=== PATIENT | male | born 1945 | race Caucasian/White ===

== ENCOUNTER → 2018-09-05 07:27 | Outpatient (CLI) | payer MEDICARE, OTHER, SELFPAY ==
[2018-09-06 09:26] LABS: Absolute Lymphocyte Count 2.36 X10^3/ul (0.83-4.51); Absolute Neutrophil Count 3.7 X10^3/uL (2.0-7.7); Basophil# 0.02 X10^3/uL; Basophil% 0.3 % (0-1); Eosinophil# 0.13 X10^3/uL; Eosinophils% 1.9 % (0-5); Hematocrit 43.3 % (40-54); Hemoglobin 13.7 g/dl (13.0-16.5); Lymphocyte # 2.36 X10^3/ul (4.0); Lymphocyte % 35.3 % (19-41); Mean Corp Hgb Conc 31.6 g/gl (32-36); Mean Corpuscular Hgb 29.7 pg (27.0-32.0); Mean Corpuscular Volume 93.9 fL (80-94); Mean Platelet Vol. 10.7 fl (6.2-12.0); Monocyte# 0.51 X10^3/uL; Monocyte% 7.6 % (0-10); Neutrophil # 3.67 X10^3/uL (2.7-7.7); Neutrophil % 54.9 % (47-70); Platelet Count 211 K/mm3 (150-450); RBC Distribution Width CV 13.8 % (11.6-14.6); RBC Distribution Width SD 46.9 fl (35.1-43.9); Red Blood Count 4.61 M/mm3 (4.6-6.2); White Blood Count 6.7 K/mm3 (4.4-11.0)
[2018-09-06 09:28] LABS: POSITIVE COUNT NO; POSITIVE DIFFERENTIAL NO; POSITIVE MORPHOLOGY NO
[2018-09-06 09:49] LABS: ALB/GLOB Ratio 1.1 RATIO (0.9-2.4); AST(SGOT) 19 U/L (15-37); Alanine Aminotransfer ALT/SGPT 22 U/L (16-61); Albumin, Serum 3.7 g/dL (3.2-5.0); Alkaline Phosphatase 74 U/L (45-117); Anion Gap 8 (5-15); BUN 25 mg/dL (7-18); BUN/Creat Ratio 24.3 RATIO (10-20); Calcium,Total 8.6 mg/dL (8.5-10.1); Chloride 104 mmol/L (98-107); Cholesterol 141 mg/dL (200); Creatinine, Serum 1.03 mg/dL (0.70-1.30); EST Glomerular Filtration Rate 75 mL/min (>60); Est Glom Filt Rate - Afr Amer 91 mL/min (>60); Globulin 3.3 g/dL (2.2-4.2); Glucose 90 mg/dL (74-106); High Density Lipoprotein 55 mg/dL; PSA,Total - Annual Screen 2.79 ng/mL (0.00-4.00); Potassium 4.4 mmol/L (3.5-5.1); Sodium Level 140 mmol/L (136-145); Triglycerides 122 mg/dL; Very Low Density Lipoprotein 24 mg/dL (5-40)
== END ==
PROVIDERS: Family Provider Nurse Practitioner; PCP Nurse Practitioner; Referring Provider Nurse Practitioner; Visit Provider Nurse Practitioner
DX: I42.8 Other cardiomyopathies (principal); I25.10 Atherosclerotic heart disease of native coronary artery without angina pectoris; R35.0 Frequency of micturition; Z12.5 Encounter for screening for malignant neoplasm of prostate
CPT/HCPCS: 80053; 80061; 84153; 85025; G0103

== ENCOUNTER → 2018-10-17 23:10 | Outpatient (CLI) | payer MEDICARE, OTHER, SELFPAY ==
[2018-10-17 17:38] VITALS: BMI 26.6
[2018-10-17 23:21] LABS: Absolute Lymphocyte Count 1.03 X10^3/ul (0.83-4.51); Absolute Neutrophil Count 3.8 X10^3/uL (2.0-7.7); Basophil# 0.02 X10^3/uL; Basophil% 0.3 % (0-1); Eosinophil# 0.21 X10^3/uL; Eosinophils% 3.6 % (0-5); Hemoglobin 12.8 g/dl (13.0-16.5); Lymphocyte # 1.03 X10^3/ul (4.0); Lymphocyte % 17.5 % (19-41); Mean Corpuscular Hgb 30.3 pg (27.0-32.0); Mean Corpuscular Volume 94.8 fL (80-94); Mean Platelet Vol. 10.3 fl (6.2-12.0); Monocyte# 0.77 X10^3/uL; Monocyte% 13.1 % (0-10); Neutrophil # 3.83 X10^3/uL (2.7-7.7); Neutrophil % 65.3 % (47-70); POSITIVE COUNT NO; POSITIVE DIFFERENTIAL NO; POSITIVE MORPHOLOGY NO; Platelet Count 187 K/mm3 (150-450); RBC Distribution Width CV 13.4 % (11.6-14.6); RBC Distribution Width SD 44.8 fl (35.1-43.9); Red Blood Count 4.22 M/mm3 (4.6-6.2); White Blood Count 5.9 K/mm3 (4.4-11.0)
--- OUTSIDE RECORDS SUMMARY | 2019-01-19 10:38 | XMS RPT_ITS ---
:1945 Author Organization OHIP Support Name Relationship Address Phone HUSSEIN RIGO Unavailable [address] + [place] [address] BROWN, KAREN Unavailable [address] + [place] [address] HUSSEIN RIGO Unavailable [address] + [place] [address] BROWN, KAREN Unavailable [address] + [place] [address] HUSSEIN RIGO Unavailable [address] + [place] [address] BROWN, KARNE Unavailable [address] + [place] [address] HUSSEIN RIGO Unavailable [address] + [place] [address] BROWN, KAREN Unavailable [address] + [place] [address] HUSSEIN RIGO Unavailable [address] + [place] [address] BROWN, KAREN Unavailable [address] + [place] [address] HUSSEIN RIGO Unavailable [address] + [place] [address] BROWN, KAREN Unavailable [address] + [place] [address] HUSSEIN RIGO Unavailable [address] + [place] [address] BROWN, KAREN Unavailable [address] + [place] [address] HUSSEIN RIGO Unavailable [address] + [place] [address] KAREN VALENCIA Unavailable [address] [facility] + [place] [address] Care Team Providers Name Role Phone eBverley Beasley RADIO AERIAL INSTALLER-C Attending Unavailable Beasley, Beverley RADIO AERIAL INSTALLER-C Primary Care Unavailable Beasley, Beverley RADIO AERIAL INSTALLER-C Referring Unavailable Lakeisha Ferguson Attending Unavailable Marty, Lakeisha Referring Unavailable Beasley, Beverley RADIO AERIAL INSTALLER-C Primary Care Unavailable Asad Oneill Attending Unavailable Beasley, Beverley RADIO AERIAL INSTALLER-C Referring Unavailable Leola Navarro Attending Unavailable Eliana Bruce Attending Unavailable Asad Oneill H Attending Unavailable Beasley, Beverley RADIO AERIAL INSTALLER-C Referring Unavailable Beasley, Beverley RADIO AERIAL INSTALLER-C Attending Unavailable Beasley, Beverley RADIO AERIAL INSTALLER-C Referring Unavailable Beasley, Beverley RADIO AERIAL INSTALLER-C Primary Care Unavailable Max Jimenez Attending Unavailable Beasley, Beverley RADIO AERIAL INSTALLER-C Referring Unavailable CHARLES CM Attending Unavailable Diego, Jennifer K Attending Unavailable LAKEISHA FERGUSON Referring Unavailable VERDOUW, PILO (OT) Attending Unavailable DIEGO, JENNIFER K Referring Unavailable MARTY, LAKEISHA CARTER Referring Unavailable VERDOUW, PILO (OT) Attending Unavailable DIEGO, JENNIFER K Referring Unavailable MARTY, LAKEISHA CARTER Referring Unavailable VERDOUW, PILO (OT) Attending Unavailable DIEGO, JENNIFER K Referring Unavailable MARTY, LAKEISHA CARTER Referring Unavailable VERDOUW, PILO (OT) Attending Unavailable DIEGO, JENNIFER K Referring Unavailable MARTY, LAKEISHA CARTER Referring Unavailable VERDOUW, PILO (OT) Attending Unavailable DIEGO, JENNIFER K Referring Unavailable MARTY, LAKEISHA CARTER Referring Unavailable VERDOUW, PILO (OT) Attending Unavailable DIEGO, JENNIFER K Referring Unavailable PROBLEMS PROBLEMS DATE TYPE CONDITION / CODE ATTENDING STATUS SOURCE 11/04/2018 Active Other general VERDOUW, Active [facility] symptoms and signs / PILO (OT) Clinic Other R68.89(ICD-10) [place] [facility] 11/04/2018 Active Other specified soft VERDOUW, Active [facility] tissue disorders / [facility] (OT) Clinic Other M79.89(ICD-10) [facility] 11/04/2018 Active Stiffness of left VERDOUW, Active [facility] wrist, not elsewhere [facility] (OT) Clinic Other classified / [place] M25.632(ICD-10) Repository 11/04/2018 Active Stiffness of left VERDOUW, Active [facility] elbow, not elsewhere [facility] (OT) Clinic Other classified / [place] M25.622(ICD-10) Repository 11/04/2018 Active Pain in left elbow / VERDOUW, Active [facility] M25.522(ICD-10) [facility]O (OT) Clinic Other [facility] 11/08/2018 Active Greenstick fracture VERDOUW, Active [facility] of shaft of left PILO (OT) Clinic Other ulna, subsequent [facility] encounter for Repository fracture with routine healing / S52.212D(ICD-10) 11/08/2018 Active Pain in left shoulder NA Active [facility] / M25.512(ICD-10) Clinic Other [facility] 11/08/2018 Active Stiffness of left NA Active [facility] shoulder, not Clinic Other elsewhere classified [facility] / M25.612(ICD-10) Repository 10/18/2018 Unknown D64.9 - Anemia, Beasley, Active [facility] unspecified / Beverley RADIO AERIAL INSTALLER-C Community D64.9(ICD-10) Hospital Repository 10/11/2018 Admitting Unknown / Jennifer Bethea K Active [facility] Medical diagnosis UNK(Unknown) Center [place] Repository 09/16/2018 Active Unknown / NA Active [facility] UNK(Unknown) Clinic Other [facility] Rep[facility] 09/15/2018 Unknown 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[place], 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 / I25.10(ICD-10) 09/15/2018 Unknown I48.0 - Paroxysmal [place], Active [facility] atrial fibrillation / [facility] I48.0(ICD-10) Hospital Repository 09/30/2018 Unknown 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, 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 / Beverley RADIO AERIAL INSTALLER-C Community I42.8(ICD-10) Hospital Repository PROCEDURES PROCEDURES No Procedure Records FoundRESULTS RESULTS PROGRESS Observed: 11/22/2018 Status: COMPLETED Source: [place] 2:05 PM [facility] REPOSITORY HNO ID: [id number] Author: Pilo Anne) HAZEL Brody/Keturah Service: (none) Author Type: Occupational Therapist Type: Progress Notes Filed: 11/22/2018 2:11 PM Note Text: Episode Visit Count: 6 Therapist That Will Oversee The Plan Of Care: Zofia Brody Start of Care Date: 11/04/18 Onset Date: 09/08/18 Patient Identified by Name and Date of : Yes REHABILITATION AND SPORTS THERAPY OCCUPATIONAL THERAPY TREATMENT NOTE ASSESSMENT: Dawood Valencia demonstrated difficulty with end range range of motion in the elbow and wrist, weakness in the left hand secondary to ulnar injury, pain in left arm at wrist, forearm and whoulder. The patient will continue to benefit from continued skilled occupational therapy for strengthening, ROM, and soft tissue mobilization PLAN FOR NEXT VISIT: SUBJECTIVE: OT treatment I need some new velcro on my splint Pain Score: 3/10 (1 elbow) Pain Location: Shoulder - Left (left elbow) Description: Aching Post Treatment Pain Score: 3/10 Pain Location: Shoulder - Left Post Treatment Pain Description: Aching OBJECTIVE MEASURES WITH LEVEL OF FUNCTION: UE AROM L Elbow Extension: -10 L Wrist Extension: 62 Degrees L Wrist Flexion: 60 Degrees Tolerated IASTM well. Demonstrated good understanding of new exercises and the purpose of said exercises. TREATMENT: Therapeutic Exercise: 1: Prolonged stretching for elbow extension 2: Prolonged stretching for wrist extension 3: Prolonged stretching wrist flexion 4:* MP flexion with red tputty x 10 reps 5:* Finger flexion with red tputty x 10 reps 6:* IP fisting red tputty x 10 reps 7:* It Support Engineer strengthening red tputty x 10 reps 8:* Tip pinch red tputty x 10 reps each finger 9:* Lateral pinch red tputty x 10 reps 10:* 3 jaw lei pinch red tputty x 10 reps 11:* Finger and thumb extension red tputty x 10 reps 12:* Finger adduction red tputty between each finger x 10 reps each Skilled Intervention: Patient was educated in proper exercise technique and purpose for exercises. Reviewed and educated patient on additions/changes for home exercise program as above (*) Skilled judgment was provided in selection of appropriate interventions. Provided written instruction for home exercise program to facilitate proper performance and compliance. Manual Therapy: 1: IASTM to left upper arm and forearm 2: IASTM to left forearm with wrist movement Skilled Intervention: Manual skills to improve joint mobility, ROM, and decrease pain. Utilized anatomy knowledge of the therapist, and assessment of patient's response to intervention. Fredrick: Ally: Therapeutic Exercise (21755): 1:1 time: 42 minutes (3 units: 38-52 mins) Manual therapy ([id number]): 1:1 time: 18 minutes (1 unit: 8-22 mins) Total time: 60 minutes Pilo Brody OTR/Keturah PROGRESS Observed: 11/22/2018 Status: COMPLETED Source: [place] 1:05 PM [facility] [place] REPOSITORY HNO ID: [id number] Author: Dewayne Adler PT ASSIST Service: (none) Author Type: Relocation Associate Type: Progress Notes Filed: 11/22/2018 1:08 PM Note Text: Episode Visit Count: 6 Therapist That Will Oversee The Plan Of Care: Skylar Lizama Start of Care Date: 11/04/18 Onset Date: 09/08/18 Patient Identified by Name and Date of : Yes REHABILITATION AND SPORTS THERAPY PHYSICAL THERAPY TREATMENT NOTE ASSESSMENT: Dawood Valencia demonstrated difficulty with increasing ROM left shoulder due to painful end range, and difficulty with functional use of left shoulder from both weakness, and lack of ROM. The patient will continue to benefit from continued skilled physical therapy for scapular mobility, stability left shoulder ROM and ROTATOR CUFF strength as able. PLAN FOR NEXT VISIT: continue to address scapular mobility and stability, left, assess use of pulleys vs wand for ROM and pain strengthen left RTC muscles as tolerated SUBJECTIVE: pt reports 8/10 left sholder pain with moving the wrong qay in bed, last night,without movement left shoulder 2-3/10 pain, with moving 8/10 Pain Score: 2/10 Pain Location: Shoulder - Left (with movement 8/10) Description: Sharp Frequency: Intermittent Post Treatment Pain Score: 2/10 Pain Location: Shoulder - Right Post Treatment Pain Description: Sore OBJECTIVE MEASURES WITH LEVEL OF FUNCTION: UE AROM L Shoulder Flex: 148 Degrees (AAROM supine and seated with table slide) TREATMENT: Therapeutic Exercise: 1: Nu step seat 14 level 6 ue/le 6 min 2: seated table slide flexion left 5 x 2 3: supine AAROM flexion 10 x 5 sec hold 4: *seated yenny AAROM left sholder fllexion 10 x 5 sec, standing left shoulder ER AAROM left shoulder 10 x 5 sec Skilled Intervention: Patient was educated in proper exercise technique and purpose for exercises. Skilled judgment was provided in selection of appropriate interventions. Manual Therapy: 1: pt sidelying right , left scapular mobilty and ut stretches 6 min total 2: pt prone anterior pressure with upward and downward rotation 7 min 3: prone a/p mobs of mid and upper thoracic mobs 4 min Skilled Intervention: Manual skills to improve joint mobility, ROM, and decrease pain. Utilized anatomy knowledge of the therapist, and assessment of patient's response to intervention. Billing: Ally: Therapeutic Exercise ([id number]): 1:1 time: 35 minutes (2 units: 23-37 mins) Manual Therapy (05244): 1:1 time: 17 minutes (1 unit: 8-22 mins) Total time: 52 minutes Dewayne Adler PTA CNTHERAPY Observed: 11/22/2018 Status: COMPLETED Source: [place] 11:15 AM [facility] REPOSITORY OT/PT/Speech Visit (LTOT) DAWOOD VALENCIA ([id number]) 1945 M Date Time Provider Department 11/22/18 11:15 AM PILO BRODY (OT) LTOT Date Time Provider Department Center 11/22/2018 11:15 AM [id number], TIMOTHY *LTOT [facility] [address] Reason for Visit: Occupational Therapy [504] Primary Visit Diagnosis:Decreased range of motion of elbow, left [M25.622] Other Visit Diagnoses:Pain in left elbow [M25.522] Decreased range of motion of left wrist [M25.632] Left arm swelling [M79.89] Decreased activities of daily living (ADL) [R68.89] Allergies As of Date: 11/22/2018 Noted Allergy Reaction Bee Stings [Other] 03/27/2008 7 - Swelling CAPOTEN (CAPTOPRIL) 11/05/2005 3 - Cough Date Reviewed: 04/19/2018 Reviewed by: Laura Starks) HARSHA Marcus - Fully Assessed Prescriptions as of 11/22/2018 Sig: METOCLOPRAMIDE 10 MG TABLET Take 1 tablet by mouth three * * HYDROCHLOROTHIAZIDE 12.5 MG T* Take 12.5 mg by mouth once da* * METOPROLOL TARTRATE 50 MG TAB* Take 50 mg by mouth twice alfonso* * DOXAZOSIN 1 MG TABLET Take 1 mg by mouth daily at b* * EYE HEALTH ORAL Take by mouth. * NEXIUM 40 MG CAPSULE,DELAYED * Take one(1) tablet daily. Progress Notes: Pilo Brody, OTR/L, OTR/L 11/22/2018 2:11 PM Signed Episode Visit Count: 6 Therapist That Will Oversee The Plan Of Care: Zofia Brody Start of Care Date: 11/04/18 Onset Date: 09/08/18 Patient Identified by Name and Date of : Yes REHABILITATION AND SPORTS THERAPY OCCUPATIONAL THERAPY TREATMENT NOTE ASSESSMENT: Dawood Valencia demonstrated difficulty with end range range of motion in the elbow and wrist, weakness in the left hand secondary to ulnar injury, pain in left arm at wrist, forearm and whoulder. The patient will continue to benefit from continued skilled occupational therapy for strengthening, ROM, and soft tissue mobilization PLAN FOR NEXT VISIT: SUBJECTIVE: OT treatment I need some new velcro on my splint Pain Score: 3/10 (110 elbow) Pain Location: Shoulder - Left (left elbow) Description: Aching Post Treatment Pain Score: 3/10 Pain Location: Shoulder - Left Post Treatment Pain Description: Aching OBJECTIVE MEASURES WITH LEVEL OF FUNCTION: UE AROM L Elbow Extension: -10 L Wrist Extension: 62 Degrees L Wrist Flexion: 60 Degrees Tolerated IASTM well. Demonstrated good understanding of new exercises and the purpose of said exercises. TREATMENT: Therapeutic Exercise: 1: Prolonged stretching for elbow extension 2: Prolonged stretching for wrist extension 3: Prolonged stretching wrist flexion 4:* MP flexion with red tputty x 10 reps 5:* Finger flexion with red tputty x 10 reps 6:* IP fisting red tputty x 10 reps 7:* It Support Engineer strengthening red tputty x 10 reps 8:* Tip pinch red tputty x 10 reps each finger 9:* Lateral pinch red tputty x 10 reps 10:* 3 jaw lei pinch red tputty x 10 reps 11:* Finger and thumb extension red tputty x 10 reps 12:* Finger adduction red tputty between each finger x 10 reps each Skilled Intervention: Patient was educated in proper exercise technique and purpose for exercises. Reviewed and educated patient on additions/changes for home exercise program as above (*) Skilled judgment was provided in selection of appropriate interventions. Provided written instruction for home exercise program to facilitate proper performance and compliance. Manual Therapy: 1: IASTM to left upper arm and forearm 2: IASTM to left forearm with wrist movement Skilled Intervention: Manual skills to improve joint mobility, ROM, and decrease pain. Utilized anatomy knowledge of the therapist, and assessment of patient's response to intervention. Billing: Ally: Therapeutic Exercise ([id number]): 1:1 time: 42 minutes (3 units: 38-52 mins) Manual therapy (50001): 1:1 time: 18 minutes (1 unit: 8-22 mins) Total time: 60 minutes Pilo Brody OTR/Keturah CNTHERAPY Observed: 11/22/2018 Status: COMPLETED Source: [place] 10:00 AM [facility] REPOSITORY OT/PT/Speech Visit (LDPT) DAWOOD VALENCIA ([id number]) 1945 M Date Time Provider Department 11/22/18 10:00 AM DEWAYNE ADLER ([facility]) LDPT Date Time Provider Department Center 11/22/2018 10:00 AM [id number], PATRICK *LDPT [facility] [address] Reason for Visit: Physical Therapy [503] Primary Visit Diagnosis:Acute pain of left shoulder [M25.512] Other Visit Diagnosis:Shoulder stiffness, left [M25.612] Allergies As of Date: 11/22/2018 Noted Allergy Reaction Bee Stings [Other] 03/27/2008 7 - Swelling CAPOTEN (CAPTOPRIL) 11/05/2005 3 - Cough Date Reviewed: 04/19/2018 Reviewed by: Laura (Rn) HARSHA Marcus - Fully Assessed Prescriptions as of 11/22/2018 Sig: METOCLOPRAMIDE 10 MG TABLET Take 1 tablet by mouth three * * HYDROCHLOROTHIAZIDE 12.5 MG T* Take 12.5 mg by mouth once da* * METOPROLOL TARTRATE 50 MG TAB* Take 50 mg by mouth twice alfonso* * DOXAZOSIN 1 MG TABLET Take 1 mg by mouth daily at b* * EYE HEALTH ORAL Take by mouth. * NEXIUM 40 MG CAPSULE,DELAYED * Take one(1) tablet daily. Progress Notes: Dewayne Adler PTA, PT ASSIST 11/22/2018 1:08 PM Signed Episode Visit Count: 6 Therapist That Will Oversee The Plan Of Care: Skylar Lizama Start of Care Date: 11/04/18 Onset Date: 09/08/18 Patient Identified by Name and Date of : Yes REHABILITATION AND SPORTS THERAPY PHYSICAL THERAPY TREATMENT NOTE ASSESSMENT: Dawood Valencia demonstrated difficulty with increasing ROM left shoulder due to painful end range, and difficulty with functional use of left shoulder from both weakness, and lack of ROM. The patient will continue to benefit from continued skilled physical therapy for scapular mobility, stability left shoulder ROM and ROTATOR CUFF strength as able. PLAN FOR NEXT VISIT: continue to address scapular mobility and stability, left, assess use of pulleys vs wand for ROM and pain strengthen left RTC muscles as tolerated SUBJECTIVE: pt reports 8/10 left sholder pain with moving the wrong qay in bed, last night,without movement left shoulder 2-3/10 pain, with moving 8/10 Pain Score: 2/10 Pain Location: Shoulder - Left (with movement 8/10) Description: Sharp Frequency: Intermittent Post Treatment Pain Score: 2/10 Pain Location: Shoulder - Right Post Treatment Pain Description: Sore OBJECTIVE MEASURES WITH LEVEL OF FUNCTION: UE AROM L Shoulder Flex: 148 Degrees (AAROM supine and seated with table slide) TREATMENT: Therapeutic Exercise: 1: Nu step seat 14 level 6 ue/le 6 min 2: seated table slide flexion left 5 x 2 3: supine AAROM flexion 10 x 5 sec hold 4: *seated yenny AAROM left sholder fllexion 10 x 5 sec, standing left shoulder ER AAROM left shoulder 10 x 5 sec Skilled Intervention: Patient was educated in proper exercise technique and purpose for exercises. Skilled judgment was provided in selection of appropriate interventions. Manual Therapy: 1: pt sidelying right , left scapular mobilty and ut stretches 6 min total 2: pt prone anterior pressure with upward and downward rotation 7 min 3: prone a/p mobs of mid and upper thoracic mobs 4 min Skilled Intervention: Manual skills to improve joint mobility, ROM, and decrease pain. Utilized anatomy knowledge of the therapist, and assessment of patient's response to intervention. Billing: Ally: Therapeutic Exercise ([id number]): 1:1 time: 35 minutes (2 units: 23-37 mins) Manual Therapy (35609): 1:1 time: 17 minutes (1 unit: 8-22 mins) Total time: 52 minutes Dewayne Adler PTA PROGRESS Observed: 11/18/2018 Status: COMPLETED Source: [place] 4:16 PM [facility] REPOSITORY [facility] ID: [id number] Author: DOMENIC Sanches Ot Service: (none) Author Type: Occupational Therapist Type: Progress Notes Filed: 11/18/2018 4:19 PM Note Text: Episode Visit Count: 5 Therapist That Will Oversee The Plan Of Care: Zofia Brody Start of Care Date: 11/04/18 Onset Date: 09/08/18 Patient Identified by Name and Date of : Yes REHABILITATION AND SPORTS THERAPY OCCUPATIONAL THERAPY TREATMENT NOTE ASSESSMENT: Dawood Valencia demonstrated difficulty with pain in the left arm, limited ROM in the left elbow, wrist and forearm, decreased strength in the left arm. The patient will continue to benefit from continued skilled occupational therapy for stretching, strengthening, pain management, PLAN FOR NEXT VISIT: SUBJECTIVE: OT treatment My arm is slowly feeling better. Pain Score: 3/10 Pain Location: Shoulder - Left Description: Aching OBJECTIVE MEASURES WITH LEVEL OF FUNCTION: Hand Evaluation L Lateral Pinch (lbs): 10 lbs UE AROM L Elbow Extension: -14 (-9 after treatment) L Wrist Extension: 55 Degrees L Wrist Flexion: 50 Degrees UE and Cervical Strength L It Support Engineer (Position 2) (lbs): 45 L Lateral Pinch (lbs): 10 lbs TREATMENT: Therapeutic Exercise: 1: Prolonged stretching for elbow extension 2: Prolonged stretching for wrist extension 3: Prolonged stretching wrist flexion 4: Prolonged stretching in supination and pronation 5: 2# wrist flexion x 10 reps 6: 2# wrist extension x 10 reps 7: 1# pronation/supination x 10 reps Skilled Intervention: Patient was educated in proper exercise technique and purpose for exercises. Skilled judgment was provided in selection of appropriate interventions. Billing: [place]: Therapeutic Exercise ([id number]): 1:1 time: 45 minutes (3 units: 38-52 mins) Total time: 45 minutes HAZEL Sanches/Keturah PROGRESS Observed: 11/18/2018 Status: COMPLETED Source: [place] 12:55 PM [facility] [place] REPOSITORY O ID: [id number] Author: Drew (Pt) NAVEEN Lizama Service: (none) Author Type: Physical Therapist Type: Progress Notes Filed: 11/18/2018 1:03 PM Note Text: Episode Visit Count: 5 Therapist That Will Oversee The Plan Of Care: Skylar Lizama Start of Care Date: 11/04/18 Onset Date: 09/08/18 Patient Identified by Name and Date of : Yes REHABILITATION AND SPORTS THERAPY PHYSICAL THERAPY TREATMENT NOTE ASSESSMENT: Dawood W Erik demonstrated difficulty with continued L shoulder pain AND limited ROM. The patient will continue to benefit from continued skilled physical therapy for improved use of L UE for improved ADLs. PLAN FOR NEXT VISIT: address scap mobility AND shoulder ROM as tolerated. try Nu- step for L knee AND UE ROM SUBJECTIVE: pt c/o L shoulder pain with exercise, activity AND sleeping. denies forearm or wrist pain other than stiffness. pt has still not heard any clarification from 's office re: clarification on shoulder injury. pt says he's having R TKA 12/23/18 PT has made numerous attempts to call 's office to request clarification on shoulder dx/injury AND to request medical records, the office called back today AND said they had faxed info to us (fax number was clarified) which we never received so they said they'd refax it (still have not received 3-4 hours later). Pain Score: 1/10 (6/10 at worst with mvmt AND sleeping) Pain Location: Shoulder - Left Description: Aching;Dull Frequency: Intermittent Post Treatment Pain Score: 4/10 Pain Location: Shoulder - Right Post Treatment Pain Description: Sore OBJECTIVE MEASURES WITH LEVEL OF FUNCTION: Posture / Alignment Posture: (L LE significant genu varus) UE AROM L Shoulder Flex: 140 Degrees (seated - limited by mild/moderate pain) L Shoulder ABduction: 80 Degrees (seated - limited by significant pain) L Shoulder External Rotation: 45 Degrees (supine 90/90. better ROM AND less pain with arm at side) LE AROM R Knee Extension: 0 Degrees R Knee Flexion: 130 Degrees L Knee Extension: -9 Degrees L Knee Flexion: 110 Degrees UE and Cervical Strength L Shoulder Flexion: 4+/5 L Shoulder Abduction (C5): 4/5 (limited by pain) Restricted scapular mobility L UE TREATMENT: Therapeutic Exercise: 1: UBE L2x5' B LEs 2: supine AAROM FE AND ER 3: seated AROM FE, Abd AND ER Skilled Intervention: Patient was educated in proper exercise technique and purpose for exercises. Skilled judgment was provided in selection of appropriate interventions. Correct performance of therapeutic exercises was facilitated with verbal and visual cuing. Patient education as noted. Manual Therapy: 1: L shoulder GH mobilization posterior AND inferior 2: scapular mobilization (IA with hawk associate professor of history tool) 3: UT stretch L Skilled Intervention: Manual skills to improve joint mobility, ROM, and decrease pain. Utilized anatomy knowledge of the therapist, and assessment of patient's response to intervention. Billing: Ally: Therapeutic Exercise (12009): 1:1 time: 15 minutes (1 unit: 8-22 mins) Manual Therapy (10159): 1:1 time: 25 minutes (2 units: 23- 37 mins) Total time: 40 minutes Drew Lizama PT CNTHERAPY Observed: 11/18/2018 Status: COMPLETED Source: [place] 11:00 AM [facility] REPOSITORY OT/PT/Speech Visit (LTOT) DAWOOD VALENCIA ([id number]) 1945 M Date Time Provider Department 11/18/18 11:00 AM PILO BRODY (OT) OT Date Time Provider Department Center 11/18/2018 11:00 AM [id number], TIMOTHY *LTOT [facility] [address] Reason for Visit: Occupational Therapy [504] Primary Visit Diagnosis:Decreased range of motion of elbow, left [M25.622] Other Visit Diagnoses:Pain in left elbow [M25.522] Decreased range of motion of left wrist [M25.632] Left arm swelling [M79.89] Decreased activities of daily living (ADL) [R68.89] Allergies As of Date: 11/18/2018 Noted Allergy Reaction Bee Stings [Other] 03/27/2008 7 - Swelling CAPOTEN (CAPTOPRIL) 11/05/2005 3 - Cough Date Reviewed: 04/19/2018 Reviewed by: Laura (Rn) HARSHA Marcus - Fully Assessed Prescriptions as of 11/18/2018 Sig: METOCLOPRAMIDE 10 MG TABLET Take 1 tablet by mouth three * * HYDROCHLOROTHIAZIDE 12.5 MG T* Take 12.5 mg by mouth once da* * METOPROLOL TARTRATE 50 MG TAB* Take 50 mg by mouth twice alfonso* * DOXAZOSIN 1 MG TABLET Take 1 mg by mouth daily at b* * EYE HEALTH ORAL Take by mouth. * NEXIUM 40 MG CAPSULE,DELAYED * Take one(1) tablet daily. Progress Notes: Pilo Brody OTR/L, OTR/L 11/18/2018 4:19 PM Signed Episode Visit Count: 5 Therapist That Will Oversee The Plan Of Care: Zofia Brody Start of Care Date: 11/04/18 Onset Date: 09/08/18 Patient Identified by Name and Date of : Yes REHABILITATION AND SPORTS THERAPY OCCUPATIONAL THERAPY TREATMENT NOTE ASSESSMENT: Dawood Valencia demonstrated difficulty with pain in the left arm, limited ROM in the left elbow, wrist and forearm, decreased strength in the left arm. The patient will continue to benefit from continued skilled occupational therapy for stretching, strengthening, pain management, PLAN FOR NEXT VISIT: SUBJECTIVE: OT treatment My arm is slowly feeling better. Pain Score: 3/10 Pain Location: Shoulder - Left Description: Aching OBJECTIVE MEASURES WITH LEVEL OF FUNCTION: Hand Evaluation L Lateral Pinch (lbs): 10 lbs UE AROM L Elbow Extension: -14 (-9 after treatment) L Wrist Extension: 55 Degrees L Wrist Flexion: 50 Degrees UE and Cervical Strength L It Support Engineer (Position 2) (lbs): 45 L Lateral Pinch (lbs): 10 lbs TREATMENT: Therapeutic Exercise: 1: Prolonged stretching for elbow extension 2: Prolonged stretching for wrist extension 3: Prolonged stretching wrist flexion 4: Prolonged stretching in supination and pronation 5: 2# wrist flexion x 10 reps 6: 2# wrist extension x 10 reps 7: 1# pronation/supination x 10 reps Skilled Intervention: Patient was educated in proper exercise technique and purpose for exercises. Skilled judgment was provided in selection of appropriate interventions. [place]: Ally: Therapeutic Exercise ([id number]): 1:1 time: 45 minutes (3 units: 38-52 mins) Total time: 45 minutes DOMENIC Sanches CNTHERAPY Observed: 11/18/2018 Status: COMPLETED Source: [place] 10:00 AM [facility] REPOSITORY OT/PT/Speech Visit (LDPT) DAWOOD VALENCIA ([id number]) 1945 M Date Time Provider Department 11/18/18 10:00 AM DREW LIZAMA (PT) LDPT Date Time Provider Department Center 11/18/2018 10:00 AM [id number], DREW (P*LDPT [address] Reason for Visit: Physical Therapy [503] Primary Visit Diagnosis:Acute pain of left shoulder [M25.512] Other Visit Diagnosis:Shoulder stiffness, left [M25.612] Allergies As of Date: 11/18/2018 Noted Allergy Reaction Bee Stings [Other] 03/27/2008 7 - Swelling CAPOTEN (CAPTOPRIL) 11/05/2005 3 - Cough Date Reviewed: 04/19/2018 Reviewed by: Laura (Rn) HARSHA Marcus - Fully Assessed Prescriptions as of 11/18/2018 Sig: METOCLOPRAMIDE 10 MG TABLET Take 1 tablet by mouth three * * HYDROCHLOROTHIAZIDE 12.5 MG T* Take 12.5 mg by mouth once da* * METOPROLOL TARTRATE 50 MG TAB* Take 50 mg by mouth twice alfonso* * DOXAZOSIN 1 MG TABLET Take 1 mg by mouth daily at b* * EYE HEALTH ORAL Take by mouth. * NEXIUM 40 MG CAPSULE,DELAYED * Take one(1) tablet daily. Progress Notes: Drew Lizama, PT, PT 11/18/2018 1:03 PM Signed Episode Visit Count: 5 Therapist That Will Oversee The Plan Of Care: Skylar Lizama Start of Care Date: 11/04/18 Onset Date: 09/08/18 Patient Identified by Name and Date of : Yes REHABILITATION AND SPORTS THERAPY PHYSICAL THERAPY TREATMENT NOTE ASSESSMENT: Dawood Valencia demonstrated difficulty with continued L shoulder pain AND limited ROM. The patient will continue to benefit from continued skilled physical therapy for improved use of L UE for improved ADLs. PLAN FOR NEXT VISIT: address scap mobility AND shoulder ROM as tolerated. try Nu- step for L knee AND UE ROM SUBJECTIVE: pt c/o L shoulder pain with exercise, activity AND sleeping. denies forearm or wrist pain other than stiffness. pt has still not heard any clarification from 's office re: clarification on shoulder injury. pt says he's having R TKA 12/23/18 PT has made numerous attempts to call 's office to request clarification on shoulder dx/injury AND to request medical records, the office called back today AND said they had faxed info to us (fax number was clarified) which we never received so they said they'd refax it (still have not received 3-4 hours later). Pain Score: 1/10 (6/10 at worst with mvmt AND sleeping) Pain Location: Shoulder - Left Description: Aching;Dull Frequency: Intermittent Post Treatment Pain Score: 4/10 Pain Location: Shoulder - Right Post Treatment Pain Description: Sore OBJECTIVE MEASURES WITH LEVEL OF FUNCTION: Posture / Alignment Posture: (L LE significant genu varus) UE AROM L Shoulder Flex: 140 Degrees (seated - limited by mild/moderate pain) L Shoulder ABduction: 80 Degrees (seated - limited by significant pain) L Shoulder External Rotation: 45 Degrees (supine 90/90. better ROM AND less pain with arm at side) LE AROM R Knee Extension: 0 Degrees R Knee Flexion: 130 Degrees L Knee Extension: -9 Degrees L Knee Flexion: 110 Degrees UE and Cervical Strength L Shoulder Flexion: 4+/5 L Shoulder Abduction (C5): 4/5 (limited by pain) Restricted scapular mobility L UE TREATMENT: Therapeutic Exercise: 1: UBE L2x5' B LEs 2: supine AAROM FE AND ER 3: seated AROM FE, Abd AND ER Skilled Intervention: Patient was educated in proper exercise technique and purpose for exercises. Skilled judgment was provided in selection of appropriate interventions. Correct performance of therapeutic exercises was facilitated with verbal and visual cuing. Patient education as noted. Manual Therapy: 1: L shoulder GH mobilization posterior AND inferior 2: scapular mobilization (IA with hawk associate professor of history tool) 3: UT stretch L Skilled Intervention: Manual skills to improve joint mobility, ROM, and decrease pain. Utilized anatomy knowledge of the therapist, and assessment of patient's response to intervention. Billing: Ally: Therapeutic Exercise ([id number]): 1:1 time: 15 minutes (1 unit: 8-22 mins) Manual Therapy ([id number]): 1:1 time: 25 minutes (2 units: 23- 37 mins) Total time: 40 minutes Drew Lizama PT PROGRESS Observed: 11/15/2018 Status: COMPLETED Source: [place] 3:29 PM [facility] REPOSITORY O ID: [id number] Author: Pilo Brody OTR/[place] Service: (none) Author Type: Occupational Therapist Type: Progress Notes Filed: 11/15/2018 3:39 PM Note Text: Episode Visit Count: 4 Therapist That Will Oversee The Plan Of Care: Zofia Brody Start of Care Date: 11/04/18 Onset Date: 09/08/18 Patient Identified by Name and Date of : Yes REHABILITATION AND SPORTS THERAPY OCCUPATIONAL THERAPY TREATMENT NOTE ASSESSMENT: Dawood Valencia demonstrated difficulty with elbow range of motion, edema and end range motion of the wrist and improvements in overall wrist range of motion. The patient will continue to benefit from continued skilled occupational therapy for stretching, edema management and strengthening. PLAN FOR NEXT VISIT: progress stretching edema management SUBJECTIVE: OT treatment I hate that splint. If I could get out of the splint I think I would have better range of motion. Pain Score: 3/10 Pain Location: Shoulder - Left;Upper Arm - Left;Elbow - Left;Forearm - Left;Wrist - Left Description: Aching (especially at end range) Frequency: Intermittent Post Treatment Pain Score: 0/10 OBJECTIVE MEASURES WITH LEVEL OF FUNCTION: UE AROM L Elbow Extension: -18 (-12 after treatment) L Wrist Extension: 53 Degrees L Wrist Flexion: 55 Degrees Tolerated manual therapy well with an increase in elbow ROM after treatment. Wrist motion remained the same but there was a slight reduction in visible edema in the forearm and wrist after treatment. TREATMENT: Therapeutic Exercise: 1: Prolonged stretching for elbow extension 2: Prolonged stretching for wrist extension 3: Prolonged stretching wrist flexion Skilled Intervention: Patient was educated in proper exercise technique and purpose for exercises. Skilled judgment was provided in selection of appropriate interventions. Manual Therapy: 1: IASTM to left upper arm and forearm 2: IDN to musculature in the upper arm/above the elbow 3: IDN to musculature in forearm and wrist for muscle lengthening Skilled Intervention: Manual skills to improve joint mobility, ROM, and decrease pain. Utilized anatomy knowledge of the therapist, and assessment of patient's response to intervention. Integrative dry needling to left above elbow and below the elbow to address muscle pain and muscle lengthening. Needle size: 30 gauge x 1 and 30 gauge x 1/2. Pistoning used to address soft tissue restriction. Patient education on precautions, safety, risks, and other treatment options regarding dry needling. Verbal consent received. Billing: Ally: Therapeutic Exercise ([id number]): 1:1 time: 30 minutes (2 units: 23-37 mins) Manual therapy ([id number]): 1:1 time: 45 minutes (3 units: 38- 52 mins) Total time: 75 minutes HAZEL Sanches/Keturah PROGRESS Observed: 11/15/2018 Status: COMPLETED Source: [place] 2:01 PM [facility] RE[facility] HNO ID: [id number] Author: Dewayne (Raina) NAVEEN Adler ASSIST Service: (none) Author Type: Relocation Associate Type: Progress Notes Filed: 11/15/2018 2:06 PM Note Text: Episode Visit Count: 4 Therapist That Will Oversee The Plan Of Care: Skylar Lizama Start of Care Date: 11/04/18 Onset Date: 09/08/18 Patient Identified by Name and Date of : Yes REHABILITATION AND SPORTS THERAPY PHYSICAL THERAPY TREATMENT NOTE ASSESSMENT: Dawood Valencia demonstrated difficulty with scapula - humeral rhythm with protracted scapula due to overuse of left lat. and improvements in thoracic and cervical posture. The patient will continue to benefit from continued skilled physical therapy for increased strength of scapular retractors and decreased use of left lat with left shoulder flexion and strengthening of left shoulder complex PLAN FOR NEXT VISIT: progress increased use of scapular retractors vs latisimus dorsi, with left shouldr flexion, progress strength and ROM left shoulder complex as tolerated SUBJECTIVE: pt reports left shoulder wakes him up at night at least twice a night Pain Score: 2/10 Pain Location: Shoulder - Left (left elbow no pain) Description: Aching Frequency: Intermittent Post Treatment Pain Score: 3/10 Pain Location: Shoulder - Left (lateral and posterior) Post Treatment Pain Description: Sore OBJECTIVE MEASURES WITH LEVEL OF FUNCTION: UE AROM L Shoulder Flex: 149 Degrees (supine AAROM) L Shoulder External Rotation: 48 Degrees (supine AAROM) TREATMENT: Therapeutic Exercise: 1: ube level 2 3 min forward/3 in retro 2: supine AAROM left shoulder flexion 10 x 5 sec hold, followed by AAROM left shoulder ER 5 sec x 10 3: supine left lat stretch wit AAROM left shoulder flexion, 20 sec x 3 4: standing left shoulder extension with scapular depression green tb 10 x, orange tb 10 x* HEP with orange tb 5: standing bilateral mid trap rows green tb 10 x, orange tb 10 x* Skilled Intervention: Patient was educated in proper exercise technique and purpose for exercises. Reviewed and educated patient on additions/changes for home exercise program as above (*) Reviewed and educated patient on additions/changes for home exercise program Provided written instruction for home exercise program to facilitate proper performance and compliance. Manual Therapy: 1: L shoulder GH mobilization posterior lateral Skilled Intervention: Manual skills to improve joint mobility, ROM, and decrease pain. Utilized anatomy knowledge of the therapist, and assessment of patient's response to intervention. Billing: Ally: Therapeutic Exercise ([id number]): 1:1 time: 40 minutes (3 units: 38-52 mins) Manual Therapy ([id number]): 1:1 time: 5 minutes (no charge) Total time: 45 minutes Dewayne Adler PTA CNTHERAPY Observed: 11/15/2018 Status: COMPLETED Source: [place] 1:45 PM [facility] REPOSITORY OT/PT/Speech Visit (LTOT) DAWOOD VALENCIA ([id number]) 1945 M Date Time Provider Department 11/15/18 1:45 PM PILO BRODY (OT) LTOT Date Time Provider Department [place] 11/15/2018 1:45 PM [id number], TIMOTHY *LTOT [facility] [address] Reason for Visit: Occupational Therapy [504] Primary Visit Diagnosis:Decreased range of motion of elbow, left [M25.622] Other Visit Diagnoses:Pain in left elbow [M25.522] Decreased range of motion of left wrist [M25.632] Left arm swelling [M79.89] Decreased activities of daily living (ADL) [R68.89] Allergies As of Date: 11/15/2018 Noted Allergy Reaction Bee Stings [Other] 03/27/2008 7 - Swelling CAPOTEN (CAPTOPRIL) 11/05/2005 3 - Cough Date Reviewed: 04/19/2018 Reviewed by: Laura Starks) HARSHA Marcus - Fully Assessed Prescriptions as of 11/15/2018 Sig: METOCLOPRAMIDE 10 MG TABLET Take 1 tablet by mouth three * * HYDROCHLOROTHIAZIDE 12.5 MG T* Take 12.5 mg by mouth once da* * METOPROLOL TARTRATE 50 MG TAB* Take 50 mg by mouth twice alfonso* * DOXAZOSIN 1 MG TABLET Take 1 mg by mouth daily at b* * EYE HEALTH ORAL Take by mouth. * NEXIUM 40 MG CAPSULE,DELAYED * Take one(1) tablet daily. Progress Notes: Pilo Brody, OTR/L, OTR/L 11/15/2018 3:39 PM Signed Episode Visit Count: 4 Therapist That Will Oversee The Plan Of Care: Zofia Brody Start of Care Date: 11/04/18 Onset Date: 09/08/18 Patient Identified by Name and Date of : Yes REHABILITATION AND SPORTS THERAPY OCCUPATIONAL THERAPY TREATMENT NOTE ASSESSMENT: Dawood Valencia demonstrated difficulty with elbow range of motion, edema and end range motion of the wrist and improvements in overall wrist range of motion. The patient will continue to benefit from continued skilled occupational therapy for stretching, edema management and strengthening. PLAN FOR NEXT VISIT: progress stretching edema management SUBJECTIVE: OT treatment I hate that splint. If I could get out of the splint I think I would have better range of motion. Pain Score: 3/10 Pain Location: Shoulder - Left;Upper Arm - Left;Elbow - Left;Forearm - Left;Wrist - Left Description: Aching (especially at end range) Frequency: Intermittent Post Treatment Pain Score: 0/10 OBJECTIVE MEASURES WITH LEVEL OF FUNCTION: UE AROM L Elbow Extension: -18 (-12 after treatment) L Wrist Extension: 53 Degrees L Wrist Flexion: 55 Degrees Tolerated manual therapy well with an increase in elbow ROM after treatment. Wrist motion remained the same but there was a slight reduction in visible edema in the forearm and wrist after treatment. TREATMENT: Therapeutic Exercise: 1: Prolonged stretching for elbow extension 2: Prolonged stretching for wrist extension 3: Prolonged stretching wrist flexion Skilled Intervention: Patient was educated in proper exercise technique and purpose for exercises. Skilled judgment was provided in selection of appropriate interventions. Manual Therapy: 1: IASTM to left upper arm and forearm 2: IDN to musculature in the upper arm/above the elbow 3: IDN to musculature in forearm and wrist for muscle lengthening Skilled Intervention: Manual skills to improve joint mobility, ROM, and decrease pain. Utilized anatomy knowledge of the therapist, and assessment of patient's response to intervention. Integrative dry needling to left above elbow and below the elbow to address muscle pain and muscle lengthening. Needle size: 30 gauge x 1 and 30 gauge x 1/2. Pistoning used to address soft tissue restriction. Patient education on precautions, safety, risks, and other treatment options regarding dry needling. Verbal consent received. Billing: Ally: Therapeutic Exercise ([id number]): 1:1 time: 30 minutes (2 units: 23-37 mins) Manual therapy ([id number]): 1:1 time: 45 minutes (3 units: 38- 52 mins) Total time: 75 minutes Pilo Brody OTR/L CNTHERAPY Observed: 11/15/2018 Status: COMPLETED Source: [place] 12:45 PM [facility] REPOSITORY OT/PT/Speech Visit (LDPT) DAWOOD VALENCIA ([id number]) 1945 M Date Time Provider Department 11/15/18 12:45 PM DEWAYNE ADLER ([facility]) LDPT Date Time Provider Department Center 11/15/2018 12:45 PM [id number], PATRICK *LDPT [address] Reason for Visit: Physical Therapy [503] Primary Visit Diagnosis:Acute pain of left shoulder [M25.512] Other Visit Diagnosis:Shoulder stiffness, left [M25.612] Allergies As of Date: 11/15/2018 Noted Allergy Reaction Bee Stings [Other] 03/27/2008 7 - Swelling CAPOTEN (CAPTOPRIL) 11/05/2005 3 - Cough Date Reviewed: 04/19/2018 Reviewed by: Laura (Rn) HARSHA Marcus - Fully Assessed Prescriptions as of 11/15/2018 Sig: METOCLOPRAMIDE 10 MG TABLET Take 1 tablet by mouth three * * HYDROCHLOROTHIAZIDE 12.5 MG T* Take 12.5 mg by mouth once da* * METOPROLOL TARTRATE 50 MG TAB* Take 50 mg by mouth twice alfonso* * DOXAZOSIN 1 MG TABLET Take 1 mg by mouth daily at b* * EYE HEALTH ORAL Take by mouth. * NEXIUM 40 MG CAPSULE,DELAYED * Take one(1) tablet daily. Progress Notes: Dewayne Adler PTA, PT ASSIST 11/15/2018 2:06 PM Signed Episode Visit Count: 4 Therapist That Will Oversee The Plan Of Care: Skylar Lizama Start of Care Date: 11/04/18 Onset Date: 09/08/18 Patient Identified by Name and Date of : Yes REHABILITATION AND SPORTS THERAPY PHYSICAL THERAPY TREATMENT NOTE ASSESSMENT: Dawood Valencia demonstrated difficulty with scapula - humeral rhythm with protracted scapula due to overuse of left lat. and improvements in thoracic and cervical posture. The patient will continue to benefit from continued skilled physical therapy for increased strength of scapular retractors and decreased use of left lat with left shoulder flexion and strengthening of left shoulder complex PLAN FOR NEXT VISIT: progress increased use of scapular retractors vs latisimus dorsi, with left shouldr flexion, progress strength and ROM left shoulder complex as tolerated SUBJECTIVE: pt reports left shoulder wakes him up at night at least twice a night Pain Score: 2/10 Pain Location: Shoulder - Left (left elbow no pain) Description: Aching Frequency: Intermittent Post Treatment Pain Score: 3/10 Pain Location: Shoulder - Left (lateral and posterior) Post Treatment Pain Description: Sore OBJECTIVE MEASURES WITH LEVEL OF FUNCTION: UE AROM L Shoulder Flex: 149 Degrees (supine AAROM) L Shoulder External Rotation: 48 Degrees (supine AAROM) TREATMENT: Therapeutic Exercise: 1: ube level 2 3 min forward/3 in retro 2: supine AAROM left shoulder flexion 10 x 5 sec hold, followed by AAROM left shoulder ER 5 sec x 10 3: supine left lat stretch wit AAROM left shoulder flexion, 20 sec x 3 4: standing left shoulder extension with scapular depression green tb 10 x, orange tb 10 x* HEP with orange tb 5: standing bilateral mid trap rows green tb 10 x, orange tb 10 x* Skilled Intervention: Patient was educated in proper exercise technique and purpose for exercises. Reviewed and educated patient on additions/changes for home exercise program as above (*) Reviewed and educated patient on additions/changes for home exercise program Provided written instruction for home exercise program to facilitate proper performance and compliance. Manual Therapy: 1: L shoulder GH mobilization posterior lateral Skilled Intervention: Manual skills to improve joint mobility, ROM, and decrease pain. Utilized anatomy knowledge of the therapist, and assessment of patient's response to intervention. Billing: Ally: Therapeutic Exercise ([id number]): 1:1 time: 40 minutes (3 units: 38-52 mins) Manual Therapy ([id number]): 1:1 time: 5 minutes (no charge) Total time: 45 minutes Dewayne Adler PTA PROGRESS Observed: 11/11/2018 Status: COMPLETED Source: [place] 1:26 PM [facility] REPOSITORY O ID: [id number] Author: Drew (Pt) NAVEEN Lizama Service: (none) Author Type: Physical Therapist Type: Progress Notes Filed: 11/11/2018 1:35 PM Note Text: Episode Visit Count: 3 Therapist That Will Oversee The Plan Of Care: Skylar Lizama Start of Care Date: 11/04/18 Onset Date: 09/08/18 Patient Identified by Name and Date of : Yes REHABILITATION AND SPORTS THERAPY PHYSICAL THERAPY TREATMENT NOTE ASSESSMENT: Dawood Valencia demonstrated improvements in L elbow ROM but difficulty with L shoulder ROM due to pain especially with IR AND ER. The patient will continue to benefit from continued skilled physical therapy for ROM AND strengthening and improved functional use of L UE. PLAN FOR NEXT VISIT: progress L shoulder ROM AND strength as tolerated SUBJECTIVE: pt reports L shoulder with increased pain AND soreness after PT otherwise with minimal pain, says the shoulder is only thing that hurts him - wrist AND forearm is stiff (especially from wearing splint) but not painful. pt says he hasn't heard from either Dr regarding clarification of shoulder. has f/u with Dr Ferguson 11/[address] Bethea 12/01. Pt says he'd like to get all his care transferred to Dr Bethea, also reports that he will go to Dr Bethea for TKA if AND when he has that done. Discussed C9 issues AND clarification on shoulder injury. PT called [facility] (Dr Bethea's office) to request records AND clarification. 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) UE AROM L Shoulder Internal Rotation (Functional): L5 (with increased shoulder pain) UE and Cervical Strength L Shoulder Flexion: 4+/5 L Shoulder Abduction (C5): 4/5 L knee genu varus deformity TREATMENT: Therapeutic Exercise: 1: UBE L2x10' B UEs standing 2: wall wash FE 10x 3: wall push-ups 10xB 4: standing IR/ER orange TB 15-20xea 5: standing shoulder flexion AND Abd 2#B 10xea 6: standing bicep curls 2#B 10x 7: standing forearm supination AND pronation 2#B 10x 8: IR towel stretch behind the back Skilled Intervention: Patient was educated in proper exercise technique and purpose for exercises. Skilled judgment was provided in selection of appropriate interventions. Correct performance of therapeutic exercises was facilitated with verbal and visual cuing. Educated patient on rationale for performing exercises in regards to increase ease of ADL and ROM and function Patient education as noted. Billing: Ally: Therapeutic Exercise ([id number]): 1:1 time: 40 minutes (3 units: 38-52 mins) Total time: 40 minutes Drew Lizama PT PROGRESS Observed: 11/11/2018 Status: COMPLETED Source: [place] 1:22 PM [facility] REPOSITORY HNO ID: [id number] Author: HAZEL Sanches Ot/Keturah Service: (none) Author Type: Occupational Therapist Type: Progress Notes Filed: 11/11/2018 1:32 PM Note Text: Episode Visit Count: 3 Therapist That Will Oversee The Plan Of Care: Zofia Brody Start of Care Date: 11/04/18 Onset Date: 09/08/18 Patient Identified by Name and Date of : Yes REHABILITATION AND SPORTS THERAPY OCCUPATIONAL THERAPY TREATMENT NOTE ASSESSMENT: Dawood Valencia demonstrated difficulty with end range range of motion in the left elbow, forearm and wrist and improvements in overall ROM, enterprise mobility architect and pinch. The patient will continue to benefit from continued skilled occupational therapy for stretching, pain management, and strengthening as able. PLAN FOR NEXT VISIT: SUBJECTIVE: OT treatment I hate this splint. Pain Score: 3/10 Pain Location: Shoulder - Left Description: Aching Frequency: Continuous Post Treatment Pain Score: 2/10 Pain Location: Forearm - Left OBJECTIVE MEASURES WITH LEVEL OF FUNCTION: Hand Evaluation L Lateral Pinch (lbs): 9 lbs UE AROM L Elbow Extension: -15 L Elbow Flexion: 144 Degrees L Forearm Supination: 73 Degrees L Wrist Extension: 50 Degrees L Wrist Flexion: 50 Degrees UE and Cervical Strength L It Support Engineer (Position 2) (lbs): 40 L Lateral Pinch (lbs): 9 lbs Tolerated stretching well. Manual therapy technique improved quality of muscle. After treatment session, muscle with less tension as evidenced by less crepitus with IASTM. TREATMENT: Therapeutic Exercise: 1: Prolonged stretching for elbow extension 2: Prolonged stretching for supination 3: Prolonged stretching pronation 4: Prolonged stretch wrist extension 5: Prolonged stretch with wrist flexion 6: Pronation/supination 10 reps with 1/2 # hammer 7: 10# hand physical therapist technician x 30 reps Skilled Intervention: Patient was educated in proper exercise technique and purpose for exercises. Skilled judgment was provided in selection of appropriate interventions. Manual Therapy: 1: IASTM to left upper arm and forearm Skilled Intervention: Manual skills to improve joint mobility, ROM, and decrease pain. Utilized anatomy knowledge of the therapist, and assessment of patient's response to intervention. Billing: Ally: Therapeutic Exercise ([id number]): 1:1 time: 30 minutes (2 units: 23-37 mins) Manual therapy ([id number]): 1:1 time: 15 minutes (1 unit: 8-22 mins) Total time: 45 minutes DOMENIC Sanches CNTHERAPY Observed: 11/11/2018 Status: COMPLETED Source: [place] 11:00 AM [facility] REPOSITORY OT/PT/Speech Visit (LTOT) DAWOOD VALENCIA ([id number]) 1945 M Date Time Provider Department 11/11/18 11:00 AM PILO BRODY (OT) DERREK Date Time Provider Department Center 11/11/2018 11:00 AM [id number], TIMOTHY *LTOT [facility] [address] Reason for Visit: Occupational Therapy [504] Primary Visit Diagnosis:Pain in left elbow [M25.522] Other Visit Diagnoses:Decreased range of motion of elbow, left [M25.622] Decreased range of motion of left wrist [M25.632] Left arm swelling [M79.89] Decreased activities of daily living (ADL) [R68.89] Allergies As of Date: 11/11/2018 Noted Allergy Reaction Bee Stings [Other] 03/27/2008 7 - Swelling CAPOTEN (CAPTOPRIL) 11/05/2005 3 - Cough Date Reviewed: 04/19/2018 Reviewed by: Laura LopezRn) HARSHA Marcus - Fully Assessed Prescriptions as of 11/11/2018 Sig: METOCLOPRAMIDE 10 MG TABLET Take 1 tablet by mouth three * * HYDROCHLOROTHIAZIDE 12.5 MG T* Take 12.5 mg by mouth once da* * METOPROLOL TARTRATE 50 MG TAB* Take 50 mg by mouth twice alfonso* * DOXAZOSIN 1 MG TABLET Take 1 mg by mouth daily at b* * EYE HEALTH ORAL Take by mouth. * NEXIUM 40 MG CAPSULE,DELAYED * Take one(1) tablet daily. Progress Notes: Pilo Brody OTR/L, OTR/L 11/11/2018 1:32 PM Signed Episode Visit Count: 3 Therapist That Will Oversee The Plan Of Care: Zofia Brody Start of Care Date: 11/04/18 Onset Date: 09/08/18 Patient Identified by Name and Date of : Yes REHABILITATION AND SPORTS THERAPY OCCUPATIONAL THERAPY TREATMENT NOTE ASSESSMENT: Dawood Valencia demonstrated difficulty with end range range of motion in the left elbow, forearm and wrist and improvements in overall ROM, enterprise mobility architect and pinch. The patient will continue to benefit from continued skilled occupational therapy for stretching, pain management, and strengthening as able. PLAN FOR NEXT VISIT: SUBJECTIVE: OT treatment I hate this splint. Pain Score: 3/10 Pain Location: Shoulder - Left Description: Aching Frequency: Continuous Post Treatment Pain Score: 2/10 Pain Location: Forearm - Left OBJECTIVE MEASURES WITH LEVEL OF FUNCTION: Hand Evaluation L Lateral Pinch (lbs): 9 lbs UE AROM L Elbow Extension: -15 L Elbow Flexion: 144 Degrees L Forearm Supination: 73 Degrees L Wrist Extension: 50 Degrees L Wrist Flexion: 50 Degrees UE and Cervical Strength L It Support Engineer (Position 2) (lbs): 40 L Lateral Pinch (lbs): 9 lbs Tolerated stretching well. Manual therapy technique improved quality of muscle. After treatment session, muscle with less tension as evidenced by less crepitus with IASTM. TREATMENT: Therapeutic Exercise: 1: Prolonged stretching for elbow extension 2: Prolonged stretching for supination 3: Prolonged stretching pronation 4: Prolonged stretch wrist extension 5: Prolonged stretch with wrist flexion 6: Pronation/supination 10 reps with 1/2 # hammer 7: 10# hand physical therapist technician x 30 reps Skilled Intervention: Patient was educated in proper exercise technique and purpose for exercises. Skilled judgment was provided in selection of appropriate interventions. Manual Therapy: 1: IASTM to left upper arm and forearm Skilled Intervention: Manual skills to improve joint mobility, ROM, and decrease pain. Utilized anatomy knowledge of the therapist, and assessment of patient's response to intervention. Fredrick: Ally: Therapeutic Exercise ([id number]): 1:1 time: 30 minutes (2 units: 23-37 mins) Manual therapy (38959): 1:1 time: 15 minutes (1 unit: 8-22 mins) Total time: 45 minutes HAZEL Sanches/Keturah CNTHERAPY Observed: 11/11/2018 Status: COMPLETED Source: [place] 10:00 AM [facility] REPOSITORY OT/PT/Speech Visit (LDPT) DAWOOD VALENCIA ([id number]) 1945 M Date Time Provider Department 11/11/18 10:00 AM DREW LIZAMA (PT) LDPT Date Time Provider Department Center 11/11/2018 10:00 AM [id number], CARLA (P*LDPT [facility] [address] Reason for Visit: Physical Therapy [503] Primary Visit Diagnosis:Acute pain of left shoulder [M25.512] Other Visit Diagnosis:Shoulder stiffness, left [M25.612] Allergies As of Date: 11/11/2018 Noted Allergy Reaction Bee Stings [Other] 03/27/2008 7 - Swelling CAPOTEN (CAPTOPRIL) 11/05/2005 3 - Cough Date Reviewed: 04/19/2018 Reviewed by: Laura (Rn) HARSHA Marcus - Fully Assessed Prescriptions as of 11/11/2018 Sig: METOCLOPRAMIDE 10 MG TABLET Take 1 tablet by mouth three * * HYDROCHLOROTHIAZIDE 12.5 MG T* Take 12.5 mg by mouth once da* * METOPROLOL TARTRATE 50 MG TAB* Take 50 mg by mouth twice alfonso* * DOXAZOSIN 1 MG TABLET Take 1 mg by mouth daily at b* * EYE HEALTH ORAL Take by mouth. * NEXIUM 40 MG CAPSULE,DELAYED * Take one(1) tablet daily. Progress Notes: Drew Lizama, PT, PT 11/11/2018 1:35 PM Signed Episode Visit Count: 3 Therapist That Will Oversee The Plan Of Care: Skylar Lizama Start of Care Date: 11/04/18 Onset Date: 09/08/18 Patient Identified by Name and Date of : Yes REHABILITATION AND SPORTS THERAPY PHYSICAL THERAPY TREATMENT NOTE ASSESSMENT: Dawood Valencia demonstrated improvements in L elbow ROM but difficulty with L shoulder ROM due to pain especially with IR AND ER. The patient will continue to benefit from continued skilled physical therapy for ROM AND strengthening and improved functional use of L UE. PLAN FOR NEXT VISIT: progress L shoulder ROM AND strength as tolerated SUBJECTIVE: pt reports L shoulder with increased pain AND soreness after PT otherwise with minimal pain, says the shoulder is only thing that hurts him - wrist AND forearm is stiff (especially from wearing splint) but not painful. pt says he hasn't heard from either Dr regarding clarification of shoulder. has f/u with Dr Ferguson 11/[address] Bethea 12/01. Pt says he'd like to get all his care transferred to Dr Bethea, also reports that he will go to Dr Bethea for TKA if AND when he has that done. Discussed C9 issues AND clarification on shoulder injury. PT called [facility] (Dr Bethea's office) to request records AND clarification. 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) UE AROM L Shoulder Internal Rotation (Functional): L5 (with increased shoulder pain) UE and Cervical Strength L Shoulder Flexion: 4+/5 L Shoulder Abduction (C5): 4/5 L knee genu varus deformity TREATMENT: Therapeutic Exercise: 1: UBE L2x10' B UEs standing 2: wall wash FE 10x 3: wall push-ups 10xB 4: standing IR/ER orange TB 15-20xea 5: standing shoulder flexion AND Abd 2#B 10xea 6: standing bicep curls 2#B 10x 7: standing forearm supination AND pronation 2#B 10x 8: IR towel stretch behind the back Skilled Intervention: Patient was educated in proper exercise technique and purpose for exercises. Skilled judgment was provided in selection of appropriate interventions. Correct performance of therapeutic exercises was facilitated with verbal and visual cuing. Educated patient on rationale for performing exercises in regards to increase ease of ADL and ROM and function Patient education as noted. Bartoloing: Ally: Therapeutic Exercise ([id number]): 1:1 time: 40 minutes (3 units: 38-52 mins) Total time: 40 minutes Drew Lizama PT PROGRESS Observed: 11/08/2018 Status: COMPLETED Source: [place] 3:39 PM [facility] [place] REPOSITORY HNO ID: [id number] Author: Dewayne (Raina) NAVEEN Adler ASSIST Service: (none) Author Type: Relocation Associate Type: Progress Notes Filed: 11/08/2018 3:47 PM Note Text: Episode Visit Count: 2 Therapist That Will Oversee The Plan Of Care: Skylar Lizama Start of Care Date: 11/04/18 Onset Date: 09/08/18 Patient Identified by Name and Date of : Yes REHABILITATION AND SPORTS THERAPY PHYSICAL THERAPY TREATMENT NOTE ASSESSMENT: Dawood Valencia demonstrated difficulty with pain at end range with ER left shoulder and improvements in use of scapular stabilizers The patient will continue to benefit from continued skilled physical therapy for progression of strength and stability of scapula and rotator cuff muscles as well as ROM left shoulder PLAN FOR NEXT VISIT: progress scapular stability, RTC strengthening, and assess HEP SUBJECTIVE: Pt reports difficulty reaching left rear pocket on pants with left hand and grooming hair. Pain Score: 2/10 (8-9/10 left shoulder with end range motion) Pain Location: Shoulder - Left Description: Aching Frequency: Intermittent Post Treatment Pain Score: 3/10 Pain Location: Shoulder - Left Post Treatment Pain Description: Aching OBJECTIVE MEASURES WITH LEVEL OF FUNCTION: UE AROM L Shoulder Flex: 156 Degrees TREATMENT: Therapeutic Exercise: 1: seated gear shifting 2 min 2: *supine AAROM wand flexion left shoulder 5 sec 5 x 2, ER 5sec 5 x 2, at 90 degrees flexion cross body adduction for posterior capsule stretch 20 sec x 3 3: seated and standing scapular retracton followed by *mid trap and low trap rows standing green tb 4: standing isometric abduction, ER flexion, extension, 5 sec 5x 2, ER and abduction given for HEP Skilled Intervention: Patient was educated in proper exercise technique and purpose for exercises. Reviewed and educated patient on additions/changes for home exercise program as above (*) Reviewed and educated patient on additions/changes for home exercise program reviewed AAROM ER Provided written instruction for home exercise program to facilitate proper performance and compliance. Billing: Ally: Therapeutic Exercise ([id number]): 1:1 time: 45 minutes (3 units: 38-52 mins) Total time: 45 minutes Dewayne Adler PTA PROGRESS Observed: 11/08/2018 Status: COMPLETED Source: [place] 3:34 PM [facility] [place] REPOSITORY HNO ID: [id number] Author: Pilo (Ot) DOMENIC Brody Service: (none) Author Type: Occupational Therapist Type: Progress Notes Filed: 11/08/2018 3:50 PM Note Text: Episode Visit Count: 2 Therapist That Will Oversee The Plan Of Care: Zofia Broyd Start of Care Date: 11/04/18 Onset Date: 09/08/18 Patient Identified by Name and Date of : Yes REHABILITATION AND SPORTS THERAPY OCCUPATIONAL THERAPY TREATMENT NOTE ASSESSMENT: Dawood Valencia demonstrated difficulty with forearm pain and ROM secondary to fracture of ulna. The patient will continue to benefit from continued skilled occupational therapy for splint fabrication, adjustments to splint as appropriate, ROM and strengthening as able PLAN FOR NEXT VISIT: Assess splint comfort and pressure areas SUBJECTIVE: OT treatment I am not very thrilled about the new splint but I will wear it if that is what the doctor is desiring. Pain Score: 3/10 Pain Location: Forearm - Left Description: Aching Frequency: Intermittent Post Treatment Pain Score: 3/10 Pain Location: Forearm - Left Post Treatment Pain Description: Aching OBJECTIVE MEASURES WITH LEVEL OF FUNCTION: Completed the fabrication of a custom clam shell splint. Utilized aquaplast splinting material. Patient demonstrated ability to don and doff splint independently. Education provided on proper wear schedule and how to care for his splint. TREATMENT: Self-Usp Management: 1: demonstrated proper donning and doffing of splint 2: educated on proper wear and care of splint Skilled Intervention: Educated the patient regarding recommendations and provided written instruction to facilitate compliance. Provided written instruction for activities of daily living techniques to facilitate proper performance and compliance. Custom orthosis: L 3906 [facility] custom w/o joints (wrist/ wrist clam/ other) Custom orthosis to provide immobilization, protection and support of Left ulna to promote healing, OT provided patient with education/ written instructions for orthosis care and precautions. and Pt practiced orthosis application, donning on/off while under OT's supervision.. Patient was instructed in care of orthosis and wearing schedule at all times, for protection and except to exercise and bathe. Skilled Intervention: Clinical knowledge and skills required for custom orthotic fabrication and wearing schedule Patient/caregiver was educated in correct method for donning/doffing orthosis as well as wear and care of orthosis. Patient/Family/Caregiver Education: Precautions, purpose and use of orthosis Wearing schedule wear all the time with exception of bathing and exercise Billing: [place]: Self Care / Home Management ([id number]): 1:1 time: 15 minutes (1 unit: 8-22 mins) Orthosis: Custom: L3906 [facility] custom w/o joints (wrist/ wrist clam/ other) Proof of Delivery Provided: yes Total time: 50 minutes HAZEL Sanches/L CNTHERAPY Observed: 11/08/2018 Status: COMPLETED Source: [place] 2:30 PM [facility] REPOSITORY OT/PT/Speech Visit (LTOT) DAWOOD VALENCIA ([id number]) 1945 M Date Time Provider Department 11/08/18 2:30 PM PILO BRODY (OT) LTOT Date Time Provider Department Center 11/08/2018 2:30 PM [id number], TIMOTHY *LTOT [facility] [address] Reason for Visit: Occupational Therapy [504] Primary Visit Diagnosis:Greenstick fracture of shaft of left ulna with routine healing [S52.212D] Other Visit Diagnoses:Pain in left elbow [M25.522] Decreased range of motion of elbow, left [M25.622] Decreased range of motion of left wrist [M25.632] Left arm swelling [M79.89] Decreased activities of daily living (ADL) [R68.89] Allergies As of Date: 11/08/2018 Noted Allergy Reaction Bee Stings [Other] 03/27/2008 7 - Swelling CAPOTEN (CAPTOPRIL) 11/05/2005 3 - Cough Date Reviewed: 04/19/2018 Reviewed by: Laura (Rn) HARSHA Marcus - Fully Assessed Prescriptions as of 11/08/2018 Sig: METOCLOPRAMIDE 10 MG TABLET Take 1 tablet by mouth three * * HYDROCHLOROTHIAZIDE 12.5 MG T* Take 12.5 mg by mouth once da* * METOPROLOL TARTRATE 50 MG TAB* Take 50 mg by mouth twice alfonso* * DOXAZOSIN 1 MG TABLET Take 1 mg by mouth daily at b* * EYE HEALTH ORAL Take by mouth. * NEXIUM 40 MG CAPSULE,DELAYED * Take one(1) tablet daily. Progress Notes: Pilo Brody OTR/L, OTR/L 11/08/2018 3:50 PM Signed Episode Visit Count: 2 Therapist That Will Oversee The Plan Of Care: Zofia Brody Start of Care Date: 11/04/18 Onset Date: 09/08/18 Patient Identified by Name and Date of : Yes REHABILITATION AND SPORTS THERAPY OCCUPATIONAL THERAPY TREATMENT NOTE ASSESSMENT: Dawood Alejandro Valencia demonstrated difficulty with forearm pain and ROM secondary to fracture of ulna. The patient will continue to benefit from continued skilled occupational therapy for splint fabrication, adjustments to splint as appropriate, ROM and strengthening as able PLAN FOR NEXT VISIT: Assess splint comfort and pressure areas SUBJECTIVE: OT treatment I am not very thrilled about the new splint but I will wear it if that is what the doctor is desiring. Pain Score: 3/10 Pain Location: Forearm - Left Description: Aching Frequency: Intermittent Post Treatment Pain Score: 3/10 Pain Location: Forearm - Left Post Treatment Pain Description: Aching OBJECTIVE MEASURES WITH LEVEL OF FUNCTION: Completed the fabrication of a custom clam shell splint. Utilized aquaplast splinting material. Patient demonstrated ability to don and doff splint independently. Education provided on proper wear schedule and how to care for his splint. TREATMENT: Self-Usp Management: 1: demonstrated proper donning and doffing of splint 2: educated on proper wear and care of splint Skilled Intervention: Educated the patient regarding recommendations and provided written instruction to facilitate compliance. Provided written instruction for activities of daily living techniques to facilitate proper performance and compliance. Custom orthosis: L 3906 [facility] custom w/o joints (wrist/ wrist clam/ other) Custom orthosis to provide immobilization, protection and support of Left ulna to promote healing, OT provided patient with education/ written instructions for orthosis care and precautions. and Pt practiced orthosis application, donning on/off while under OT's supervision.. Patient was instructed in care of orthosis and wearing schedule at all times, for protection and except to exercise and bathe. Skilled Intervention: Clinical knowledge and skills required for custom orthotic fabrication and wearing schedule Patient/caregiver was educated in correct method for donning/doffing orthosis as well as wear and care of orthosis. Patient/Family/Caregiver Education: Precautions, purpose and use of orthosis Wearing schedule wear all the time with exception of bathing and exercise Billing: [place]: Self Care / Home Management ([id number]): 1:1 time: 15 minutes (1 unit: 8-22 mins) Orthosis: Custom: L3906 [facility] custom w/o joints (wrist/ wrist clam/ other) Proof of Delivery Provided: yes Total time: 50 minutes HAZEL Sanches/Keturah CNTHERAPY Observed: 11/08/2018 Status: COMPLETED Source: [place] 1:30 PM [facility] REPOSITORY OT/PT/Speech Visit (LDPT) DAWOOD VALENCIA ([id number]) 1945 M Date Time Provider Department 11/08/18 1:30 PM DEWAYNE ADLER (RN PERIOPERATIVE) LDPT Date Time Provider Department Center 11/08/2018 1:30 PM [id number], PATRICK *LDPT [facility] [address] Reason for Visit: Physical Therapy [503] Primary Visit Diagnosis:Acute pain of left shoulder [M25.512] Other Visit Diagnosis:Shoulder stiffness, left [M25.612] Allergies As of Date: 11/08/2018 Noted Allergy Reaction Bee Stings [Other] 03/27/2008 7 - Swelling CAPOTEN (CAPTOPRIL) 11/05/2005 3 - Cough Date Reviewed: 04/19/2018 Reviewed by: Laura (Rn) HARSHA Marcus - Fully Assessed Prescriptions as of 11/08/2018 Sig: METOCLOPRAMIDE 10 MG TABLET Take 1 tablet by mouth three * * HYDROCHLOROTHIAZIDE 12.5 MG T* Take 12.5 mg by mouth once da* * METOPROLOL TARTRATE 50 MG TAB* Take 50 mg by mouth twice alfonso* * DOXAZOSIN 1 MG TABLET Take 1 mg by mouth daily at b* * EYE HEALTH ORAL Take by mouth. * NEXIUM 40 MG CAPSULE,DELAYED * Take one(1) tablet daily. Progress Notes: Dewayne Adler PTA, PT ASSIST 11/08/2018 3:47 PM Signed Episode Visit Count: 2 Therapist That Will Oversee The Plan Of Care: Skylar Lizama Start of Care Date: 11/04/18 Onset Date: 09/08/18 Patient Identified by Name and Date of : Yes REHABILITATION AND SPORTS THERAPY PHYSICAL THERAPY TREATMENT NOTE ASSESSMENT: Dawood Valencia demonstrated difficulty with pain at end range with ER left shoulder and improvements in use of scapular stabilizers The patient will continue to benefit from continued skilled physical therapy for progression of strength and stability of scapula and rotator cuff muscles as well as ROM left shoulder PLAN FOR NEXT VISIT: progress scapular stability, RTC strengthening, and assess HEP SUBJECTIVE: Pt reports difficulty reaching left rear pocket on pants with left hand and grooming hair. Pain Score: 2/10 (8-9/10 left shoulder with end range motion) Pain Location: Shoulder - Left Description: Aching Frequency: Intermittent Post Treatment Pain Score: 3/10 Pain Location: Shoulder - Left Post Treatment Pain Description: Aching OBJECTIVE MEASURES WITH LEVEL OF FUNCTION: UE AROM L Shoulder Flex: 156 Degrees TREATMENT: Therapeutic Exercise: 1: seated gear shifting 2 min 2: *supine AAROM wand flexion left shoulder 5 sec 5 x 2, ER 5sec 5 x 2, at 90 degrees flexion cross body adduction for posterior capsule stretch 20 sec x 3 3: seated and standing scapular retracton followed by *mid trap and low trap rows standing green tb 4: standing isometric abduction, ER flexion, extension, 5 sec 5x 2, ER and abduction given for HEP Skilled Intervention: Patient was educated in proper exercise technique and purpose for exercises. Reviewed and educated patient on additions/changes for home exercise program as above (*) Reviewed and educated patient on additions/changes for home exercise program reviewed AAROM ER Provided written instruction for home exercise program to facilitate proper performance and compliance. Billing: Ally: Therapeutic Exercise ([id number]): 1:1 time: 45 minutes (3 units: 38-52 mins) Total time: 45 minutes Dewayne Adler PTA PROGRESS Observed: 11/04/2018 Status: COMPLETED Source: [place] 4:17 PM [facility] REPOSITORY O ID: [id number] Author: HAZEL Sanches Ot/Keturah Service: (none) Author Type: Occupational Therapist Type: Progress Notes Filed: 11/08/2018 3:26 PM Note Text: Episode Visit Count: 1 Therapist That Will Oversee The Plan Of Care: Zofia Brody Start of Care Date: 11/04/18 Onset Date: 09/08/18 Patient Identified by Name and Date of : Yes [facility] REHABILITATION AND SPORTS THERAPY OCCUPATIONAL THERAPY EVALUATION PLAN OF CARE: Assessment: Dawood Valencia presents with the diagnosis of elbow contusion and Greenstick ulnar fracture of left arm. He presents with impairments of limited range of motion at the elbow, forearm and wrist, weakness of the left upper extremity, edema in the left upper extremity, pain in the volar surface of elbow near bicep insertion, impaired ADL and IADL efficiency. He may benefit from skilled occupational therapy services to improve ROM, edema management, strengthening when cleared by physician, improve ADL and IADL efficiency. Prognosis: Good Good due to: good overall health status;good support system/ coping skills Goals for Episode of Care created on 11/04/18 through 01/27/19 Patient will report a good understanding of diagnosis and OT recommendations for progression of program Patient will demonstrate independence with ongoing home exercise program Patient will improve function in left upper extremity in order to be able to perform ADL and IADL more efficiently and return to fulltime employment. Patient will increase AROM of left elbow extension to -10 degrees of full extension in order to be able to improve functional independence and return to work. Patient will increase AROM of left forearm supination to 70 degrees or greater in order to be able to improve functional independence and return to work. Patient will increase AROM of left wrist flexion and extension to 70 degrees or greater in order to be able to improve functional independence and return to work. Patient will independently demonstrate correct application of wrist cock-up prefabricated orthosis and verbalize understanding of proper wear/care by end of session. Patient will increase left enterprise mobility architect strength by 20#, so that patient will be able to return to previous level of employment. Patient will increase left lateral pinch by 5# so that patient will be able to return to previous level of employment. Patient to report an 8% improvement in DASH score upon discharge. Planned Interventions, Frequency, and Duration: Current Frequency: 2x/week (reducing to 1x/week as able) Duration: 12 weeks Total Number of Visits Planned: 16 Planned Treatment Interventions: Prefabricated orthosis fitting;Therapeutic exercise;Therapeutic activities;Manual therapy;Self-detention management;Neuromuscular re-education;Patient/Family/Caregiver Education PLAN FOR NEXT VISIT: progress stretchin, edema management and pain management Patient demonstrates good understanding of plan of care and treatment. The above goals and plan of care were discussed and agreed upon by patient/family. SUBJECTIVE: Dawood Valencia is a 73 year old male seen today for OT eval for left elbow, forearm, wrist Functional Limitations: heavy exertion;lifting;physical activities;working;sleeping;reaching behind back;reaching overhead;use hand with arm at shoulder level;dressing;weight bearing;gripping;pinching;twisting;pulling;pushing;carrying Prior Level of Function: Independent without limitations Patient Goals: Improve ROM to full range. Intake Information: Prescription present Previous Treatment: Physical Therapy? Falls Interview: No positive findings with falls interview Pain Score: 11/10 Pain Location: Shoulder - Left;Elbow - Left;Forearm - Left Description: Aching;Throbbing Frequency: Intermittent Post Treatment Pain Score: 3/10 Pain Location: Elbow - Left OBJECTIVE MEASURES WITH LEVEL OF FUNCTION: Elbow Observations L Elbow/Wrist Palpation Tenderness: Biceps insertion Sensation - Upper Extremity UE Light Touch Sensation: Impaired (intermittant numbness and tingling) Hand Evaluation R Lateral Pinch (lbs): 21 lbs L Lateral Pinch (lbs): 7 lbs UE AROM L Elbow Extension: -35 L Elbow Flexion: 130 Degrees L Forearm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 LAB L501.6100 21.0-32.0 mmol/L Normal CO2 28.0 LAB L501.6200 5-15 Normal GAP 8 Performed By: #### L500.4050, L500.4100, L501.9910 #### [facility] [address] [place], [address] LIPID PROFILE Collected: 09/06/2018 Status: F Source: [place] 9:15 AM [facility] REPOSITORY TYPE CODE TESTS RESULT OUT OF RANGE REFERENCE UNITS LAB L501.4900 200 mg/dL Normal CHOL 141 Result Comment: <200 mg/dL Desirable 200-240 mg/dL Borderline >240 mg/dL High Risk LAB L501.5000 mg/dL Normal TRIG 122 Result Comment: The drugs N-Acetylcysteine and Metamizole may falsely depress this assay. Serum Triglycerides Reference Interval Normal <150 mg/dL Borderline high 150 - 199 mg/dL High 200 - 499 mg/dL Very High > or = 500 mg/dL LAB L501.6400 mg/dL Normal HDL 55 Result Comment: The drugs N-Acetylcysteine and Metamizole may falsely depress this assay. Reference Range HDL <40 mg/dL Low HDL Cholesterol HDL >or= 60 mg/dL High HDL Cholesterol LAB L501.6500 0-130 mg/dL Normal LDL 62 LAB L501.6600 5-40 mg/dL Normal VLDL 24 Performed By: #### L500.4050, L500.4100, L501.9910 #### [facility] [address] [place], [address] PSA,TOTAL - ANNUAL Collected: 09/06/2018 Status: F Source: [place] EUGENIA SCREEN 9:15 AM [facility] REPOSITORY TYPE CODE TESTS RESULT OUT OF RANGE REFERENCE UNITS LAB L501.9910 0.00-4.00 ng/mL Normal PSA,TOT 2.79 SCREEN Result Comment: This test was performed using the TPSA assay method for the [employer] chemistry system. Values obtained with different assay methods cannot be used interchangably. When changing PSA assays in the course of monitoring a patient, additional sequential testing should be carried out to confirm baseline values. Performed By: #### L500.4050, L500.4100, L501.9910 #### [facility] [address] [place], [address] OFFICE VISIT Observed: 09/05/2018 Status: F Source: MARIA EUGENIA 9:12 PM [facility] REPOSITORY [facility] [address] [place] [address] OFFICE VISIT Date of Service: 09/05/18 MR#: [id number] Acct: [id number] Name: DAWOOD VALENCIA Rep #: [id number] : 1945 Provider: LUZ MARIA Beasley Age/Sex: 73/M Location: [facility] Status: Signed Intake Vital Signs09/05/18 Height 6 ft 2 in 09/05/18 Weight: 212 lb Intake Visit Reasons: Knee pain Accompanied by: Self Is patient in pain?: Yes Allergies lisinopril Allergy (Verified 12/27/17 08:56) Unknown Medications metoprolol tartrate 25 mg tablet 25 mg PO BID #180 tab 11/02/17 [Rx Confirmed 12/24/17] pravastatin 20 mg tablet 20 mg PO DAILY #90 tab 11/02/17 [Rx Confirmed 12/24/17] terazosin 5 mg capsule 5 mg PO DAILY #90 cap 11/02/17 [Rx Confirmed 12/24/17] aspirin 325 mg tablet 325 mg PO QDAY tab 12/24/17 [History Confirmed 12/27/17] losartan 50 mg tablet 50 mg PO DAILY #90 tab 06/22/18 [Rx] pantoprazole 40 mg tablet,delayed release 20 mg PO DAILY tab 09/05/18 [History Confirmed 09/05/18] turmeric root extract 500 mg capsule 500 mg PO DAILY 09/05/18 [History Confirmed 09/05/18] PFSH Medical History Atherosclerotic heart disease of [place] coronary artery without angina pectoris (Chronic) Paroxysmal atrial fibrillation (Acute) Hyperlipidemia (Chronic) Hypertension (Chronic) Abnormal cardiovascular stress test (Acute) 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) Lung nodule (Acute) Other terminal worker (current) drug therapy (Acute) Toxoplasmosis (Acute) Atrial fibrillation (Inactive) Cough (Inactive) Family history of hyperlipidemia (Inactive) Family history of hypertension (Inactive) Surgical History History of parotidectomy (Chronic) History of knee surgery (Resolved) Family History Mother Hypertension Brother CAD (coronary artery disease) Diabetes FH: hyperlipidemia Daughter Hypertension Father Cancer Throat cancer Other Family history of hypertension Social History Smoking Status: Former smoker how long ago did patient quit smokin alcohol intake: current alcohol intake frequency: a few times a month Alcohol type: beer, wine details: occasional substance use type: does not use caffeine: Yes Type: coffee what type of physical activity do you participate in: none seatbelt use: always do you feel safe at home: Yes HPI HPI (General) HPI HPI: DAWOOD VALENCIA, is a 73 M who presents to the office today for L knee pain . Is scheduled for knee surgery at [facility] in Oct. [facility] follow up for his AF. Feeling well and has no c/o ROS Const Constitutional: No anorexia, body ache, chills, excessive sweating, fatigue, fever(s), frequent falls, headache(s), decreased energy, malaise, night sweats, snoring, weakness, weight change, sleep problems, abnormal sleep pattern, change in appetite or other Eyes Eyes: No blurry vision, change in vision, double vision, discharge, dry eyes, bulging eyes, floaters, visual disturbances, eye pain, light sensitivity, spots in vision, tunnel vision or other ENT ENT: No headache(s), abnormal hearing, ear pain, ear discharge, ear pressure, hearing loss, tinnitus, dizziness/vertigo, balance problems, nosebleed/epistaxis, nasal congestion, nasal obstruction, nose pain, sinus pressure, sinus pain, nasal discharge, post nasal drip, facial pain, dental pain, dry mouth, difficulty swallowing, bad breath, hoarseness, lip swelling, mouth lesions, mouth pain, neck pain, sore throat, tongue swelling, throat swelling or other Resp Respiratory: No snoring, cough, change in phlegm color, chest congestion, excessive phlegm production, hemoptysis, pain on inspiration, shortness of breath, pain with cough, stridor, wheezing or other Cardio Cardiology: No excessive sweating, chest pain at rest, chest pain with exertion, leg pain with exertion, shortness of breath, dyspnea on exertion, generalized swelling, irregular heart rhythm, lightheadedness, orthopnea, radiating jaw, neck or arm pain, fast heart rate, slow heart rate, palpitations or other Gastro GI: No other, No Difficulty Swallowing, No abdominal pain, No belching, No bloating, No change in bowel habits, No change in stool character, No coffee ground emesis, No constipation, No cramping, No diarrhea, No heartburn, No feeling full early, No excessive flatus, No incontinent of stools, No Vomiting blood/hematemesis, No Blood in stool, No loose stools, No Black,tarry stools, No nausea/dyspepsia, No pain with swallowing, No vomiting, No hemorrhoids, No rectal pain Genitourinary: No urinary frequency, difficulty urinating, burning urination, painful urination, urinary urgency or blood in urine Musc Musculoskeletal: No neck pain, abnormal walking, joint pain, back pain, deformity, joint swelling, limited range of motion, loss of height, muscle cramps, muscle weakness, decreased muscle mass, body aches, numbness, radiating pain into limb, stiffness, tingling or other Skin Skin: No acne, hair loss, change in hair, nail changes, boil, change in skin color, dry skin, redness, excessive hair growth, yellowing of the skin, lesions, itching, rash, skin pain, skin ulcer, sores, skin swelling, wounds or other Breast Breast: No other Neuro Neurology: No frequent falls, headache(s), weakness, visual disturbances, abnormal hearing, abnormal walking, numbness, tingling, abnormal movements, abnormal speech, behavioral changes, confusion, unsteady gait/balance, dizziness, lack of coordination, loss of vision, memory loss, restless legs, fainting, tremor(s) or other Psych Psychiatric: No abnormal sleep pattern, No change in appetite, No behavioral changes, No confusion, No memory loss, No lack of enjoyment, No anxiety, No depression, No difficulty concentrating, No hopelessness, No irritability, No mood swings, No panic attacks, No paranoia, No Thoughts of harming yourself/Others, No hallucinations, No other Endo Endo: No excessive sweating, No fatigue, No other Aller/Imm Allergy/Immunologic: No lip swelling, tongue swelling, throat swelling, wheezing or itchy eyes Exam Const Constitutional: Yes cooperative, Yes healthy appearing Orientation: Yes alert, awake and oriented x3 HENMT Head: Yes normocephalic Ear: Yes hearing grossly normal bilaterally Neck Neck: normal visual inspection Thyroid: thyroid normal Eyes General: Yes appearance normal, both eyes and all related structures Chest Chest palpation AND inspection: Yes normal inspection of the chest Resp Effort AND Inspection: No stridor Auscultation: Yes clear to auscultation bilaterally Cardio Palpitation: Yes normal PMI Rate: Yes regular rate Rhythm: Yes regular rhythm GI Inspection: Yes normal to inspection Auscultation: Yes normal bowel sounds Rectal Exam: No hemorrhoids Musc Cervical Spine: Yes cervical ROM normal Thoracic/Lumbar Spine: Yes thoracic and lumbar spine normal to inspection Skin General: no rashes or lesions noted Lesions: Yes no lesions Extrem General: Yes normal to inspection Neuro General: Yes alert and oriented x3 Motor: No weakness Psych Appearance: Positive grossly normal Mood: Positive congruent mood Affect: Positive normal affect Office Meds Flucelvax Quad [id number] (PF) Performing Provider: MARIE Alberts Administered by: Laura Casarez on 09/05/18 20:52 Dose Route Admin Location Lot Number Expiration Date NDC Cub Reporter 0.5 mL IM right arm [id number] 04/30/19 26586-547-55 [email or web address]. Assessment AND Plan Problems 1. Primary osteoarthritis of left knee M17.12 2. Bowing of left leg M21.162 Patient Instructions Will call with the results of the labs drawn today follow up as needed Orders Orders: Medications Discontinued: Flucelvax Quad [id number] (PF) (flu vac qs 2017(4 yr up)CD0.5 mL IM ONCE 0.5 mL 0RF NS Z23 (PF)) Discontinued Reason: Office Medication has been Documented as given Coding Level of Care Code Off vis,est,level 3 Diagnoses Primary osteoarthritis of left knee M17.12 Osteoarthritis type: primary Bowing of left leg M21.162 09/05/182111 <Electronically signed by Beverley SALAZAR> Date Beverley SALAZAR CC: US ABD RIGHT UPPER Observed: 04/25/2018 Status: F Source: [facility] 10:33 AM [facility] REPOSITORY Performed at [facility] APPROVED BY: Gallo Cunningham MD EXAMINATION: RIGHT UPPER QUADRANT ULTRASOUND CLINICAL HISTORY: Chest pain TECHNIQUE: Sonography of the right upper quadrant was performed. Images were obtained and stored in a permanent archive. MQ: URUQ_1 COMPARISON: None. RESULT: Pancreas: Nondiagnostic. Liver: Echotexture: Normal, homogeneous. Echogenicity: Normal Surface contour: Smooth Lesions: None. Biliary: No intrahepatic biliary duct dilation. CBD: 0.3 cm at the hilum. Gallbladder: Normal caliber -Contents: No cholelithiasis -Wall: Normal -Other: No pericholecystic fluid. Right Kidney: No hydronephrosis. Ascites: None. IMPRESSION: NORMAL SONOGRAPHIC APPEARANCE OF THE RIGHT UPPER QUADRANT. ED NOTE Observed: 04/20/2018 Status: COMPLETED Source: [place] 2:00 AM [facility] REPOSITORY HNO ID: [id number] Author: Laura LopezRn) HARSHA Marcus Service: Emergency Medicine Author Type: Registered Nurse Type: ED Notes Filed: 04/20/2018 2:02 AM Note Text: D/C to home with , instructed to follow up as directed and return prn ED NOTE Observed: 04/20/2018 Status: COMPLETED Source: [place] 2:00 AM [facility] REPOSITORY HNO ID: [id number] Author: Marichuy Ibrahim RN Service: Emergency Medicine Author Type: Registered Nurse Type: ED Notes Filed: 04/20/2018 1:02 PM Note Text: Patient Call Back Information ? How are you doing ? no change ? Did we appropriately manage your pain? Yes ? Did you understand your discharge instructions? Yes ? Did you get your prescriptions filled? No ? Were you able to make a follow-up appointment with your physician? Yes ? Were you comfortable during your stay here? Yes ? Did a member of the ER nursing team round on you during your visit? Yes ? You will receive a patient satisfaction survey in the mail in the nest 2 weeks, please take the time to fill out the survey as your input from your ER visit is very important to us. Yes ? Can we do anything else to help you? No ED NOTE Observed: 04/20/2018 Status: COMPLETED Source: [place] 1:00 AM [facility] REPOSITORY HNO ID: [id number] Author: Laura Marcus RN Service: Emergency Medicine Author Type: Registered Nurse Type: ED Notes Filed: 04/20/2018 1:03 AM Note Text: Patients states, I think I feel a little better, rates pain 01/08 ED NOTE Observed: 04/20/2018 Status: COMPLETED Source: [place] 12:32 AM [facility] REPOSITORY HNO ID: [id number] Author: Gloria (Rn) HARSHA Santana Service: Emergency Medicine Author Type: Registered Nurse Type: ED Notes Filed: 04/20/2018 12:32 AM Note Text: Patient informed: the name of medication, why we are giving it, possible side effects, what they may expect to feel, and was offered a chance to ask questions, prior to the administration of reglan, benadryl ED NOTE Observed: 04/19/2018 Status: COMPLETED Source: [place] 11:55 PM [facility] REPOSITORY HNO ID: [id number] Author: Laura (Rn) HARSHA Marcus Service: Emergency Medicine Author Type: Registered Nurse Type: ED Notes Filed: 04/20/2018 12:00 AM Note Text: Patient standing at side of bed using urinal, steady on feet, states no change in pain from sitting to standing, thought laying flat in radiology with his hands above his head helped the most, denies needs at this time CT CHEST FOR PULMONARY Observed: 04/19/2018 Status: F Source: [facility] 11:50 PM [facility]ALTH SYSTEM REPOSITORY Performed at [facility] APPROVED BY: MANINDER GOMEZ MD EXAM: 1. CT of the chest with intravenous contrast - Pulmonary CT angiography protocol 2. Two dimensional reconstructions HISTORY: PE suspected, intermediate prob, positive D-dimer TECHNIQUE: Pulmonary CT angiogram was performed with helical CT imaging through the chest during and after the intravenous administration of contrast. Two dimensional reconstructions performed using the kotlik data set. CT Dose-Length Product (DLP): 563 mGy*cm CT Dose Reduction Technique: Automated Exposure Control CONTRAST: Intravenous: 100 mL Omnipaque 350 COMPARISON: None available FINDINGS: Motion degrades examination. Mediastinum: The visualized thyroid, great vessels, heart and pericardium are within normal limits. No mediastinal / hilar lymphadenopathy identified by CT size criteria. Atherosclerotic calcificatio n within the aorta and coronary arteries. Pulmonary arteries: No filling defects are identified within the main or lobar pulmonary arteries. Suboptimal opacification as well as motion degrades evaluation of the mid and lower lung segmental/johnson bsegmental pulmonary arteries. No obvious filling defects within these vessels. Lungs / Pleura: The trachea and mainstem bronchi are patent. Motion degrades exam. There is a tiny right pleural effusion. No pneumothorax. No dense consolidation. Other: Colonic diverticulosis within the included upper abdomen. No acute bony abnormality identified. IMPRESSION: Although mildly limited, no evidence of pulmonary embolism identified. Small peripheral emboli may go undetected, particularly in the lower lobes. Tiny right pleural effusion. Colonic diverticulosis. Details and incidental findings as discussed. ED NOTE Observed: 04/19/2018 Status: COMPLETED Source: [place] 11:38 PM [facility] [place] REPOSITORY HNO ID: [id number] Author: Laura Starks) HARSHA Marcus Service: Emergency Medicine Author Type: Registered Nurse Type: ED Notes Filed: 04/19/2018 11:57 PM Note Text: Patient returned to the Emergency Department. ED NOTE Observed: 04/19/2018 Status: COMPLETED Source: [place] 11:25 PM [facility] REPOSITORY HNO ID: [id number] Author: Laura Starks) HARSHA Marcus Service: Emergency Medicine Author Type: Registered Nurse Type: ED Notes Filed: 04/19/2018 11:57 PM Note Text: Patient transported to CT Scan with Tech. ED NOTE Observed: 04/19/2018 Status: COMPLETED Source: [place] 10:38 PM [facility] REPOSITORY HNO ID: [id number] Author: Sara Starks) HARSHA Merida Service: Emergency Medicine Author Type: Registered Nurse Type: ED Notes Filed: 04/19/2018 10:38 PM Note Text: Dr Berrios notified of pt pain complaint, he will speak with pt ED NOTE Observed: 04/19/2018 Status: COMPLETED Source: [place] 10:30 PM [facility] REPOSITORY HNO ID: [id number] Author: Sara Merida RN Service: Emergency Medicine Author Type: Registered Nurse Type: ED Notes Filed: 04/19/2018 10:36 PM Note Text: I asked the pt to rate his pain using the 0/10 scale; pt verbalized I don't know, that number thing is stupid, I would say a 7, the pain is worse than it was when I got here, I am uncomfortable and can't function. Pt vitals are stable at this time. Will notify Dr Berrios for pain report ABD COMPL WITH Observed: 04/19/2018 Status: F Source: [facility] PA CHEST 10:23 PM HEALTH SYSTEM REPOSITORY Performed at [facility] APPROVED BY: MANINDER GOMEZ MD EXAM: ABD COMPL WITH UPRIGHT PA CHEST HISTORY: Abdominal pain COMPARISON: None available FINDINGS: See impression IMPRESSION: CHEST: The bones and cardiomediastinal contours are within normal limits. No confluent infiltrate, pleural effusion or pneumothorax. ABDOMEN: Supine and decubitus radiographs of the abdomen demonstrate a nonobstructive bowel gas pattern without evidence of free air. Pelvic phleboliths favored. Atherosclerotic calcification within t he aorta. Bones are unremarkable. ED NOTE Observed: 04/19/2018 Status: COMPLETED Source: [place] 10:01 PM [facility] REPOSITORY HNO ID: [id number] Author: Suma (Rn) Ramona RN Service: Emergency Medicine Author Type: Registered Nurse Type: ED Notes Filed: 04/19/2018 10:07 PM Note Text: Patient informed: the name of medication, why we are giving it, possible side effects, what they may expect to feel, and was offered a chance to ask questions, prior to the administration of Protonix, Maalox and lidocaine. 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[place], Chest Pain Pain location: Unable to specify Pain quality: dull and hot Pain radiates to: L shoulder Pain severity: Moderate Onset quality: Gradual Timing: Constant Progression: Worsening Chronicity: New Context: at rest Relieved by: Nothing Worsened by: Nothing Ineffective treatments: None tried Associated symptoms: diaphoresis, fatigue, heartburn and nausea Associated symptoms: no abdominal pain, no cough, no shortness of breath and no vomiting Associated symptoms comment: Belching Risk factors: coronary artery disease, high cholesterol, hypertension and male sex 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 PAST MEDICAL HISTORY Diagnosis Date - Atrial fibrillation (HCC) - Toxoplasmosis - Unspecified essential hypertension PAST SURGICAL HISTORY Procedure Laterality Date - CARDIAC CATHETERIZATION HX - ORTHOPEDICS SURGERY HX - PAST SURGICAL HISTORY OF May 01, 2005 left bicep torn tendon repair - PAST SURGICAL HISTORY OF 1994 carotid gland removed - PAST SURGICAL HISTORY OF 1965 left knee surgery - REMOVAL OF TONSILS,12+ Y/O FAMILY HISTORY Problem Relation Age of Onset - Cancer Father throat Cancer - Hypertension Mother Social History Social History Main Topics - Smoking status: Former Smoker - Smokeless tobacco: Never Used Comment: quit 15 years ago - Alcohol use Yes Comment: once per month, rarely - Drug use: No - Sexual activity: Not on file ALLERGIES Allergen Reactions - Bee Stings [Other] Swelling - Capoten [Captopril] Cough Review of Systems Constitutional: Positive for diaphoresis and fatigue. HENT: Negative. Respiratory: Negative for cough, choking and shortness of breath. Cardiovascular: Positive for chest pain. Gastrointestinal: Positive for heartburn and nausea. Negative for abdominal distention, abdominal pain and vomiting. Musculoskeletal: Chronic right knee pain All other systems reviewed and are negative. Physical Exam BP 160/80 Pulse 58 Temp (Src) 96.3 (Oral) Resp 20 Ht 6' 2 (1.88m) Wt 200 lb (90.7kg) SpO2 99% BMI 25.67 kg/(m2). Physical Exam Constitutional: He is oriented to person, place, and time. He appears well-developed and well-nourished. HENT: Head: Normocephalic and atraumatic. Eyes: Right eye exhibits no discharge. Left eye exhibits no discharge. Neck: No JVD present. No thyromegaly present. Cardiovascular: Normal rate, regular rhythm and normal heart sounds. Exam reveals no gallop and no friction rub. No murmur heard. Pulmonary/Chest: Effort normal and breath sounds normal. No respiratory distress. He has no wheezes. He has no rales. Abdominal: Soft. Bowel sounds are normal. He exhibits no distension and no mass. There is no tenderness. There is no guarding. Pt belching Musculoskeletal: No calf tenderness, negative homans, mild RLE edema, (chronic right knee pian since 21yo) Neurological: He is alert and oriented to person, place, and time. Skin: No rash noted. Diaphoretic Psychiatric: He has a normal mood and affect. His behavior is normal. Judgment and thought content normal. Nursing note and vitals reviewed. 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 Symptoms presents hours today, and have been constant in nature. Symptoms started 3-4 hours after breakfast while pt driving semi-trailer in return trip from [place]. Pt did not try any therapies at home, however he took all his medications, including ASA. EKG 21:31 SR rate 61, with occasional PAC, criteria for LVH, and widened QRS (122msec), no stemi, no axis deviation 10:05 PM Pt belching on exam, and medications were given for this, declines pain meds. Already took ASA today. Pt receives all his cardiac care at [facility], and review of the record notes last cardiac cath 2012, and echo 11/2015. 12:43 AM Labs with negative troponin and abdominal labs. D-dimer was mildly elevated and f/u Ct PE scan is ordered. Pt continues to have significant discomfort following maalox, protonix, and viscous lidocaine. IV morphine was added. Pt more belching on exam with re-evaluation. CT scan without PE, or acute lung pathology. There is however colonic diverticulosis, and the stomach, appears somewhat dilated with foodstuffs. IVF, and reglan ordered. 1:52 AM Pt reports feeling much improved, belching and discomfort is gone. Pt asking to go home. Etiology at this time is all likely GI related, and I feel comfortable in DC pt home w reglan, and PCP, GI f/u as needed. Further cardiac workup was also discussed should pt symptoms warrant in the immediate future. RTER symptoms discussed. ED Course / Clinical Impression Plan The patient was DISCHARGED: Counseled patient regarding suspected diagnosis AND need for follow-up. Discharged home with verbal and written instructions. They were instructed to return as needed for persistent or worsening symptoms or any new concerns. Condition at time of disposition: improved and stable SIGNATURE: MD Jesus Manuel Fan MD 04/20/18 0154 HEMOGRAM/DIFF Collected: 04/19/2018 Status: F Source: [facility] 9:35 PM HEALTH SYSTEM REPOSITORY TYPE CODE TESTS RESULT OUT OF REFERENCE UNITS RANGE LAB LWBC(LOINC 4.8-10.8 thou/cmm ) WBC 9.1 LAB LRBC(LOINC 4.60-6.20 mil/cmm ) RBC 4.90 LAB LHGB(LOINC 14.0-18.0 g/dL ) Hgb 14.6 LAB LHCT(LOINC 42.0-52.0 % ) Hct 45.0 LAB LMCV(LOINC 80.0-94.0 fl ) MCV 91.8 LAB LMCH(LOINC 27.0-31.0 pg ) MCH 29.8 LAB LMCHC(LOIN 32.0-36.0 % C) MCHC 32.4 LAB LRDW(LOINC 11.5-15.9 % ) RDW 13.2 LAB LPLT(LOINC 150-400 thou/cmm ) Platelet 209 LAB LMPV(LOINC 7.1-10.5 fl ) MPV 10.5 LAB LSEGT(LOIN % C) Seg Neutrophil 61.5 LAB LLYMP(LOIN % C) Lymphocyte 28.2 LAB LMNO(LOINC % ) Monocyte 7.8 LAB BERTRAM(LOINC % ) Eosinophil 2.2 LAB LBASO(LOIN % C) Basophil 0.3 LAB LSEGN(LOIN 3.00-5.67 thou/cmm C) Abs. Neut (ANC) 5.59 LAB LLYMN(LOIN 1.50-3.65 thou/cmm C) Abs. Lymph 2.57 LAB LMONN(LOIN 0.20-1.00 thou/cmm C) Abs. Vilas 0.71 LAB LEOSN(LOIN 0.00-0.41 thou/cmm C) Abs. Eosin 0.20 LAB LBASN(LOIN 0.00-0.08 thou/cmm C) Abs. Baso 0.03 Performed By: #### LCBCD #### [place] [address] COMPREHENSIVE PANEL Collected: 04/19/2018 Status: F Source: [facility] 9:35 PM HEALTH SYSTEM REPOSITORY TYPE CODE TESTS RESULT OUT OF REFERENCE UNITS RANGE LAB ORDER TAKER(LOINC) 136-145 mEq/L Sodium Blood 138 LAB LK(LOINC) 3.5-5.1 mEq/L Low Potassium Blood 3.0 LAB LCL(LOINC) 98-107 mEq/L Chloride Blood 106 LAB LCO2(LOINC 21-32 mEq/L ) CO2 Blood 27 LAB LGLU(LOINC 70-99 mg/dL ) Glucose High Blood 133 LAB LBUN(LOINC 7-25 mg/dL ) BUN Blood 19 LAB LCREA(LOIN 0.67-1.17 mg/dL C) Creatinine Blood 1.04 LAB LCA(LOINC) 8.5-10.1 mg/dL Calcium Blood 9.1 LAB LALB(LOINC 3.4-5.0 g/dL ) Albumin Blood 4.0 LAB LTP(LOINC) 6.4-8.2 g/dL Total Protein 7.2 LAB LAST(LOINC 15-37 U/L ) AST-SGOT Blood 18 LAB LALT(LOINC 14-63 U/L ) ALT-SGPT Blood 22 LAB LALKP(LOIN 46-116 U/L C) Alk Phosphatase 73 LAB LBILT(LOIN 0.2-1.0 mg/dL C) Total Bilirubin 0.3 LAB LANGP(LOIN 8-20 C) Anion Gap 8 LAB LBNCR(LOIN 10-20 C) BUN/Creatinine 18 Ratio Performed By: #### LP14 #### [place] [address] LIPASE BLOOD Collected: 04/19/2018 Status: F Source: [facility] 9:35 HEALTH SYSTEM REPOSITORY TYPE CODE TESTS RESULT OUT OF REFERENCE UNITS RANGE LAB LLIP(LOINC) 73-393 U/L Lipase Blood 185 Performed By: #### LLIP #### [place] [address] MDRD EGFR Collected: 04/19/2018 Status: F Source: [facility] 9:35 HEALTH SYSTEM REPOSITORY TYPE CODE TESTS RESULT OUT OF RANGE REFERENCE UNITS LAB LGFRF(LOINC >60mL/min/1.73m ) 2 eGFR >60 Result Comment: If the patient is , multiply the result by 1.210. Performed By: #### LGFR #### [place] [address] PROTIME Collected: 04/19/2018 Status: F Source: [facility] 9:35 HEALTH SYSTEM REPOSITORY TYPE CODE TESTS RESULT OUT OF REFERENCE UNITS RANGE LAB LPTI(LOINC 9.7-13.0 sec ) Prothrombin Time 10.7 Result Comment: Note new reference range. LAB LINR(LOINC) INR 1.03 Result Comment: Standard Therapy 2.0-3.0 High Dose 2.5-3.5 Performed By: #### LPT #### [facility] [address] [place] [address] TROPONIN I Collected: 04/19/2018 Status: F Source: [facility] 9:35 PM HEALTH SYSTEM REPOSITORY TYPE CODE TESTS RESULT OUT OF REFERENCE UNITS RANGE LAB LTRP(LOINC) <=0.07 ng/mL Troponin I <0.03 Performed By: #### LTRP #### [place] [address] D-DIMER QUANTITATIVE Collected: 04/19/2018 Status: F Source: [facility] 9:35 PM HEALTH SYSTEM REPOSITORY TYPE CODE TESTS RESULT OUT OF REFERENCE UNITS RANGE LAB LDMR(LOINC <450 ng/mL(FEU) ) D-Dimer High alert Quantitative 571 Result Comment: The cutoff level recommended for the exclusion of deep vein thrombosis (DVT) or pulmonary embolism (PE) is 450 ng/mL(FEU). It is recommended that DVT or PE exclusion be restricted to suspected outpatients with a low to moderate pretest probability model. Performed By: #### LDMR #### [place] [address] PROGRESS Observed: 03/24/2018 Status: COMPLETED Source: [facility] 11:03 AM [facility] REPOSITORY O ID: [id number] Author: Charles Cm Service: (none) Author Type: Physician Type: Progress Notes Filed: 03/24/2018 11:07 AM Note Text: ORTHOPEDIC CONSULT Charles Cm MD [facility] Department of Orthopedics Consultation requested by Dr. Pilo Gabriel MD for an opinion regarding left little finger injury and chronic left knee pain. My final recommendations will be communicated back to the requesting physician by way of shared medical record or letter via US mail 72-year-old male here today regarding the above problem but mainly for his left little finger. He states about 2-3 weeks ago he had a traction injury to the little finger while riding a horse and he's noticed swelling and pain since that time. He was seen in the walk-in clinic and was just referred. There was no splinting. He complains of an inability to straighten his finger and swelling and is concerned that he may be damaging his finger by trying to increase his range of motion. He also has a chronic left knee issue and would just like us to review his x-rays which she did provide today and we copy them into our system. Current Outpatient Prescriptions: hydrochlorothiazide 12.5 mg tablet Take 12.5 mg by mouth once daily. metoprolol tartrate, short acting, 50 mg tablet Take 50 mg by mouth twice daily. doxazosin (CARDURA) 1 mg tablet Take 1 mg by mouth daily at bedtime. BETA-CAROTENE,A, W-C AND E/MIN (EYE HEALTH ORAL) Take by mouth. NEXIUM 40 MG CAP Take one(1) tablet daily. No current facility-administered medications for this visit. 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 PAST SURGICAL HISTORY Procedure Laterality Date - PAST SURGICAL HISTORY OF May 01, 2005 left bicep torn tendon repair - PAST SURGICAL HISTORY OF 1994 carotid gland removed - PAST SURGICAL HISTORY OF 1965 left knee surgery - REMOVAL OF TONSILS,12+ Y/O PAST MEDICAL HISTORY Diagnosis Date - Unspecified essential hypertension FAMILY HISTORY Problem Relation Age of Onset - Cancer Father throat Cancer - Hypertension Mother Social History Substance Use Topics - Smoking status: Never Smoker - Smokeless tobacco: Not on file Comment: quit 15 years ago - Alcohol use Yes Comment: once per month, rarely ALLERGIES Allergen Reactions - Bee Stings [Other] Swelling - Capoten [Captopril] Cough REVIEW OF SYSTEMS General: NO fever, NO chills, NO night sweats Constitutional:NO recent unwanted weight loss, NO excessive weight Skin: NO rashes, NO chronic skin condition Head: NO seizures, NO headaches, NO dizziness Respiratory: NO cough Cardiovascular: NO chest pain Gastrointestinal: NO nausea, NO vomiting, NO abdominal painEndocrine: NO thyroid problems, NO heat intolerance Musculoskeletal: see HPI Neurologic: no numbness or tingling in extremities Examination: 72-year-old male no acute distress. Alert and oriented times 3. 6 foot 1 inch tall 200 pounds. Examination of the left little finger demonstrates the patient lacks about 25?. Patient can fully flex the finger. There is no instability and there is not much discomfort with palpation. The patient is seen to have a varus alignment to the left knee and walks with a varus thrust Radiologic review: X-rays ordered by me in to my interpretation are consistent with a avulsion injury of the volar aspect of the PIP joint. Review of x-rays provided by the patient in to my interpretation of his knee are consistent with severe varus alignment with primary osteoarthritis. Impression: #1 lower plate injury left little finger #2 primary osteoarthritis left knee #3 varus alignment left knee with instability. Regarding his finger, recommendation at this point his passive extension exercises. The patient understands he may not achieve full extension but he's comfortable with that. Regarding the knee, we did tell the patient that radiographically he qualifies as a total knee replacement patient. Patient wishes to consider total knee replacement but wants to wait until after the first of the year. Recommend follow-up with us in 6-8 weeks prior to that. At the conclusion of the office visit, the patient was asked if they had any questions regarding the diagnosis or care. Also, ample time was provided for the patient to ask any questions regarding the diagnosis therefore plan of care. All the patient's questions if asked were answered to their satisfaction. This note was partially generated using [employer] voice recognition system and as such may contain grammatical or word errors CNOV Observed: 03/24/2018 Status: COMPLETED Source: [facility] 10:30 AM [facility] REPOSITORY Office Visit (ORTHBR) DAWOOD VALENCIA ([id number]) 1945 M Date Time Provider Department 03/24/18 10:30 AM CHARLES CM During your visit today, we recorded the following information about you: Weight Height 90.7 kg 1.854 m Charles Cm MD FACS 03/24/2018 11:07 AM Signed ORTHOPEDIC CONSULT Charles Cm MD, FACS Department of Orthopedics Consultation requested by Dr. Pilo Gabriel MD for an opinion regarding left little finger injury and chronic left knee pain. My final recommendations will be communicated back to the requesting physician by way of shared medical record or letter via US mail 72-year-old male here today regarding the above problem but mainly for his left little finger. He states about 2-3 weeks ago he had a traction injury to the little finger while riding a horse and he's noticed swelling and pain since that time. He was seen in the walk-in clinic and was just referred. There was no splinting. He complains of an inability to straighten his finger and swelling and is concerned that he may be damaging his finger by trying to increase his range of motion. He also has a chronic left knee issue and would just like us to review his x-rays which she did provide today and we copy them into our system. Current Outpatient Prescriptions: hydrochlorothiazide 12.5 mg tablet Take 12.5 mg by mouth once daily. metoprolol tartrate, short acting, 50 mg tablet Take 50 mg by mouth twice daily. doxazosin (CARDURA) 1 mg tablet Take 1 mg by mouth daily at bedtime. BETA-CAROTENE,A, W-C AND E/MIN (EYE HEALTH ORAL) Take by mouth. NEXIUM 40 MG CAP Take one(1) tablet daily. No current facility-administered medications for this visit. 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 PAST SURGICAL HISTORY Procedure Laterality Date - PAST SURGICAL HISTORY OF May 01, 2005 left bicep torn tendon repair - PAST SURGICAL HISTORY OF 1994 carotid gland removed - PAST SURGICAL HISTORY OF 1965 left knee surgery - REMOVAL OF TONSILS,12+ Y/O PAST MEDICAL HISTORY Diagnosis Date - Unspecified essential hypertension FAMILY HISTORY Problem Relation Age of Onset - Cancer Father throat Cancer - Hypertension Mother Social History Substance Use Topics - Smoking status: Never Smoker - Smokeless tobacco: Not on file Comment: quit 15 years ago - Alcohol use Yes Comment: once per month, rarely ALLERGIES Allergen Reactions - Bee Stings [Other] Swelling - Capoten [Captopril] Cough REVIEW OF SYSTEMS General: NO fever, NO chills, NO night sweats Constitutional:NO recent unwanted weight loss, NO excessive weight Skin: NO rashes, NO chronic skin condition Head: NO seizures, NO headaches, NO dizziness Respiratory: NO cough Cardiovascular: NO chest pain Gastrointestinal: NO nausea, NO vomiting, NO abdominal painEndocrine: NO thyroid problems, NO heat intolerance Musculoskeletal: see HPI Neurologic: no numbness or tingling in extremities Examination: 72-year-old male no acute distress. Alert and oriented times 3. 6 foot 1 inch tall 200 pounds. Examination of the left little finger demonstrates the patient lacks about 25?. Patient can fully flex the finger. There is no instability and there is not much discomfort with palpation. The patient is seen to have a varus alignment to the left knee and walks with a varus thrust Radiologic review: X-rays ordered by me in to my interpretation are consistent with a avulsion injury of the volar aspect of the PIP joint. Review of x-rays provided by the patient in to my interpretation of his knee are consistent with severe varus alignment with primary osteoarthritis. Impression: #1 lower plate injury left little finger #2 primary osteoarthritis left knee #3 varus alignment left knee with instability. Regarding his finger, recommendation at this point his passive extension exercises. The patient understands he may not achieve full extension but he's comfortable with that. Regarding the knee, we did tell the patient that radiographically he qualifies as a total knee replacement patient. Patient wishes to consider total knee replacement but wants to wait until after the first of the year. Recommend follow-up with us in 6-8 weeks prior to that. At the conclusion of the office visit, the patient was asked if they had any questions regarding the diagnosis or care. Also, ample time was provided for the patient to ask any questions regarding the diagnosis therefore plan of care. All the patient's questions if asked were answered to their satisfaction. This note was partially generated using [employer]oster voice recognition system and as such may contain grammatical or word errors Referring Provider: ER STAFF/[facility] [[id number]] Allergies As of Date: 03/24/2018 Noted Allergy Reaction Bee Stings [Other] 03/27/2008 7 - Swelling CAPOTEN (CAPTOPRIL) 11/05/2005 3 - Cough Date Reviewed: 03/24/2018 Reviewed by: Jacquelyn Medina Ma - Fully Assessed Reason for Visit: New Patient [172] Left Pinky Injury [Other] Primary Visit Diagnosis:Volar plate injury of finger, initial encounter [S65.665V] Other Visit Diagnoses:Primary osteoarthritis of left knee [M17.12] Acquired varus deformity knee, left [M21.162] Prescriptions as of 03/24/2018 Sig: * HYDROCHLOROTHIAZIDE 12.5 MG T* Take 12.5 mg by mouth once da* * METOPROLOL TARTRATE 50 MG TAB* Take 50 mg by mouth twice alfonso* * DOXAZOSIN 1 MG TABLET Take 1 mg by mouth daily at b* * EYE HEALTH ORAL Take by mouth. * NEXIUM 40 MG CAPSULE,DELAYED * Take one(1) tablet daily. 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 TECHNIQUE: AP, lateral, and oblique views of the left hand and fifth digit of the left hand were obtained. COMPARISON: None RESULT: There is osteopenia. There is mild degenerative change seen involving the CMC joint of the first digit. Degenerative changes are seen involving the MCP joints of the second and third digits. Mild degenerative change is seen involving multiple IP joint spaces. There is soft tissue swelling seen overlying the fifth digit, with associated corticated ossific density seen arising from the poste rior aspect of the middle fifth phalanx, concerning for an avulsion injury. IMPRESSION: Osteopenia and osteoarthritis. Ossific density seen arising from the posterior aspect of the middle fifth phalanx, concerning for an avulsion type injury. Associated soft tissue swelling. FINGER(S) MIN 2 VIEWS Observed: 03/19/2018 Status: F Source: [facility] 3:52 PM HEALTH SYSTEM REPOSITORY Performed at [facility] APPROVED BY: MELY MOODY MD EXAMINATION: FINGER(S) MIN 2 VIEWS, HAND 3V PA/LAT/OBL LEFT HISTORY: Pain in the fifth digit of the the left hand. TECHNIQUE: AP, lateral, and oblique views of the left hand and fifth digit of the left hand were obtained. COMPARISON: None RESULT: There is osteopenia. There is mild degenerative change seen involving the CMC joint of the first digit. Degenerative changes are seen involving the MCP joints of the second and third digits. Mild degenerative change is seen involving multiple IP joint spaces. There is soft tissue swelling seen overlying the fifth digit, with associated corticated ossific density seen arising from the poste rior aspect of the middle fifth phalanx, concerning for an avulsion injury. IMPRESSION: Osteopenia and osteoarthritis. Ossific density seen arising from the posterior aspect of the middle fifth phalanx, concerning for an avulsion type injury. Associated soft tissue swelling. CARDIOLOGY VISIT Observed: 12/27/2017 Status: F Source: [facility] 12:16 PM [facility] REPOSITORY [facility] [address] [place] [address] OFFICE VISIT Date of Service: 12/27/17 MR#: [id number] Acct: [id number] Name: DAWOOD VALENCIA Rep #: [id number] : 1945 Provider: LUZ MARIA Oneill Age/Sex: 72/M [place] [facility] [place]: Signed HPI HPI Details: DAWOOD VALENCIA, is a 72 M who presents to the office today for a cardiovascular outpatient follow-up. Patient has a history of paroxysmal atrial fibrillation status post DCCV in July 2015, non-obstructive coronary artery disease, cardiomyopathy, hypertension, hyperlipidemia. Pt. denies chest, arm, jaw, or neck discomfort. His exercise tolerance is stable. Pt. denies symptoms of CHF, palpitations, lightheadedness, dizziness, near syncope, or syncopal episodes. Pt. denies edema or claudication issues. Pt. denies orthopnea, PND, fever, chills, blood in urine, blood in stool, myalgia, or unexplainable fatigue. Intake Vital Signs12/27/17 Height 6 ft 2 in 12/27/17 Weight: 209 lb 12/27/17 Body Mass Index (BMI) 26.8 12/27/17 Blood Pressure 138/80 12/27/17 Blood Pressure Location Lt brachial Intake Visit Reasons: 6 M FU [employer] Be[employer]er Required: No Accompanied by: None Is patient in pain?: No Allergies lisinopril Allergy (Verified 12/27/17 08:56) Unknown Medications Losartan Potassium [Cozaar] 50 mg PO DAILY 07/11/15 [History Confirmed 12/24/17] Pantoprazole Sodium [Protonix] 40 mg PO DAILY 07/11/15 [History Confirmed 12/24/17] metoprolol tartrate 25 mg tablet 25 mg PO BID #180 tab 11/02/17 [Rx Confirmed 12/24/17] pravastatin 20 mg tablet 20 mg PO DAILY #90 tab 11/02/17 [Rx Confirmed 12/24/17] terazosin 5 mg capsule 5 mg PO DAILY #90 cap 11/02/17 [Rx Confirmed 12/24/17] aspirin 325 mg tablet 325 mg PO QDAY tab 12/24/17 [History Confirmed 12/27/17] Ejection fraction %: 55 to 59 PFSH Medical History Atherosclerotic heart disease of [place] coronary artery without angina pectoris (Chronic) Paroxysmal atrial fibrillation (Acute) Hyperlipidemia (Chronic) Hypertension (Chronic) Abnormal cardiovascular stress test (Acute) 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) Lung nodule (Acute) Other terminal worker (current) drug therapy (Acute) Toxoplasmosis (Acute) Atrial fibrillation (Inactive) Cough (Inactive) Family history of hyperlipidemia (Inactive) Family history of hypertension (Inactive) Surgical History History of parotidectomy (Chronic) History of knee surgery (Resolved) Family History Mother Hypertension Brother CAD (coronary artery disease) Diabetes FH: hyperlipidemia Daughter Hypertension Father Cancer Throat cancer Other Family history of hypertension Social History Smoking Status: Former smoker how long ago did patient quit smokin alcohol intake: current alcohol intake frequency: a few times a month Alcohol type: beer, wine details: occasional substance use type: does not use caffeine: Yes Type: coffee what type of physical activity do you participate in: none seatbelt use: always do you feel safe at home: Yes ROS Const Const: Negative for fatigue, weakness, body ache, fever(s) or chills ENT ENT: Negative for dizziness Cardio Chest Pain: No Palpitations: Positive for No Edema: None Muscle aches with walking: None Resp Respiratory: Negative for SOB with activity, SOB at rest, SOB orthopnea\SOB lying down or paroxysmal nocturnal dyspnea GI GI: Negative nausea, black,tarry stools, bright, red blood in stools or vomiting blood/hematemesis : Negative for hematuria or frequent nighttime urination/ nocturia Musc Musc: Negative for muscle aches/ myalgia Neuro Neuro: Negative for weakness, dizziness, lightheadedness, near syncope, syncope or orthostatic symptoms Endo Endo: Negative for fatigue Cardiology Exam Const Appearance: cooperative, healthy appearing, comfortable and no acute distress Orientation: alert, awake and oriented x3 Head Head: normal to inspection Mouth: oral mucosae normal Neck Neck: no JVD and normal visual inspection Carotids: normal carotid upstroke Chest Chest inspection: normal inspection of the chest and normal respiratory effort Auscultation: Bilateral: Clear to Auscultation Cardio Rate: regular rate Rhythm: regular rhythm Heart sounds: S1 normal and S2 normal; negative rub or gallop GI GI: normal to inspection Neuro General: alert, awake, oriented x3 and CN's II-XI intact bilaterally Skin Skin: no rashes or lesions noted Extremities Pulses: Normal: Right Posterior Tibial Pulse, Left Posterior Tibial Pulse, Right Radial Pulse, Left Radial Pulse Lower Extremity Edema: None: Bilateral Psych Psychological: normal affect Supplemental Info Heart catheterization from December 2012 showed an ejection fraction of 60%, left main that was angiographically normal, LAD with 10-25% stenosis, LCx with minimal luminal irregularities, intermediate ramus with minimal luminal irregularities, and RCA with upwards to 50% stenosis. Echocardiogram from November 2015 showed an ejection fraction of 55%, mildly enlarged left atrium, mild focal aortic valve thickening, and mild focal aortic valve calcification. Assessment AND Plan 1. Paroxysmal atrial fibrillation I48.0 Plan - MARIE Stafford This appears stable. Patient will continue Aspirin 325mg and metoprolol for this. We will continue to monitor this through history, exam, ECG and continual associate application developer as needed. 2. Atherosclerosis of [place] coronary artery of [place] heart without angina pectoris I25.10 Mid 25-50% stenosis RCA Plan - MARIE Stafford Heart catheterization from December 2012 showed an ejection fraction of 60%, left main that was angiographically normal, LAD with 10-25% stenosis, LCx with minimal luminal irregularities, intermediate ramus with minimal luminal irregularities, and RCA with upwards to 50% stenosis. Patient denies any chest pain, arm pain, jaw pain, neck pain, shortness of breath, or fatigue suggestive of angina at this time. We will continue to monitor this. We will not make any medication regimen changes and will continue risk factor modification. 3. Essential hypertension I10 Plan - MARIE Stafford Patient's blood pressure is well-controlled today in the office. We will continue to monitor this. We will not make any medication regimen changes. 4. Mixed hyperlipidemia E78.2 Plan - MARIE Stafford Patient states this is being monitored by primary care provider. He will continue current cholesterol lowering medication. He has an upcoming yearly appointment in which this will be evaluated. 5. Non-ischemic cardiomyopathy I42.8 Plan - MARIE Stafford Echocardiogram from November 2015 showed an ejection fraction of 55%, mildly enlarged left atrium, mild focal aortic valve thickening, and mild focal aortic valve calcification. She denies any shortness of breath or lower extremity pedal edema. He will continue with ARB and beta-adalid. We will continue to monitor the history, exam, and repeat echocardiogram as needed. Plan Detail Additional Comments - MARIE Stafford Discussed the above patient with Dr. Jimenez, he agrees with the plan of care. Thank you for allowing us to participate in the patients plan of care, if you have any questions please do not hesitate to call. This note was generated using a voice recognition system and there may be incorrect words, spelling or punctuation that were not noted when reviewing the office note prior to saving. Follow Up 10 Months (PFM) Coding Level of Care Code Off vis,est,level 3 Diagnoses Paroxysmal atrial fibrillation I48.0 Atherosclerosis of [place] coronary artery of [place] heart without angina pectoris I25.10 [place] vs. transplanted heart: [place] heart Essential hypertension I10 Hypertension type: essential hypertension Mixed hyperlipidemia E78.2 Hyperlipidemia type: mixed hyperlipidemia Non-ischemic cardiomyopathy I42.8 Coding Level of Care Code Off vis,est,level 3 Diagnoses Paroxysmal atrial fibrillation I48.0 Atherosclerosis of [place] coronary artery of [place] heart without angina pectoris I25.10 [place] vs. transplanted heart: [place] heart Essential hypertension I10 Hypertension type: essential hypertension Mixed hyperlipidemia E78.2 Hyperlipidemia type: mixed hyperlipidemia Non-ischemic cardiomyopathy I42.8 12/27/17 1109 <Electronically signed by Asad SALAZAR> Date Asad Oneill RADIO AERIAL INSTALLER-C 12/27/17 1216<Electronically signed by Max Jimenez MD> Cosigner Signature: Date (if applicable) Max Jimenez MD CC: LUZ MARIA Beasley ALLERGIES ALLERGIES DATE TYPE / CODE NAME / CODE REACTION SEVERITY SOURCE 09/15/2018 Drug lisinopril/F006 Unknown Unknown [place] Allergy/[id number](S 454374(RXNORM) Community NOMED CT) Hospital Repository 03/27/2008 Miscellaneous OTHER SWELLING [place] Allergy/[id number]([facility] Main NOMED CT) [place] Repository 11/05/2005 DRUG CAPTOPRIL COUGH [place] INGREDI/[id number]([facility]) [place] Repository ENCOUNTERS ENCOUNTERS ADMIT/DISCHARGE ACCOUNT ADMITTING ENCOUNTER LOCATION SOURCE NUMBER CLASS 11/22/2018/11/22/19 [id number] Ambulatory [address] Other [place] Repository 11/22/2018/11/22/19 [id number] Ambulatory [address] Other [place] Repository 11/18/2018/11/18/19 [id number] Ambulatory [address] Other [place] Repository 11/18/2018/11/18/19 [id number] Ambulatory [address] Other [place] Repository 11/15/2018/11/15/19 [id number] Ambulatory [address] Other [place] Repository 11/15/2018/11/15/19 [id number] Ambulatory [address] Other [place] Repository 11/11/2018/11/11/19 [id number] Ambulatory [address] Other [place] Repository 11/11/2018/11/11/19 [id number] Ambulatory [address] Other [place] Repository 11/08/2018/11/09/19 [id number] Ambulatory [address] Other [place] Repository 11/08/2018/11/08/19 [id number] Ambulatory [address] Other [place] Repository 11/04/2018/11/04/19 [id number] Ambulatory [address] Other [place] Repository 11/04/2018/11/04/19 [id number] Ambulatory [address] Other [place] Repository 11/02/2018 [id number] Ambulatory [facility] ing:MRI Repository 10/17/2018 [id number] Ambulatory [facility] ing:LABSPEC Repository 10/11/2018 [id number] Inpatient [facility] Repository 09/16/2018 [id number] Ambulatory [facility] Other [place] Repository 09/15/2018/09/15/20 [id number] Ambulatory BMSBuilding:B Aladdin [facility] Repository 09/05/2018 [id number] Ambulatory [facility] ing:LABSPEC Repository 03/24/2018/03/29/20 [id number] Ambulatory [address] Repository 12/27/2017/12/27/19 [id number] Ambulatory BMSBuilding:B Maria Eugenia [facility] Repository 12/27/2017 [id number] Ambulatory BMSBuilding:B Maria Eugenia [facility] Repository 12/24/2017 [id number] Ambulatory BMSBuilding:B [place] [facility] Repository 12/20/2017 [id number] Ambulatory BMSBuilding:B Maria Eugenia [facility] Repository PAYERS PAYERS ENCOUNTER GUARANTOR PAYER SUBSCRIBER SOURCE 11/02/2018 DAWOOD Allen Primary Insurance:[facility] DAWOOD POWERB: Maria Eugenia [id number] [facility] [id number] [facility] Number: [place], [place] [id number] Repository [address]Idl: (330) Date:3521-24-57[phone] ( [address], [place] [address]EK: 11/02/2018 Secondary NOT GIVENUNK Maria Eugenia Insurance:SELF PAY [facility] Number: Effective Repository Date:2018-10-20 10/17/2018 DAWOOD Allen Primary DWAOOD Allen ERIKB: aMria Eugenia [id number] Insurance:MEDICARE [id number] [facility] PART A BPolicy Number: [place], [place] [id number] Repository [address]Uka: (330) Date:2018-10-174926 () 10/17/2018 Secondary DAWOOD Alejandro VALENCIADOB: Aladdin Insurance:AARPPolicy [id number] Community Number: [facility] [id number] Repository Date:0828-87-65DP [facility] [place], [place] [address]CR: 10/17/2018 Tertiary NOT GIVENUNK Aladdin Insurance:SELF PAY [facility] Number: Effective Repository Date:2018-10-17 09/15/2018 DAWOOD W Primary DAWOOD W ERIKDOB: Aladdin [id number] Insurance:MEDICARE [id number] Community [place] [facility]Policy [facility] [id number] Repository [address]Cwx: (330) Date:2018-08-24 [id number] () 09/15/2018 Secondary DAWOOD W ERIKDOB: Aladdin Insurance:AARPPolicy [id number] Community Number: [facility] [id number] Repository Date:8853-35-19FI [facility] [address], [place] [address]EI: 09/15/2018 Tertiary NOT GIVENUNK Maria Eugenia Insurance:SELF PAY [facility]: Effective Repository Date:2018-09-15 09/05/2018 DAWOOD W Primary DAWOOD VALENCIADOB: Aladdin [id number] Insurance:MEDICARE [id number] Community [place] [facility]Policy [facility] [id number] Repository [address]Zjp: (330) Date:2018-09-05 [phone] () 09/05/2018 Secondary DAWOOD W ERIKDOB: Maria Eugenia Insurance:AARPPolicy [id number] Community Number: [facility] [id number] Repository Date:9347-30-45[address]FX[place], [place] [address]GC: 09/05/2018 Tertiary NOT GIVENUNK Maria Eugenia Insurance:SELF PAY [facility] Number: Effective Repository Date:2018-09-05 12/27/2017 DAWOOD W Primary DAWOOD W BROWNDOB: Aladdin [id number] Insurance:MEDICARE [id number] [facility] [place] PART A BPolicy Number: [place], [place] [id number] Repository [address]Miy: (330) Date:2017-11-03 [phone] (HP) 12/27/2017 Secondary DAWOOD VALENCIADOB: Aladdin Insurance:AARPPolicy [id number] Community Number: [facility] [id number] Repository Date:8131-75-74UU [facility] [address]6601ODRWF[place], [place] [address]IP: 12/27/2017 Tertiary NOT GIVENUNK Maria Eugenia Insurance:SELF PAY Community [facility] Number: Effective Repository Date:2017-11-03 12/27/2017 Dawood Oshea57 Primary Dawood ValenciaDOB: Maria Eugenia Yancey Insurance:MEDICARE [id number] PART A BPolicy Number: Hospital [id number]: 330 [id number] Repository [phone] () Date:2017-12-27 12/27/2017 Secondary Dawood VaelnciaDOB: Maria Eugenia Insurance:AARPPolicy [id number] Community Number: [facility] [id number] Repository Date:1822-97-24[address]FW[place], [place] [address]BC: 12/27/2017 Tertiary NOT GIVENUNK Maria Eugenia Insurance:SELF PAY Community [facility] Number: Effective Repository Date:2017-12-27 12/24/2017 Dawood Avila Primary Dawood ValenciaDOB: Maria Eugenia Yancey Insurance:MEDICARE [id number] PART A BPolicy Number: Hospital [id number]: 330 [id number] Repository [phone] (HP) Date:2017-12-24 12/24/2017 Secondary Dawood ValenciaDOB: Maria Eugenia Insurance:AARPPolicy [id number] Community Number: [facility] [id number] Repository Date:0774-60-78QT [facility] [place], [place] [address]YX: 12/24/2017 Tertiary NOT GIVENUNK Aladdin Insurance:SELF PAY [facility] Number: Effective Repository Date:2017-12-24 12/20/2017 Dawood Valencia9057 Primary Dawood PowerB: Aladdin Yancey Insurance:MEDICARE [id number] [place] PART A BPolicy Number: [facility] [address]Tfv: (497) [id number] Repository [phone] () Date:2017-10-09 12/20/2017 Secondary Dawood Ayon: Maria Eugenia Insurance:AARPPolicy [id number] [facility] Number: [facility] [id number] Repository Date:7703-13-16[address]EJQ[place]KIF, [place] [address]EW: 12/20/2017 Tertiary NOT GIVENUNK Maria Eugenia Insurance:SELF PAY [facility]: Effective Repository Date:2017-10-09
== END ==
PROVIDERS: Family Provider Nurse Practitioner; PCP Nurse Practitioner; Referring Provider Nurse Practitioner; Visit Provider Nurse Practitioner
DX: D64.9 Anemia, unspecified (principal)
CPT/HCPCS: 85025

== ENCOUNTER → 2018-11-02 07:05 | Outpatient (CLI) | payer OTHER, SELFPAY ==
[2018-10-17 17:38] VITALS: BMI 26.6
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
== END ==
PROVIDERS: Family Provider Nurse Practitioner; PCP Nurse Practitioner; Referring Provider Family Medicine; Visit Provider Family Medicine
DX: S40.012A Contusion of left shoulder, initial encounter (principal)
CPT/HCPCS: 73221

== ENCOUNTER → 2019-09-12 13:00 | Outpatient (CLI) | payer MEDICARE, OTHER, SELFPAY ==
[2019-09-12 19:46] VITALS: BMI 27.9
[2019-09-13 00:31] LABS: Absolute Lymphocyte Count 1.92 X10^3/uL (0.83-4.51); Absolute Neutrophil Count 8.2 X10^3/uL (2.0-7.7); Basophil# 0.04 X10^3/uL; Basophil% 0.4 % (0-1); Eosinophil# 0.18 X10^3/uL; Eosinophils% 1.6 % (0-5); Hematocrit 45.9 % (40-54); Hemoglobin 14.7 g/dL (13.0-16.5); Lymphocyte # 1.92 X10^3/ul (4.0); Lymphocyte % 17.3 % (19-41); Mean Corpuscular Volume 93.7 fL (80-94); Mean Platelet Vol. 10.9 fl (6.2-12.0); Monocyte# 0.72 X10^3/uL; Monocyte% 6.5 % (0-10); NRBC Flagged by Analyzer 0 % (0-5); Neutrophil # 8.17 X10^3/uL (2.7-7.7); Neutrophil % 73.8 % (47-70); Platelet Count 244 K/mm3 (150-450); RBC Distribution Width CV 13.3 % (11.6-14.6); RBC Distribution Width SD 45.5 fl (35.1-43.9); White Blood Count 11.1 K/mm3 (4.4-11.0)
[2019-09-13 00:40] LABS: ALB/GLOB Ratio 1.2 RATIO (0.9-2.4); AST(SGOT) 15 U/L (15-37); Alanine Aminotransfer ALT/SGPT 19 U/L (16-61); Albumin, Serum 3.8 g/dL (3.2-5.0); Alkaline Phosphatase 86 U/L (45-117); Anion Gap 4 (5-15); BUN 16 mg/dL (7-18); BUN/Creat Ratio 15.2 RATIO (10-20); Calcium,Total 8.9 mg/dL (8.5-10.1); Chloride 107 mmol/L (98-107); Cholesterol 162 mg/dL (200); Creatinine, Serum 1.05 mg/dL (0.70-1.30); EST Glomerular Filtration Rate 74 mL/min (>60); Est Glom Filt Rate - Afr Amer 89 mL/min (>60); Globulin 3.1 g/dL (2.2-4.2); Glucose 115 mg/dL (74-106); High Density Lipoprotein 51 mg/dL; Potassium 3.8 mmol/L (3.5-5.1); Protein, Total 6.9 g/dL (6.4-8.2); Sodium Level 140 mmol/L (136-145); Triglycerides 245 mg/dL; Very Low Density Lipoprotein 49 mg/dL (5-40)
== END ==
PROVIDERS: Family Provider Nurse Practitioner; PCP Nurse Practitioner; Referring Provider Nurse Practitioner; Visit Provider Nurse Practitioner
DX: D64.9 Anemia, unspecified (principal); N40.0 Benign prostatic hyperplasia without lower urinary tract symptoms; E78.5 Hyperlipidemia, unspecified; I10 Essential (primary) hypertension; Z12.5 Encounter for screening for malignant neoplasm of prostate
CPT/HCPCS: 80053; 80061; 84153; 85025; G0103

== ENCOUNTER → 2021-02-10 22:36 | Outpatient (CLI) | payer MEDICARE, OTHER, SELFPAY ==
[2021-02-10 16:23] VITALS: BMI 27.8
[2021-02-10 22:47] LABS: Absolute Lymphocyte Count 1.72 X10^3/uL (0.83-4.51); Absolute Neutrophil Count 2.8 X10^3/uL (2.0-7.7); Basophil# 0.02 X10^3/uL; Basophil% 0.4 % (0-1); Eosinophil# 0.14 X10^3/uL; Eosinophils% 2.7 % (0-5); Hematocrit 44.8 % (40-54); Lymphocyte # 1.72 X10^3/ul (4.0); Lymphocyte % 32.8 % (19-41); Mean Corp Hgb Conc 31.3 g/dL (32-36); Mean Corpuscular Hgb 30.1 pg (27.0-32.0); Mean Corpuscular Volume 96.3 fL (80-94); Mean Platelet Vol. 10.7 fl (6.2-12.0); Monocyte# 0.52 X10^3/uL; Monocyte% 9.9 % (0-10); NRBC Flagged by Analyzer 0 % (0-5); Neutrophil # 2.83 X10^3/uL (2.7-7.7); Platelet Count 223 K/mm3 (150-450); RBC Distribution Width CV 13.3 % (11.6-14.6); RBC Distribution Width SD 47.2 fl (35.1-43.9); Red Blood Count 4.65 M/mm3 (4.6-6.2); White Blood Count 5.2 K/mm3 (4.4-11.0)
[2021-02-10 23:02] LABS: AST(SGOT) 16 U/L (15-37); Alanine Aminotransfer ALT/SGPT 19 U/L (16-61); Albumin, Serum 3.6 g/dL (3.2-5.0); Alkaline Phosphatase 86 U/L (45-117); Anion Gap 6 (5-15); BUN 22 mg/dL (7-18); Calcium,Total 8.7 mg/dL (8.5-10.1); Chloride 105 mmol/L (98-107); Cholesterol 137 mg/dL (200); EST Glomerular Filtration Rate 69 mL/min (>60); Est Glom Filt Rate - Afr Amer 84 mL/min (>60); Globulin 3.5 g/dL (2.2-4.2); Glucose 96 mg/dL (74-106); High Density Lipoprotein 43 mg/dL; PSA,Total - Annual Screen 2.74 ng/mL (0.00-4.00); Potassium 4.2 mmol/L (3.5-5.1); Protein, Total 7.1 g/dL (6.4-8.2); Sodium Level 139 mmol/L (136-145); Triglycerides 208 mg/dL; Very Low Density Lipoprotein 42 mg/dL (5-40)
[2021-02-10 23:08] LABS: Hemoglobin A1c 5.2 % (3.8-5.6)
== END ==
PROVIDERS: PCP Nurse Practitioner; Visit Provider Nurse Practitioner
DX: E78.2 Mixed hyperlipidemia (principal); R73.9 Hyperglycemia, unspecified; N40.0 Benign prostatic hyperplasia without lower urinary tract symptoms; D64.9 Anemia, unspecified; Z12.5 Encounter for screening for malignant neoplasm of prostate
CPT/HCPCS: 80053; 80061; 83036; 84153; 85025; G0103

== ENCOUNTER → 2022-02-24 | Outpatient (CLI) | payer MEDICARE, OTHER, SELFPAY ==
[2022-02-24 23:05] LABS: Absolute Lymphocyte Count 1.51 X10^3/uL (0.83-4.51); Absolute Neutrophil Count 3.4 X10^3/uL (2.0-7.7); Basophil# 0.03 X10^3/uL; Basophil% 0.6 % (0-1); Eosinophils% 1.8 % (0-5); Hematocrit 43.7 % (40-54); Hemoglobin 14.2 g/dL (13.0-16.5); Lymphocyte # 1.51 X10^3/ul (0.83-4.51); Lymphocyte % 27.8 % (19-41); Mean Corp Hgb Conc 32.5 g/dL (32-36); Mean Corpuscular Hgb 30.5 pg (27.0-32.0); Mean Corpuscular Volume 93.8 fL (80-94); Mean Platelet Vol. 11.3 fl (6.2-12.0); Monocyte# 0.36 X10^3/uL; Monocyte% 6.6 % (0-10); NRBC Flagged by Analyzer 0 % (0-5); Neutrophil # 3.44 X10^3/uL (2.7-7.7); Neutrophil % 63.2 % (47-70); Platelet Count 228 K/mm3 (150-450); RBC Distribution Width CV 13.2 % (11.6-14.6); RBC Distribution Width SD 45.4 fl (35.1-43.9); Red Blood Count 4.66 M/mm3 (4.6-6.2); White Blood Count 5.4 K/mm3 (4.4-11.0)
[2022-02-24 23:27] LABS: ALB/GLOB Ratio 1.2 RATIO (0.9-2.4); AST(SGOT) 26 U/L (15-37); Alanine Aminotransfer ALT/SGPT 30 U/L (16-61); Albumin, Serum 3.8 g/dL (3.2-5.0); Alkaline Phosphatase 76 U/L (45-117); Anion Gap 6 (5-15); BUN 22 mg/dL (7-18); BUN/Creat Ratio 22.7 RATIO (10-20); Calcium,Total 8.6 mg/dL (8.5-10.1); Chloride 107 mmol/L (98-107); Cholesterol 132 mg/dL (200); Creatinine, Serum 0.97 mg/dL (0.70-1.30); EST Glomerular Filtration Rate 80 mL/min (>60); Est Glom Filt Rate - Afr Amer 97 mL/min (>60); Globulin 3.2 g/dL (2.2-4.2); Glucose 123 mg/dL (74-106); High Density Lipoprotein 51 mg/dL; PSA,Total- Diagnostic 3.16 ng/mL (0.0-4.0); Potassium 3.8 mmol/L (3.5-5.1); Sodium Level 139 mmol/L (136-145); Triglycerides 164 mg/dL; Very Low Density Lipoprotein 33 mg/dL (5-40)
== END | disposition home or self-care (01) ==
PROVIDERS: PCP Nurse Practitioner; Visit Provider Nurse Practitioner
DX: I25.10 Atherosclerotic heart disease of native coronary artery without angina pectoris (principal); E78.2 Mixed hyperlipidemia; N40.0 Benign prostatic hyperplasia without lower urinary tract symptoms
CPT/HCPCS: 80053; 80061; 84153; 85025

== ENCOUNTER → 2023-04-05 | Outpatient (CLI) | payer MEDICARE, OTHER, SELFPAY ==
--- NOTE | 2023-04-02 | LES_PTH ---
PATIENT: JEWELL VILLATORO LOC: [facility] U#:[id number] AGE/SX: 77/M ROOM: RE04/05/[address]: Dr. Kai Zaman MD : [id number] BED: DIS: 04/05/2023 SPEC #: [id number] RECD: 04/05/23 12:11 STATUS: VELMA REAr #: [id number] BRANDON: 04/02/23 00:[address]: Kai Zaman DEPT: SURGICAL PATHOLOGY RECD BY: Jelani Garcia ENTERED: 04/05/23 12:12 SP TYPE: Lesion OTHR DR: Beverley Beasley, RADIO COMMENTATOR-C Tissues: Skin of eyelid, NOS Procedures: Surgery Specimen Level IV HEADER OPERATION: Right upper lid lesion excision PRE-OP DIAGNOSIS: Right upper lid lesion TISSUE SUBMITTED: Right upper lid lesion MICROSCOPIC DIAGNOSIS Right upper eyelid lesion, biopsy: Consistent with squamous papilloma, inflamed. AM:tran 04/06/2023 MICROSCOPIC DESCRIPTION Slides are reviewed. GROSS DESCRIPTION Received in fixative is one container labeled with the patient's name and designated right upper lid. The specimen consists of a piece of chu-white skin measuring 0.2 x 0.1 x 0.1 cm. The specimen is totally submitted in one cassette. / SJ:tran 04/05/2023 TC:3 CPT: 45971
== END | disposition home or self-care (01) ==
LOC: LABSPEC 10:26
PROVIDERS: PCP Nurse Practitioner; Referring Provider Ophthalmology; Visit Provider Ophthalmology
DX: H02.9 Unspecified disorder of eyelid (principal)
CPT/HCPCS: 88305

== ENCOUNTER → 2023-06-01 | Outpatient (CLI) | payer MEDICARE, OTHER, SELFPAY ==
[2023-06-01 21:32] LABS: Absolute Lymphocyte Count 1.65 X10^3/uL (0.83-4.51); Absolute Neutrophil Count 3.9 X10^3/uL (2.0-7.7); Basophil# 0.03 X10^3/uL; Basophil% 0.5 % (0-1); Eosinophil# 0.11 X10^3/uL; Eosinophils% 1.8 % (0-5); Hematocrit 35.1 % (40-54); Hemoglobin 11.1 g/dL (13.0-16.5); Lymphocyte # 1.65 X10^3/ul (0.83-4.51); Lymphocyte % 26.6 % (19-41); Mean Corp Hgb Conc 31.6 g/dL (32-36); Mean Corpuscular Hgb 29.8 pg (27.0-32.0); Mean Corpuscular Volume 94.1 fL (80-94); Mean Platelet Vol. 10.1 fl (6.2-12.0); Monocyte# 0.46 X10^3/uL; Monocyte% 7.4 % (0-10); NRBC Flagged by Analyzer 0 % (0-5); Neutrophil # 3.94 X10^3/uL (2.7-7.7); Neutrophil % 63.4 % (47-70); Platelet Count 329 K/mm3 (150-450); RBC Distribution Width CV 13.5 % (11.6-14.6); RBC Distribution Width SD 46.5 fl (35.1-43.9); Red Blood Count 3.73 M/mm3 (4.6-6.2); White Blood Count 6.2 K/mm3 (4.4-11.0)
[2023-06-01 21:41] LABS: ALB/GLOB Ratio 0.9 RATIO (0.9-2.4); AST(SGOT) 11 U/L (15-37); Alanine Aminotransfer ALT/SGPT 16 U/L (16-61); Albumin, Serum 3.4 g/dL (3.2-5.0); Alkaline Phosphatase 69 U/L (45-117); Anion Gap 5 (5-15); BUN 14 mg/dL (7-18); BUN/Creat Ratio 13.3 RATIO (10-20); Chloride 107 mmol/L (98-107); Cholesterol 144 mg/dL (200); Creatinine, Serum 1.05 mg/dL (0.70-1.30); EST Glomerular Filtration Rate 73 mL/min (>60); Est Glom Filt Rate - Afr Amer 88 mL/min (>60); Globulin 3.6 g/dL (2.2-4.2); Glucose 100 mg/dL (74-106); High Density Lipoprotein 55 mg/dL; PSA,Total - Annual Screen 4.09 ng/mL (0.00-4.00); Potassium 4.9 mmol/L (3.5-5.1); Sodium Level 138 mmol/L (136-145); Triglycerides 112 mg/dL; Very Low Density Lipoprotein 22 mg/dL (5-40)
== END | disposition home or self-care (01) ==
PROVIDERS: PCP Nurse Practitioner; Visit Provider Nurse Practitioner
DX: I10 Essential (primary) hypertension (principal); I42.8 Other cardiomyopathies; I48.0 Paroxysmal atrial fibrillation; E78.2 Mixed hyperlipidemia; I25.10 Atherosclerotic heart disease of native coronary artery without angina pectoris; N40.0 Benign prostatic hyperplasia without lower urinary tract symptoms; Z12.5 Encounter for screening for malignant neoplasm of prostate
CPT/HCPCS: 80053; 80061; 84153; 85025; G0103

== ENCOUNTER → 2023-06-28 | Outpatient (CLI) | payer MEDICARE, OTHER, SELFPAY ==
[2023-06-28 22:36] LABS: Absolute Neutrophil Count 3.5 X10^3/uL (2.0-7.7); Basophil# 0.03 X10^3/uL; Basophil% 0.5 % (0-1); Eosinophil# 0.15 X10^3/uL; Eosinophils% 2.6 % (0-5); Hematocrit 40.8 % (40-54); Hemoglobin 12.5 g/dL (13.0-16.5); Lymphocyte % 28.1 % (19-41); Mean Corp Hgb Conc 30.6 g/dL (32-36); Mean Corpuscular Hgb 29.3 pg (27.0-32.0); Mean Corpuscular Volume 95.8 fL (80-94); Mean Platelet Vol. 10.7 fl (6.2-12.0); Monocyte# 0.43 X10^3/uL; Monocyte% 7.6 % (0-10); NRBC Flagged by Analyzer 0 % (0-5); Neutrophil # 3.47 X10^3/uL (2.7-7.7); Platelet Count 272 K/mm3 (150-450); RBC Distribution Width CV 14.6 % (11.6-14.6); RBC Distribution Width SD 51.5 fl (35.1-43.9); Red Blood Count 4.26 M/mm3 (4.6-6.2); White Blood Count 5.7 K/mm3 (4.4-11.0)
[2023-06-28 23:02] LABS: ALB/GLOB Ratio 1.1 RATIO (0.9-2.4); AST(SGOT) 12 U/L (15-37); Alanine Aminotransfer ALT/SGPT 19 U/L (16-61); Albumin, Serum 3.5 g/dL (3.2-5.0); Alkaline Phosphatase 80 U/L (45-117); Anion Gap 6 (5-15); BUN 18 mg/dL (7-18); BUN/Creat Ratio 17.1 RATIO (10-20); Calcium,Total 8.9 mg/dL (8.5-10.1); Chloride 108 mmol/L (98-107); Cholesterol 135 mg/dL (200); Creatinine, Serum 1.05 mg/dL (0.70-1.30); EST Glomerular Filtration Rate 73 mL/min (>60); Est Glom Filt Rate - Afr Amer 88 mL/min (>60); Globulin 3.3 g/dL (2.2-4.2); Glucose 107 mg/dL (74-106); High Density Lipoprotein 53 mg/dL; PSA,Total- Diagnostic 2.86 ng/mL (0.0-4.0); Potassium 4.2 mmol/L (3.5-5.1); Protein, Total 6.8 g/dL (6.4-8.2); Sodium Level 140 mmol/L (136-145); Thyroid Stim Hormone (TSH) 1.16 uIU/mL (0.358-3.74); Triglycerides 107 mg/dL; Very Low Density Lipoprotein 21 mg/dL (5-40)
== END | disposition home or self-care (01) ==
PROVIDERS: PCP Nurse Practitioner; Visit Provider Nurse Practitioner
DX: I42.8 Other cardiomyopathies (principal); D64.9 Anemia, unspecified; R97.20 Elevated prostate specific antigen [PSA]; I10 Essential (primary) hypertension; E78.2 Mixed hyperlipidemia; I25.10 Atherosclerotic heart disease of native coronary artery without angina pectoris
CPT/HCPCS: 80053; 80061; 84153; 84443; 85025

== ENCOUNTER → 2024-04-21 | Outpatient (CLI) | payer MEDICARE, OTHER, SELFPAY ==
--- NOTE | 2024-04-21 15:01 | ECHOCS_ITS ---
Procedure This was a 2D Doppler, Color Flow transthoracic echocardiogram. The study was technically difficult. Contrast injection was performed. Exam performed in department. Left Ventricle Normal LV size. The left ventricular ejection fraction is 35 %. Stage 1 diastolic dysfunction. There is moderate global hypokinesis of the left ventricle. Right Ventricle Normal RV size. Normal systolic function. Mitral Valve Normal mitral valve. Mild (1+) eccentric mitral valve insufficiency. Aortic Valve Trisinus/trileaflet aortic valve. Moderate focal aortic valve calcification. Great Vessels Normal aortic root. The pulmonary artery is normal size. Normal inferior vena cava. Pericardium/Pleural No pericardial effusion. Medication 22 gauge I.V. with prn adaptor inserted into right arm. Diluted definity 2ml given slow IV push to enhance endocardial definition. MMode/2D Measurements & Calculations LVIDd: 5.1 cm IVSd: 0.63 cm Ao root diam: 3.9 cm LVIDs: 4.3 cm LVPWd: 1.1 cm LA dimension: 5.0 cm RVDd: 3.3 cm FS: 15.6 % LAV(MOD-bp): 66.9 ml SV(MOD-sp4): 46.3 ml LVAd ap4: 43.0 cm2 LAV(MOD-bp) Indexed: 31.4 ml/m2 LVLd ap4: 8.5 cm LAV(MOD-sp2): 74.9 ml EDV(MOD-sp4): 178.7 ml LAV(MOD-sp4): 55.3 ml EDV(sp4-el): 184.7 ml LVAs ap4: 35.5 cm2 LVLs ap4: 7.7 cm ESV(MOD-sp4): 132.4 ml ESV(sp4-el): 138.6 ml EF(MOD-sp4): 25.9 % EF(sp4-el): 25.0 % SV(sp4-el): 46.1 ml LA A4 area: 20.6 cm2 RA A4 area: 17.5 cm2 Time Measurements MV dec time: 0.26 sec Doppler Measurements & Calculations MV E max gianni: 57.5 cm/sec Lat Peak E' Gianni: 10.7 cm/sec Med Peak E' Gianni: 6.3 cm/sec MV A max gianni: 92.2 cm/sec E/E' lat: 5.4 E/E' med: 9.2 MV E/A: 0.62 MV V2 max: 101.0 cm/sec MV P1/2t max gianni: 57.1 cm/sec Ao V2 max: 130.9 cm/sec MV max P.1 mmHg MV P1/2t: 85.8 msec Ao max P.9 mmHg MV V2 mean: 51.8 cm/sec MV dec slope: 195.0 cm/sec2 Ao V2 mean: 91.0 cm/sec MV mean P.3 mmHg Ao mean P.8 mmHg MV V2 VTI: 29.2 cm MVA(P1/2t): 2.6 cm2 Ao V2 VTI: 30.8 cm AV (velocity ratio): 0.86 LV V1 max: 113.7 cm/sec PA V2 max: 88.3 cm/sec LV V1 max P.2 mmHg LV V1 mean P.0 mmHg LV V1 mean: 81.5 cm/sec LV V1 VTI: 26.4 cm ECHO/Echo Complete W/ Contrast Interpretation Summary The left ventricular ejection fraction is 35 %. Normal LV size. Stage 1 diastolic dysfunction. Mild (1+) eccentric mitral valve insufficiency. Contrast injection was performed. Ordering Physician: Asad Oneill Referring Physician: Asad Oneill Performed By: Chandana Vivar RCS
== END | disposition home or self-care (01) ==
LOC: CVS 14:58
PROVIDERS: PCP Nurse Practitioner; Referring Provider Nurse Practitioner Family; Visit Provider Nurse Practitioner Family
DX: I42.8 Other cardiomyopathies (principal); I48.0 Paroxysmal atrial fibrillation
CPT/HCPCS: 93306; Q9957; A4216; C8929

== ENCOUNTER → 2024-07-31 | Outpatient (CLI) | payer MEDICARE, OTHER, SELFPAY ==
--- NOTE | 2024-07-31 07:47 | ECHOLC_ITS ---
Reason For Study: CHF Procedure This was a limited 2D transthoracic echocardiogram. Contrast injection was performed. Exam performed in department. Left Ventricle Normal LV size. The estimated ejection fraction is 35 %. There is evidence of diastolic dysfunction. There is moderate global hypokinesis of the left ventricle. Right Ventricle Normal RV size. Normal systolic function. Atria The left and right atria are normal. No doppler evidence for ASD. Mitral Valve There is no mitral valve stenosis. Trivial mitral valve insufficiency. Tricuspid Valve There is no tricuspid stenosis. Trivial tricuspid valve insufficiency. Unable to estimate RV systolic pressure due to insufficient tricuspid regurgitant envelope. Aortic Valve Trisinus/trileaflet aortic valve. Aortic sclerosis, no stenosis. There is no aortic stenosis. No aortic valve insufficiency. Pulmonic Valve There is no pulmonic valvular stenosis. No pulmonic valve insufficiency. Great Vessels Normal aortic root. Pericardium/Pleural No pericardial effusion. Medication 22 gauge I.V. with prn adaptor inserted into right arm. Diluted definity 2.5ml given slow IV push to enhance endocardial definition. MMode/2D Measurements & Calculations LVIDd: 4.8 cm IVSd: 1.0 cm LVIDs: 3.9 cm LVPWd: 0.74 cm LVAd ap4: 33.0 cm2 FS: 18.5 % LVLd ap4: 8.1 cm EDV(MOD-sp4): 109.3 ml EDV(sp4-el): 114.1 ml LVAs ap4: 24.9 cm2 LVLs ap4: 7.4 cm ESV(MOD-sp4): 71.0 ml ESV(sp4-el): 71.6 ml EF(MOD-sp4): 35.1 % EF(sp4-el): 37.2 % LVAd ap2: 36.2 cm2 SV(MOD-sp4): 38.4 ml SV(MOD-sp2): 50.7 ml LVLd ap2: 8.3 cm EDV(MOD-sp2): 127.7 ml EDV(sp2-el): 133.7 ml LVAs ap2: 25.7 cm2 LVLs ap2: 7.2 cm ESV(MOD-sp2): 77.0 ml ESV(sp2-el): 78.0 ml EF(MOD-sp2): 39.7 % SV(sp4-el): 42.4 ml Doppler Measurements & Calculations MR max la: 408.9 cm/sec MR max P.9 mmHg ECHO/Echo Limited w/Contrast Interpretation Summary The estimated ejection fraction is 35 %. There is evidence of diastolic dysfunction. There is moderate global hypokinesis of the left ventricle. Trivial mitral valve insufficiency. Ordering Physician: Mauricio Shaver Referring Physician: Mauricio Shaver Performed By: Chandana Vivar RCS
== END | disposition home or self-care (01) ==
LOC: CVS 07:47
PROVIDERS: PCP Nurse Practitioner; Referring Provider Internal Medicine Cardiovascular Disease; Visit Provider Internal Medicine Cardiovascular Disease
DX: I42.8 Other cardiomyopathies (principal)
CPT/HCPCS: 93308; Q9957; A4216; C8924

== ENCOUNTER → 2025-04-06 | Outpatient (CLI) | payer MEDICARE, OTHER, SELFPAY ==
--- NOTE | 2025-04-06 12:19 | ECHOLC_ITS ---
Reason For Study Reason For Study: CHF, Re-evaluate EF Procedure This was a limited 2D transthoracic echocardiogram. Contrast injection was performed. Exam performed in department. Left Ventricle Normal LV size. The estimated ejection fraction is 35 %. There is evidence of diastolic dysfunction. There is moderate global hypokinesis of the left ventricle. Right Ventricle Normal RV size. Normal systolic function. Mitral Valve There is no mitral valve stenosis. Trivial mitral valve insufficiency. Tricuspid Valve There is no tricuspid stenosis. Trivial tricuspid valve insufficiency. Pulmonary artery systolic pressure is 25 mmHg. Aortic Valve Moderate diffuse aortic valve thickening. There is no aortic stenosis. No aortic valve insufficiency. Pericardium/Pleural No pericardial effusion. Medication Diluted definity 1.5ml given slow IV push to enhance endocardial definition. MMode/2D Measurements & Calculations LVIDd: 5.3 cm IVSd: 1.1 cm Ao root diam: 3.7 cm LVIDs: 4.1 cm LVPWd: 0.91 cm FS: 22.6 % SV(MOD-sp4): 41.4 ml SV(sp4-el): 41.7 ml LVAd ap4: 35.5 cm2 LVLd ap4: 7.9 cm EDV(MOD-sp4): 132.4 ml EDV(sp4-el): 134.3 ml LVAs ap4: 27.3 cm2 LVLs ap4: 6.8 cm ESV(MOD-sp4): 91.0 ml ESV(sp4-el): 92.6 ml EF(MOD-sp4): 31.2 % EF(sp4-el): 31.1 % Doppler Measurements & Calculations TR max la: 226.2 cm/sec TR max P.5 mmHg ECHO/Echo Limited w/Contrast Interpretation Summary The estimated ejection fraction is 35 %. There is evidence of diastolic dysfunction. There is moderate global hypokinesis of the left ventricle. Trivial mitral valve insufficiency. Ordering Physician: Asad Oneill Referring Physician: Beverley Beasley Performed By: Sonya Oneill RDCS, RVT
== END | disposition home or self-care (01) ==
LOC: CVS 12:18
PROVIDERS: PCP Nurse Practitioner; Referring Provider Nurse Practitioner Family; Visit Provider Nurse Practitioner Family
DX: I42.8 Other cardiomyopathies (principal)
CPT/HCPCS: 93308; Q9957; A4216; C8924

== ENCOUNTER → 2025-08-06 | Outpatient (CLI) | payer MEDICARE, OTHER, SELFPAY ==
--- OUTSIDE RECORDS SUMMARY | 2025-08-06 21:35 | XMS RPT_ITS | CCD ---
Author Organization [facility] Care Team Providers Care Aquarist Name Role Phone Heena Estevez Unavailable Unavailable Shelton Murray Unavailable Unavailable Shelton Murray Unavailable Unavailable No Doctor Assigned, Nodr Unavailable Unavail able Shelton Murray Unavailable Unavailable Shelton Murray Unavailable Unavailable No Doctor Assigned, Nodr Unavailable Unavail able Warren Bethea Attending Unavailable Ramos, Cara Keturah Primary Care Unavailable Warren Bethea Attending Unavailable Warren Bethea Attending Unavailable Beasley, Cara L Primary Care Unavailable Eliana Bruce Unavailable Unavailable Heena Estevez Unavailable Unavailable Beasley FREIGHT SOLICITOR.JOURNEYMAN PLUMBER, Cara L Primary Care Provide r Beasley FREIGHT SOLICITOR.JOURNEYMAN PLUMBER, Cara L Unavailable PROVIDER, UNKNOWN Referring Unavailable BEASLEY, CARA L Primary Care Unavailable MEHDI HARRY Referring Unavailable BEASLEY, CARA L Primary Care Unavailable BEASLEY, CRAA L Primary Care Unavailable HARVEY MONTEZ Attending UnavailALIVIA Wright Referring Unavailable BEASLEY, CARA L Primary Care Unavailable MANINDER SHAVER Referring Unavail able BEASLEY, CARA L Primary Care Unavailable Beasley STOCK RAISER-C, Cara Primary Care Provider Asad Friend Attending Provider [phone] Asad Friend Referring Provider Tim MCMILLAN, Dr. Colby Attending Provider Ramos LOERA-CCara Referring Provider [phone] Earnestine Dumont Attending Unavailabl e Ramos STOCK RAISER, Cara Primary Care Unavailable Maninder Shaver Attending Unavailable Beasley STOCK RAISER, Cara Primary Care Unavailable Beasley STOCK RAISER, Cara Referring Unavailable Roof STOCK RAISER, Asad H Attending Unavailable Beasley STOCK RAISER, Cara Referring Unavailable Beasley STOCK RAISER, Cara Primary Care Unavailable Benigno Ansari Attending Unavailable Beasley STOCK RAISER, Cara Referring Unavailable Beasley STOCK RAISER, Cara Primary Care Unavailable Benigno Ansari Attending Unavailable Beasley STOCK RAISER, Cara Referring Unavailable Beasley STOCK RAISER, Cara Primary Care Unavailable Roof STOCK RAISER, Asad H Attending Unavailable Beasley STOCK RAISER, Cara Referring Unavailable Beasley STOCK RAISER, Cara Primary Care Unavailable Earnestine Dumont Attending Unavailabl e Beasley STOCK RAISER, Cara Primary Care Unavailable Roof STOCK RAISER, Asad H Attending Unavailable Roof STOCK RAISER, Asad H Referring Unavailable Beasley STOCK RAISER, Cara Primary Care Unavailable Roof STOCK RAISER, Asad H Attending Unavailable Beasley STOCK RAISER, Cara Primary Care Unavailable Roof STOCK RAISER, Asad H Referring Unavailable Maninder Shaver Attending Unavailable Maninder Shaver Referring Unavailable Beasley STOCK RAISER, Cara Primary Care Unavailable Jakob Anna Attending Unavailable Beasley STOCK RAISER, Cara Primary Care Unavailable Beasley FREIGHT SOLICITOR.JOURNEYMAN PLUMBER, Cara L Primary Care Provide r RICARDO RIZO Referring Unavailable BEASLEY, CARA L Primary Care Unavailable Allergies Allergy Classification Reported Allergen(s) Allergy Type Date of Onset Reaction(s) Facility (20 sources) lisinopril; Translations: [LISINOPRIL] drug allergy 04-09-2014 Unknown [facility] Work Phone: (2 sources) NKDA drug allergy 11-30-2012 [facility] Work Phone: (12 sources) Captopril; Translations: [CAPTOPRIL] Drug Allergy 11-05-2005 Cough [facility] (5 sources) Bee Stings [Other] Propensity to adverse reactions 03-27-2008 Swelling [facility] (7 sources) Bee Sting; Translations: [BEE STING] Propensity to adverse reactions 09-15-2023 Swelling [facility] Work Phone: Medications Current Medications Medication Drug Class(es) Dates Sig (Normalized) Sig (Original) [id number] 200 actuat albuterol 0.09 mg/actuat metered dose inhaler (3 sources) beta2-Adrenergic Agonist Start: 09-15-2023 End: 10-15-2023 take 2 puff(s) by inhalation every six hours as needed albuterol HFA (PROAIR HFA) 90 mcg/actuation inhaler Indications: Post-viral cough syndrome Inhale 2 Puffs as instructed every 6 hours as needed. 8.5 g 09/15/2023 Active Comment on above: Inhale 2 Puffs as in structed every 6 hours as needed. 24 hr alfuzosin hydrochloride 10 mg extended release oral tablet (2 sources) alpha-Adrenergic Yared Start: 10-06-2024 take 1 tablet by mouth once daily Alfuzosin 10 mg tablet extended release 24 hr Active 10 mg PO daily October 06, 2024 1:00am ascorbic acid 500 mg oral capsule (15 sources) Vitamin C Start: 10-12-2022 take 2 capsules by mouth once daily Ascorbic Acid (Vitamin C) 500 mg capsule Active 1000 mg PO DAILY October 12, 2022 2:47pm Start: 10-12-2022 take 1000 mg by mout h once daily Ascorbic Acid (Vitamin C) Active 1000 MG PO DAILY October 12, 2022 2:47pm Start: 03-13-2019 End: 10-12-2022 Ascorbic Acid (Vitamin C) 50 0 mg capsule Discontinued mg PO March 13, 2019 12:00am October 12, 2022 2:48pm Start: 03-13-2019 End: 10-12-2022 Ascorbic Acid (Vitamin C) Ac tive MG PO March 13, 2019 8:44am Ascorbic Acid (V ITAMIN C) 500 mg cpER Take by mouth once daily. Active Comment on above: Take by mouth once d aily. dapagliflozin 10 mg oral tablet (7 sources) Sodium-Glucose Cotransporter 2 Inhibitor Start: 08-21-20 End: 03-12-20 take 1 tablet by mouth once daily in the morning Dapagliflozin Propanediol (Farxiga) 10 mg tablet Active 10 mg PO EVERY MORNING March 12, 2025 4:48pm Start: 05-03-2024 End: 05-03-2024 take 1 tablet by mouth once daily Dapagliflozin Propanediol (Farxiga) 10 mg tablet Discontinued 10 mg PO daily May 03, 2024 12:00am May 03, 2024 9:33am ferrous sulfate 325 mg oral tablet (10 sources) Start: 06-01-2023 ferrous sulfat e (IRON) 325 mg (65 mg iron) tablet 06/01/2023 Active Start: 12-06-2018 End: 03-13-2019 take 1 tablet by mouth twice daily Ferrous Sulfate (Feosol) 325 mg (65 mg iron) tablet Discontinued 325 mg PO TWICE A DAY December 06, 2018 1:00am March 13, 2019 8:47am ipratropium bromide 0.042 mg/actuat metered dose nasal spray (2 sources) Anticholinergic Start: 09-15-2023 End: 10-15-2023 ipratropium bromide (ATROVENT) 42 mcg (0.06 %) nasal spray Indications: Post-viral cough syndrome Use 1 [place] in the nose three times a day. 15 mL 1 09/15/2023 10/15/2023 Active Comment on above: Use 1 [place] in the n ose three times a day. nitroglycerin 0.4 mg sublingual tablet (2 sources) Nitrate Vasodilator Start: 04-09-2025 Nitroglycerin 0.4 mg tablet, sublingual Active 0.4 mg SL every 5 to 15 minutes as needed for chest pain April 09, 2025 12:00am do not exceed 3 doses per episode pantoprazole 20 mg delayed release oral tablet (20 sources) Proton Pump Inhibitor Start: 03-13-2019 take 1 tablet by mouth once daily Pantoprazole 20 mg tablet,delayed release (DR/EC) Active 20 mg PO DAILY March 13, 2019 12:00am Start: 09-05-2018 End: 03-13-2019 Pantoprazole 40 mg tablet,de layed release (DR/EC) Discontinued 20 mg PO DAILY September 05, 2018 9:20pm March 13, 2019 8:42am Start: 09-05-2018 End: 03-13-2019 take 20 mg by mouth once daily Pantoprazole Discontinu ed 20 MG PO DAILY September 05, 2018 9:20pm March 13, 2019 8:42am Start: 11-30-2012 End: 09-05-2018 take 1 tablet by mouth once daily Pantoprazole 40 MG tablet Discontinued 40 mg PO DAILY July 11, 2015 12:00am September 05, 2018 9:22pm Comment on above: Take 20 mg by mouth once daily. predniSONE 20 mg oral tablet (3 sources) Start: 09-15-20 predniSONE (DELTASONE) 20 mg tablet Indications: Post-viral cough syndrome 3 TABS FOR 5 DAYS, THEN 2 TABS QD FOR 5 DAYS, THEN 1 TAB FOR 5 DAYS 30 tablet 09/15/2023 Active Comment on above: 3 TABS FOR 5 DAYS, T HEN 2 TABS QD FOR 5 DAYS, THEN 1 TAB FOR 5 DAYS propafenone hydrochloride 150 mg oral tablet (5 sources) Antiarrhythmic Start: 03-17-20 End: 04-24-20 take 1 tablet by mouth three times daily Propafenone 150 mg tablet Active 150 mg PO THREE TIMES A DAY 270 90 April 24, 2024 4:38pm space evenly during waking hours take 1 tablet by nik th every eight hours propafenone (RYTHMOL) 150 mg tablet Take 150 mg by mouth every 8 hours. Active rivaroxaban 20 mg oral tablet (14 sources) Factor Xa Inhibitor Start: 10-31-2024 take 1 tablet by mouth once daily at dinner Rivaroxaban (Xarelto) 20 mg tablet Active 20 mg PO EVERY EVENING October 31, 2024 1:00am must administer with evening meal Start: 12-31-2023 End: 10-06-2024 take 1 tablet by mouth once daily Rivaroxaban 20 mg tablet Discontinued 20 mg PO DAILY December 31, 2023 5:48pm October 06, 2024 4:58pm Start: 05-13-2015 End: 12-24-2017 take 1 tablet by mouth once daily Rivaroxaban 20 MG tablet Discontinued 20 mg PO DAILY July 11, 2015 12:00am December 24, 2017 5:37pm sacubitril 49 mg / valsartan 51 mg oral tablet (2 sources) Angiotensin 2 Receptor Yared Start: 04-09-2025 Sacubitril-Valsartan (Entresto) 49-51 mg tablet Active 1 {tbl} PO TWICE A DAY April 09, 2025 12:00am Turmeric Root Extract (4 sources) Start: 09-05-2018 take 500 mg by mouth once daily Turmeric Root Extract Active 500 MG PO DAILY September 05, 2018 9:22pm Start: 09-05-2018 take 1 capsule by mo uth once daily Turmeric Root Extract 500 mg capsule Active 500 mg PO DAILY September 05, 2018 1:00am Start: 09-05-2018 take 500 mg by mouth once mily y Turmeric Root Extract Active 500 MG PO DAILY September 05, 2018 1:00am turmeric root extract 500 mg cap (8 sources) take 1 capsule by mo uth once daily turmeric root extract 500 mg cap Take by mouth once daily. Active take 1 capsule by mouth once alfonso ly turmeric root extract 500 mg cap Take by mouth once daily. 0 Active Comment on above: Take by mouth once d aily. vitamin b12 1 mg oral tablet (6 sources) Vitamin B12 take 1 tablet by mouth once daily cyanocobalamin (VITAMIN B-12) 1,000 mcg tab Take 1,000 mcg by mouth once daily. Active Comment on above: Take 1,000 mcg by mo uth once daily. Completed/Discontinued Medications Medication Drug Class(es) Dates Sig (Normalized) Sig (Original) acetaminophen 500 mg oral capsule (4 sources) Start: 09-15-2018 End: 12-06-2018 take 2 capsules by mouth every six hours as needed Acetaminophen 500 mg capsule Discontinued 1000 mg PO EVERY 6 HOURS as needed September 15, 2018 1:00am December 06, 2018 7:52pm Start: 09-15-2018 End: 12-06-2018 take 1000 mg by mouth every six hours Acetaminophen Discontinued 1000 MG PO EVERY 6 HOURS September 15, 2018 2:42pm December 06, 2018 7:52pm amoxicillin 875 mg oral tablet (4 sources) Penicillin-class Antibacterial Start: 01-28-2019 End: 03-13-2019 take 1 tablet by mouth twice daily Amoxicillin 875 mg tablet Discontinued 875 mg PO TWICE A DAY January 28, 2019 12:00am March 13, 2019 8:48am aspirin 81 mg delayed release oral tablet (20 sources) Platelet Aggregation Inhibitor, Nonsteroidal Anti-inflammatory Drug Start: 10-06-2024 End: 04-09-2025 Aspirin (Adult Low Dose Aspirin) 81 mg tablet,delayed release (DR/EC) Discontinued 81 mg PO daily October 06, 2024 1:00am April 09, 2025 10:37am Start: 12-24-2017 End: 12-31-2023 take 1 tablet by mouth once daily Aspirin 325 mg tablet Discontinued 325 mg PO daily December 24, 2017 1:00am December 31, 2023 5:50pm Start: 07-11-2015 End: 12-24-2017 take 1 tablet by mouth once daily Aspirin 81 MG tablet,chewable Discontinued 81 mg PO DAILY@0800 July 11, 2015 12:00am December 24, 2017 5:35pm Start: 12-30-2012 take 1 tablet by nik th once daily ASPIRIN 81 MG TABS One tablet by mouth daily ASPIRIN [id number] Leola Antoine PA-C Start: 12-30-2012 take 1 tablet by nik th every other day ASPIRIN 81 MG TABS One tablet by mouth every other day ASPIRIN [id number] Elida Maddox RN Start: 12-30-2012 take 1 tablet by nik th once daily ASPIRIN 81 MG TABS One tablet by mouth daily ASPIRIN [id number] Christian Mae RN Start: 12-30-2012 take 1 tablet by nik th every other day ASPIRIN 81 MG TABS One tablet by mouth every other day ASPIRIN [id number] Elida Maddox RN Start: 12-30-2012 take 1 tablet by nik th once daily ASPIRIN EC 325 MG TBEC One tablet by mouth daily ASPIRIN [id number] Max Jimenez MD atorvastatin 20 mg oral tablet (3 sources) HMG-CoA Reductase Inhibitor Start: 12-30-2012 take 1 tablet by mouth once daily LIPITOR 20 MG TABS One tablet by mouth daily ATORVASTATIN CALCIUM [id number] Max Jimenez MD azithromycin 250 mg oral tablet (4 sources) Macrolide Antimicrobial Start: 09-16-2019 End: 10-02-2019 take 2-5 tablets by mouth once daily Azithromycin (Zithromax Z-Ricky) 250 mg tablet Discontinued 0 PO .COMPLEX 6 September 16, 2019 1:00am October 02, 2019 2:19pm take 500 mg today (day 1), then 250 mg for 4 days (days 2-5) PO calcium carbonate 1250 mg / cholecalciferol 0.01 mg oral tablet (4 sources) Vitamin D Start: 03-13-2019 End: 09-12-2019 Calcium Carbonate-Vitamin D3 (Oyster Shell Calcium-Vit D3) 500 mg(1,250mg) -400 unit tablet Discontinued 1 {tbl} PO DAILY March 13, 2019 12:00am September 12, 2019 8:51pm cefuroxime 500 mg oral tablet (4 sources) Cephalosporin Antibacterial Start: 10-17-2018 End: 10-27-2018 take 1 tablet by mouth every twelve hours Cefuroxime Axetil 500 mg tablet Discontinued 500 mg PO Q12H 20 08October 17, 2018 1:00am October 26, 2018 1:00am October 27, 2018 1:07am cyclobenzaprine hydrochloride 10 mg oral tablet (6 sources) Muscle Relaxant Start: 10-06-2024 End: 10-11-2024 take 1 tablet by mouth three times daily as needed for muscle spasms Cyclobenzaprine 10 mg tablet Discontinued 10 mg PO THREE TIMES A DAY as needed for muscle spasm 20 03October 06, 2024 1:00am October 10, 2024 1:00am October 11, 2024 1:10am Start: 09-15-2018 End: 12-06-2018 take 1 tablet by mouth three times daily Cyclobenzaprine 10 mg tablet Discontinued 10 mg PO THREE TIMES A DAY September 15, 2018 1:00am December 06, 2018 7:52pm dexamethasone 6 mg oral tablet (2 sources) Corticosteroid Start: 10-19-2024 End: 04-09-2025 take 1 tablet by mouth once daily Dexamethasone 6 mg tablet Discontinued 6 mg PO DAILY October 19, 2024 1:00am April 09, 2025 10:37am docusate sodium 100 mg oral capsule (4 sources) Start: 12-06-2018 End: 09-12-2019 take 1 capsule by mouth twice daily Docusate Sodium 100 mg capsule Discontinued 100 mg PO TWICE A DAY December 06, 2018 1:00am September 12, 2019 8:51pm esomeprazole 40 mg injection (3 sources) Proton Pump Inhibitor Start: 11-30-2012 take 1 tablet by mouth once daily NEXIUM 40 MG CPDR One tablet by mouth daily ESOMEPRAZOLE MAGNESIUM [id number] Max Jimenez MD Start: 11-30-2012 take 1 tablet by nik th once daily NEXIUM 40 MG CPDR One tablet by mouth daily ESOMEPRAZOLE MAGNESIUM [id number] Max Jimenez MD finasteride 5 mg oral tablet (10 sources) 5-alpha Reductase Inhibitor Start: 07-11-2015 End: 12-24-2017 take 1 tablet by mouth once daily Finasteride 5 MG tablet Discontinued 5 mg PO DAILY July 11, 2015 12:00am December 24, 2017 5:37pm hydroCHLOROthiazide 12.5 mg oral tablet (6 sources) Thiazide Diuretic Start: 11-30-2012 End: 04-02-2015 take 1 tablet by mouth once daily HYDROCHLOROTHIAZIDE 12.5 MG TABS One tablet by mouth daily HYDROCHLOROTHIAZIDE [id number] Elida Maddox RN hydroCHLOROthiazide 12.5 mg / telmisartan 80 mg oral tablet (5 sources) Thiazide Diuretic, Angiotensin 2 Receptor Yared Start: 03-17-2024 End: 04-09-2025 Telmisartan-Hydrochloro thiazid 80-12.5 mg tablet Discontinued 1 {tbl} PO daily 90 April 24, 2024 4:39pm April 09, 2025 11:09am take 1 tablet by nik th once daily Telmisartan-Hydrochlorothiazid 80-25 mg per tablet Take 1 tablet by mouth once daily. Active Inhalational Spacing Device (1 source) Start: 09-15-2023 End: 09-15-2023 Inhalational Spacing Device Indications: Post-viral cough syndrome 1 Device one time only for 1 dose. 1 Each 0 09/15/2023 09/15/2023 Comment on above: 1 Device one time on ly for 1 dose. lisinopril 10 mg oral tablet (9 sources) Angiotensin Converting Enzyme Inhibitor Start: 06-26-2013 End: 04-09-2014 take 1 tablet by mouth twice daily LISINOPRIL 10 MG TABS One tablet by mouth twice daily (STOP - COUGH) LISINOPRIL [id number] Max Jimenez MD Start: 11-30-2012 take 1 tablet by nik th once daily LISINOPRIL 10 MG TABS One tablet by mouth daily LISINOPRIL [id number] Max Jimenez MD losartan potassium 50 mg oral tablet (20 sources) Angiotensin 2 Receptor Yared Start: 06-26-2013 End: 03-17-2024 take 1 tablet by mouth twice daily Losartan 50 mg tablet Discontinued 50 mg PO TWICE A DAY 180 January 20, 2024 4:35pm March 17, 2024 8:46am Start: 06-26-2013 End: 11-03-2021 take 1 tablet by mouth once daily Losartan 50 mg tablet Discontinued 50 mg PO DAILY 90 July 01, 2021 3:59pm November 03, 2021 6:47pm Start: 06-26-2013 take 1 tablet by nik th once daily LOSARTAN POTASSIUM 100 MG TABS One tablet by mouth daily LOSARTAN POTASSIUM [id number] Max Jimenez MD Comment on above: Take 50 mg by mouth twice daily. methylcellulose 500 mg oral tablet (4 sources) Start: 03-13-20 End: 10-02-20 take 1 tablet by mouth once daily Methylcellulose (Laxative) (Citrucel) 500 mg tablet Discontinued 500 mg PO DAILY March 13, 2019 12:00am October 02, 2019 2:19pm 24 hr metoprolol succinate 50 mg extended release oral tablet (20 sources) beta-Adrenergic Yared Start: 03-17-20 End: 08-29-20 take 1 tablet by mouth once daily Metoprolol Succinate 50 mg tablet extended release 24 hr Discontinued 50 mg PO DAILY April 24, 2024 4:38pm August 29, 2024 2:30pm Start: 01-13-2024 End: 03-17-2024 take 1 tablet by mouth twice daily Metoprolol Tartrate 50 mg tablet Discontinued 50 mg PO TWICE A DAY 180 January 20, 2024 4:35pm March 17, 2024 8:45am Start: 12-14-2023 End: 01-13-2024 take 2 tablets by mouth twice daily Metoprolol Tartrate 25 mg tablet Discontinued 50 mg PO TWICE A DAY 180 December 14, 2023 2:16pm January 13, 2024 9:28am Start: 11-02-2017 End: 12-14-2023 take 1 tablet by mouth twice daily Metoprolol Tartrate 25 mg tablet Discontinued 25 mg PO TWICE A DAY 180 January 06, 2023 10:54am December 14, 2023 2:16pm Start: 11-30-2012 End: 11-02-2017 take 1 tablet by mouth twice daily Metoprolol Tartrate 50 MG tablet Discontinued 50 mg PO TWICE A DAY July 11, 2015 12:00am November 02, 2017 2:19pm Start: 11-30-2012 take 0.5 tablet by m out twice daily METOPROLOL TARTRATE 50 MG TABS 1/2 tablet by mouth twice daily METOPROLOL TARTRATE [id number] Max Jimenez MD Start: 11-30-2012 take 1 tablet by nki th twice daily METOPROLOL TARTRATE 25 MG TABS One tablet by mouth twice daily METOPROLOL TARTRATE [id number] Max Jimenez MD Comment on above: Take 50 mg by mouth twice daily. MULTIPLE VITAMINS-MINERALS (6 sources) Start: 11-30-2012 End: 06-26-2013 take 1 tablet by mouth once daily OCUVITE PRESERVISION TABS One tablet by mouth daily MULTIPLE VITAMINS-MINERALS Max Jimenez MD Start: 11-30-2012 take 1 tablet by nik th once daily OCUVITE PRESERVISION TABS One tablet by mouth daily MULTIPLE VITAMINS-MINERALS Max Jimenez MD oxyCODONE hydrochloride 5 mg oral tablet (4 sources) Opioid Agonist Start: 09-15-2018 End: 12-06-2018 take 1 tablet by mouth every six hours as needed Oxycodone 5 mg tablet Discontinued 5 mg PO EVERY 6 HOURS as needed September 15, 2018 1:00am December 06, 2018 7:51pm pravastatin sodium 20 mg oral tablet (20 sources) HMG-CoA Reductase Inhibitor Start: 12-30-2012 End: 10-09-2024 take 1 tablet by mouth once daily Pravastatin 20 mg tablet Discontinued 20 mg PO DAILY April 24, 2024 4:38pm October 09, 2024 10:18am Comment on above: Take 20 mg by mouth once daily. spironolactone 25 mg oral tablet (6 sources) Aldosterone Antagonist Start: 05-24-2024 End: 10-06-2024 Spironolactone 25 mg tablet Discontinued 12.5 mg PO DAILY May 29, 2024 2:52pm October 06, 2024 4:58pm Start: 05-03-2024 End: 05-24-2024 take 1 tablet by mouth once daily Spironolactone 25 mg tablet Discontinued 25 mg PO DAILY May 03, 2024 12:00am May 24, 2024 2:17pm terazosin 5 mg oral capsule (20 sources) alpha-Adrenergic Yared Start: 07-11-2015 End: 03-19-2025 take 1 capsule by mouth once daily Terazosin 5 mg capsule Discontinued 5 mg PO DAILY 90 January 17, 2024 8:09am March 19, 2025 10:39am Start: 11-30-2012 End: 04-29-2015 take 1 tablet by mouth once daily TERAZOSIN HCL 5 MG CAPS One tablet by mouth daily TERAZOSIN HCL [id number] Max Jimenez MD Comment on above: Take 5 mg by mouth o nce daily. Problems Active Problems Problem Classification Problem Date Documented Da te Episodic/Chronic Cardiac dysrhythmias (20 sources) Paroxysmal atrial fibrillation; Translations: [Atrial fibrillation] Onset: 04-29-2015 06-15-2016 Chronic Comment on above: cardioverted and res ponded stopped the xeralto and started ASA 325 Coronary atherosclerosis and other heart disease (17 sources) Coronary arteriosclerosis; Translations: [Atherosclerotic heart disease of unga coronary artery without angina pectoris] Onset: 06-26-2013 Resolved: 01-01-2017 01-01-2017 Chronic Disorders of lipid metabolism (9 sources) Hyperlipidemia; Translations: [Mixed hyperlipidemia] Onset: 05-24-2013 05-24-2013 Chronic Essential hypertension (17 sources) Hypertensive disorder; Translations: [Essential (primary) hypertension] Onset: 11-30-2012 11-30-2012 Chronic Malignant neoplasm without specification of site (3 sources) Malignant carcinoid tumor; Translations: [Malignant carcinoid tumor of unspecified site] Onset: 09-20-2023 07-14-2023 Chronic Nutritional deficiencies (4 sources) Vitamin D deficiency; Translations: [Vitamin D deficiency, unspecified] 01-28-2019 Chronic Osteoarthritis (4 sources) Osteoarthritis of left knee joint; Translations: [Unilateral primary osteoarthritis, left knee] 12-06-2018 Chronic Other acquired deformities (4 sources) Bowing deformity of lower limb; Translations: [Varus deformity, not elsewhere classified, left knee] 09-05-2018 Episodic Other connective tissue disease (8 sources) History of total knee arthroplasty; Translations: [Presence of left artificial knee joint] Onset: 12-30-2018 12-30-2018 Chronic Other connective tissue disease (1 source) Pain in right upper arm; Translations: [Pain of right upper arm] Onset: 09-27-2024 Episodic Other connective tissue disease (2 sources) Swelling of lower leg; Translations: [Other specified soft tissue disorders] 10-12-2023 Episodic Other connective tissue disease (2 sources) Disorder of shoulder; Translations: [Other muscle spasm] 10-06-2024 Episodic Other eye disorders (4 sources) Excess skin of eyelid; Translations: [Dermatochalasis of unspecified eye, unspecified eyelid] 09-12-2019 Episodic Other eye disorders (4 sources) Ptosis of eyelid; Translations: [Unspecified ptosis of unspecified eyelid] 09-12-2019 Episodic Other lower respiratory disease (13 sources) Cough; Translations: [Dyspnea] Onset: 11-30-2012 06-26-2013 Episodic Other lower respiratory disease (1 source) Postviral cough; Translations: [Post-viral cough syndrome] 09-15-2023 Episodic Other nervous system disorders (8 sources) Brachial plexus disorder; Translations: [Brachial plexus disorders] Onset: 08-17-2005 08-17-2005 Chronic Other nervous system disorders (7 sources) Walking difficulty due to lower leg; Translations: [Difficulty in walking, not elsewhere classified] Onset: 01-09-2019 01-09-2019 Chronic Other nervous system disorders (1 source) Difficulty walking; Translations: [Difficulty in walking, not elsewhere classified] Onset: 01-09-2019 01-09-2019 Chronic Other nutritional; endocrine; and metabolic disorders (6 sources) Body mass index (BMI) 32.0-32.9, adult; Translations: [Body mass index (BMI) 32.0-32.9, adult] Onset: 04-09-2014 Resolved: 11-13-2015 04-09-2014 Chronic Other screening for suspected conditions (not mental disorders or infectious disease) (7 sources) Elevated prostate specific antigen [PSA]; Translations: [Raised prostate specific antigen] Onset: 08-19-2024 06-28-2023 Episodic Other skin disorders (1 source) Disorder of left lower extremity; Translations: [Localized swelling, mass and lump, left lower limb] 10-07-2023 Episodic Other skin disorders (1 source) Localized swelling, mass and lump, left lower limb; Translations: [Localized swelling, mass and lump, lower limb, left] Onset: 10-07-2023 Episodic Other upper respiratory infections (8 sources) Maxillary sinusitis; Translations: [Chronic maxillary sinusitis] 01-28-2019 Chronic Other upper respiratory infections (4 sources) Pharyngitis; Translations: [Acute pharyngitis, unspecified] 01-28-2019 Episodic Pancreatic disorders (not diabetes) (1 source) Mass of pancreas; Translations: [Other specified diseases of pancreas] 07-18-2023 Episodic Stacy-; endo-; and myocarditis; cardiomyopathy (except that caused by tuberculosis or sexually transmitted disease) (11 sources) Cardiomyopathy associated with another disorder; Translations: [Cardiomyopathy] Onset: 11-13-2015 11-13-2015 Chronic Residual codes; unclassified (6 sources) FH: Hypertension; Translations: [Family history of ischemic heart disease and other diseases of the circulatory system] 10-08-2014 Episodic Residual codes; unclassified (4 sources) Family history of hyperlipidemia; Translations: [Family history of other disorder of lipoprotein metabolism and other lipidemia] 12-24-2017 Episodic Unclassified (6 sources) Long-term drug therapy; Translations: [Other intermediate teacher (current) drug therapy] Onset: 05-24-2013 Resolved: 07-11-2015 07-11-2015 Viral infection (2 sources) Disease caused by 2019-nCoV; Translations: [COVID-19] 10-19-2024 Episodic Past or Other Problems Problem Classification Problem Date Documented Da te Episodic/Chronic Deficiency and other anemia (12 sources) Anemia; Translations: [Anemia, unspecified] Onset: 05-13-2023 05-13-2023 Episodic Gastrointestinal hemorrhage (11 sources) Blood-tinged feces; Translations: [Melena] Onset: 05-13-2023 05-13-2023 Episodic Genitourinary symptoms and ill-defined conditions (3 sources) Hematuria, unspecified; Translations: [Hematuria, unspecified] Onset: 06-10-2015 06-10-2015 Episodic Neoplasms of unspecified nature or uncertain behavior (8 sources) Neoplastic disease of uncertain behavior; Translations: [Neoplasm of uncertain behavior, unspecified] Onset: 10-12-2012 10-12-2012 Episodic Other aftercare (3 sources) Long-term (current) use of other medications; Translations: [Other shelter (current) drug therapy] Onset: 05-24-2013 Resolved: 07-11-2015 05-24-2013 Episodic Other and unspecified benign neoplasm (8 sources) Benign neoplastic disease; Translations: [Benign neoplasm, unspecified site] Onset: 10-11-2012 10-11-2012 Episodic Other connective tissue disease (8 sources) Swelling of left upper limb; Translations: [Other specified soft tissue disorders] Onset: 11-04-2018 11-04-2018 Episodic Other eye disorders (1 source) Dermatochalasis of right upper eyelid; Translations: [Dermatochalasis] Onset: 09-22-2019 Resolved: 09-22-2019 09-22-2019 Episodic Other lower respiratory disease (2 sources) Lung mass; Translations: [Other nonspecific abnormal finding of lung field] Onset: 12-26-2012 12-26-2012 Episodic Other lower respiratory disease (2 sources) Dyspnea; Translations: [Shortness of breath] Onset: 11-30-2012 11-30-2012 Episodic Other non-traumatic joint disorders (8 sources) Pain in elbow; Translations: [Pain in left elbow] Onset: 11-04-2018 11-04-2018 Episodic Other non-traumatic joint disorders (8 sources) Decreased range of elbow movement; Translations: [Stiffness of left elbow, not elsewhere classified] Onset: 11-04-2018 11-04-2018 Episodic Other non-traumatic joint disorders (8 sources) Decreased range of wrist movement; Translations: [Stiffness of left wrist, not elsewhere classified] Onset: 11-04-2018 11-04-2018 Episodic Other non-traumatic joint disorders (8 sources) Stiffness of left knee; Translations: [Stiffness of left knee, not elsewhere classified] Onset: 12-30-2018 12-30-2018 Episodic Other non-traumatic joint disorders (8 sources) Pain in left shoulder; Translations: [Pain in joint, shoulder region] Onset: 01-09-2019 01-09-2019 Episodic Other non-traumatic joint disorders (8 sources) Stiffness of left shoulder; Translations: [Stiffness of left shoulder, not elsewhere classified] Onset: 02-20-2019 02-20-2019 Episodic Other nutritional; endocrine; and metabolic disorders (9 sources) Body mass index (BMI) 26.0-26.9, adult; Translations: [Body mass index (BMI) 25.0-25.9, adult] Onset: 10-08-2014 06-21-2017 Episodic Other nutritional; endocrine; and metabolic disorders (2 sources) Body mass index (BMI) 29.0-29.9, adult; Translations: [Body mass index (BMI) 29.0-29.9, adult] Onset: 10-08-2014 10-08-2014 Episodic Other screening for suspected conditions (not mental disorders or infectious disease) (3 sources) Cardiovascular stress test abnormal; Translations: [Abnormal result of other cardiovascular function study] Onset: 12-13-2012 12-13-2012 Episodic Residual codes; unclassified (4 sources) FH: Raised blood lipids; Translations: [FH: Hypertension] 04-09-2014 Episodic Residual codes; unclassified (8 sources) Activity of daily living (ADL) alteration; Translations: [Other specified health status] Onset: 11-04-2018 11-04-2018 Episodic Residual codes; unclassified (1 source) Pain, unspecified; Translations: [Pain, unspecified] Onset: 10-19-2024 Episodic Skin and subcutaneous tissue infections (10 sources) Cellulitis and abscess of toe; Translations: [Cellulitis of unspecified toe] Onset: 04-10-2008 04-10-2008 Episodic Sprains and strains (9 sources) Shoulder strain; Translations: [Strain of unspecified muscle, fascia and tendon at shoulder and upper arm level, left arm, initial encounter] Onset: 02-01-2019 02-01-2019 Episodic Unclassified (1 source) UNILATERAL PRIMARY OSTEOARTHRITIS, PAIN, LEFT KNEE Onset: 12-23-2018 Results Test Name Value Interpretation Reference Range Facility MR Biliary ducts and Pancrea tic duct WO and W contrast Hallie 04-20-2025 * * *Final Report* * * DATE OF EXAM: Apr 20 2025 11:22AM WR 0730 - MRI PANC/DANIEL WO/W IVCON / PROCEDURE REASON: Abnormal findings on diagnostic imaging of liver and biliary tract * * * * Physician Interpretation * * * * MRI OF THE LIVER WITHOUT AND WITH IV CONTRAST, 3D REFORMATTED IMAGES HISTORY: Follow-up pancreatic mass. TECHNIQUE: Magnet: Siemens Altea 1.5T scanner. Multiplanar MRI of the abdomen with multiple sequences, performed before and after intravenous contrast. Additional MR cholangiopancreatography sequences were performed. Image post-processing {Maximum intensity Projection (MIP), Volume-rendered (VR), Surface shaded display images (SSD) or complex volumetric analysis} was performed at an off-line workstation with concurrent physician supervision, with images created, reviewed and archived. Contrast: IV: 10 ml of Elucirem COMPARISON: PET/CT 08/12/2023; MRI 05/16/2023. RESULT: Liver: Normal morphology. Patchy areas of mild steatosis. No mass. Biliary: Gallbladder is unremarkable. Slightly increased prominence of the left intrahepatic duct and common hepatic duct compared to prior MR, but no obstructing stone, and the pancreatic head mass does not abut the common duct. Normal caliber common hepatic duct. No filling defect or stricture. Spleen: No mass. No splenomegaly. Benign-appearing cysts along the anteromedial margin. Pancreas: Stable 1.7 x 1.5 cm T2 intermediate, T1 hypointense, arterially enhancing mass with diffusion abnormality (10:96) in the inferior pancreatic head/uncinate process (23:66) corresponding with Dotatate avid lesion seen on prior PET/CT. No duct dilatation. Adrenals: No mass. Kidneys: Benign cysts (Bosniak 1). No solid mass. No hydronephrosis. GI tract: No dilation or wall thickening. Colonic diverticulosis. Lymph nodes: No abdominal lymphadenopathy. Mesentery/Peritoneum: No ascites. No mass. Vasculature: - Abdominal aorta: No aneurysm. - Celiac and SMA: Patent without stenosis. - Portal venous system (SMV, splenic vein, portal vein and branches): Patent. - Hepatic veins: Patent. Bones/Soft Tissues: Degenerative changes. Lower thorax: Small right and trace left pleural effusions. DIVISION OF RADIOLOGY Provider, [facility] - 04/20/2025 * * *Final Report* * * DATE OF EXAM: Apr 20 2025 11:22AM [facility] 0730 - MRI PANC/DANIEL WO/W IVCON / PROCEDURE REASON: Abnormal findings on diagnostic imaging of liver and biliary tract * * * * Physician Interpretation * * * * MRI OF THE LIVER WITHOUT AND WITH IV CONTRAST, 3D REFORMATTED IMAGES HISTORY: Follow-up pancreatic mass. TECHNIQUE: Magnet: Siemens [employer] 1.5T scanner. Multiplanar MRI of the abdomen with multiple sequences, performed before and after intravenous contrast. Additional MR cholangiopancreatography sequences were performed. Image post-processing {Maximum intensity Projection (MIP), Volume-rendered (VR), Surface shaded display images (SSD) or complex volumetric analysis} was performed at an off-line workstation with concurrent physician supervision, with images created, reviewed and archived. Contrast: IV: 10 ml of Elucirem COMPARISON: PET/CT 08/12/2023; MRI 05/16/2023. RESULT: Liver: Normal morphology. Patchy areas of mild steatosis. No mass. Biliary: Gallbladder is unremarkable. Slightly increased prominence of the left intrahepatic duct and common hepatic duct compared to prior MR, but no obstructing stone, and the pancreatic head mass does not abut the common duct. Normal caliber common hepatic duct. No filling defect or stricture. Spleen: No mass. No splenomegaly. Benign-appearing cysts along the anteromedial margin. Pancreas: Stable 1.7 x 1.5 cm T2 intermediate, T1 hypointense, arterially enhancing mass with diffusion abnormality (10:96) in the inferior pancreatic head/uncinate process (23:66) corresponding with Dotatate avid lesion seen on prior PET/CT. No duct dilatation. Adrenals: No mass. Kidneys: Benign cysts (Bosniak 1). No solid mass. No hydronephrosis. GI tract: No dilation or wall thickening. Colonic diverticulosis. Lymph nodes: No abdominal lymphadenopathy. Mesentery/Peritoneum: No ascites. No mass. Vasculature: - Abdominal aorta: No aneurysm. - Celiac and SMA: Patent without stenosis. - Portal venous system (SMV, splenic vein, portal vein and branches): Patent. - Hepatic veins: Patent. Bones/Soft Tissues: Degenerative changes. Lower thorax: Small right and trace left pleural effusions. IMPRESSION IMPRESSION: Stable 1.7 cm inferior pancreatic head/uncinate process neuroendocrine tumor. No metastatic disease in the abdomen. [facility] Director[facility] Transcribe Date/Time: Apr 20 2025 12:05P Dictated by : MIKKI OLSEN MD This examination was interpreted and the report reviewed and electronically signed by: KAITLIN FOWLER MD on Apr 20 2025 1:55PM [facility] MR Unspecified body region 3 D post processingon 04-20-2025 * * *Final Report* * * DATE OF EXAM: Apr 20 2025 11:22AM WR 0280 - MRI 3D POST PROCESSING / PROCEDURE REASON: Abnormal findings on diagnostic imaging of liver and biliary tract * * * * Physician Interpretation * * * * MRI OF THE LIVER WITHOUT AND WITH IV CONTRAST, 3D REFORMATTED IMAGES HISTORY: Follow-up pancreatic mass. TECHNIQUE: Magnet: Siemens Altea 1.5T scanner. Multiplanar MRI of the abdomen with multiple sequences, performed before and after intravenous contrast. Additional MR cholangiopancreatography sequences were performed. Image post-processing {Maximum intensity Projection (MIP), Volume-rendered (VR), Surface shaded display images (SSD) or complex volumetric analysis} was performed at an off-line workstation with concurrent physician supervision, with images created, reviewed and archived. Contrast: IV: 10 ml of Elucirem COMPARISON: PET/CT 08/12/2023; MRI 05/16/2023. RESULT: Liver: Normal morphology. Patchy areas of mild steatosis. No mass. Biliary: Gallbladder is unremarkable. Slightly increased prominence of the left intrahepatic duct and common hepatic duct compared to prior MR, but no obstructing stone, and the pancreatic head mass does not abut the common duct. Normal caliber common hepatic duct. No filling defect or stricture. Spleen: No mass. No splenomegaly. Benign-appearing cysts along the anteromedial margin. Pancreas: Stable 1.7 x 1.5 cm T2 intermediate, T1 hypointense, arterially enhancing mass with diffusion abnormality (10:96) in the inferior pancreatic head/uncinate process (23:66) corresponding with Dotatate avid lesion seen on prior PET/CT. No duct dilatation. Adrenals: No mass. Kidneys: Benign cysts (Bosniak 1). No solid mass. No hydronephrosis. GI tract: No dilation or wall thickening. Colonic diverticulosis. Lymph nodes: No abdominal lymphadenopathy. Mesentery/Peritoneum: No ascites. No mass. Vasculature: - Abdominal aorta: No aneurysm. - Celiac and SMA: Patent without stenosis. - Portal venous system (SMV, splenic vein, portal vein and branches): Patent. - Hepatic veins: Patent. Bones/Soft Tissues: Degenerative changes. Lower thorax: Small right and trace left pleural effusions. DIVISION OF RADIOLOGY Provider, [facility] - 04/20/2025 * * *Final Report* * * DATE OF EXAM: Apr 20 2025 11:22AM WR 0280 - MRI 3D POST PROCESSING / PROCEDURE REASON: Abnormal findings on diagnostic imaging of liver and biliary tract * * * * Physician Interpretation * * * * MRI OF THE LIVER WITHOUT AND WITH IV CONTRAST, 3D REFORMATTED IMAGES HISTORY: Follow-up pancreatic mass. TECHNIQUE: Magnet: Siemens Altea 1.5T scanner. Multiplanar MRI of the abdomen with multiple sequences, performed before and after intravenous contrast. Additional MR cholangiopancreatography sequences were performed. Image post-processing {Maximum intensity Projection (MIP), Volume-rendered (VR), Surface shaded display images (SSD) or complex volumetric analysis} was performed at an off-line workstation with concurrent physician supervision, with images created, reviewed and archived. Contrast: IV: 10 ml of Elucirem COMPARISON: PET/CT 08/12/2023; MRI 05/16/2023. RESULT: Liver: Normal morphology. Patchy areas of mild steatosis. No mass. Biliary: Gallbladder is unremarkable. Slightly increased prominence of the left intrahepatic duct and common hepatic duct compared to prior MR, but no obstructing stone, and the pancreatic head mass does not abut the common duct. Normal caliber common hepatic duct. No filling defect or stricture. Spleen: No mass. No splenomegaly. Benign-appearing cysts along the anteromedial margin. Pancreas: Stable 1.7 x 1.5 cm T2 intermediate, T1 hypointense, arterially enhancing mass with diffusion abnormality (10:96) in the inferior pancreatic head/uncinate process (23:66) corresponding with Dotatate avid lesion seen on prior PET/CT. No duct dilatation. Adrenals: No mass. Kidneys: Benign cysts (Bosniak 1). No solid mass. No hydronephrosis. GI tract: No dilation or wall thickening. Colonic diverticulosis. Lymph nodes: No abdominal lymphadenopathy. Mesentery/Peritoneum: No ascites. No mass. Vasculature: - Abdominal aorta: No aneurysm. - Celiac and SMA: Patent without stenosis. - Portal venous system (SMV, splenic vein, portal vein and branches): Patent. - Hepatic veins: Patent. Bones/Soft Tissues: Degenerative changes. Lower thorax: Small right and trace left pleural effusions. IMPRESSION IMPRESSION: Stable 1.7 cm inferior pancreatic head/uncinate process neuroendocrine tumor. No metastatic disease in the abdomen. Division Director: [facility] Transcribe Date/Time: Apr 20 2025 12:05P Dictated by : MIKKI OLSEN MD This examination was interpreted and the report reviewed and electronically signed by: KAITLIN FOWLER MD on Apr 20 2025 1:55PM EST [facility] MRI 3D POST PROCESSINGon MRI 3D POST PROCESSING * * *Final Report* * * DATE OF EXAM: Apr 20 2025 11:22AM [facility] 0280 - MRI 3D POST PROCESSING / PROCEDURE REASON: Abnormal findings on diagnostic imaging of liver and biliary tract * * * * Physician Interpretation * * * * MRI OF THE LIVER WITHOUT AND WITH IV CONTRAST, 3D REFORMATTED IMAGES HISTORY: Follow-up pancreatic mass. TECHNIQUE: Magnet: Siemens Altea 1.5T scanner. Multiplanar MRI of the abdomen with multiple sequences, performed before and after intravenous contrast. Additional MR cholangiopancreatography sequences were performed. Image post-processing {Maximum intensity Projection (MIP), Volume-rendered (VR), Surface shaded display images (SSD) or complex volumetric analysis} was performed at an off-line workstation with concurrent physician supervision, with images created, reviewed and archived. Contrast: IV: 10 ml of Elucirem COMPARISON: PET/CT 08/12/2023; MRI 05/16/2023. RESULT: Liver: Normal morphology. Patchy areas of mild steatosis. No mass. Biliary: Gallbladder is unremarkable. Slightly increased prominence of the left intrahepatic duct and common hepatic duct compared to prior MR, but no obstructing stone, and the pancreatic head mass does not abut the common duct. Normal caliber common hepatic duct. No filling defect or stricture. Spleen: No mass. No splenomegaly. Benign-appearing cysts along the anteromedial margin. Pancreas: Stable 1.7 x 1.5 cm T2 intermediate, T1 hypointense, arterially enhancing mass with diffusion abnormality (10:96) in the inferior pancreatic head/uncinate process (23:66) corresponding with Dotatate avid lesion seen on prior PET/CT. No duct dilatation. Adrenals: No mass. Kidneys: Benign cysts (Bosniak 1). No solid mass. No hydronephrosis. GI tract: No dilation or wall thickening. Colonic diverticulosis. Lymph nodes: No abdominal lymphadenopathy. Mesentery/Peritoneum: No ascites. No mass. Vasculature: - Abdominal aorta: No aneurysm. - Celiac and SMA: Patent without stenosis. - Portal venous system (SMV, splenic vein, portal vein and branches): Patent. - Hepatic veins: Patent. Bones/Soft Tissues: Degenerative changes. Lower thorax: Small right and trace left pleural effusions. IMPRESSION: Stable 1.7 cm inferior pancreatic head/uncinate process neuroendocrine tumor. No metastatic disease in the abdomen. Division Director: [facility] Transcribe Date/Time: Apr 20 2025 12:05P Dictated by : MIKKI OLSEN MD This examination was interpreted and the report reviewed and electronically signed by: KAITLIN FOWLER MD on Apr 20 2025 1:55PM EST [id number] Normal [facility] MRI PANC/DANIEL WO/W IVCONon MRI PANC/DANIEL WO/W IVCON * * *Final Report* * * DATE OF EXAM: Apr 20 2025 11:22AM [facility] 0730 - MRI PANC/DANIEL WO/W IVCON / PROCEDURE REASON: Abnormal findings on diagnostic imaging of liver and biliary tract * * * * Physician Interpretation * * * * MRI OF THE LIVER WITHOUT AND WITH IV CONTRAST, 3D REFORMATTED IMAGES HISTORY: Follow-up pancreatic mass. TECHNIQUE: Magnet: Siemens Altea 1.5T scanner. Multiplanar MRI of the abdomen with multiple sequences, performed before and after intravenous contrast. Additional MR cholangiopancreatography sequences were performed. Image post-processing {Maximum intensity Projection (MIP), Volume-rendered (VR), Surface shaded display images (SSD) or complex volumetric analysis} was performed at an off-line workstation with concurrent physician supervision, with images created, reviewed and archived. Contrast: IV: 10 ml of Elucirem COMPARISON: PET/CT 08/12/2023; MRI 05/16/2023. RESULT: Liver: Normal morphology. Patchy areas of mild steatosis. No mass. Biliary: Gallbladder is unremarkable. Slightly increased prominence of the left intrahepatic duct and common hepatic duct compared to prior MR, but no obstructing stone, and the pancreatic head mass does not abut the common duct. Normal caliber common hepatic duct. No filling defect or stricture. Spleen: No mass. No splenomegaly. Benign-appearing cysts along the anteromedial margin. Pancreas: Stable 1.7 x 1.5 cm T2 intermediate, T1 hypointense, arterially enhancing mass with diffusion abnormality (10:96) in the inferior pancreatic head/uncinate process (23:66) corresponding with Dotatate avid lesion seen on prior PET/CT. No duct dilatation. Adrenals: No mass. Kidneys: Benign cysts (Bosniak 1). No solid mass. No hydronephrosis. GI tract: No dilation or wall thickening. Colonic diverticulosis. Lymph nodes: No abdominal lymphadenopathy. Mesentery/Peritoneum: No ascites. No mass. Vasculature: - Abdominal aorta: No aneurysm. - Celiac and SMA: Patent without stenosis. - Portal venous system (SMV, splenic vein, portal vein and branches): Patent. - Hepatic veins: Patent. Bones/Soft Tissues: Degenerative changes. Lower thorax: Small right and trace left pleural effusions. IMPRESSION: Stable 1.7 cm inferior pancreatic head/uncinate process neuroendocrine tumor. No metastatic disease in the abdomen. Division Director: [facility] Transcribe Date/Time: Apr 20 2025 12:05P Dictated by : MIKKI OLSEN MD This examination was interpreted and the report reviewed and electronically signed by: KAITLIN FOWLER MD on Apr 20 2025 1:55PM EST [id number] Normal [facility] No Panel Informationon 04-20 IMPRESSION: Stable 1.7 cm inferior pancreatic head/uncinate process neuroendocrine tumor. No metastatic disease in the abdomen. Division Director: [facility] Transcribe Date/Time: Apr 20 2025 12:05P Dictated by : MIKKI OLSEN MD This examination was interpreted and the report reviewed and electronically signed by: KAITLIN FOWLER MD on Apr 20 2025 1:55PM EST DIVISION OF RADIOLOGY Radiology Study observation (narrative) [facility] No Panel InformationOrdered By: [facility] Provider on 04-20-2025 [facility] Cardiology Visit Reporton Cardiology Visit Report [facility] [address] [place] [address] OFFICE VISIT Date of Service: 04/09/25 MR#: [id number] Acct: [id number] Name: JEWELL VILLATORO Rep #: [id number] : 1945 Provider: MARIE tobin Age/Sex: 80/M Location: [facility] [place] Status: Signed HPI HPI History of Present Illness Details: JEWELL VILLATORO, is a 80 year old white male who presents to the office today for a cardiovascular outpatient follow-up of his history of paroxysmal atrial fibrillation status post DCCV in July 2015, non-obstructive coronary artery disease, cardiomyopathy, hyperlipidemia, and hypertension. He was vacationing in [place] and noted to have episode of atrial fibrillation in December 2023. Echocardiogram from He denies chest, arm, jaw, or neck discomfort. He denies palpitations. He denies bilateral lower extremity edema. He denies claudication. He states shortness of breath with activity. He denies shortness of breath at rest, orthopnea, or PND. He denies chronic cough. He denies significant, sudden weight gain. He denies lightheadedness, dizziness, near-syncope, or syncope. He denies blood in urine, blood in stool, or epistaxis. He denies fever with chills. He denies myalgia. He states fatigue. His exercise level has remained stable. Intake Vital Signs 10/06/24 16:04 04/09/25 10:33 Height 6 ft 1 in 6 ft 1 in Weight: 208 lb BMI 27.4 BP 145/90 H Blood Pressure Location Lt brachial Position Sitting Respiration 18 Pulse 59 L Pulse Source Monitor Intake Visit Reasons: LATE FU FOR MARCH DUE TO ECHO APT Slip Feeder Required: No Accompanied by: Self Is patient in pain?: No Allergies lisinopril Allergy (Verified 04/09/25 10:35) cough Medications ???Medication ???Instructions ???Recorded ???Confirmed ???Type turmeric root extract 500 mg 500 mg PO DAILY 09/05/18 04/09/25 History capsule pantoprazole 20 mg tablet,delayed 20 mg PO DAILY 03/13/19 04/09/25 History release ascorbic acid (vitamin C) 500 mg 1,000 mg PO DAILY 10/12/22 5 History capsule propafenone 150 mg tablet 150 mg PO TID 90 days #270 tabs 04/09/25 Rx metoprolol succinate 50 mg 50 mg PO DAILY #90 tabs 08/29/24 0 04/09/25 Rx tablet,extended release 24 hr alfuzosin 10 mg tablet,extended 10 mg PO QDAY 10/06/24 04/09/25 Hi story release 24 hr pravastatin 20 mg tablet 20 mg PO DAILY #90 tabs 10/09/24 0 04/09/25 Rx rivaroxaban 20 mg tablet (Xarelto) 20 mg PO QPM #90 tabs 10/31/24 0 04/09/25 Rx dapagliflozin propanediol 10 mg 10 mg PO QAM #90 tabs 03/12/2507/26 Rx tablet (Farxiga) terazosin 5 mg capsule 5 mg PO DAILY #90 caps 03/19/25 Rx nitroglycerin 0.4 mg sublingual 0.4 mg sublingual Q5-15M PRN chest 04/09/25 04/09/25 Rx tablet pain #25 tabs sacubitril 49 mg-valsartan 51 mg 1 tab PO BID #60 tabs 04/09/2507/26 Rx tablet (Entresto) Have you fallen in the past year?: No PFSH Medical History Gastrointestinal bleeding, lower Mixed hyperlipidemia Essential hypertension Toxoplasmosis Lung nodule Cough Family history of hyperlipidemia Family history of hypertension Hypertension Abnormal cardiovascular stress test Paroxysmal atrial fibrillation 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 Atrial fibrillation Surgical History History of cardioversion History of knee replacement procedure of left knee ( 12/23/18) Status post tendon repair History of parotidectomy History of knee surgery Family History Mother Hypertension Brother CAD (coronary artery disease) Diabetes FH: hyperlipidemia Daughter Hypertension Father Cancer Throat cancer Other Family history of hypertension Social History Smoking Status: Former smoker how long ago did patient quit smokin alcohol intake: current alcohol intake frequency: a few times a month Alcohol type: beer and wine details: occasional substance use type: does not use caffeine: Yes Type: coffee what type of physical activity do you participate in: none seatbelt use: always do you feel safe at home: Yes ROS Const Const: Positive for fatigue; Negative for weakness Eyes Eyes: Negative for change in vision ENT ENT: Negative for dizziness or balance problems Cardio Chest Pain: No Palpitations: Yes (fluttering last week when going to bed) Edema: None Muscle aches with walking: None Resp Respiratory: Positive for SOB with activity; Negative for SOB at r (more content not included)... Normal [facility] Limited echocardiogram repor tOrdered By: Earnestine Dumont on 04-08-2025 Study report [facility] [place] [address] Echo Limited w/Contrast 04/06/25 1238 MR#: [id number] Acct: [id number] Name: JEWELL VILLATORO Rep #:[id number] : 1945 80 From: Earnestine ribeiro MD Attending Dr: MARIE Stafford Sta tus: REG CLI Ordering Dr: Asad Oneill NP Date: 04/06/25 Location: [facility] Sex: M C Admitted: Reason For Study Reason For Study: CHF, Re-evaluate EF Procedure This was a limited 2D transthoracic echocardiogram. Contrast injection was performed. Exam performed in department. Left Ventricle Normal LV size. The estimated ejection fraction is 35 %. There is evidence of diastolic dysfunction. There is moderate global hypokinesis of the left ventricle. Right Ventricle Normal RV size. Normal systolic function. Mitral Valve There is no mitral valve stenosis. Trivial mitral valve insufficiency. Tricuspid Valve There is no tricuspid stenosis. Trivial tricuspid valve insufficiency. Pulmonaryartery systolic pressure is 25 mmHg. Aortic Valve Moderate diffuse aortic valve thickening. There is no aortic stenosis. No aorticvalve insufficiency. Pericardium/Pleural No pericardial effusion. Medication Diluted definity 1.5ml given slow IV push to enhance endocardial definition. MMode/2D Measurements & Calculations LVIDd: 5.3 cm IVSd: 1.1 cm Ao root diam: 3.7 cm LVIDs: 4.1 cm LVPWd: 0.91 cm FS: 22.6 % __ SV(MOD-sp4): 41.4 ml SV(sp4-el): 41.7 ml LVAd ap4: 35.5 cm2 LVLd ap4: 7.9 cm EDV(MOD-sp4): 132.4 ml EDV(sp4-el): 134.3 ml LVAs ap4: 27.3 cm2 LVLs ap4: 6.8 cm ESV(MOD-sp4): 91.0 ml ESV(sp4-el): 92.6 ml EF(MOD-sp4): 31.2 % EF(sp4-el): 31.1 % Doppler Measurements & Calculations TR max la: 226.2 cm/sec TR max P.5 mmHg ECHO/Echo Limited w/Contrast Interpretation Summary The estimated ejection fraction is 35 %. There is evidence of diastolic dysfunction. There is moderate global hypokinesis of the left ventricle. Trivial mitral valve insufficiency. Ordering Physician: Asad Oneill Referring Physician: Cara Beasley Performed By: Sonya Oneill, FELIPA, RVT 04/08/25 1640 Date _ Earnestine Dumont MD CC: MARIE Beasley; MARIE Oneill ~ Date Dictated: 04/06/25 1238 Date Transcribed: 04/08/25 1640 Division Director: Signed [facility] Work Phone: Echo Limited w/Contraston Echo Limited w/Contrast [facility] [address] [place], [place] [address]. [place] [address] Echo Limited w/Contrast 04/06/25 1238 MR#: [id number] Acct: [id number] Name: JEWELL VILLATORO Rep #: [id number] : 1945 80 From: Earnestine Dumont MD Attending Dr: Asad Oneill, STOCK RAISER-C Status: REG CLI Ordering Dr: Asad Oneill STOCK RAISER STOCK RAISER-C Date: 04/06/25 Location: [facility] Sex: M C Admitted: Reason For Study Reason For Study: CHF, Re-evaluate EF Procedure This was a limited 2D transthoracic echocardiogram. Contrast injection was performed. Exam performed in department. Left Ventricle Normal LV size. The estimated ejection fraction is 35 %. There is evidence of diastolic dysfunction. There is moderate global hypokinesis of the left ventricle. Right Ventricle Normal RV size. Normal systolic function. Mitral Valve There is no mitral valve stenosis. Trivial mitral valve insufficiency. Tricuspid Valve There is no tricuspid stenosis. Trivial tricuspid valve insufficiency. Pulmonary artery systolic pressure is 25 mmHg. Aortic Valve Moderate diffuse aortic valve thickening. There is no aortic stenosis. No aortic valve insufficiency. Pericardium/Pleural No pericardial effusion. Medication Diluted definity 1.5ml given slow IV push to enhance endocardial definition. MMode/2D Measurements Calculations LVIDd: 5.3 cm IVSd: 1.1 cm Ao root diam: 3.7 cm LVIDs: 4.1 cm LVPWd: 0.91 cm FS: 22.6 % SV(MOD-sp4): 41.4 ml SV(sp4-el): 41.7 ml LVAd ap4: 35.5 cm2 LVLd ap4: 7.9 cm EDV(MOD-sp4): 132.4 ml EDV(sp4-el): 134.3 ml LVAs ap4: 27.3 cm2 LVLs ap4: 6.8 cm ESV(MOD-sp4): 91.0 ml ESV(sp4-el): 92.6 ml EF(MOD-sp4): 31.2 % EF(sp4-el): 31.1 % Doppler Measurements Calculations TR max la: 226.2 cm/sec TR max P.5 mmHg ECHO/Echo Limited w/Contrast Interpretation Summary The estimated ejection fraction is 35 %. There is evidence of diastolic dysfunction. There is moderate global hypokinesis of the left ventricle. Trivial mitral valve insufficiency. Ordering Physician: Asad Oneill Referring Physician: Cara Beasley Performed By: Sonya Oneill, FELIPA, RVT 04/08/25 1640 Date Earnestine Dumont MD CC: MARIE Beasley; STOCK RAISERMarco Oneill Date Dictated: 04/06/25 1238 Date Transcribed: 04/08/25 1640 Division Director: Signed [facility]gent Care Visit Reporton 1 12-20-2023 Urgent Care Visit Report [facility] [address], [address] [place] [address] OFFICE VISIT Date of Service: 10/19/24 MR#: [id number] Acct: [id number] Name: JEWELL VILLATORO Rep #: [id number] : 1945 Provider: LAYTON Moncada Age/Sex: 79/M Location: [facility] [place] [place] Status: Signed Intake Vital Signs 10/06/24 16:04 10/19/24 14:50 Height 6 ft 1 in Weight: 215 lb BMI 28.3 BP 124/82 H 130/76 H Blood Pressure Location Lt brachial Position Sitting Respiration 15 Pulse 80 75 Pulse Source NIBP Temp 98.1 F 98.1 F Temp Source Oral Oral Pulse Oximetry (%) 96 94 Oxygen Delivery Method room air room air Intake Visit Reasons: CONCERN FOR COVID/CONGESTION, COUGH, FEVER Chief Complaint: cough, congest, LINCOLN, BA, fever, chills Slip Feeder Required: No Is patient in pain?: No Allergies lisinopril Allergy (Verified 10/19/24 14:51) cough Have you fallen in the past year?: No Nurse's Note: cough, congest, LINCOLN, BA, fever, chills x 4 days. at home with covid. PCP told pt she does not test pts for covid as it is too expensive therefore she does not prescribe the meds for this. pt concern for covid. 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 Cough Essential hypertension Family history of hyperlipidemia Family history of hypertension Gastrointestinal bleeding, lower Hypertension Lung nodule Mixed hyperlipidemia Paroxysmal atrial fibrillation Toxoplasmosis Surgical History History of cardioversion History of knee replacement procedure of left knee ( 12/23/18) History of knee surgery History of parotidectomy Status post tendon repair Family History Mother Hypertension Brother CAD (coronary artery disease) Diabetes FH: hyperlipidemia Daughter Hypertension Father Cancer Throat cancer Other Family history of hypertension Social History Smoking Status: Former smoker how long ago did patient quit smokin alcohol intake: current alcohol intake frequency: a few times a month Alcohol type: beer and wine details: occasional substance use type: does not use caffeine: Yes Type: coffee what type of physical activity do you participate in: none seatbelt use: always do you feel safe at home: Yes HPI HPI Chief Complaint: cough, congest, LINCOLN, BA, fever, chills Details: JEWELL VILLATORO, is a 79 M who presents to the office today for complaint of cough, congestion, headache, body aches and chills for the past 4 days. Patient states his tested positive for COVID and he wants to be tested as well. He denies nausea, vomiting or diarrhea. No loss of taste or smell. No other associated symptoms or alleviating/aggravating factors. ROS Const Constitutional: No other (6 system ROS completed with pertinent findings in the HPI otherwise normal.) Exam Const General: cooperative and well developed HENMT Head: normal to inspection and atraumatic Ears: hearing grossly normal bilaterally Nose: nasal discharge clear Face and sinus: normal facial exam Mouth: oral mucosae normal Throat: abnormal tonsil bilaterally hypertrophy 1+ Resp Effort Inspection: normal respiratory effort and no audible wheezes Auscultation: Bilateral: Clear to Auscultation Cardio Rate: regular rate Rhythm: regular rhythm Neuro General: patient alert Psych Appearance: grossly normal Mental Status: mental status grossly normal Results POC SARS AG POC SARS AG Positive Last Edit by Amita Branham on 10/19/24 14:57 POC FLU A B Office Flu A B Negative FLU A B Last Edit by Amita Branham on 10/19/24 14:57 Coding Level of Care Code Off vis,est,level 3 Diagnoses COVID-19 U07.1 Assessment and Plan Assessment and Plan (1) COVID-19: Status: Acute Plan: Patient tested positive for COVID in the office today. After long discussion patient decided to do Decadron versus Paxlovid. Encouraged to get plenty of rest, drink lots of clear liquids, and use Tylenol or Ibuprofen (unless contraindicated) for fever and comfort. Patient also educated on other symptomatic management techniques. To be seen in 7-10 days if no improvement; sooner if worsening of symptoms. Patient advised of potential red flags and when appropriate to report to the ED. Patient verbalized understanding and agreement with all the above. Orders: Orders POC FLU A B Today R52 - Pain, unspecified POC Rapid SARS Antigen Today Medications: New (more content not included)... [facility] Urgent Care Visit Reporton 1 12-07-2023 Urgent Care Visit Report [facility] [address], [address] [place] [address] OFFICE VISIT Date of Service: 10/06/24 MR#: [id number] Acct: [id number] Name: JEWELL VILLATORO Rep #: [id number] : 1945 Provider: LAYTON Moncada Age/Sex: 79/M Location: [facility] [place] [facility] Status: Signed Intake Vital Signs 08/21/24 10:03 10/06/24 16:04 Height 6 ft 1 in 6 ft 1 in Weight: 208 lb 215 lb BMI 27.4 28.3 BP 126/84 H 124/82 H Blood Pressure Location Lt brachial Position Sitting Respiration 18 Pulse 64 80 Pulse Source NIBP Temp 98.1 F Temp Source Oral Pulse Oximetry (%) 96 Oxygen Delivery Method room air Intake Visit Reasons: L SHOULDER PAIN Accompanied by: Self Is patient in pain?: Yes Pain scale (1-10): 4 Allergies lisinopril Allergy (Verified 10/06/24 16:04) cough Medications ???Medication ???Instructions ???Recorded ???Confirmed ???Type turmeric root extract 500 mg 500 mg PO DAILY 09/05/18 10/06/24 History capsule pantoprazole 20 mg tablet,delayed 20 mg PO DAILY 03/13/19 10/06/24 History release ascorbic acid (vitamin C) 500 mg 1,000 mg PO DAILY 10/12/22 10/06/24 History capsule terazosin 5 mg capsule 5 mg PO DAILY #90 caps 01/17/24 10/06/24 Rx pravastatin 20 mg tablet 20 mg PO DAILY #90 tabs 04/24/24 10/06/24 Rx propafenone 150 mg tablet 150 mg PO TID 90 days #270 tabs 04/24/24 10/06/24 Rx telmisartan 80 1 tab PO QDAY #90 tabs 04/24/24 10/06/24 Rx mg-hydrochlorothiazide 12.5 mg tablet dapagliflozin propanediol 10 mg 10 mg PO QAM 08/21/24 10/06/24 History tablet (Farxiga) metoprolol succinate 50 mg 50 mg PO DAILY #90 tabs 08/29/24 10/06/24 Rx tablet,extended release 24 hr alfuzosin 10 mg tablet,extended 10 mg PO QDAY 10/06/24 10/06/24 History release 24 hr aspirin 81 mg tablet,delayed 81 mg PO QDAY 10/06/24 10/06/24 History release (Adult Low Dose Aspirin) cyclobenzaprine 10 mg tablet 10 mg PO TID PRN muscle spasm 5 10/06/24 10/06/24 Rx days #20 tabs Have you fallen in the past year?: No Nurse's Note: patient has neck/ left shoulder pain. patient states it started last night into the am this morning. Patient has achiness. 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 Cough Essential hypertension Family history of hyperlipidemia Family history of hypertension Gastrointestinal bleeding, lower Hypertension Lung nodule Mixed hyperlipidemia Paroxysmal atrial fibrillation Toxoplasmosis Surgical History History of cardioversion History of knee replacement procedure of left knee ( 12/23/18) History of knee surgery History of parotidectomy Status post tendon repair Family History Mother Hypertension Brother CAD (coronary artery disease) Diabetes FH: hyperlipidemia Daughter Hypertension Father Cancer Throat cancer Other Family history of hypertension Social History Smoking Status: Former smoker how long ago did patient quit smokin alcohol intake: current alcohol intake frequency: a few times a month Alcohol type: beer and wine details: occasional substance use type: does not use caffeine: Yes Type: coffee what type of physical activity do you participate in: none seatbelt use: always do you feel safe at home: Yes HPI HPI Details: JEWELL VILLATORO, is a 79 M who presents to the office today for complaint of left neck and shoulder pain. Patient states the pain started last night and into this morning. He does state having shocking type pain intermittently since the pain started. Patient denies numbness, tingling or loss range of motion. He denies any injury to the shoulder or neck. No other associated symptoms or alleviating/aggravating factors. ROS Const Constitutional: No other (6 system ROS completed with pertinent findings in the HPI otherwise normal.) Exam Const General: cooperative and healthy appearing HENAL Head: normocephalic and atraumatic Ears: hearing grossly normal bilaterally Nose: external nose normal Face and sinus: normal facial exam and face symmetric Resp Effort Inspection: normal respiratory effort Musc Other: Large muscle spasm to palpation left supraspinatus area with pain to palpation. Full range of motion of the neck. Skin General: no rashes or lesions noted Neuro General: patient alert Psych Appearance: grossly normal Mental Status: mental status grossly normal Office Procedures Ortho Inject (more content not included)... Normal [facility] HEALTHon 09-27-2024 ALLIED HEALTH HNO ID: [id number] Author: BEATRICE GOMEZ RT(R) Service: ? Author Type: Technologist Type: Allied Health Filed: 09/27/2024 10:08 Note Text: Radiology Service Progress Note PATIENT NAME: Jewell Villatoro DATE OF SERVICE: September 27, 2024 TIME: 10:07 AM PATIENT IDENTITY VERIFICATION COMPLETED USING TWO (2) IDENTIFIERS: Name and Date of confirmed by patient verbally. FALL SCREENING: Has the patient had 2 falls in the last year or 1 fall with injury or currently using an Ambulatory Assistive Device (Walker, Cane, Wheelchair, Crutches, etc.)? Emergency Room Patient: Screened in ED PATIENT GENDER DATA: Male PATIENT RELEVANT IMPLANT DATA REVIEWED: Not Applicable PATIENT PRESENTS WITH AN IMPLANTABLE OR ATTACHED INDUSTRIAL GAS SERVICE HELPER: No RADIOLOGY DEPARTMENT: General X-ray: Exam(s) Completed: Upper Extremity X-Ray(s): Humerus, right PERIPHERAL IV DATA: Not applicable SIGNED BY: RT Oralia(R) September 27, 2024 10:07 AM Normal [facility] ED NOTEon 09-27-2024 ED NOTE HNO ID: [id number] Author: CORINNA CBAELLO RN Service: ? Author Type: Registered Nurse Type: ED Notes Filed: 09/28/2024 11:04 Note Text: Patient Call Back Information How are you doing ? better Did we appropriately manage your pain? Yes Did you understand your discharge instructions? Yes Did you get your prescriptions filled? Were you able to make a follow-up appointment with your physician? No Were you comfortable during your stay here? Yes Did a member of the ER nursing team round on you during your visit? Yes You will receive a patient satisfaction survey in the mail in the nest 2 weeks, please take the time to fill out the survey as your input from your ER visit is very important to us. Yes Can we do anything else to help you? No [facility] ED NOTE HNO ID: [id number] Author: JAMAAL BEAN RN Service: ? Author Type: Registered Nurse Type: ED Notes Filed: 09/27/2024 10:28 Note Text: Pt does not want the shoulder immobilizer, Dr Antony aware. Normal [facility] ED NOTE HNO ID: [id number] Author: JAMAAL BEAN RN Service: ? Author Type: Registered Nurse Type: ED Notes Filed: 09/27/2024 09:33 Note Text: Pt arrives with report of I think I tore my bicep tendon." Pt reports pain right upper arm. Pt states, "I think it happened when I was putting a tarp on a semi." Pt has full ROM, pain worse when I try to move it." No meds taken for discomfort Normal [facility] ED PROV NOTEon 09-27-2024 ED PROV NOTE HNO ID: [id number] Author: HARVEY MONTEZ DO Service: Emergency Medicine Author Type: Physician Type: ED Provider Notes Filed: 09/27/2024 10:45 Note Text: ED Provider Note Patient Name: Jewell Villatoro : 1945 SERVICE DATE: 09/27/24 History Patient presents with: Arm Pain: right Jewell Villatoro is a 79 year old male who presents with Arm Pain (right). - Symptoms began yesterday. - Severity: moderate - Timing: when he tries to lift something with his right arm - Quality: sore - Symptoms are associated with right bicep pain/concern for injury. - Symptoms are not associated with chest pain, chills, fever, nausea, shortness of breath, right elbow pain, right shoulder pain. Patient presents stating that he is concerned he may have torn/injured his right bicep. He states that he has torn his left bicep tendon in the past and had to have surgery. He states he was pushing and pulling a tarp onto a truck yesterday and states that his right bicep is sore. Pain is worse when he tries to lift something with his right upper extremity. He states it is similar to what he had experienced when he tore his left bicep. He states he has no pain in the right shoulder or the right elbow. No numbness or weakness. No fall. PAST MEDICAL HISTORY Diagnosis Date Atrial fibrillation (HCC) Toxoplasmosis Unspecified essential hypertension PAST SURGICAL HISTORY Procedure Laterality Date CARDIAC CATHETERIZATION HX ORTHOPEDICS SURGERY HX PAST SURGICAL HISTORY OF May 01, 2005 left bicep torn tendon repair PAST SURGICAL HISTORY OF 1994 carotid gland removed PAST SURGICAL HISTORY OF 1965 left knee surgery TONSILLECTOMY PRIMARY/SECONDARY AGE 13/> FAMILY HISTORY Problem Relation Age of Onset Cancer Father throat Cancer Hypertension Mother Social History Tobacco Use Smoking status: Former Smokeless tobacco: Never Tobacco comments: quit 15 years ago Vaping Use Vaping status: Never Used Substance and Sexual Activity Alcohol use: Yes Comment: once per month, rarely Drug use: No Sexual activity: Not on file ALLERGIES Allergen Reactions Bee Sting Swelling Capoten [Captopril] Cough Lisinopril Unknown Review of Systems Constitutional: Negative for fever. Musculoskeletal: Positive for myalgias (Right bicep). Negative for arthralgias and joint swelling. Skin: Negative for color change and wound. Neurological: Negative for weakness and numbness. Psychiatric/Behavioral: Negative for agitation and confusion. Physical Exam Vitals [09/27/24 0925] BP Pulse Temp Temp src Resp SpO2 Weight Height 137/86 67 (!) 35.8 ?C (96.4 ?F) Temporal 13 100 % 93 kg (205 lb) 1.854 m (6' 1") Physical Exam Vitals and nursing note reviewed. Constitutional: Appearance: He is not toxic-appearing or diaphoretic. HENT: Head: Normocephalic and atraumatic. Eyes: Conjunctiva/sclera: Conjunctivae normal. Cardiovascular: Rate and Rhythm: Normal rate and regular rhythm. Pulses: Normal pulses. Pulmonary: Effort: Pulmonary effort is normal. Breath sounds: Normal breath sounds. Musculoskeletal: Right shoulder: No swelling, deformity, laceration, bony tenderness or crepitus. Normal range of motion. Right upper arm: Tenderness (to right bicep) present. No swelling, edema, deformity, lacerations or bony tenderness. Right elbow: No swelling, deformity, effusion or lacerations. Normal range of motion. No tenderness. Right wrist: No swelling, lacerations, bony tenderness, snuff box tenderness or crepitus. Normal range of motion. Normal pulse. Right hand: No swelling, deformity, lacerations, tenderness or bony tenderness. Normal range of motion. Normal strength. Normal sensation. Normal capillary refill. Normal pulse. Comments: Patient reports right bicep tenderness with palpation. He is able to flex his bicep, it appears symmetric to the left side. The bicep tendon is palpable at the elbow. Full range of motion of the right elbow and right shoulder. Skin: General: Skin is warm and dry. Capillary Refill: Capillary refill takes less than 2 seconds. Neurological: Mental Status: He is alert and oriented to person, place, and time. GCS: GCS eye subscore is 4. GCS verbal subscore is 5. GCS motor subscore is 6. Psychiatric: Mood and Affect: Mood normal. Behavior: Behavior normal. Diagnostic Testing ED Labs Ordered and Reviewed - No data to display Procedures ED Course / Clinical Impression Clinical Impressions as of 09/27/24 1039 Pain of right upper arm - possible bicep injury/tear MDM / Disposition / Plan Will obtain x-ray imaging of the right humerus. XR HUMERUS 2V AP/LAT RIGHT Final Result IMPRESSION: No acute bony abnormality. Division Director: JOSE Transcribe Date/Time: Sep 27 2024 10:09A Dictated by : JAMES WASHBURN MD This examination was interpreted and the report reviewed and electronically signed by: [facility] (more content not included)... Normal [facility] XR HUMERUS 2V AP/LAT RTon XR HUMERUS 2V AP/LAT RT * * *Final Report* * * DATE OF EXAM: Sep 27 2024 10:07AM LDX [id number] - XR HUMERUS 2V AP/LAT RT / PROCEDURE REASON: Trauma * * * * Physician Interpretation * * * * EXAM TITLE: XR HUMERUS 2V AP/LAT RT DATE: 09/27/2024 INDICATION: Injury to right arm. Possible biceps tear. COMPARISON: None. AP and lateral views of the right humerus show no fracture. Normal alignment. IMPRESSION: No acute bony abnormality. Division Director: JOSE Transcribe Date/Time: Sep 27 2024 10:09A Dictated by : JAMES WASHBURN MD This examination was interpreted and the report reviewed and electronically signed by: JAMES WASHBURN MD on Sep 27 2024 10:11AM EST [id number] Normal [facility] Cardiology Visit Reporton Cardiology Visit Report [facility] [address] [place], [place] [address] OFFICE VISIT Date of Service: 08/21/24 MR#: [id number] Acct: [id number] Name: JEWELL VILLATORO Rep #: [id number] : 1945 Provider: MARIE tobin Age/Sex: 79/M Location: [facility] [place] Status: Signed HPI HPI History of Present Illness Details: JEWELL VILLATORO, is a 79 year old white male who presents to the office today for a cardiovascular outpatient follow-up of his history of paroxysmal atrial fibrillation status post DCCV in July 2015, non-obstructive coronary artery disease, cardiomyopathy, hyperlipidemia, and hypertension. He was vacationing in [place] and noted to have episode of atrial fibrillation in December 2023. Echocardiogram from He denies chest, arm, jaw, or neck discomfort. He denies palpitations. He denies bilateral lower extremity edema. He denies claudication. He states shortness of breath with activity. He denies shortness of breath at rest, orthopnea, or PND. He denies chronic cough. He denies significant, sudden weight gain. He denies lightheadedness, dizziness, near-syncope, or syncope. He denies blood in urine, blood in stool, or epistaxis. He denies fever with chills. He denies myalgia. He states fatigue. His exercise level has remained stable. Intake Vital Signs 05/03/24 08:58 08/21/24 10:03 Height 6 ft 1 in 6 ft 1 in Weight: 204 lb 208 lb BMI 26.9 27.4 BP 123/82 H 126/84 H Blood Pressure Location Lt brachial Lt brachial Position Sitting Sitting Respiration 18 18 Pulse 73 64 Pulse Source Monitor NIBP Pulse Oximetry (%) 94 Oxygen Delivery Method room air Intake Visit Reasons: 4 M FU Slip Feeder Required: No Accompanied by: Self Is patient in pain?: No Allergies lisinopril Allergy (Verified 08/21/24 10:04) cough Medications ???Medication ???Instructions ???Recorded ???Confirmed ???Type turmeric root extract 500 mg 500 mg PO DAILY 09/05/18 08/21/24 History capsule pantoprazole 20 mg tablet,delayed 20 mg PO DAILY 03/13/19 08/21/24 History release ascorbic acid (vitamin C) 500 mg 1,000 mg PO DAILY 10/12/22 08/21/24 History capsule rivaroxaban 20 mg tablet 20 mg PO DAILY #30 tabs 12/31/23 08/21/24 Rx terazosin 5 mg capsule 5 mg PO DAILY #90 caps 01/17/24 08/21/24 Rx metoprolol succinate 50 mg 50 mg PO DAILY #90 tabs 04/24/24 08/21/24 Rx tablet,extended release 24 hr pravastatin 20 mg tablet 20 mg PO DAILY #90 tabs 04/24/24 08/21/24 Rx propafenone 150 mg tablet 150 mg PO TID 90 days #270 tabs 04/24/24 08/21/24 Rx telmisartan 80 1 tab PO QDAY #90 tabs 04/24/24 08/21/24 Rx mg-hydrochlorothiazide 12.5 mg tablet spironolactone 25 mg tablet 12.5 mg (1/2 x 25 mg) PO DAILY #45 05/29/24 08/21/24 Rx tabs dapagliflozin propanediol 10 mg 10 mg PO QAM 08/21/24 08/21/24 History tablet (Farxiga) Have you fallen in the past year?: No PFSH Medical History Abnormal cardiovascular stress test Atherosclerotic heart disease of unga coronary artery without angina pectoris Atrial fibrillation 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 Cough Essential hypertension Family history of hyperlipidemia Family history of hypertension Gastrointestinal bleeding, lower Hypertension Lung nodule Mixed hyperlipidemia Paroxysmal atrial fibrillation Toxoplasmosis Surgical History History of cardioversion History of knee replacement procedure of left knee ( 12/23/18) History of knee surgery History of parotidectomy Status post tendon repair Family History Mother Hypertension Brother CAD (coronary artery disease) Diabetes FH: hyperlipidemia Daughter Hypertension Father Cancer Throat cancer Other Family history of hypertension Social History Smoking Status: Former smoker how long ago did patient quit smokin alcohol intake: current alcohol intake frequency: a few times a month Alcohol type: beer and wine details: occasional substance use type: does not use caffeine: Yes Type: coffee what type of physical activity do you participate in: none seatbelt use: always do you feel safe at home: Yes ROS Const Const: Positive for fatigue; Negative for weakness, headache(s) or weight gain ENT ENT: Positive for dizziness (positional; short in duration); Negative for headache(s), Nosebleed/epistaxis or balance problems Cardio Chest Pain: No Palpitations: No Edema: None Muscle aches with walking: None Resp Respiratory: Positive for SOB with activity; Negative for SOB at rest or SOB orthopnea SOB lying down GI GI: Negati (more content not included)... Normal [facility] PSA/PROSTATE SPECIFIC ANTIGE N SCREENINGon 08-19-2024 Prostate specific Ag [Mass/Vol] 2.28 ng/mL Normal <2.60 [facility] Comment on above: Order Comment: Speci men Type: BLOOD SPECIMEN Ordering Facility: [facility] Address: [address] [place] [address], [address], [place] [address] Result Comment: Tota l PSA test methodology used is the Electrochemiluminescence Immunoassay by [employer]. Total PSA values by differing methodologies cannot be interchanged. Performed By: #### P SAS1 #### [facility] CLIA [id number] 1 [place] [address] [place] Echo Limited w/Contraston Echo Limited w/Contrast [facility] [address] [place] [address] Echo Limited w/Contrast 07/31/24 0805 MR#: [id number] Acct: [id number] Name: JEWELL VILLATORO Rep #: [id number] : 1945 79 From: Earnestine Dumont MD Attending Dr: Dr. Maninder Shaver MD Status: RE G CLI Ordering Dr: Maninder Shaver MD Date: 07/31/24 Location: CVS Sex: M C Admitted: Reason For Study: CHF Procedure This was a limited 2D transthoracic echocardiogram. Contrast injection was performed. Exam performed in department. Left Ventricle Normal LV size. The estimated ejection fraction is 35 %. There is evidence of diastolic dysfunction. There is moderate global hypokinesis of the left ventricle. Right Ventricle Normal RV size. Normal systolic function. Atria The left and right atria are normal. No doppler evidence for ASD. Mitral Valve There is no mitral valve stenosis. Trivial mitral valve insufficiency. Tricuspid Valve There is no tricuspid stenosis. Trivial tricuspid valve insufficiency. Unable to estimate RV systolic pressure due to insufficient tricuspid regurgitant envelope. Aortic Valve Trisinus/trileaflet aortic valve. Aortic sclerosis, no stenosis. There is no aortic stenosis. No aortic valve insufficiency. Pulmonic Valve There is no pulmonic valvular stenosis. No pulmonic valve insufficiency. Great Vessels Normal aortic root. Pericardium/Pleural No pericardial effusion. Medication 22 gauge I.V. with prn adaptor inserted into right arm. Diluted definity 2.5ml given slow IV push to enhance endocardial definition. MMode/2D Measurements Calculations LVIDd: 4.8 cm IVSd: 1.0 cm LVIDs: 3.9 cm LVPWd: 0.74 cm LVAd ap4: 33.0 cm2 FS: 18.5 % LVLd ap4: 8.1 cm EDV(MOD-sp4): 109.3 ml EDV(sp4-el): 114.1 ml LVAs ap4: 24.9 cm2 LVLs ap4: 7.4 cm ESV(MOD-sp4): 71.0 ml ESV(sp4-el): 71.6 ml EF(MOD-sp4): 35.1 % EF(sp4-el): 37.2 % ___ LVAd ap2: 36.2 cm2 SV(MOD-sp4): 38.4 ml SV(MOD-sp2): 50.7 ml LVLd ap2: 8.3 cm EDV(MOD-sp2): 127.7 ml EDV(sp2-el): 133.7 ml LVAs ap2: 25.7 cm2 LVLs ap2: 7.2 cm ESV(MOD-sp2): 77.0 ml ESV(sp2-el): 78.0 ml EF(MOD-sp2): 39.7 % ___ SV(sp4-el): 42.4 ml Doppler Measurements Calculations MR max la: 408.9 cm/sec MR max P.9 mmHg ECHO/Echo Limited w/Contrast Interpretation Summary The estimated ejection fraction is 35 %. There is evidence of diastolic dysfunction. There is moderate global hypokinesis of the left ventricle. Trivial mitral valve insufficiency. Ordering Physician: Maninder Shaver Referring Physician: Maninder Shaver Performed By: Chandana Vivar [facility] 07/31/241353 Date Earnestine Dumont MD CC: MARIE Beasley; Dr. Maninder Shaver MD Date Dictated: 07/31/24804 Date Transcribed: 07/31/241353 Division Director: Signed Normal [facility] CBC W Auto Differential pane l (Bld)on 06-03-2024 Basophils (Bld) [#/Vol] 0.03 10*3/uL Normal <0.11 [facility] Comment on above: Order Comment: Speci men Type: BLOOD SPECIMEN Ordering Facility: [facility] Address: [address] [place] [address] Performed By: #### 5 7021-8 #### [facility] [place] [facility] CLIA [id number] [address] [place] [address] [place] [facility] Basophils/100 WBC (Bld) 0.5 % Normal [facility] Comment on above: Order Comment: Speci men Type: BLOOD SPECIMEN Ordering Facility: [facility] Address: [address] [place] [address] Performed By: #### 5 7021-8 #### [facility] [place] [facility] CLIA [id number] [address] [place] [id number] [facility] Differential cell count method Nom (Bld) Auto Normal [facility] Comment on above: Order Comment: Speci men Type: BLOOD SPECIMEN Ordering Facility: [facility] Address: [address] [place] [address] Performed By: #### 5 7021-8 #### [facility] [place] [facility] CLIA [id number] [address] [place] [address] [place] Eosinophils (Bld) [#/Vol] 0.11 10*3/uL Normal <0.46 [facility] Comment on above: Order Comment: Speci men Type: BLOOD SPECIMEN Ordering Facility: [facility] Address: [address] [place] [address] Performed By: #### 5 7021-8 #### [facility] [place] [facility] CLIA [id number] [address] [place] [address] [facility] Eosinophils/100 WBC (Bld) 1.8 % Normal [facility] Comment on above: Order Comment: Speci men Type: BLOOD SPECIMEN Ordering Facility: [facility] Address: [address] [place] [address] Performed By: #### 5 7021-8 #### [facility] [place] [facility] CLIA [id number] [address] [place] [id number] [place] Erythrocyte distribution width (RBC) [Ratio] 12.8 % Normal 11.5-15.0 [facility] Comment on above: Order Comment: Speci men Type: BLOOD SPECIMEN Ordering Facility: [facility] Address: [address] [place] [address].[place] [address] Performed By: #### 5 7021-8 #### [facility] [place] [facility] CLIA [id number] [address] [place] [address] [place] Hematocrit (Bld) [Volume fraction] 44.2 % Normal 39.0-51.0 [facility] Comment on above: Order Comment: Speci men Type: BLOOD SPECIMEN Ordering Facility: [facility] Address: [address] [place] [address].[place] [address] Performed By: #### 5 7021-8 #### [employer] [facility] [place] [facility] CLIA [id number] [address] [place] [address] [place] Hemoglobin (Bld) [Mass/Vol] 14.3 g/dL Normal 13.0-17.0 [facility] Comment on above: Order Comment: Speci men Type: BLOOD SPECIMEN Ordering Facility: [facility] Address: [address] [place] [address].[place] [address] Performed By: #### 5 7021-8 #### [employer] [facility] [place] [facility] CLIA [id number] [address] [place] [address] [place] Immature granulocytes (Bld) [#/Vol] 10*3/uL Normal <0.10 [facility] Comment on above: Order Comment: Speci men Type: BLOOD SPECIMEN Ordering Facility: [facility] Address: [address] [place] [address].[place] [address] Performed By: #### 5 7021-8 #### [employer] [facility] [place] [facility] CLIA [id number] [address] [place] [address] [facility] Immature granulocytes/100 WBC (Bld) 0.2 % Normal [facility] Comment on above: Order Comment: Speci men Type: BLOOD SPECIMEN Ordering Facility: [facility] Address: [address] [place], [place] [address] [address] Performed By: #### 5 7021-8 #### [facility] [place] [facility] CLIA [id number] [address] [place] [address] [place] Lymphocytes (Bld) [#/Vol] 1.41 10*3/uL Normal 1.00-4.00 [facility] Comment on above: Order Comment: Speci men Type: BLOOD SPECIMEN Ordering Facility: [facility] Address: [address] [place] [address] Performed By: #### 5 7021-8 #### [facility] [place] [facility] CLIA [id number] [address] [place], [place] [id number] [place] [address] [place] Lymphocytes/100 WBC (Bld) 22.6 % Normal [facility] Comment on above: Order Comment: Speci men Type: BLOOD SPECIMEN Ordering Facility: [facility] Address: [address] [place] [address] Performed By: #### 5 7021-8 #### [facility] [place] [facility] CLIA [id number] [address] [place] MCH (RBC) [Entitic mass] 31.0 pg Normal 26.0-34.0 [facility] Comment on above: Order Comment: Speci men Type: BLOOD SPECIMEN Ordering Facility: [facility] Address: [address] [place] [address] Performed By: #### 5 7021-8 #### [facility] [place] [facility] CLIA [id number] [address] [place], [place] [id number] [place] [address] [place] MCHC (RBC) [Mass/Vol] 32.4 g/dL Normal 30.5-36.0 [facility] Comment on above: Order Comment: Speci men Type: BLOOD SPECIMEN Ordering Facility: [facility] Address: [address] [place] [address] Performed By: #### 5 7021-8 #### [facility] [place] [facility] CLIA [id number] [address] [place] [address] [place] MCV (RBC) [Entitic vol] 95.9 fL Normal 80.0-100.0 [facility] Comment on above: Order Comment: Speci men Type: BLOOD SPECIMEN Ordering Facility: [facility] Address: [address] [place] [address] [address]., [place] [address] Performed By: #### 5 7021-8 #### [facility] [place] [facility] CLIA [id number] [address] [place] [address] [place] Monocytes (Bld) [#/Vol] 0.57 10*3/uL Normal <0.87 [facility] Comment on above: Order Comment: Speci men Type: BLOOD SPECIMEN Ordering Facility: [facility] Address: [address] [place], [place] [address]., [place] [address] Performed By: #### 5 7021-8 #### [facility] [place] [facility] CLIA [id number] [address] [place] [address] [facility] Monocytes/100 WBC (Bld) 9.1 % Normal [facility] Comment on above: Order Comment: Speci men Type: BLOOD SPECIMEN Ordering Facility: [facility] Address: [address] [place], [place] [address]., [place] [address] Performed By: #### 5 7021-8 #### [facility] [place] [facility] CLIA [id number] [address] [place] [address] [place] Neutrophils (Bld) [#/Vol] 4.11 10*3/uL Normal 1.45-7.50 [facility] Comment on above: Order Comment: Speci men Type: BLOOD SPECIMEN Ordering Facility: [facility] Address: [address] [place], [place] [address]., [place] [address] Performed By: #### 5 7021-8 #### [facility] [place] [facility] CLIA [id number] [address] [place] [address] [facility] [place] Neutrophils/100 WBC (Bld) 65.8 % Normal [facility] Comment on above: Order Comment: Speci men Type: BLOOD SPECIMEN Ordering Facility: [facility] Address: [address] [place] [address] [address] [place] [address] Performed By: #### 5 7021-8 #### [facility] [place] [facility] CLIA [id number] [address] [place] [address] [place] Nucleated RBC (Bld) [#/Vol] Normal [facility] Comment on above: Order Comment: Speci men Type: BLOOD SPECIMEN Ordering Facility: [facility] Address: [address] [place] [address] Performed By: #### 5 7021-8 #### [facility] [place] [facility] CLIA [id number] [address] [place] [address] [place] Nucleated RBC/100 WBC (Bld) [Ratio] Normal [facility] Comment on above: Order Comment: Speci men Type: BLOOD SPECIMEN Ordering Facility: [facility] Address: [address] [place], [place] [address] [place] [address] Performed By: #### 5 7021-8 #### [facility] [place] [facility] CLIA [id number] [address] [place] [address] [place] Platelet mean volume (Bld) [Entitic vol] 9.8 fL Normal 9.0-12.7 [facility] Comment on above: Order Comment: Speci men Type: BLOOD SPECIMEN Ordering Facility: [facility] Address: [address] [place], [place] [address] [place] [address] Performed By: #### 5 7021-8 #### [facility] [place] [facility] CLIA [id number] [address] [place] [address] [place] Platelets (Bld) [#/Vol] 221 10*3/uL Normal 150-400 [facility] Comment on above: Order Comment: Speci men Type: BLOOD SPECIMEN Ordering Facility: [facility] Address: [address] [place], [place] [address]., [place] [address] Performed By: #### 5 7021-8 #### [facility] [place] [facility] CLIA [id number] [address] [place] [address] [place] RBC (Bld) [#/Vol] 4.61 10*6/uL Normal 4.20-6.00 [facility] Comment on above: Order Comment: Speci men Type: BLOOD SPECIMEN Ordering Facility: [facility] Address: [address] [place], [place] [address]., [place] [address] Performed By: #### 5 7021-8 #### [facility] [place] [facility] CLIA [id number] [address] [place] [address] [facility] [place] WBC (Bld) [#/Vol] 6.24 10*3/uL Normal 3.70-11.00 [facility] Comment on above: Order Comment: Speci men Type: BLOOD SPECIMEN Ordering Facility: [facility] Address: [address] [place], [place] [address] [address] Performed By: #### 5 7021-8 #### [facility] [place] [facility] CLIA [id number] [address] [place] [address] [facility] Comprehensive metabolic 2000 panelon 06-03-2024 Albumin [Mass/Vol] 4.0 g/dL Normal 3.9-4.9 [facility] Comment on above: Order Comment: Speci [facility] Type: BLOOD SPECIMEN Ordering Facility: [facility] Address: [address] [place] [address].[place] [address] Performed By: #### L IPNF, 11602-7 #### [facility] [place] [facility] CLIA [id number] [address] [place], [place] [address] [place] [address] [place] ALP [Catalytic activity/Vol] 78 U/L Normal 38-113 [facility] Comment on above: Order Comment: Speci men Type: BLOOD SPECIMEN Ordering Facility: [facility] Address: [address] [place] [address].[place] [address] Performed By: #### L IPNF, 09735-4 #### [facility] [place] [facility] CLIA [id number] [address] [place] [address] [facility] ALT With P-5'-P [Catalytic activity/Vol] 16 U/L Normal 10-54 [facility] Comment on above: Order Comment: Speci men Type: BLOOD SPECIMEN Ordering Facility: [facility] Address: [address] [place], [place] [address] [address] Performed By: #### L IPNF, 80630-3 #### [facility] [place] [facility] CLIA [id number] [address] [place] [address] [facility] Anion gap [Moles/Vol] 10 mmol/L Normal 8-15 [facility] Comment on above: Order Comment: Speci men Type: BLOOD SPECIMEN Ordering Facility: [facility] Address: [address] [place] [address] Performed By: #### L IPNF, 11208-4 #### [facility] [place] [facility] CLIA [id number] [address] [place] [address] [place] AST With P-5'-P [Catalytic activity/Vol] 17 U/L Normal 14-40 [facility] Comment on above: Order Comment: Speci men Type: BLOOD SPECIMEN Ordering Facility: [facility] Address: [address] [place] [address] [place] [place] [address] Performed By: #### L IPNF, #### [facility] [place] [facility] CLIA [id number] [address] [place] [address] [place] Bilirubin [Mass/Vol] 0.4 mg/dL Normal 0.2-1.3 [facility] Comment on above: Order Comment: Speci men Type: BLOOD SPECIMEN Ordering Facility: [facility] Address: [address] [place] [address] [place] [place] [address] Performed By: #### L IPNF, #### [employer] [facility] [place] [facility] CLIA [id number] [address] [place] [address] [place] Calcium [Mass/Vol] 9.1 mg/dL Normal 8.5-10.2 [facility] Comment on above: Order Comment: Speci men Type: BLOOD SPECIMEN Ordering Facility: [facility] Address: [address] [place] [address] [place] [place] [address] Performed By: #### L IPNF, #### [facility] [place] [facility] CLIA [id number] [address] [place] [address] [place] Chloride [Moles/Vol] 104 mmol/L Normal 98-107 [facility] Comment on above: Order Comment: Speci men Type: BLOOD SPECIMEN Ordering Facility: [facility] Address: [address] [place] [address] Performed By: #### L IPNF, 63136-5 #### [facility] [place] [facility] CLIA [id number] [address] [place] [address] [place] CO2 [Moles/Vol] 25 mmol/L Normal 22-30 [facility] Comment on above: Order Comment: Speci men Type: BLOOD SPECIMEN Ordering Facility: [facility] Address: [address] [place] [address] Performed By: #### L IPNF, 61042-0 #### [facility] [place] [facility] CLIA [id number] [address] [place] [address] [place] Creatinine [Mass/Vol] 1.14 mg/dL Normal 0.73-1.22 [facility] Comment on above: Order Comment: Speci men Type: BLOOD SPECIMEN Ordering Facility: [facility] Address: [address] [place] [address] Performed By: #### L IPNF, 62998-6 #### [facility] [place] [facility] CLIA [id number] [address] [place] [id number] [place] [address] Creatinine and Glomerular filtration rate.predicted panel (S/P/Bld) 66 mL/min/1.73m??? Normal >=60 [facility] Comment on above: Order Comment: Speci men Type: BLOOD SPECIMEN Ordering Facility: [facility] Address: [address] [place] [address] Result Comment: Yue mated Glomerular Filtration Rate (eGFR) is calculated using the 2020 CKD-EPI creatinine equation. This equation utilizes serum creatinine, sex, and age as parameters. The creatinine assay has traceable calibration to isotope dilution-mass spectrometry. Refer to KDIGO guidelines for clinical interpretation. In patients with unstable renal function, e.g. those with acute kidney injury, the eGFR may not accurately reflect actual GFR. Performed By: #### L IPNF, 32390-0 #### [facility] [place] [facility] CLIA [id number] [address] [place] [address] [place] Glucose [Mass/Vol] 90 mg/dL Normal 74-99 [facility] Comment on above: Order Comment: Speci men Type: BLOOD SPECIMEN Ordering Facility: [facility] Address: [address] [address] [address] [place] [address] Result Comment: The [place] Diabetes [employer] (ADA) provides guidance for cutoff values for fasting glucose and random glucose. The ADA defines fasting as no caloric intake for at least 8 hours. Fasting plasma glucose results between 100 to 125 mg/dL indicate increased risk for diabetes (prediabetes). Fasting plasma glucose results greater than or equal to 126 mg/dL meet the criteria for diagnosis of diabetes. In the absence of unequivocal hyperglycemia, results should be confirmed by repeat testing. In a patient with classic symptoms of hyperglycemia or hyperglycemic crisis, random plasma glucose results greater than or equal to 200 mg/dL meet the criteria for diagnosis of diabetes. Reference: Standards of Medical Care in Diabetes 2016, [place] [employer] Association. Diabetes Care. 2016.39(Suppl 1). Performed By: #### L IPOBED, 52605-9 #### [facility] [place] [facility] CLIA [id number] [address] [place] [address] [place] Potassium [Moles/Vol] 4.3 mmol/L Normal 3.7-5.1 [facility] Comment on above: Order Comment: [facility] Type: BLOOD SPECIMEN Ordering Facility: [facility] Address: [address] [place], [place] [address] [place] [address] Performed By: #### L IPNF, 32858-2 #### [facility] [place] [facility] CLIA [id number] [address] [place] [address] [place] Protein [Mass/Vol] 6.5 g/dL Normal 6.3-8.0 [facility] [facility] Comment on above: Order Comment: [facility] Type: BLOOD SPECIMEN Ordering Facility: [facility] Address: [address] [place], [place] [address] [id number] Performed By: #### L IPNF, 00518-4 #### [facility] CLIA [id number] [address] [place] [address] [place] Sodium [Moles/Vol] 139 mmol/L Normal 136-144 [facility] Comment on above: Order Comment: [facility] Type: BLOOD SPECIMEN Ordering Facility: [facility] Address: [address] [place] [address] Performed By: #### L IPNF, 48438-8 #### [facility] CLIA [id number] [address] [place] [address] [facility] Urea nitrogen [Mass/Vol] 27 mg/dL High 9-24 [facility] Comment on above: Order Comment: Speci men Type: BLOOD SPECIMEN Ordering Facility: [facility] Address: [address] [place] [address].[place] [address] Performed By: #### L IPNF, 99099-9 #### [facility] CLIA [id number] [address] [place] [address] [facility] LIPID PANEL, NONFASTINGon Cholesterol [Mass/Vol] 150 mg/dL Normal <200 [facility] Comment on above: Order Comment: Speci men Type: BLOOD SPECIMEN Ordering Facility: [facility] Address: [address] [place] [address].[place] [address] Result Comment: <200 mg/dL, Desirable 200-239 mg/dL, Borderline high >239 mg/dL, High Performed By: #### L IPNF, #### [employer] [facility] CLIA [id number] [address] [place] [address] [facility] HDL CHOLESTEROL, NF 50 mg/dL Normal >39 [facility] Comment on above: Order Comment: Speci [facility] Type: BLOOD SPECIMEN Ordering Facility: [facility] Address: [address] [place] [address].[place] [address] Result Comment: 40-5 9 mg/dL, Acceptable >59 mg/dL, High: Negative risk factor for coronary heart disease <40 mg/dL, Low: Positive risk factor for coronary heart disease Performed By: #### L IPNF, 76356-5 #### [facility] CLIA [id number] [address] [place] [address] [facility] LDL CHOLESTEROL, NF 81 mg/dL Normal <100 [facility] Comment on above: Order Comment: Speci [facility] Type: BLOOD SPECIMEN Ordering Facility: [facility] Address: [address] [place], [place] [address] [id number] Result Comment: <100 mg/dL, Optimal 100-129 mg/dL, Near optimal/above optimal 130-159 mg/dL, Borderline high 160-189 mg/dL, High >189 mg/dL, Very high Secondary prevention optimal LDL Cholesterol levels are recommended to be < 70 mg/dL Performed By: #### L IPOBED, 13431-8 #### [facility] CLIA [id number] [address] [place], [place] [id number] [place] [address] LDL/HDL RATIO, NF 1.62 mg/dL Normal <2.54 [facility] Comment on above: Order Comment: Zack wu Type: BLOOD SPECIMEN Ordering Facility: [facility] Address: [address] , [place] [address] Result Comment: Refe rence: 1. National Cholesterol Education Program ATP III Guideline At-A-Glance Quick Desk Reference: National Heart, Lung, and Blood [place]. National Institutes of Health. 2001: NIH Publication No. 01-3305. 2. An International Atherosclerosis Society position paper: global recommendations for the management of dyslipidemia: executive summary, Atherosclerosis. 2014: 232(2):410-413. Performed By: #### L IPNF, #### [facility] CLIA [id number] [address] NON HDL CHOL, NF 100 mg/dL Normal <130 [facility] Comment on above: Order Comment: Zack wu Type: BLOOD SPECIMEN Ordering Facility: [facility] Address: [address] [place], [place] [id number] Result Comment: <130 mg/dL, Optimal 130-159 mg/dL, Near optimal/above optimal 160-189 mg/dL, Borderline high 190-219 mg/dL, High >219 mg/dL, Very high Secondary prevention optimal non HDL Cholesterol levels are recommended to be <100 mg/dL Performed By: #### L IPNF, 61887-3 #### [facility] CLIA [id number] [address] [place], [place] [address] [place] [address] T CHOL/HDL RATIO NF 3.00 mg/dL Normal <5.10 [facility] Comment on above: Order Comment: Zack wu Type: BLOOD SPECIMEN Ordering Facility: [facility] Address: [address] [place] [address] Performed By: #### L JASWANT, 59299-6 #### [facility] CLIA [id number] [address] [place] [address] [place] TRIGLYCERIDES, NF 93 mg/dL Normal <150 [facility] Comment on above: Order Comment: Williami men Type: BLOOD SPECIMEN Ordering Facility: [facility] Address: [address] [place] [address] Result Comment: <150 mg/dL, Normal 150-199 mg/dL, Borderline high 200-499 mg/dL, High >499 mg/dL, Very high Performed By: #### L JASWANT, 52927-2 #### [facility] CLIA [id number] [address] [place] [address] [place] VLDL CHOLESTEROL, NF 19 mg/dL Normal <30 [facility] Comment on above: Order Comment: Zack wu Type: BLOOD SPECIMEN Ordering Facility: [facility] Address: [address] [place] [address] Performed By: #### L JASWANT, 49062-1 #### [employer] [facility] CLIA [id number] [address] [place] [address] [place] Natriuretic peptide B [Mass/ Vol]on 06-03-2024 Natriuretic peptide B (Bld) [Mass/Vol] 14 pg/mL Normal 0-99 [facility] Comment on above: Order Comment: Zack wu Type: BLOOD SPECIMEN Ordering Facility: [facility] Address: [address] [place] [id number] Performed By: #### 3 0934-4 #### [facility] CLIA [id number] [address] [place] [address] [place] 12 Lead EKG performed by [facility] on 05-03-2024 12 Lead EKG performed by [facility] [address] [place] [address] 12 Lead EKG performed by [facility] 05/03/24805 MR#: [id number] Acct: [id number] Name: JEWELL VILLATORO Rep #: [id number] : 1945 79 From: Maninder Shaver MD Attending Dr: Dr. Maninder Shaver MD Status: DE P AMB Ordering Dr: Maninder Shaver MD Date: 05/03/24 [place] [facility] Sex: M C Admitted: [facility]/12 Lead EKG performed by [facility] ECG Report Interpretation Sinus Rhythm -First degree A-V block Sophie = 220-Intraventricular conduction defect -consider left ventricular hypertrophy. -Inferior infarct -age undetermined -Left axis secondary to infarct -consider anterior fascicular block. ABNORMAL Electronically signed on 05/03/2024 at 15:[address] Maninder Shaver [employer] Version [id number] 05/03/24 1521 Date Maninder Shaver MD CC: MARIE Beasley Date Dictated: 05/03/24805 Date Transcribed: 05/03/24805 Division Director: Signed [facility] Cardiology Visit Reporton Cardiology Visit Report [facility] [facility] [place], [place] [address] OFFICE VISIT Date of Service: 05/03/24 MR#: [id number] Acct: [id number] Name: JEWELL VILLATORO Rep #: [id number] : 1945 Provider: Dr. Maninder key MD Age/Sex: 79/M Location[place] [facility] Status: Signed HPI [facility] History of Present Illness Details: JEWELL VILLATORO, is a 79 year old white male who presents to the office today for a cardiovascular outpatient follow-up. 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 He denies any dyspnea on exertion or shortness of breath with routine activities. He denies any PND orthopnea denies any lower extremity edema denies any chest pain syncope or near syncope. His wearable has not identified any atrial fibrillation and it did identify the atrial fibrillation when he was in [place] back in December 2023. The patient's weight has been stable at 204 pounds here in our office March 17 and then today's weight was the same. The patient is having significant financial issues with the combination of the [employer] and [employer] costing him over $300 a month. We went over this in detail. His blood pressures been well-controlled on his current medical regiment is 123/82 with a heart rate of 73 in the office today. EKG in the office today normal sinus rhythm at 70 bpm there is a first-degree AV block measuring 220 ms. He does have appearance of LVH and a left anterior fascicular block. The pattern is also consistent with an old inferior wall infarct. The patient has a known totally occluded right coronary artery treated medically on a catheterization that was done November or December 2023 in [place]. The patient goes to [place] for the winter starting in November. He lives here in [place] the rest of the year. He obtains his meds through [facility]. Intake Vital Signs 03/17/24 08:42 05/03/24 08:58 Height 6 ft 1 in 6 ft 1 in Weight: 204 lb 204 lb BMI 26.9 26.9 BP 123/80 H 123/82 H Blood Pressure Location Lt brachial Lt brachial Position Sitting Sitting Respiration 18 18 Pulse 73 73 Pulse Source Monitor Monitor Pulse Oximetry (%) 94 Oxygen Delivery Method room air Intake Visit Reasons: 2 M Slip Feeder Required: No Accompanied by: Self Is patient in pain?: No Allergies lisinopril Allergy (Verified 05/03/24 08:59) cough Medications ???Medication ???Instructions ???Recorded ???Confirmed ???Type turmeric root extract 500 mg 500 mg PO DAILY 09/05/18 05/03/24 History capsule pantoprazole 20 mg tablet,delayed 20 mg PO DAILY 03/13/19 05/03/24 History release ascorbic acid (vitamin C) 500 mg 1,000 mg PO DAILY 10/12/22 05/03/24 History capsule rivaroxaban 20 mg tablet 20 mg PO DAILY #30 tabs 12/31/23 05/03/24 Rx terazosin 5 mg capsule 5 mg PO DAILY #90 caps 01/17/24 05/03/24 Rx metoprolol succinate 50 mg 50 mg PO DAILY #90 tabs 04/24/24 05/03/24 Rx tablet,extended release 24 hr pravastatin 20 mg tablet 20 mg PO DAILY #90 tabs 04/24/24 05/03/24 Rx propafenone 150 mg tablet 150 mg PO TID 90 days #270 tabs 04/24/24 05/03/24 Rx telmisartan 80 1 tab PO QDAY #90 tabs 04/24/24 05/03/24 Rx mg-hydrochlorothiazide 12.5 mg tablet spironolactone 25 mg tablet 25 mg PO DAILY #30 tabs 05/03/24 05/03/24 Rx Ejection fraction %: 35 Have you fallen in the past year?: No [facility] Medical History Gastrointestinal bleeding, lower Mixed hyperlipidemia Essential hypertension Toxoplasmosis Lung nodule Cough Family history of hyperlipidemia Family history of hypertension Hypertension Abnormal cardiovascular stress test Paroxysmal atrial fibrillation 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 Atrial fibrillation Surgical History History of cardioversion History of knee replacement procedure of left knee ( 12/23/18) Status post tendon repair History of parotidectomy History of knee surgery Family History Mother Hypertension Brother CAD (coronary artery disease) Diabetes FH: hyperlipidemia Daughter Hypertension Father Cancer Throat cancer Other Family history of hypertension Social History Smoking Status: Former smoker how long ago did patient quit smokin alcohol intake: current alcohol intake frequency: a few times a month Alcohol type: beer and wine details: occasional substance use type: does not use caffeine: Yes Type: coffee what type of p (more content not included)... [facility] Echo Complete W/ Contraston 04-21-2024 Echo Complete W/ Contrast [facility] [place] [address] Echo Complete W/ Contrast 04/21/24 1521 MR#: [id number] Acct: [id number] Name: JEWELL VILLATORO Rep #: [id number] : 1945 79 From: Jakob Anna MD Attending Dr: Asad Oneill STOCK RAISER-C Status: REG CLI Ordering Dr: Asad Oneill NP STOCK RAISER-C Date: 04/21/24 Location: [facility] Sex: M C Admitted: Procedure This was a 2D Doppler, Color Flow transthoracic echocardiogram. The study was technically difficult. Contrast injection was performed. Exam performed in department. Left Ventricle Normal LV size. The left ventricular ejection fraction is 35 %. Stage 1 diastolic dysfunction. There is moderate global hypokinesis of the left ventricle. Right Ventricle Normal RV size. Normal systolic function. Mitral Valve Normal mitral valve. Mild (1+) eccentric mitral valve insufficiency. Aortic Valve Trisinus/trileaflet aortic valve. Moderate focal aortic valve calcification. Great Vessels Normal aortic root. The pulmonary artery is normal size. Normal inferior vena cava. Pericardium/Pleural No pericardial effusion. Medication 22 gauge I.V. with prn adaptor inserted into right arm. Diluted definity 2ml given slow IV push to enhance endocardial definition. MMode/2D Measurements Calculations LVIDd: 5.1 cm IVSd: 0.63 cm Ao root diam: 3.9 cm LVIDs: 4.3 cm LVPWd: 1.1 cm LA dimension: 5.0 cm RVDd: 3.3 cm FS: 15.6 % ___ LAV(MOD-bp): 66.9 ml SV(MOD-sp4): 46.3 ml LVAd ap4: 43.0 cm2 LAV(MOD-bp) Indexed: 31.4 ml/m2 LVLd ap4: 8.5 cm LAV(MOD-sp2): 74.9 ml EDV(MOD-sp4): 178.7 ml LAV(MOD-sp4): 55.3 ml EDV(sp4-el): 184.7 ml LVAs ap4: 35.5 cm2 LVLs ap4: 7.7 cm ESV(MOD-sp4): 132.4 ml ESV(sp4-el): 138.6 ml EF(MOD-sp4): 25.9 % EF(sp4-el): 25.0 % ___ SV(sp4-el): 46.1 ml LA A4 area: 20.6 cm2 RA A4 area: 17.5 cm2 Time Measurements MV dec time: 0.26 sec Doppler Measurements Calculations MV E max la: 57.5 cm/sec Lat Peak E' La: 10.7 cm/sec Med Peak E' La: 6.3 cm/sec MV A max la: 92.2 cm/sec E/E' lat: 5.4 E/E' med: 9.2 MV E/A: 0.62 ___ MV V2 max: 101.0 cm/sec MV P1/2t max la: 57.1 cm/sec Ao V2 max: 130.9 cm/sec MV max P.1 mmHg MV P1/2t: 85.8 msec Ao max P.9 mmHg MV V2 mean: 51.8 cm/sec MV dec slope: 195.0 cm/sec2 Ao V2 mean: 91.0 cm/sec MV mean P.3 mmHg Ao mean P.8 mmHg MV V2 VTI: 29.2 cm MVA(P1/2t): 2.6 cm2 Ao V2 VTI: 30.8 cm AV (velocity ratio): 0.86 ___ LV V1 max: 113.7 cm/sec PA V2 max: 88.3 cm/sec LV V1 max P.2 mmHg LV V1 mean P.0 mmHg LV V1 mean: 81.5 cm/sec LV V1 VTI: 26.4 cm ECHO/Echo Complete W/ Contrast Interpretation Summary The left ventricular ejection fraction is 35 %. Normal LV size. Stage 1 diastolic dysfunction. Mild (1+) eccentric mitral valve insufficiency. Contrast injection was performed. Ordering Physician: Asad Oneill Referring Physician: Asad Oneill Performed By: Chandana Vivar RCS 04/24/24 1604 Date Jakob Anna MD CC: MARIE Beasley; MARIE Oneill Date Dictated: 04/21/24 1521 Date Transcribed: 04/24/24 1604 Division Director: Signed [facility] US LEG VEIN DVT UNL VAS LABo n 10-07-2023 US LEG VEIN DVT UNL VAS LAB Non-Invasive Vascular Laboratory [facility] Lower Extremity Venous Duplex Unilateral - Left Date of service/time: 10/07/2023 12:59:33 PM Name: MR. JEWELL VILLATORO Date of : 1945 Age: 78 years Gender: M Clinical Indication R22.42. TECHNIQUE -------- A venous duplex ultrasound examination was performed, including grayscale imaging with compression maneuvers and color Doppler and spectral Doppler examination with augmentation maneuvers and response to respiration of the below mentioned veins. FINDINGS -------- RIGHT SIDE Common femoral vein Doppler: normal flow. Compression: normal. LEFT SIDE Distal external iliac vein Doppler: normal flow. Compression: normal. Common femoral vein Doppler: normal flow. Compression: normal. Femoral vein Doppler: normal flow. Compression: normal. Popliteal vein Doppler: normal flow. Compression: normal. Posterior tibial veins Compression: normal. Peroneal veins Compression: normal. Great saphenous vein Compression: normal. Small saphenous vein Compression: normal. Soleal vein Compression: normal. Gastrocnemius vein Compression: normal. Profunda vein Doppler: normal flow. Compression: normal. IMPRESSION RIGHT SIDE - DEEP VEINS Spontaneous and respirophasic flow noted in the common femoral vein. LEFT SIDE - DEEP VEINS Negative for acute deep vein thrombosis. LEFT SIDE - SUPERFICIAL VEINS Negative for superficial thrombophlebitis in the great saphenous vein and small saphenous vein. Technologist: Nancy Nagy T Ordering physician: MEHDI HARRY Interpreting physician: Jung Masters MD Final CC [employer] [facility] : [id number]. [id number] See Link below for Image Normal [facility] HEALTHon 09-20-2023 [facility] HNO ID: [id number] Author: James Laura RT(R) Service: Radiology Author Type: Technologist Type: Allied Health Filed: 09/20/2023 5:31 PM Note Text: Radiology Service Progress Note DATE OF SERVICE: September 20, 2023 TIME: 5:30 PM PATIENT IDENTITY VERIFICATION COMPLETED USING TWO (2) STANDARD IDENTIFIERS: Name and Date of confirmed by patient verbally and Name and Date of confirmed by identification band. FALL SCREENING: Has the patient had 2 falls in the last year or 1 fall with injury or currently using an Ambulatory Assistive Device (Walker, Cane, Wheelchair, Crutches, etc.)? No PATIENT GENDER DATA: Male PATIENT RELEVANT IMPLANT DATA REVIEWED: Yes ALLERGIES: Reviewed and unchanged CONTRAST ALLERGY: NO. EXAM: MRI - CONTRAST TYPE: GROUP II PERIPHERAL IV DATA: Ambulatory: A peripheral IV was started in the Right antecubital site with a Angio cath: 22 gauge. 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 MQ: [id number] Contrast: 18 mL Dotarem IV COMPARISON: Correlation is made with nuclear medicine study performed 08/12/2023 RESULT: Acute Change: There is no evidence of restricted diffusion to suggest an acute infarct. Hemorrhage: No evidence of prior parenchymal hemorrhage on the gradient echo images. Mass Lesion/ Mass Effect: No evidence of an intracranial mass or extra-axial fluid collection. No abnormal parenchymal or leptomeningeal enhancement is noted following contrast administration. No significant mass effect. Chronic Change: The white matter is within normal limits of signal intensity for age. Focal area of encephalomalacia in the left temporal parietal cortex, consistent with prior infarct or injury. Parenchyma: There is mild to moderate generalized parenchymal volume loss. The brain parenchyma is otherwise within normal limits of signal intensity and morphology. Ventricles: Ventriculomegaly corresponds to the degree of parenchymal volume loss. Skull Base: Hypothalamic and pituitary region are grossly normal. Craniocervical junction is normal. No significant marrow replacement process. Specifically, evaluation of the greater wings of the sphenoid bilaterally shows no definite abnormal enhancement, and dural enhancement or other lesion. Vasculature: Major intracranial arterial structures, and dural venous sinuses show typical flow void, suggesting patency by spin echo criteria. Other: The visualized paranasal sinuses and mastoid air cells are clear. The orbits and extracranial soft tissues are unremarkable. Small mucous retention cyst left maxillary sinus noted IMPRESSION: 1. No evidence of intracranial metastatic disease. 2. Chronic left posterior temporal-parietal cortical infarct. 3. Specific attention to the middle cranial fossa shows no definite abnormal enhancement on either side in the area of suspected abnormality on nuclear medicine study. The study however was not targeted to the skull base. If there is strong clinical suspicion for a lesion, a high-resolution skull base MRI with contrast could be performed in follow-up. Division Director: P[facility] Transcribe Date/Time: Sep 20 2023 9:09P Dictated by : MATTHIAS THORNE MD This examination was interpreted and the report reviewed and electronically signed by: MATTHIAS THORNE MD on Sep 20 2023 9:27PM EST [id number] Normal [facility] PET/CT NEUROENDOCRINE WHO LE BODY IMAGINGon 08-12-2023 [facility] Absolute lymphocyte countOrd ered By: Cara Beasley on 06-01-2023 Lymphocytes Auto (Unsp spec) [#/Vol] 1.65 10*3/uL 0.83-4.51 [facility] Basophil percentageOrdered B y: Cara Beasley on 06-01-2023 Basophils/100 WBC (Bld) 0.5 % 0-1 [facility] Bilirubin [Mass/Vol] 0.30 mg/dL 0.20-1.[address] [facility] Comment on above: For patients on eltr ombopag therapy, use of Dimension [place] TBIL is not recommended. Chloride [Moles/Vol] 107 mmol/L 98-[address] [facility] Cholesterol [Mass/Vol] 144 mg/dL <200 [facility] Comment on above: <200 mg/dL Desirable 200-240 mg/dL Borderline >240 mg/dL High Risk Eosinophils/100 WBC (Bld) 1.8 % 0-5 [facility] Glucose [Mass/Vol] 100 mg/dL 74-106 [facility] Comment on above: Fasting Glucose resu lt from 100 to 125 mg/dL suggests IMPAIRED HOMEOSTASIS per A.D.A. criteria. Neutrophils (Bld) [#/Vol] 3.9 10*3/uL 2.0-7.7 [facility] Neutrophils/100 WBC (Bld) 63.4 % 47-70 [facility] Potassium [Moles/Vol] 4.9 mmol/L 3.5-5.1 [facility] Protein [Mass/Vol] 7.0 g/dL 6.4-8.2 [facility] Sodium [Moles/Vol] 138 mmol/L 136-145 [facility] Triglyceride [Mass/Vol] 112 mg/dL <199 [facility] Comment on above: The drugs N-Acetylcy steine and Metamizole may falsely depress this assay.Serum Triglycerides Reference Interval Normal <150 mg/dL Borderline high 150 - 199 mg/dL High 200 - 499 mg/dL Very High > or = 500 mg/dL WBC (Bld) [#/Vol] 6.2 10*3/uL 4.4-11.0 [facility] Blood erythrocytes count (nu mber/volume)Ordered By: Cara Beasley on 06-01-2023 RBC (Bld) [#/Vol] 3.73 10*6/uL 4.6-6.2 [facility] Blood hemoglobin measurement (mass/volume)Ordered By: Cara Beasley on 06-01-2023 Hemoglobin (Bld) [Mass/Vol] 11.1 g/dL 13.0-16.5 [facility] Blood lymphocytes/100 leukoc ytesOrdered By: Cara Beasley on 06-01-2023 Lymphocytes/100 WBC (Bld) 26.6 % 19-41 [facility] Blood monocytes/100 leukocyt esOrdered By: Cara Beasley on 06-01-2023 Monocytes/100 WBC (Bld) 7.4 % 0-10 [facility] Blood platelet mean volumeOr dered By: Cara Beasley on 06-01-2023 Platelet mean volume (Bld) [Entitic vol] 10.1 fL 6.2-12.0 [facility] Determination of erythrocyte mean corpuscular volume (MCV)Ordered By: Cara Beasley on 06-01-2023 MCV (RBC) [Entitic vol] 94.1 fL 80-94 [facility] Hematocrit Auto (Bld) [Volum e fraction]Ordered By: Cara Beasley on 06-01-2023 Hematocrit (Bld) [Volume fraction] 35.1 % 40-54 [facility] Laboratory - Chemistry and C hemistry - challengeOrdered By: Cara Beasley on 06-01-2023 ALP [Catalytic activity/Vol] 69 U/L 45-117 [facility] ALT [Catalytic activity/Vol] 16 U/L 16-61 [facility] CO2 [Moles/Vol] 26.0 mmol/L 21.0-32.0 [facility] Globulin (S) [Mass/Vol] 3.6 g/dL 2.2-4.2 [facility] Urea nitrogen/Creatinine [Mass ratio] 13.3 mg/mg 10-20 [facility] - Hematology and Cell countsOrdered By: Cara Beasley on 06-01-2023 Erythrocyte distribution width (RBC) [Entitic vol] 46.5 fL 35.1-43.9 [facility] Erythrocyte distribution width (RBC) [Ratio] 13.5 % 11.6-14.6 [facility] Immature granulocytes/100 WBC (Bld) 0.300 % 0.0-0.9 [facility] Comment on above: IG% - Immature Granu locytes (promyelocytes, myelocytes and metamyelocytes) > 1% indicates that a LEFT SHIFT is Present. MCH (RBC) [Entitic mass] 29.8 pg 27.0-32.0 [facility] Nucleated RBC/100 WBC (Bld) [Ratio] 0 % 0-5 [facility] MCHC Auto (RBC) [Mass/Vol]Or dered By: Cara Beasley on 06-01-2023 MCHC (RBC) [Mass/Vol] 31.6 g/dL 32-36 [facility] No Panel InformationOrdered By: Cara Beasley on 06-01-2023 Estimated GFR (MDRD) Amer 88 mL/min >60 [facility] Comment on above: GFR Calc Estimated GFR (MDRD) Non-Af Amer 73 mL/min >60 [facility] Comment on above: Non- GFR Calc Prostate Specific Antigen Screen 4.09 ng/mL 0.00-4.00 [facility] Comment on above: This test was perfor med using the TPSA assay method for the[employer] chemistry system. Values obtained with differentassay methods cannot be used interchangably.When changing PSA assays in the course of monitoring apatient, additional sequential testing should be carriedout to confirm baseline values. Platelets bldOrdered By: Ricki Beasley on 06-01-2023 Platelets (Bld) [#/Vol] 329 10*3/uL 150-450 [facility] Serum or plasma albumin evi urement (mass/volume)Ordered By: Cara Beasley on 06-01-2023 Albumin [Mass/Vol] 3.4 g/dL 3.2-5.0 [facility] Serum or plasma albumin/glob ulin mass ratioOrdered By: Cara Beasley on 06-01-2023 Albumin/Globulin [Mass ratio] 0.9 {ratio} 0.9-2.4 [facility] Serum or plasma calcium evi urement (mass/volume)Ordered By: Cara Beasley on 06-01-2023 Calcium [Mass/Vol] 9.0 mg/dL 8.5-10.1 [facility] Serum or plasma cholesterol in HDL measurement (mass/volume)Ordered By: Cara Beasley on 06-01-2023 Cholesterol in HDL [Mass/Vol] 55 mg/dL >40 [facility] Comment on above: The drugs N-Acetylcy steine and Metamizole may falsely depress this assay. Reference Range HDL <40 mg/dL Low HDL Cholesterol HDL >or= 60 mg/dL High HDL Cholesterol Serum or plasma cholesterol in VLDL measurement (mass/volume)Ordered By: Cara Beasley on 06-01-2023 Cholesterol in VLDL [Mass/Vol] 22 mg/dL 5-40 [facility] Serum or plasma creatinine m easurement (mass/volume)Ordered By: Cara Beasley on 06-01-2023 Creatinine [Mass/Vol] 1.05 mg/dL 0.70-1.30 [facility] Comment on above: The validity of the calculated GFR & GFRAA in patients over 70 years has not been determined. Clinical correlation is essential. Serum or plasma low density lipoprotein (LDL) cholesterol measurement (mass/volume)Ordered By: Cara Beasley on 06-01-2023 Cholesterol in LDL [Mass/Vol] 67 mg/dL 0-130 [facility] Serum or plasma urea nitroge n measurement (mass/volume)Ordered By: Cara Beasley on 06-01-2023 Urea nitrogen [Mass/Vol] 14 mg/dL 7-18 [facility] Thin prep Papanicolaou smear with manual screeningOrdered By: Cara Beasley on 06-01-2023 Thin prep Papanicolaou smear with manual screening 11 U/L 15-37 [facility] Thin prep Papanicolaou smear with manual screening 5 5-15 [facility] Absolute lymphocyte counton 02-24-2022 Lymphocytes Auto (Unsp spec) [#/Vol] 1.51 10*3/uL 0.83-4.51 [facility] Work Phone: Basophil percentageon 2021 Basophils/100 WBC (Bld) 0.6 % 0-1 [facility] Work Phone: Bilirubin [Mass/Vol] 0.50 mg/dL 0.20-1.[address] [facility] Work Phone: Comment on above: For patients on eltr ombopag therapy, use of Dimension [place] TBIL is not recommended. Chloride [Moles/Vol] 107 mmol/L 98-[address] [facility] Work Phone: Cholesterol [Mass/Vol] 132 mg/dL <200 [facility] Work Phone: Comment on above: <200 mg/dL Desirable 200-240 mg/dL Borderline >240 mg/dL High Risk Eosinophils/100 WBC (Bld) 1.8 % 0-5 [facility] Work Phone: Glucose [Mass/Vol] 123 mg/dL 74-106 [facility] Work Phone: Comment on above: Fasting Glucose resu lt from 100 to 125 mg/dL suggests IMPAIRED HOMEOSTASIS per A.D.A. criteria. Neutrophils (Bld) [#/Vol] 3.4 10*3/uL 2.0-7.7 [facility] Work Phone: Neutrophils/100 WBC (Bld) 63.2 % 47-70 [facility] Work Phone: [phone] Potassium [Moles/Vol] 3.8 mmol/L 3.5-5.1 [facility] Work Phone: [phone] Protein [Mass/Vol] 7.0 g/dL 6.4-8.2 [facility] Work Phone: [phone] Sodium [Moles/Vol] 139 mmol/L 136-145 [facility] Work Phone: [phone] Triglyceride [Mass/Vol] 164 mg/dL [facility] Work Phone: [phone] Comment on above: The drugs N-Acetylcy steine and Metamizole may falsely depress this assay.Serum Triglycerides Reference Interval Normal <150 mg/dL Borderline high 150 - 199 mg/dL High 200 - 499 mg/dL Very High > or = 500 mg/dL WBC (Bld) [#/Vol] 5.4 10*3/uL 4.4-11.0 [facility] Work Phone: [phone] Blood erythrocytes count (nu mber/volume)on 02-24-2022 RBC (Bld) [#/Vol] 4.66 10*6/uL 4.6-6.2 [facility] Work Phone: [phone] Blood hemoglobin measurement (mass/volume)on 02-24-2022 Hemoglobin (Bld) [Mass/Vol] 14.2 g/dL 13.0-16.5 [facility] Work Phone: [phone] Blood lymphocytes/100 leukoc yteson 02-24-2022 Lymphocytes/100 WBC (Bld) 27.8 % 19-41 [facility] Work Phone: [phone] Blood monocytes/100 leukocyt eson 02-24-2022 Monocytes/100 WBC (Bld) 6.6 % 0-10 [facility] Work Phone: [phone] Blood platelet mean volumeon 02-24-2022 Platelet mean volume (Bld) [Entitic vol] 11.3 fL 6.2-12.0 [facility] Work Phone: [phone] of erythrocyte mean corpuscular volume (MCV)on 04-26-2022 MCV (RBC) [Entitic vol] 93.8 fL 80-94 [facility] Work Phone: [phone] Hematocrit Auto (Bld) [Volum e fraction]on 02-24-2022 Hematocrit (Bld) [Volume fraction] 43.7 % 40-54 [facility] Work Phone: [phone] Laboratory - Chemistry and C hemistry - challengeon 02-24-2022 ALP [Catalytic activity/Vol] 76 U/L 45-117 [facility] Work Phone: [phone] ALT [Catalytic activity/Vol] 30 U/L 16-61 [facility] Work Phone: [phone] CO2 [Moles/Vol] 26.0 mmol/L 21.0-32.0 [facility] Work Phone: [phone] Globulin (S) [Mass/Vol] 3.2 g/dL 2.2-4.2 [facility] Work Phone: [phone] Urea nitrogen/Creatinine [Mass ratio] 22.7 mg/mg 10-20 [facility] Work Phone: [phone] Laboratory - Hematology and Cell countson 02-24-2022 Erythrocyte distribution width (RBC) [Entitic vol] 45.4 fL 35.1-43.9 [facility] Work Phone: [phone] Erythrocyte distribution width (RBC) [Ratio] 13.2 % 11.6-14.6 [facility] Work Phone: [phone] Immature granulocytes/100 WBC (Bld) 0.000 % 0.0-0.9 [facility] Work Phone: [phone] Comment on above: IG% - Immature Granu locytes (promyelocytes, myelocytes and metamyelocytes) > 1% indicates that a LEFT SHIFT is Present. MCH (RBC) [Entitic mass] 30.5 pg 27.0-32.0 [facility] Work Phone: [phone] Nucleated RBC/100 WBC (Bld) [Ratio] 0 % 0-5 [facility] Work Phone: [phone] MCHC Auto (RBC) [Mass/Vol]on 02-24-2022 MCHC (RBC) [Mass/Vol] 32.5 g/dL 32-36 [facility] Work Phone: No Panel Informationon 02-24 Estimated GFR (MDRD) Amer 97 mL/min >60 [facility] Work Phone: Comment on above: GFR Calc Estimated GFR (MDRD) Non-Af Amer 80 mL/min >60 [facility] Work Phone: [phone] Comment on above: Non- GFR Calc Prostate Specific Antigen Total 3.16 ng/mL 0.0-4.0 [facility] Work Phone: Comment on above: This test was perfor med using the TPSA assay method for [employer] chemistry system. Values obtained with differentassay methods cannot be used interchangably.When changing PSA assays in the course of monitoring apatient, additional sequential testing should be carriedout to confirm baseline values. Platelets bldon 02-24-2022 Platelets (Bld) [#/Vol] 228 10*3/uL 150-450 [facility] Work Phone: [phone] Serum or plasma albumin evi urement (mass/volume)on 02-24-2022 Albumin [Mass/Vol] 3.8 g/dL 3.2-5.0 [facility] Work Phone: [phone] Serum or plasma albumin/glob ulin mass ratioon 02-24-2022 Albumin/Globulin [Mass ratio] 1.2 {ratio} 0.9-2.4 [facility] Work Phone: [phone] Serum or plasma calcium evi urement (mass/volume)on 02-24-2022 Calcium [Mass/Vol] 8.6 mg/dL 8.5-10.1 [facility] Work Phone: [phone] Serum or plasma cholesterol in HDL measurement (mass/volume)on 02-24-2022 Cholesterol in HDL [Mass/Vol] 51 mg/dL [facility] Work Phone: Comment on above: The drugs N-Acetylcy steine and Metamizole may falsely depress this assay. Reference Range HDL <40 mg/dL Low HDL Cholesterol HDL >or= 60 mg/dL High HDL Cholesterol Serum or plasma cholesterol in VLDL measurement (mass/volume)on 02-24-2022 Cholesterol in VLDL [Mass/Vol] 33 mg/dL 5-40 [facility] Work Phone: Serum or plasma creatinine m easurement (mass/volume)on 02-24-2022 Creatinine [Mass/Vol] 0.97 mg/dL 0.70-1.30 [facility] Work Phone: Comment on above: The validity of the calculated GFR & GFRAA in patients over 70 years has not been determined. Clinical correlation is essential. Serum or plasma low density lipoprotein (LDL) cholesterol measurement (mass/volume)on 02-24-2022 Cholesterol in LDL [Mass/Vol] 48 mg/dL 0-130 [facility] Work Phone: Serum or plasma urea nitroge n measurement (mass/volume)on 02-24-2022 Urea nitrogen [Mass/Vol] 22 mg/dL 7-18 [facility] Work Phone: Thin prep Papanicolaou smear with manual screeningon 02-24-2022 Thin prep Papanicolaou smear with manual screening 26 U/L 15-37 [facility] Work Phone: Thin prep Papanicolaou smear with manual screening 6 5-15 [facility] Work Phone: Shreyas 07-20-2019 Potassium [Moles/Vol] 4.3 mmol/L Normal 3.5-5.0 [facility] ([place]) Comment on above: Performed By: #### K #### [address] [address] .Auto Diffon 07-06-2019 Ammonia (P) [Mass/Vol] 0.40 10 3/mcL Normal 0.09-1.40 [facility] ([place] Comment on above: Performed By: #### C BC, ADIFF, ANEU, BMP, GFR #### [address] [address] Basophils (Bld) [#/Vol] 0.00 10 3/mcL Normal 0.00-0.27 [facility] ([place]) Comment on above: Performed By: #### C BC, ADIFF, ANEU, BMP, GFR #### [address] [address] Basophils/100 WBC (Bld) 0.4 % Normal 0.0-2.5 [facility] ([place] Comment on above: Performed By: #### C BC, ADIFF, ANEU, BMP, GFR #### [address] [address] Eosinophils (Bld) [#/Vol] 0.20 10 3/mcL Normal 0.00-0.65 [facility] ([place] Comment on above: Performed By: #### C BC, ADIFF, ANEU, BMP, GFR #### [address] [address] Eosinophils/100 WBC (Bld) 2.9 % Normal 0.0-6.0 [facility] ([place] Comment on above: Performed By: #### C BC, ADIFF, ANEU, BMP, GFR #### [address] [address] Lymphocytes (Bld) [#/Vol] 1.60 10 3/mcL Normal 0.90-4.32 [facility] ([place] Comment on above: Performed By: #### C BC, ADIFF, ANEU, BMP, GFR #### [address] [address] Lymphocytes/100 WBC (Bld) 27.7 % Normal 20.0-40.0 [facility] ([place] Comment on above: Performed By: #### C BC, ADIFF, ANEU, BMP, GFR #### [address] [address] Monocytes/100 WBC (Bld) 7.5 % Normal 2.0-13.0 [facility] ([place] Comment on above: Performed By: #### C BC, ADIFF, ANEU, BMP, GFR #### [address] [address] Neutrophils/100 WBC (Bld) 61.5 % Normal 50.0-75.0 [facility] ([place] Comment on above: Performed By: #### C BC, ADIFF, ANEU, BMP, GFR #### [address] [address] .GFRon 07-06-2019 GFR Non- >60 Normal [facility] ([place]) Comment on above: Result Comment: GFR Population mean for , Non- Americans Ages 20-29 = 116 mL/min/1.73 sq.m. Ages 30-39 = 107 mL/min/1.73 sq.m. Ages 40-49 = 99 mL/min/1.73 sq.m. Ages 50-59 = 93 mL/min/1.73 sq.m. Ages 60-69 = 85 mL/min/1.73 sq.m. Ages 70+ = 75 mL/min/1.73 sq.m. Chronic Kidney Disease: Less than 60 mL/min/1.73 square meters End Stage Renal Disease: Less than 15 mL/min/1.73 square meters Performed By: #### C BC, ADIFF, ANEU, BMP, GFR #### [place] [address] GFR >60 Normal [facility] ([place]) Comment on above: Result Comment: GFR Population mean for , Non- Americans Ages 20-29 = 116 mL/min/1.73 sq.m. Ages 30-39 = 107 mL/min/1.73 sq.m. Ages 40-49 = 99 mL/min/1.73 sq.m. Ages 50-59 = 93 mL/min/1.73 sq.m. Ages 60-69 = 85 mL/min/1.73 sq.m. Ages 70+ = 75 mL/min/1.73 sq.m. Chronic Kidney Disease: Less than 60 mL/min/1.73 square meters End Stage Renal Disease: Less than 15 mL/min/1.73 square meters Performed By: #### C BC, ADIFF, ANEU, BMP, GFR #### [address] [address] .NEUABSon 07-06-2019 Neutrophils (Bld) [#/Vol] 3.60 10 3/mcL Normal 2.25-8.10 [facility] ([place] Comment on above: Performed By: #### C BC, ADIFF, ANEU, BMP, GFR #### [address] [address] BMPon 07-06-2019 Calcium [Mass/Vol] 9.3 mg/dL Normal 8.4-10.1 [facility] ([place]) Comment on above: Performed By: #### C BC, ADIFF, ANEU, BMP, GFR #### [place] [phone] Chloride [Moles/Vol] 105 mmol/L Normal 98-110 [facility] ([place]) Comment on above: Performed By: #### C BC, ADIFF, ANEU, BMP, GFR #### [place] [address] CO2 [Moles/Vol] 30 mmol/L Normal 22-32 [facility] ([place] Comment on above: Performed By: #### C BC, ADIFF, ANEU, BMP, GFR #### [place] [address] Creatinine [Mass/Vol] 0.87 mg/dL Normal 0.60-1.40 [facility] ([place] Comment on above: Performed By: #### C BC, ADIFF, ANEU, BMP, GFR #### [place] [address] Electrolyte Balance 5.0 mEq/L Normal 4.0-15.0 [facility] ([place]) Comment on above: Performed By: #### C BC, ADIFF, ANEU, BMP, GFR #### [place] [address] Glucose [Mass/Vol] 87 mg/dL Normal 82-115 [facility] ([place] Comment on above: Performed By: #### C BC, ADIFF, ANEU, BMP, GFR #### [place] [phone] Potassium [Moles/Vol] 5.4 mmol/L High 3.5-5.0 [facility] ([place]) Comment on above: Performed By: #### C BC, ADIFF, ANEU, BMP, GFR #### [address] [address] Sodium [Moles/Vol] 140 mmol/L Normal 136-145 [facility] ([place] Comment on above: Performed By: #### C BC, ADIFF, ANEU, BMP, GFR #### [place] [address] Urea nitrogen [Mass/Vol] 21.0 mg/dL Normal 8.0-22.0 [facility] ([place] Comment on above: Performed By: #### C BC, ADIFF, ANEU, BMP, GFR #### [place] [address] Urea nitrogen/Creatinine [Mass ratio] 24.1 ratio High 10.0-22.0 [facility] ([place] Comment on above: Performed By: #### C BC, ADIFF, ANEU, BMP, GFR #### [place] [id number] CBCon 07-06-2019 Erythrocyte distribution width (RBC) [Ratio] 14.5 % Normal 11.5-15.5 [facility] ([place] Comment on above: Performed By: #### C BC, ADIFF, ANEU, BMP, GFR #### [place] [phone] Hematocrit (Bld) [Volume fraction] 43.0 % Normal 40.0-52.0 [facility] ([place] Comment on above: Performed By: #### C BC, ADIFF, ANEU, BMP, GFR #### [place] [phone] Hemoglobin (Bld) [Mass/Vol] 14.4 G/dL Normal 13.0-17.5 [facility] ([place] Comment on above: Performed By: #### C BC, ADIFF, ANEU, BMP, GFR #### [place] [phone] MCH (RBC) [Entitic mass] 30.4 pg Normal 27.0-33.0 [facility] ([place] Comment on above: Performed By: #### C BC, ADIFF, ANEU, BMP, GFR #### [facility] [address] [place], [place] [address] MCHC (RBC) [Mass/Vol] 33.6 G/dL Normal 32.0-36.0 [facility] ([place] Comment on above: Performed By: #### C BC, ADIFF, ANEU, BMP, GFR #### [place] [phone] MCV (RBC) [Entitic vol] 90.7 fL Normal 81.0-100.0 [facility] ([place] Comment on above: Performed By: #### C BC, ADIFF, ANEU, BMP, GFR #### [address] [address] Platelet mean volume (Bld) [Entitic vol] 8.6 fL Normal 6.4-10.5 [facility] ([place] Comment on above: Performed By: #### C BC, ADIFF, ANEU, BMP, GFR #### [place] [phone] Platelets (Bld) [#/Vol] 196 10 3/mcL Normal 150-450 [facility] ([place] Comment on above: Performed By: #### C BC, ADIFF, ANEU, BMP, GFR #### [address] [address] RBC (Bld) [#/Vol] 4.75 10 6/mcL Normal 4.50-6.00 [facility] ([place]) Comment on above: Performed By: #### C BC, ADIFF, ANEU, BMP, GFR #### [place] [phone] WBC (Bld) [#/Vol] 5.80 10 3/mcL Normal 4.50-10.80 [facility] ([place]) Comment on above: Performed By: #### C BC, ADIFF, ANEU, BMP, GFR #### [address] [address] BMPon 12-24-2018 Anion gap molar conc 8 mmol/L Normal 5-16 [facility] Comment on above: Order Comment: Luis Felipe s: M Performed By: #### L [id number], L500.54028 #### [facility] [address] [place] [address] Calcium mass conc 8.4 mg/dL Low 8.5-10.1 [facility] Comment on above: Order Comment: Campu s: M Performed By: #### L 500.08172, L500.90424 #### [facility] [address] [place] [address] Chloride molar conc 106 mmol/L Normal 98-107 [facility] Comment on above: Order Comment: Campu s: M Performed By: #### L 500.44510, L500.13677 #### [facility] [address] [place] [address] CO2 molar conc 24 mmol/L Normal 21-32 [facility] Comment on above: Order Comment: Campu s: M Performed By: #### L 500.88598, L500.27613 #### [facility] [address] [place] [address] Creatinine mass conc 0.818 mg/dL Normal 0.670-1.[address] [facility] Comment on above: Order Comment: Campu s: M Result Comment: Mirela ents receiving either N-Acetylcysteine (NAC) or Metamizole prior to venipuncture, may have falsely depressed results. Performed By: #### L 500.17503, L500.47407 #### [facility] [address] [place] [address] Glucose mass conc 105 mg/dL High 70-100 [facility] Comment on above: Order Comment: Campu s: M Result Comment: 70-1 00- Normal Fasting; 100-125 Impaired Fasting; greater than 126 on more than one result- Diabetes. ADA guidelines. Results may be falsely elevated after the administration of Sulfapyridine. Results may be falsely depressed after the administration of Sulfasalazine. Performed By: #### L 500.31528, L500.48522 #### [facility] [address] [place] [address] Potassium molar conc 4.4 mmol/L Normal 3.5-5.1 [facility] Comment on above: Order Comment: Campu s: M Performed By: #### L 500.51093, L500.18435 #### [facility] [address] [place], [place] [id number] Sodium molar conc 139 mmol/L Normal 136-145 [facility] Comment on above: Order Comment: Campu s: M Performed By: #### L 500.49692, L500.49666 #### [facility] [address] [place] [address] Urea nitrogen mass conc 16 mg/dL Normal 7-26 [facility] Comment on above: Order Comment: Campu s: M Performed By: #### L 500.90709, L500.23043 #### [facility] [address] [place] [address] Urea nitrogen/Creatinine mass ratio 20 mg/mg Normal 15-24 [facility] Comment on above: Order Comment: Campu s: M Performed By: #### L 500.99368, L500.70506 #### [facility] [address] [place] [address] CBC W/DIFFon 12-24-2018 BASO ABS 0.00 K/CU MM Normal 0-0.2 [facility] Comment on above: Order Comment: Campu s: M Performed By: #### L 200.14548 #### [facility] [address] [place] [address] Basophils/100 WBC (Bld) 0.2 % Normal 0-2 [facility] Comment on above: Order Comment: Campu s: M Performed By: #### L 200.37452 #### [facility] [address] [place] [address] EOS ABS 0.00 K/CU MM Normal 0-0.5 [facility] Comment on above: Order Comment: Campu s: M Performed By: #### L 200.12076 #### [facility] [address] [place] [address] Eosinophils/100 WBC (Bld) 0.1 % Normal 0-5 [facility] Comment on above: Order Comment: Campu s: M Performed By: #### L 200.22158 #### [facility] [address] [place] [address] Erythrocyte distribution width Ratio (RBC) 13.5 % Normal 11-14.5 [facility] Comment on above: Order Comment: Campu s: M Performed By: #### L [id number] #### [facility] [address] [place] [address] Hematocrit Volume Fraction (Bld) 38.4 % Low 41.0-53.0 [facility] Comment on above: Order Comment: Campu s: M Performed By: #### L 200.69643 #### [facility] [address] [place] [address] Hemoglobin mass conc (Bld) 12.9 g/dL Low 13.5-17.5 [facility] Comment on above: Order Comment: Campu s: M Performed By: #### L 200.15089 #### [facility] [address] [place] [address] IMMATR GRAN ABS 0.10 K/CU MM Normal Less than 2 [facility] Comment on above: Order Comment: Campu s: M Performed By: #### L 200.44056 #### [facility] [address] [place] [address] IMMATURE GRAN % 0.5 % Normal Less than 2 [facility] Comment on above: Order Comment: Campu s: M Performed By: #### L 200.84340 #### [facility] [address] [place] [address] Lymphocytes #/vol (Bld) 1.30 K/CU MM Normal 0.9-4.4 [facility] Comment on above: Order Comment: Campu s: M Performed By: #### L [id number] #### [facility] [address] [place] [address] Lymphocytes/100 WBC (Bld) 10.6 % Low 20-40 [facility] Comment on above: Order Comment: Campu s: M Performed By: #### L .93361 #### [facility] [address] [place] [address] MCHC mass conc (RBC) 33.6 g/dL Normal 32.0-36.0 [facility] Comment on above: Order Comment: Campu s: M Performed By: #### L [id number] #### [facility] [address] [place] [address] MCV Entitic volume (RBC) 89.5 fL Normal 80.0-99.0 [facility] Comment on above: Order Comment: Campu s: M Performed By: #### L [id number] #### [facility] [address] [place] [address] MONO ABS 1.00 K/CU MM Normal 0.1-1.1 [facility] Comment on above: Order Comment: Campu s: M Performed By: #### L 200.77466 #### [facility] [address] [place] [address] Monocytes/100 WBC (Bld) 7.9 % Normal 2-10 [facility] Comment on above: Order Comment: Campu s: M Performed By: #### L [id number] #### [facility] [address] [place] [address] NEUTROPHIL ABS 9.70 K/CU MM High 2.0-8.3 [facility] Comment on above: Order Comment: Campu s: M Performed By: #### L 200.73699 #### [facility] [address] [place] [address] Neutrophils/100 WBC (Bld) 80.7 % High 45-75 [facility] Comment on above: Order Comment: Campu s: M Performed By: #### L 200.02419 #### [facility] [address] [place] [address] Nucleated RBC/100 WBC Ratio (Bld) 0.0 % Normal Less than 1 [facility] Comment on above: Order Comment: Campu s: M Performed By: #### L [id number] #### [facility] [address] [place] [address] Platelet mean volume Entitic volume (Bld) 10.0 fL Normal 9.4-12.4 [facility] Comment on above: Order Comment: Campu s: M Performed By: #### L [id number] #### [facility] [address] [place] [address] Platelets #/vol (Bld) 224 K/CU MM Normal 150-450 [facility] Comment on above: Order Comment: Campu s: M Performed By: #### L 200.09473 #### [facility] [address] [place] [address] RBC #/vol (Bld) 4.29 M/CU MM Low 4.50-6.00 [facility] Comment on above: Order Comment: Campu s: M Performed By: #### L 200.91135 #### [facility] [address] [place] [address] WBC #/vol (Bld) 12.0 K/CUMM High 4.5-11.0 [facility] Comment on above: Order Comment: Campu s: M Performed By: #### L 200.01856 #### [facility] [address] [place] [address] GFR ESTon 12-24-2018 IF AMER Greater than 60 Normal [facility] Comment on above: Order Comment: Bladimiru s: M Is This Patient Going To Surgery? Y Surgery Date: 12/23/18 Performed By: #### L 500.95753, L500.81623 ####[facility] [id number] [place], [place] [address]Tu# [phone] IF non-AFR AMER Greater than 60 Normal [facility] Comment on above: Order Comment: Bladimiru s: M Is This Patient Going To Surgery? Y Surgery Date: 12/23/18 Performed By: #### L 500.33358, L500.06129 ####[facility] [id number] [place], [place] [address]Mp# [phone] TSon 12-23-2018 ABO and Rh group Nom (Bld) O POSITIVE Normal [facility] Comment on above: Order Comment: Bladimiru s: M Patient transfused or in the past 3 months: NO Is This Patient Going To Surgery? Y Surgery Date: 12/23/18 ABO/RH NCon 12-07-2018 ABO and Rh group Nom (Bld) O POSITIVE Normal [facility] Comment on above: Order Comment: Bladimiru s: M Is This Patient Going To Surgery? Y Surgery Date: 12/23/18 BMPon 12-07-2018 Anion gap molar conc 9 mmol/L Normal 5-16 [facility] Comment on above: Order Comment: Bladimiru s: M Performed By: #### L 500.64016, L500.27684 #### [facility] [address] [place] [address] Calcium mass conc 8.7 mg/dL Normal 8.5-10.1 [facility] Comment on above: Order Comment: Bladimiru s: M Performed By: #### L 500.76024, L500.19191 #### [facility] [address] [place] [address] Chloride molar conc 107 mmol/L Normal 98-107 [facility] Comment on above: Order Comment: Campu s: M Performed By: #### L 500.74311, L500.19323 #### [facility] [place] [address] CO2 molar conc 26 mmol/L Normal 21-32 [facility] Comment on above: Order Comment: Campu s: M Performed By: #### L 500.63417, L500.24740 #### [facility] [address] [place] [address] Creatinine mass conc 0.838 mg/dL Normal 0.670-1.[address] [facility] Comment on above: Order Comment: Bladimiru s: M Result Comment: Mirela ents receiving either N-Acetylcysteine (NAC) or Metamizole prior to venipuncture, may have falsely depressed results. Performed By: #### L 500.62053, L5.30064 #### [facility] [address] [place] [address] Glucose mass conc 99 mg/dL Normal 70-100 [facility] Comment on above: Order Comment: Bladimiru s: M Result Comment: 70-1 00- Normal Fasting; 100-125 Impaired Fasting; greater than 126 on more than one result- Diabetes. ADA guidelines. Results may be falsely elevated after the administration of Sulfapyridine. Results may be falsely depressed after the administration of Sulfasalazine. Performed By: #### L 500.42252, L500.96717 #### [facility] [address] [place], [place] [id number] Potassium molar conc 4.2 mmol/L Normal 3.5-5.1 [facility] Comment on above: Order Comment: Campu s: M Performed By: #### L 500.24410, L500.23443 #### [facility] [place] [address] Sodium molar conc 142 mmol/L Normal 136-145 [facility] Comment on above: Order Comment: Campu s: M Performed By: #### L 500.25205, L500.74424 #### [facility] [place] [id number] Urea nitrogen mass conc 16 mg/dL Normal 7-26 [facility] Comment on above: Order Comment: Campu s: M Performed By: #### L 500.86402, L500.43247 #### [facility] [address] [place], [place] [address] Urea nitrogen/Creatinine mass ratio 19 mg/mg Normal 15-24 [facility] Comment on above: Order Comment: Campu s: M Performed By: #### L 500.41422, L500.44657 #### [facility] [address] [place], [place] [address] GFR ESTon 12-07-2018 IF AMER Greater than 60 Normal [facility] Comment on above: Order Comment: Campu s: M Performed By: #### L 500.25869, L500.19014 #### [facility] [address] [place] [address] IF non-AFR AMER Greater than 60 Normal [facility] Comment on above: Order Comment: Campu s: M Performed By: #### L 500.60925, L500.89859 #### [facility] [address] [place], [place] [address] HGB A1C GLYCOHBon 12-07-2018 Hemoglobin A1c/Hemoglobin.total mass fraction (Bld) 5.5 % Normal 4.3-6.0 [facility] Comment on above: Order Comment: Campu s: M Performed By: #### L 550.16764 #### [facility] [address] [place] [address] MRSA PCRon 12-07-2018 MRSA PCR Negative Normal NEGATIVE [facility] Comment on above: Order Comment: Bladimiru s: M Result Comment: PLEA SE NOTE: TESTING DONE BY PCR TECHNOLOGY. Performed By: #### L 770.07026 #### [facility] [address] [place] [address] SA PCR Positive High NEGATIVE [facility] Comment on above: Order Comment: Luis Felipe benitez: M Result Comment: PLEA SE NOTE: TESTING DONE BY PCR TECHNOLOGY. Performed By: #### L 770.68740 #### [facility] [address] [place] [address] PATIENT RETYPEon 12-07-2018 RETYPE INTERP Positive Normal [facility] Comment on above: Order Comment: Luis Felipe benitez: M Is This Patient Going To Surgery? Y Surgery Date: 12/23/18 Total 25-OH Vitamin Don 02-0 Total 25-OH Vitamin D 17.9 ng/mL Low 30.0-100.0 [facility] Comment on above: Performed By: #### 2 5VD1 ####[place] [address] Albumin Bloodon 12-01-2018 Albumin mass conc 3.7 g/dL Normal 3.4-5.0 [facility] Comment on above: Performed By: #### L ALB ####[place] [address] Hemogram/Diffon 12-01-2018 Abs. Baso 0.02 thou/cmm Normal 0.00-0.08 [facility] Comment on above: Performed By: #### L CBCD ####[place] [address] Abs. Erath 0.58 thou/cmm Normal 0.20-1.00 [facility] Comment on above: Performed By: #### L CBCD ####[place] [address] Abs. Neut (ANC) 5.70 thou/cmm High 3.00-5.67 [facility] Comment on above: Performed By: #### L CBCD ####[place] [address] Basophils/100 WBC (Bld) 0.3 % Normal [facility] Comment on above: Performed By: #### L CBCD ####[address] [address] Eosinophils #/vol (Bld) 0.12 thou/cmm Normal 0.00-0.41 [facility] Comment on above: Performed By: #### L CBCD ####[address] [address] Eosinophils/100 WBC (Bld) 1.6 % Normal [facility] Comment on above: Performed By: #### L CBCD ####[address] [address] Erythrocyte distribution width Ratio (RBC) 13.6 % Normal 11.5-15.9 [facility] Comment on above: Performed By: #### L CBCD ####[address] [address] Hematocrit Volume Fraction (Bld) 42.8 % Normal 42.0-52.0 [facility] Comment on above: Performed By: #### L CBCD ####[address] [address] Hemoglobin mass conc (Bld) 13.6 g/dL Low 14.0-18.0 [facility] Comment on above: Performed By: #### L CBCD ####[address] [address] Lymphocytes #/vol (Bld) 1.28 thou/cmm Low 1.50-3.65 [facility] Comment on above: Performed By: #### L CBCD ####[address] [address] Lymphocytes/100 WBC (Bld) 16.6 % Normal [facility] Comment on above: Performed By: #### L CBCD ####[address] [address] MCH Entitic mass (RBC) 29.8 pg Normal 27.0-31.0 [facility] Comment on above: Performed By: #### L CBCD ####[address] [address] MCHC mass conc (RBC) 31.8 % Low 32.0-36.0 [facility] Comment on above: Performed By: #### L CBCD ####[address] [address] MCV Entitic volume (RBC) 93.9 fL Normal 80.0-94.0 [facility] Comment on above: Performed By: #### L CBCD ####[place] [address] Monocytes/100 WBC (Bld) 7.5 % Normal [facility] Comment on above: Performed By: #### L CBCD ####[place] [address] Platelet mean volume Entitic volume (Bld) 10.2 fL Normal 7.1-10.5 [facility] Comment on above: Performed By: #### L CBCD ####[place] [address] Platelets #/vol (Bld) 251 thou/cmm Normal 150-400 [facility] Comment on above: Performed By: #### L CBCD ####[address] [address] RBC #/vol (Bld) 4.56 mil/cmm Low 4.60-6.20 [facility] Comment on above: Performed By: #### L CBCD ####[place] [address] Seg Neutrophil 74.0 % Normal [facility] Comment on above: Performed By: #### L CBCD ####[place] [address] WBC #/vol (Bld) 7.7 thou/cmm Normal 4.8-10.8 [facility] Comment on above: Performed By: #### L CBCD ####[place] [address] Total Proteinon 12-01-2018 Protein mass conc 7.1 g/dL Normal 6.4-8.2 [facility] Comment on above: Performed By: #### L TP ####[facility] [place] [address] Basic Panelon 09-16-2018 Anion gap molar conc 8 mmol/L Normal 8-20 [facility] Comment on above: Performed By: #### L P8 ####[address] [address] Calcium mass conc 9.0 mg/dL Normal 8.5-10.1 [facility] Comment on above: Performed By: #### L P8 ####[address] [address] Chloride molar conc 105 mmol/L Normal 98-107 [facility] Comment on above: Performed By: #### L P8 ####[place] [address] CO2 Blood 29 mEq/L Normal 21-32 [facility] Comment on above: Performed By: #### L P8 ####[place] [address] Creatinine mass conc 0.89 mg/dL Normal 0.67-1.17 [facility] Comment on above: Performed By: #### L P8 ####[address] [address] Glucose mass conc 97 mg/dL Normal 70-99 [facility] Comment on above: Performed By: #### L P8 ####[address] [address] Potassium molar conc 4.2 mmol/L Normal 3.5-5.1 [facility] Comment on above: Performed By: #### L P8 ####[address] [address] Sodium molar conc 138 mmol/L Normal 136-145 [facility] Comment on above: Performed By: #### L P8 ####[place] [address] Urea nitrogen mass conc 16 mg/dL Normal 7-25 [facility] Comment on above: Performed By: #### L P8 ####[address] [address] Urea nitrogen/Creatinine mass ratio 18 mg/mg Normal 10-20 [facility] Comment on above: Performed By: #### L P8 ####[address] [address] CPKon 09-16-2018 CPK 187 U/L Normal 39-308 [facility] Comment on above: Performed By: #### L CK ####[place] [address] Hemogram/Diffon 09-16-2018 Abs. Baso 0.03 thou/cmm Normal 0.00-0.08 [facility] Comment on above: Performed By: #### L CBCD ####[place] [address] Abs. Erath 0.67 thou/cmm Normal 0.20-1.00 [facility] Comment on above: Performed By: #### L CBCD ####[place] [address] Abs. Neut (ANC) 4.21 thou/cmm Normal 3.00-5.67 [facility] Comment on above: Performed By: #### L CBCD ####[address] [address] Basophils/100 WBC (Bld) 0.5 % Normal [facility] Comment on above: Performed By: #### L CBCD ####[address] [address] Eosinophils #/vol (Bld) 0.31 thou/cmm Normal 0.00-0.41 [facility] Comment on above: Performed By: #### L CBCD ####[address] [address] Eosinophils/100 WBC (Bld) 4.9 % Normal [facility] Comment on above: Performed By: #### L CBCD ####[place] [address] Erythrocyte distribution width Ratio (RBC) 13.2 % Normal 11.5-15.9 [facility] Comment on above: Performed By: #### L CBCD ####[address] [address] Hematocrit Volume Fraction (Bld) 37.2 % Low 42.0-52.0 [facility] Comment on above: Performed By: #### L CBCD ####[address] [address] Hemoglobin mass conc (Bld) 11.8 g/dL Low 14.0-18.0 [facility] Comment on above: Performed By: #### L CBCD ####[address] [address] Lymphocytes #/vol (Bld) 1.18 thou/cmm Low 1.50-3.65 [facility] Comment on above: Performed By: #### L CBCD ####[address] [address] Lymphocytes/100 WBC (Bld) 18.5 % Normal [facility] Comment on above: Performed By: #### L CBCD ####[address] [address] MCH Entitic mass (RBC) 30.0 pg Normal 27.0-31.0 [facility] Comment on above: Performed By: #### L CBCD ####[place] [address] MCHC mass conc (RBC) 31.7 % Low 32.0-36.0 [facility] Comment on above: Performed By: #### L CBCD ####[address] [address] MCV Entitic volume (RBC) 94.7 fL High 80.0-94.0 [facility] Comment on above: Performed By: #### L CBCD ####[address] [address] Monocytes/100 WBC (Bld) 10.5 % Normal [facility] Comment on above: Performed By: #### L CBCD ####[place] [address] Platelet mean volume Entitic volume (Bld) 8.9 fL Normal 7.1-10.5 [facility] Comment on above: Performed By: #### L CBCD ####[facility] [place] [address] Platelets #/vol (Bld) 318 thou/cmm Normal 150-400 [facility] Comment on above: Performed By: #### L CBCD ####[facility] [place] [address] RBC #/vol (Bld) 3.93 mil/cmm Low 4.60-6.20 [facility] Comment on above: Performed By: #### L CBCD ####[place] [address] Seg Neutrophil 65.6 % Normal [facility] Comment on above: Performed By: #### L CBCD ####[place] [address] WBC #/vol (Bld) 6.4 thou/cmm Normal 4.8-10.8 [facility] Comment on above: Performed By: #### L CBCD ####[place] [address] MDRD eGFRon 09-16-2018 GFR/1.73 sq M predicted among non-blacks MDRD vol rate/area (S/P/Bld) mL/min/{1.73_m2} Normal >60mL/min/1 .73m2 [facility] Comment on above: Result Comment: If t he patient is , multiply the result by 1.210. Performed By: #### L GFR ####[place] [address] US ABD RIGHT UPPER QUADRANTo n 04-25-2018 US ABD RIGHT UPPER QUADRANT Performed at [facility] APPROVED BY: Gallo Cunningham MD EXAMINATION: [...] SONOGRAPHIC APPEARANCE OF THE RIGHT UPPER QUADRANT. Normal [facility] ABD COMPL WITH UPRIGHT PA CH ESTon 04-20-2018 ABD COMPL WITH UPRIGHT PA CHEST Performed at [facility] APPROVED BY: MANINDER GOMEZ MD EXAM: [...] air. Pelvic phleboliths favored. Atherosclerotic calcification within the aorta. Bones are unremarkable. Normal [facility] CT CHEST FOR PULMONARY EMBOL USon 04-20-2018 CT CHEST FOR PULMONARY EMBOLUS Performed at [facility] APPROVED BY: MANINDER GOMEZ MD EXAM: 1. CT of the chest with intravenous contrast - Pulmonary CT angiography protocol 2. Two dimensional reconstructions HISTORY: PE suspected, intermediate prob, positive D-dimer TECHNIQUE: Pulmonary CT angiogram was performed with helical CT imaging through the chest during and after the intravenous administration of contrast. Two dimensional reconstructions performed using the unga data set. CT Dose-Length Product (DLP): 563 mGy*cm CT Dose Reduction Technique: Automated Exposure Control CONTRAST: Intravenous: 100 mL Omnipaque 350 COMPARISON: None available FINDINGS: Motion degrades examination. Mediastinum: The visualized thyroid, great vessels, heart and pericardium are within normal limits. No mediastinal / hilar lymphadenopathy identified by CT size criteria. Atherosclerotic calcification within the aorta and coronary arteries. Pulmonary arteries: No filling defects are identified within the main or lobar pulmonary arteries. Suboptimal opacification as well as motion degrades evaluation of the mid and lower lung segmental/subsegmental pulmonary arteries. No obvious filling defects within [...] diverticulosis. Details and incidental findings as discussed. Normal [facility] Comprehensive Panelon 2017 Albumin mass conc 4.0 g/dL Normal 3.4-5.0 [facility] Comment on above: Performed By: #### L P14 #### [facility] [address] [place] [address] ALP enzyme act/vol 73 U/L Normal 46-116 [facility] Comment on above: Performed By: #### L P14 #### [facility] [address] [place] [address] ALT-SGPT Blood 22 U/L Normal 14-63 [facility] Comment on above: Performed By: #### L P14 #### [facility] [address] [place] [address] Anion gap molar conc 8 mmol/L Normal 8-20 [facility] Comment on above: Performed By: #### L P14 #### [facility] [address] [place] [address] AST-SGOT Blood 18 U/L Normal 15-37 [facility] Comment on above: Performed By: #### L P14 #### [facility] [address] [place] [address] Bilirubin Ql (U) 0.3 mg/dL Normal 0.2-1.0 [facility] Comment on above: Performed By: #### L P14 #### [facility] [address] [place] [address] Calcium mass conc 9.1 mg/dL Normal 8.5-10.1 [facility] Comment on above: Performed By: #### L P14 #### [facility] [address] [place] [address] Chloride molar conc 106 mmol/L Normal 98-107 [facility] Comment on above: Performed By: #### L P14 #### [facility] [address] [place] [address] CO2 Blood 27 mEq/L Normal 21-32 [facility] Comment on above: Performed By: #### L P14 #### [facility] [address] [place] [address] Creatinine mass conc 1.04 mg/dL Normal 0.67-1.17 [facility] Comment on above: Performed By: #### L P14 #### [facility] [address] [place] [address] Glucose mass conc 133 mg/dL High 70-99 [facility] Comment on above: Performed By: #### L P14 #### [facility] [address] [place] [address] Potassium molar conc 3.0 mmol/L Low 3.5-5.1 [facility] Comment on above: Performed By: #### L P14 #### [facility] [address] [place] [address] Protein mass conc 7.2 g/dL Normal 6.4-8.2 [facility] Comment on above: Performed By: #### L P14 #### [place] [address] Sodium molar conc 138 mmol/L Normal 136-145 [facility] Comment on above: Performed By: #### L P14 #### [place] [address] Urea nitrogen mass conc 19 mg/dL Normal 7-25 [facility] Comment on above: Performed By: #### L P14 #### [place] [address] Urea nitrogen/Creatinine mass ratio 18 mg/mg Normal 10-20 [facility] Comment on above: Performed By: #### L P14 #### [place] [address] D-Dimer Quantitativeon 04-20 D-Dimer Quantitative 571 ng/mL(FEU) Critically high <450 [facility] Comment on above: Result Comment: The cutoff level recommended for the exclusion of deep vein thrombosis (DVT) or pulmonary embolism (PE) is 450 ng/mL(FEU). It is recommended that DVT or PE exclusion be restricted to suspected outpatients with a low to moderate pretest probability model. Performed By: #### L DMR #### [place] [id number] Hemogram/Diffon 04-20-2018 Abs. Baso 0.03 thou/cmm Normal 0.00-0.08 [facility] Comment on above: Performed By: #### L CBCD #### [facility] [address] [place] [address] Abs. Erath 0.71 thou/cmm Normal 0.20-1.00 [facility] Comment on above: Performed By: #### L CBCD #### [facility] [address] [place] [address] Abs. Neut (ANC) 5.59 thou/cmm Normal 3.00-5.67 [facility] Comment on above: Performed By: #### L CBCD #### [place] [address] Basophils/100 WBC (Bld) 0.3 % Normal [facility] Comment on above: Performed By: #### L CBCD #### [place] [address] Eosinophils #/vol (Bld) 0.20 thou/cmm Normal 0.00-0.41 [facility] Comment on above: Performed By: #### L CBCD #### [place] [address] Eosinophils/100 WBC (Bld) 2.2 % Normal [facility] Comment on above: Performed By: #### L CBCD #### [place] [address] Erythrocyte distribution width Ratio (RBC) 13.2 % Normal 11.5-15.9 [facility] Comment on above: Performed By: #### L CBCD #### [place] [address] Hematocrit Volume Fraction (Bld) 45.0 % Normal 42.0-52.0 [facility] Comment on above: Performed By: #### L CBCD #### [place] [address] Hemoglobin mass conc (Bld) 14.6 g/dL Normal 14.0-18.0 [facility] Comment on above: Performed By: #### L CBCD #### [facility] [address] [place], [place] [address] Lymphocytes #/vol (Bld) 2.57 thou/cmm Normal 1.50-3.65 [facility] Comment on above: Performed By: #### L CBCD #### [facility] [address] [place], [place] [address] Lymphocytes/100 WBC (Bld) 28.2 % Normal [facility] Comment on above: Performed By: #### L CBCD #### [facility] [address] [place], [place] [address] MCH Entitic mass (RBC) 29.8 pg Normal 27.0-31.0 [facility] Comment on above: Performed By: #### L CBCD #### [place] [address] MCHC mass conc (RBC) 32.4 % Normal 32.0-36.0 [facility] Comment on above: Performed By: #### L CBCD #### [place] [address] MCV Entitic volume (RBC) 91.8 fL Normal 80.0-94.0 [facility] Comment on above: Performed By: #### L CBCD #### [address] [address] Monocytes/100 WBC (Bld) 7.8 % Normal [facility] Comment on above: Performed By: #### L CBCD #### [address] [address] Platelet mean volume Entitic volume (Bld) 10.5 fL Normal 7.1-10.5 [facility] Comment on above: Performed By: #### L CBCD #### [facility] [address] [place], [place] [address] Platelets #/vol (Bld) 209 thou/cmm Normal 150-400 [facility] Comment on above: Performed By: #### L CBCD #### [place] [address] RBC #/vol (Bld) 4.90 mil/cmm Normal 4.60-6.20 [facility] Comment on above: Performed By: #### L CBCD #### [facility] [address] [place] [address] Seg Neutrophil 61.5 % Normal [facility] Comment on above: Performed By: #### L CBCD #### [place] [address] WBC #/vol (Bld) 9.1 thou/cmm Normal 4.8-10.8 [facility] Comment on above: Performed By: #### L CBCD #### [place] [address] Lipase Bloodon 04-20-2018 Lipase Blood 185 U/L Normal 73-393 [facility] Comment on above: Performed By: #### L LIP #### [place] [address] MDRD eGFRon 04-20-2018 GFR/1.73 sq M predicted among non-blacks MDRD vol rate/area (S/P/Bld) mL/min/{1.73_m2} Normal >60mL/min/1 .73m2 [facility] Comment on above: Result Comment: If t he patient is , multiply the result by 1.210. Performed By: #### L GFR #### [place] [address] Protimeon 04-20-2018 INR Coag RelTime (PPP) 1.03 {INR} Normal [facility] Comment on above: Result Comment: Frank dard Therapy 2.0-3.0 High Dose 2.5-3.5 Performed By: #### L PT #### [place] [address] Prothrombin time (PT) Coag time (PPP) 10.7 s Normal 9.7-13.0 [facility] Comment on above: Result Comment: Note new reference range. Performed By: #### L PT #### [place] [address] Troponin Ion 04-20-2018 Troponin I.cardiac mass conc ng/mL Normal <=0.07 [facility] Comment on above: Performed By: #### L TRP #### [facility] 1 [place] [id number] FINGER(S) MIN 2 VIEWSon 03-01 FINGER(S) MIN 2 VIEWS Performed at [facility] APPROVED BY: MELY MOODY MD EXAMINATION: [...] corticated ossific density seen arising from the posterior aspect of the middle fifth phalanx, concerning for an avulsion injury. IMPRESSION: Osteopenia and osteoarthritis. Ossific density seen arising from the posterior aspect of the middle fifth phalanx, concerning for an avulsion type injury. Associated soft tissue swelling. Normal [facility] HAND 3V PA/LAT/OBL LEFTon HAND 3V PA/LAT/OBL LEFT Performed at [facility] APPROVED BY: MELY MOODY MD EXAMINATION: [...] corticated ossific density seen arising from the posterior aspect of the middle fifth phalanx, concerning for an avulsion injury. IMPRESSION: Osteopenia and osteoarthritis. Ossific density seen arising from the posterior aspect of the middle fifth phalanx, concerning for an avulsion type injury. Associated soft tissue swelling. Normal [facility] XR Knee Complete Lefton XR Knee Complete Left Exam Date/Time:08/06/2017 09:01 EDTReason for Exam:Pain, Non TraumaticReportEXAM: XR Knee Complete LeftREASON FOR EXAM: Pain, nontraumatic. No recent injury.TECHNIQUE: Upright AP, upright PA and patellar views of both knees with lateralview of the left knee.COMPARISON: None.FINDINGS: No fracture or dislocation is seen. There is asymmetrical advancedleft knee tricompartmental degenerative joint disease finding. Joint spacenarrowing with periarticular spurring is seen at all 3 compartments. This ismost severe at the medial aspect. There is kpyk-tb-rlyu contact. There islateral mild subluxation in position of the tibia in relationship to the femurin this upright view. An orthopedic screw is seen within the proximal tibialmetaphysis. There is mild left suprapatellar joint effusion noted. Faintcalcifications are also present.IMPRESSION:No acute fracture or dislocation. Advanced tricompartmental left kneedegenerative joint disease finding being most extreme at the medialarticulation with mxgf-rd-pycc contact. Small suprapatellar joint effusion andcalcifications are present. 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 Albumin mass conc 4.3 g/dL Invalid Interpretation Code [facility] Work Phone: [phone] Alkaline phosphatase (ALP) 69 U/L Invalid Interpretation Code [facility] Work Phone: [phone] ALP enzyme act/vol (Bld) 69 U/L [facility] Work Phone: [phone] ALT enzyme act/vol 12 U/L Invalid Interpretation Code [facility] Work Phone: [phone] AST enzyme act/vol 13 U/L Invalid Interpretation Code [facility] Work Phone: [phone] Bilirubin mass conc 0.2 mg/dL Invalid Interpretation Code [facility] Work Phone: [phone] Calcium mass conc 9.4 mg/dL Invalid Interpretation Code [facility] Work Phone: [phone] Chloride molar conc 101 mmol/L Invalid Interpretation Code [facility] Work Phone: [phone] Cholesterol in HDL mass conc 52 mg/dL Invalid Interpretation Code [facility] Work Phone: [phone] Cholesterol in LDL mass conc 62 mg/dL Invalid Interpretation Code [facility] Work Phone: [phone] Cholesterol mass conc 152 mg/dL Invalid Interpretation Code [facility] Work Phone: [phone] CO2 24 mmol/L Invalid Interpretation Code [facility] Work Phone: [phone] CO2 ppres (BldV) 24 mmol/L [facility] Work Phone: [phone] Creatinine mass conc 1.18 mg/dL Invalid Interpretation Code [facility] Work Phone: [phone] Erythrocyte distribution width Ratio (RBC) 13.1 % [facility] Work Phone: [phone] Erythrocytes (RBC) 4.67 10*6/uL Invalid Interpretation Code [facility] Work Phone: [phone] Globulin 2.4 g/dL Invalid Interpretation Code [facility] Work Phone: [phone] Globulin mass conc (S) 2.4 g/dL [facility] Work Phone: [phone] Glucose 78 mg/dL Invalid Interpretation Code [facility] Work Phone: [phone] Glucose mass conc 78 mg/dL [facility] Work Phone: [phone] Hematocrit (HCT) 41.3 % Invalid Interpretation Code [facility] Work Phone: [phone] Hematocrit Volume Fraction (Bld) 41.3 % [facility] Work Phone: [phone] Hemoglobin mass conc (Bld) 13.7 g/dL Invalid Interpretation Code [facility] Work Phone: [phone] Lipoprotein.pre-beta mass conc 38 mg/dL Invalid Interpretation Code [facility] Work Phone: [phone] Magnesium mass conc 2.1 mg/dL Invalid Interpretation Code [facility] Work Phone: [phone] MCH 29.3 pg Invalid Interpretation Code [facility] Work Phone: [phone] MCH Entitic mass (RBC) 29.3 pg [facility] Work Phone: [phone] MCHC 33.2 g/dL Invalid Interpretation Code [facility] Work Phone: [phone] MCHC mass conc (RBC) 33.2 g/dL [facility] Work Phone: [phone] MCV 88 fL Invalid Interpretation Code [facility] Work Phone: [phone] MCV Entitic volume (RBC) 88 fL [facility] Work Phone: [phone] Platelets 236 10*3/mm3 Invalid Interpretation Code [facility] Work Phone: [phone] Platelets #/vol (Bld) 236 10*3/mm3 [facility] Work Phone: [phone] Potassium molar conc 4.5 mmol/L Invalid Interpretation Code [facility] Work Phone: [phone] Protein mass conc 6.7 g/dL Invalid Interpretation Code [facility] Work Phone: [phone] RBC #/vol (Bld) 4.67 10*6/uL [facility] Work Phone: [phone] RDW-CA 13.1 % Invalid Interpretation Code [facility] Work Phone: [phone] Sodium molar conc 142 mmol/L Invalid Interpretation Code [facility] Work Phone: [phone] Triglyceride mass conc 192 mg/dL High [facility] Work Phone: [phone] Urea nitrogen mass conc 22 mg/dL Invalid Interpretation Code [facility] Work Phone: [phone] Urea nitrogen/Creatinine mass ratio 19 mg/mg Invalid Interpretation Code [facility] Work Phone: [phone] WBC #/vol (Bld) 6.4 10*3/uL [facility] Work Phone: [phone] WBC (Leukocytes) 6.4 10*3/uL Invalid Interpretation Code [facility] Work Phone: [phone] Office Visit: Deandre 01-06-20 17 Fall risk assessment No [facility] Work Phone: [phone] Protein mass conc Done [facility] Work Phone: [phone]) Clinical Lists Update: Prelo systems programmer 12-16-2016 Left ventricular Ejection fraction 55 % Invalid Interpretation Code [facility] Work Phone: [phone] Office Visiton 06-19-2016 Dietary management education, guidance, and counseling (procedure) yes Invalid Interpretation Code [facility] Work Phone: [phone] Replaced Document: Jose Jackson CG Observationson 06-19-2016 EKG QRS axis -34 deg [facility] Work Phone: [phone] electrocardiogram interpretation Sinus Bradycardia -Left axis -anterior fascicular block. ABNORMAL Invalid Interpretation Code [facility] Work Phone: [phone] GE use only - for [employer] import when terms are not otherwise specified 419 ms Invalid Interpretation Code [facility] Work Phone: [phone] Interpretation Sinus Bradycardia -L eft axis -anterior fascicular block. ABNORMAL [facility] Work Phone: [phone] P Knapp 32 deg [facility] Work Phone: [phone] P wave axis, electrocardiogram 32 deg Invalid Interpretation Code [facility] Work Phone: [phone] AR Interval 190 ms [facility] Work Phone: [phone] AR interval, electrocardiogram 190 ms Invalid Interpretation Code [facility] Work Phone: [phone] Pulse (Heart Rate) 59 /min Invalid Interpretation Code [facility] Work Phone: [phone] QRS axis, electrocardiogram -34 deg Invalid Interpretation Code [facility] Work Phone: [phone] QRS Duration 112 ms [facility] Work Phone: [phone] QRS duration, electrocardiogram 112 ms Invalid Interpretation Code [facility] Work Phone: [phone] QT Interval new path ms [facility] Work Phone: [phone] QT interval, electrocardiogram new path ms Invalid Interpretation Code [facility] Work Phone: [phone] QTc Herrera 419 ms [facility] Work Phone: [phone] T Knapp 21 deg [facility] Work Phone: [phone] T wave axis, electrocardiogram 21 deg Invalid Interpretation Code [facility] Work Phone: [phone] Clinical Lists Update: Prelo systems programmer 03-18-2016 T4 free mass conc 1.26 ng/dL Invalid Interpretation Code [facility] Work Phone: [phone] Thyrotropin Qn 1.320 u[iU]/mL Invalid Interpretation Code [facility] Work Phone: [phone] Office Visit: [facility] 11-13-19 16 Tobacco smoking status NHIS Former smoker [facility] Work Phone: [phone] Tobacco use HS Former smoker Invalid Interpretation Code [facility] Work Phone: [phone] Lab Report: Basic Metabolic Profile (BMP)on 07-11-2015 Anion gap 5 mmol/L Invalid Interpretation Code 5-15 [facility] Work Phone: [phone] Anion gap molar conc 5 mmol/L 5-[address] [facility] Work Phone: [phone] eGFR (non-black) 85 mL/min/{1.73_m2} Invalid Interpretation Code >60 [facility] Work Phone: [phone] EST GFR - AA 85 mL/min >60 [facility] Work Phone: [phone] GFR/1.73 sq M predicted among non-blacks MDRD vol rate/area (S/P/Bld) 70 mL/min/{1.73_m2} Invalid Interpretation Code >60 [facility] Work Phone: [phone] Lab Report: CBC-Complete Blo od Cnt No Diffon 04-29-2015 Erythrocyte distribution width Ratio (RBC) 47.6 fL High 35.1-43.9 [facility] Work Phone: [phone] Platelet mean volume Entitic volume (Bld) 10.6 fL 6.2-12.0 [facility] Work Phone: [phone] PMV by Gal 10.6 fL Invalid Interpretation Code 6.2-12.0 [facility] Work Phone: [phone] red blood cell distribution width, size density 47.6 fL High 35.1-43.9 [facility] Work Phone: [phone] Lab Report: Partial Thrombop last Timeon 04-29-2015 aPTT Coag time (Bld) 33.8 s Invalid Interpretation Code 24.1-36.2 [facility] Work Phone: [phone] Lab Report: Prothrombin Time w/INRon 04-29-2015 INR Coag RelTime (PPP) 1.1 {INR} [facility] Work Phone: [phone] INR in blood by coagulation 1.1 {INR} Invalid Interpretation Code [facility] Phone: [phone] Prothrombin time (PT) Coag time (PPP) 14.5 s Invalid Interpretation Code 11.7-14.9 [facility] Phone: [phone]) Lab Report: T4 Total, Thyrox inon 04-29-2015 T4 mass conc 10.3 ug/dL Invalid Interpretation Code 4.5-12.1 [facility] Phone: [phone] Clinical Lists Update: Prelo systems programmer 02-10-2015 Bilirubin.direct mass conc 0.11 mg/dL Invalid Interpretation Code [facility] Phone: [phone] Bilirubin.indirect mass conc 0.3 mg/dL Invalid Interpretation Code [facility] Phone: [phone] Cholesterol.total/Ch olesterol in HDL mass ratio 2.9 {ratio} Invalid Interpretation Code [facility] Phone: [phone] External Other: Preferred Me thod of Contacton 10-10-2014 methcontact phone [facility] Phone: [phone] Patient's prefered method of contact phone Invalid Interpretation Code [facility] Phone: [phone] Office Visit: [facility] 10-08-20 14 cardiac risk group C Invalid Interpretation Code [facility] Phone: [phone] General cardiovascular disease 10Y risk [#] [place]D'Agost[place] o N/A Invalid Interpretation Code [facility] Work Phone: [phone] Office Visiton 04-09-2014 Tobacco smoking status NHIS Former Invalid Interpretation Code [facility] Work Phone: [phone] Clinical Lists Update: Prelo systems programmer 04-04-2014 Cholesterol in LDL mass conc 80 mg/dL Invalid Interpretation Code [facility] Work Phone: [phone]) Lab Report: PTTon 12-24-2012 aPTT Coag time (Bld) 33.5 s Normal 24.1-36.[address] [facility] Work Phone: [phone] Office Visiton 11-30-2012 Alcoholism counseling (procedure) no Invalid Interpretation Code [facility] Work Phone: [phone] Protein mass conc no [facility] Work Phone: [phone] Replaced Document: [employer] E CG Observationson 11-30-2012 Pulse (Heart Rate) 423 ms Invalid Interpretation Code [facility] Work Phone: [phone] Lab Report: Ordered by PCPon 05-11-2012 MCHC 33.4 % Invalid Interpretation Code [facility] Work Phone: [phone] MCHC mass conc (RBC) 33.4 % [facility] Work Phone: [phone] Albumin/Globulin mass ratio 1.7 {ratio} Invalid Interpretation Code [facility] Work Phone: [phone] Vital Signs Date Time Vital Sign Value Performing Clinician Skyler busby 04-09-2025 10:33-0400 Body height 185.42 cm Cara Beasley [employer] Work Phone: [facility] 04-09-2025 10:33-0400 Body mass index (BMI) [Ratio] 27.4 kg/m2 Cara Beasley [employer] Work Phone: [facility] 04-09-2025 10:33-0400 Body weight 94.34 kg Cara Beasley [employer] Work Phone: [facility] 04-09-2025 10:33-0400 Diastolic blood pressure 90 mm[Hg] Cara Ramos [employer] [facility] Work Phone: [facility] 04-09-2025 10:33-0400 Heart rate 59 /min Cara Ramos [employer] Work Phone: [facility] 04-09-2025 10:33-0400 Respiratory rate 18 /min Cara Ramos [employer] Work Phone: [facility] 04-09-2025 10:33-0400 Systolic blood pressure 145 mm[Hg] Cara Ramos [employer] [facility] Work Phone: [facility] 09-15-2023 17:38-0500 Body temperature 98.2 [degF] Matthew Chang MD Work Phone: [facility] 09-15-2023 17:38-0500 Body weight 98.88 kg Matthew Chang MD Work Phone: [facility] 09-15-2023 17:38-0500 Heart rate 68 /min Matthew Chang MD Work Phone: [facility] 09-15-2023 17:38-0500 Respiratory rate 20 /min Matthew Chang MD Work Phone: [facility] 09-15-2023 17:38-0500 SaO2% (BldA) [Mass fraction] 98 % Matthew Chang MD Work Phone: [facility] 07-16-2023 09:48-0400 Body height 184.3 cm Ricardo Rizo MD Work Phone: [facility] 07-16-2023 09:48-0400 Body temperature 97.9 [degF] Ricardo Rizo MD Work Phone: [facility] 07-16-2023 09:48-0400 Body weight 96.44 kg Ricardo Rizo MD Work Phone: [facility] 07-16-2023 09:48-0400 Diastolic blood pressure 89 mm[Hg] Ricardo Rizo MD Work Phone: [facility] 07-16-2023 09:48-0400 Heart rate 79 /min Ricardo Rizo MD Work Phone: [facility] 07-16-2023 09:48-0400 Respiratory rate 20 /min Ricardo Rizo MD Work Phone: [facility] 07-16-2023 09:48-0400 SaO2% (BldA) [Mass fraction] 100 % Ricardo Rizo MD Work Phone: [facility] 07-16-2023 09:48-0400 Systolic blood pressure 146 mm[Hg] Ricardo Rizo MD Work Phone: [facility] 06-01-2023 15:41-0400 Body height 185.42 cm [facility] 06-01-2023 15:41-0400 Body mass index (BMI) [Ratio] 27.4 kg/m2 [facility] 06-01-2023 15:41-0400 Body temperature 97.9 [degF] [facility] 06-01-2023 15:41-0400 Body weight 94.34 kg [facility] 06-01-2023 15:41-0400 Diastolic blood pressure 80 mm[Hg] [facility] 06-01-2023 15:41-0400 Heart rate 65 /min [facility] 06-01-2023 15:41-0400 Respiratory rate 18 /min [facility] 06-01-2023 15:41-0400 SaO2% (BldA) [Mass fraction] 100 % [facility] 06-01-2023 15:41-0400 Systolic blood pressure 120 mm[Hg] [facility] 02-24-2022 15:56-0400 Body height 185.42 cm [facility] Work Phone: 02-24-2022 15:56-0400 Body mass index (BMI) [Ratio] 27.8 kg/m2 [facility] Work Phone: 02-24-2022 15:56-0400 Body temperature 97.7 [degF] [facility] Work Phone: 02-24-2022 15:56-0400 Body weight 95.7 kg [facility] Work Phone: 02-24-2022 15:56-0400 Diastolic blood pressure 80 mm[Hg] [facility] Work Phone: 02-24-2022 15:56-0400 Heart rate 77 /min [facility] Work Phone: 02-24-2022 15:56-0400 Respiratory rate 18 /min [facility] Work Phone: 02-24-2022 15:56-0400 SaO2% (BldA) [Mass fraction] 97 % [facility] Work Phone: 02-24-2022 15:56-0400 Systolic blood pressure 112 mm[Hg] [facility] Work Phone: 06-21-2017 08:35-0400 BMI (Body Mass Index) 26.69 kg/m2 [facility] Work Phone: 06-21-2017 08:35-0400 BP Diastolic 70 mm[Hg] [facility] Work Phone: 06-21-2017 08:35-0400 BP Systolic 122 mm[Hg] [facility] Work Phone: 06-21-2017 08:35-0400 Height 187.96 cm [facility] Work Phone: 06-21-2017 08:35-0400 Pulse (Heart Rate) 60 /min [facility] Work Phone: 06-21-2017 08:35-0400 Respiratory Rate 18 /min [facility] Work Phone: 06-21-2017 08:35-0400 Weight 94.3 kg [facility] Work Phone: 01-05-2017 08:46-0500 BMI (Body Mass Index) 26.73 kg/m2 [facility] Work Phone: 01-05-2017 08:46-0500 BP Diastolic 78 mm[Hg] Eliana DeFinama [facility] Work Phone: 01-05-2017 08:46-0500 BP Systolic 132 mm[Hg] Eliana DeFinama [facility] Work Phone: 01-05-2017 08:46-0500 Height 187.96 cm Eliana DeFinama [facility] Work Phone: 01-05-2017 08:46-0500 Pulse (Heart Rate) 56 /min Eliana Bruce [facility] Work Phone: 01-05-2017 08:46-0500 Respiratory Rate 16 /min Eliana DeFinama [facility] Work Phone: 01-05-2017 08:46-0500 Weight 94.44 kg Eliana DeFinama [facility] Work Phone: 06-19-2016 09:16-0400 Heart rate 59 /min Eliana Bruce [facility] Work Phone: 06-19-2016 08:31-0400 BSA (Body Surface Area) 2.18 m2 Eliana Bruce [facility] Work Phone: 11-30-2012 13:51-0500 Heart rate 423 ms Harmichelle Bruce [facility] Work Phone: Encounters Encounter Date Encounter Type Care Provider Facility Start: 04-20-2025 ambulatory RICARDO RIZO Facility:[facility] Start: 04-20-2025 End: 04-20-2025 Subsequent hospital visit by physician [facility] (I-Stat/1.5t) Work Phone: Radiology Comment on above: Abnormal findings on diagnostic imaging of liver and biliary tract [R93.2] Start: 04-09-2025 End: 04-09-2025 Patient encounter procedure Asad SALAZAR -[facility] Work Phone: Start: 04-09-2025 End: 04-09-2025 ambulatory Cara Beasley [employer] [facility] Work Phone: [facility] Work Phone: Start: 04-06-2025 Non-patient / Non-visit Dr. Amanda Dumont MD -[facility] Start: 04-06-2025 End: 04-06-2025 ambulatory Cara Beasley [employer] [facility] Work Phone: [facility] Work Phone: Start: 04-06-2025 End: 04-06-2025 Patient encounter procedure Asad Oneill [facility] -Cardiovascular Services Work Phone: Start: 04-06-2025 End: 04-06-2025 ambulatory Asad Oneill NP Facility:[facility] Start: 10-19-2024 End: 10-19-2024 ambulatory Benigno TRAYLOR Facility:[facility] Start: 10-06-2024 End: 10-06-2024 ambulatory Benigno TRAYLOR Facility:[facility] Start: 09-27-2024 End: 09-27-2024 Emergency department patient visit CARA BEASLEY Facility:[facility] Start: 08-21-2024 End: 08-21-2024 ambulatory Asad Oneill NP Facility:[facility] Start: 08-19-2024 End: 08-19-2024 ambulatory ALIVIA ALVARADO Facility:[facility] Start: 07-31-2024 ambulatory Earnestine gaoty:[facility] Start: 07-31-2024 End: 07-31-2024 ambulatory Maninder Shaver Facility:[facility] Start: 06-03-2024 End: 06-03-2024 ambulatory MANINDER SHAVER Facility:[facility] Start: 05-03-2024 End: 05-03-2024 ambulatory Maninder Shaver Facility:[facility] Start: 04-21-2024 ambulatory Jakob Anna Facility:[facility] Start: 04-21-2024 End: 04-21-2024 ambulatory Asad Oneill NP Facility:[facility] Start: 10-07-2023 ambulatory MEHDI HARRY Facility:1 [id number] Start: 10-07-2023 End: 10-07-2023 Subsequent hospital visit by physician Bingeneli Canela Rm 3 [facility] Comment on above: Localized swelling, mass and lump, lower limb, left [R22.42] Start: 09-20-2023 ambulatory UNKNOWN PROVIDER Facili ty:[facility] Start: 09-15-2023 End: 09-15-2023 Patient encounter procedure Matthew Chang MD Work Phone: [facility] Comment on above: Post-viral cough syn drome (Primary Dx) Start: 08-12-2023 End: 08-12-2023 Subsequent hospital visit by physician [facility] Work Phone: Molecular Imaging Comment on above: Malignant carcinoid tumor, unspecified site (HCC) [C7A.00] Start: 07-16-2023 End: 07-16-2023 Patient encounter procedure Ricardo Rizo MD Work Phone: General Surgery Comment on above: Pancreatic mass (Sophie christian Dx) Start: 07-14-2023 Telephone encounter Ricardo rome MD Work Phone: General Surgery Comment on above: Nm Pet Request Start: 06-01-2023 End: 06-01-2023 ambulatory [facility] Work Phone: Start: 06-01-2023 End: 06-01-2023 Patient encounter procedure [facility] Spec[facility] Work Phone: Start: 05-20-2023 Telephone encounter Rogelio Jung [facility] Department Comment on above: PostOp Follow-up Start: 2023 End: 2023 Patient encounter procedure [facility] Work Phone: Start: 02-26-2022 Patient encounter status [facility] Start: 02-24-2022 End: 02-24-2022 Patient encounter procedure [facility] Start: 12-23-2018 Evaluation and management of inpatient [place] Facility:[facility] Start: 12-07-2018 Patient encounter procedure Warren K Lake Facility:[facility] Start: 10-11-2018 Evaluation and management of inpatient Warren Bethea Facility:[facility] Start: 08-06-2017 End: 08-07-2017 Ambulatory Shelton Acosta Murray Facility:[facility] Procedures Date Procedure Procedure Detail Performing Clinician Start: 04-20-2025 3d rendering w/interp&postproc diff work station Ricardo Rizo MD Work Phone: Start: 04-20-2025 Mri abdomen w/o & w/ contrast material Ricardo Rizo MD Work Phone: Start: 10-07-2023 Dup-scan xtr veins unilateral/limited study Mehdi Harry PA-C Work Phone: Start: 08-12-[address] atten uation skull base mid-thigh Ricardo Rizo MD Work Phone: Start: 12-23-2018 Antibody screen Warren castillo Comment on above: Order Comment: Luis Felipe s: M Patient transfused or in the past 3 months: NO Is This Patient Going To Surgery? Y Surgery Date: 12/23/18 Result Comment: Mirela ent was NOT transfused or in the past 3 months. Antibody screen not indicated. Start: 12-07-2018 Antibody screen Warren castillo Comment on above: Order Comment: Bladimiru s: M Is This Patient Going To Surgery? Y Surgery Date: 12/23/18 Start: 06-21-2017 End: 06-21-2017 Follow Up Appt 6 months Max Jimenez MD Start: 06-21-2017 End: 06-21-2017 MMM Max Jimenez MD Start: 01-05-2017 End: 01-05-2017 Follow Up Appt Other Anamaria Woodruff [employer] Work Phone: Start: 01-05-2017 End: 01-05-2017 PFM Anamaria Woodruff [employer] Work Phone: Start: 06-19-2016 End: 06-19-2016 Dietary management education, guidance, and counseling Eliana Bruce Start: 06-19-2016 End: 06-19-2016 Electrocardiogram, complete Max wright MD Start: 06-19-2016 End: 06-19-2016 Follow Up Appt 6 months Max Jimenez MD Start: 06-19-2016 End: 06-03-2017 Follow Up Appt Other Max Jimenez MD Start: 06-19-2016 End: 06-19-2016 MMM Max Jimenez MD Start: 11-13-2015 End: 12-09-2016 Echocardiography Leola Antoine PA-C Work Phone: Start: 11-13-2015 End: 11-13-2015 Follow Up Appt 6 months Leola christopher PA-C Work Phone: Start: 11-13-2015 End: 11-13-2015 PFM Leola Antoine PA-C Work Phone: Start: 08-15-2015 End: 12-09-2016 *Hepatic Function Panel Max Jimenez MD Start: 08-15-2015 End: 12-09-2016 Lipid panel [AGGREGATE] Max Jimenez MD Start: 07-22-2015 End: 07-22-2015 Electrocardiogram, complete Max wright MD Start: 07-12-2015 End: 07-22-2015 *BMP Max Jimenez MD Start: 07-11-2015 End: 07-12-2015 Documentation of current medications Leola Antoine PA-C Work Phone: Start: 07-11-2015 End: 10-23-2015 Follow Up Appt Other Leola edward PA-C Work Phone: Start: 06-18-2015 End: 07-22-2015 Cardioversion Max Jimenez MD Start: 06-10-2015 End: 07-09-2015 Urology Referral Max Jimenez MD Start: 06-04-2015 End: 07-09-2015 *BMP Max Jimenez MD Start: 04-29-2015 End: 04-29-2015 *BMP Max Jimenez MD Start: 04-29-2015 End: 04-29-2015 24 hour holter monitor Max Jimenez MD Start: 04-29-2015 End: 04-29-2015 aPTT Max Jimenez MD Start: 04-29-2015 End: 04-29-2015 CBC W Auto Differential panel - Blood Max Jimenez MD Start: 04-29-2015 End: 04-29-2015 Coagulation factor induced.INR assay in platelet poor plasma Max Jimenez MD Start: 04-29-2015 End: 04-30-2015 Documentation of current medications Max Jimenez MD Start: 04-29-2015 End: 04-29-2015 Echocardiography Max Jimenez MD Start: 04-29-2015 End: 05-13-2015 Electrocardiogram, complete Max wright MD Start: 04-29-2015 End: 04-29-2015 Follow Up Appt 6 months Max Jimenez MD Start: 04-29-2015 End: 04-29-2015 MMM Max Jimenez MD Start: 04-29-2015 End: 04-29-2015 Thyroid stimulating hormone (TSH) Max Jimenez MD Start: 04-29-2015 End: 04-29-2015 Thyroxine (T4) Max Jimenez MD Start: 02-06-2015 End: 02-12-2015 *Hepatic Function Panel Max Jimenez MD Start: 02-06-2015 End: 02-12-2015 Lipid panel [AGGREGATE] Max Jimenez MD Start: 10-08-2014 End: 10-08-2014 Electrocardiogram, complete Leola Becerril PA-C Work Phone: Start: 10-08-2014 End: 10-08-2014 Follow Up Appt 6 months Leola christopher PA-C Work Phone: Start: 10-08-2014 End: 10-08-2014 PFM Leola Antoine PA-C Work Phone: Start: 06-11-2014 End: 05-13-2015 *BMP Max Jimenez MD Start: 04-09-2014 End: 04-09-2014 Follow Up Appt 6 months Max Jimenez MD Start: 04-09-2014 End: 04-09-2014 Follow Up Appt Other Max Jimenez MD Start: 04-09-2014 End: 04-09-2014 MMM Max Jimenez MD Start: 11-01-2013 End: 08-08-2014 *Hepatic Function Panel Leola christopher PA-C Work Phone: Start: 11-01-2013 End: 08-07-2014 Lipid panel [AGGREGATE] Leola christopher PA-C Work Phone: Start: 06-26-2013 End: 06-26-2013 Follow Up Appt 6 months Max Jimenez MD Start: 12-26-2012 End: 05-13-2015 Chest x-ray Max Jimenez MD Start: 12-13-2012 End: 12-26-2012 *BMP Max Jimenez MD Start: 12-13-2012 End: 12-26-2012 aPTT Max Jimenez MD Start: 12-13-2012 End: 12-26-2012 CBC W Auto Differential panel - Blood Max Jimenez MD Start: 12-13-2012 End: 12-26-2012 Chest x-ray Max Jimenez MD Start: 12-13-2012 End: 12-26-2012 Coagulation factor induced.INR assay in platelet poor plasma Max Jimenez MD Start: 12-13-2012 End: 05-13-2015 Left Heart Cath Max Jimenez MD Start: 11-30-2012 End: 12-26-2012 Echocardiography Max Jimenez MD Start: 11-30-2012 End: 11-30-2012 Electrocardiogram, complete Max wright MD Start: 11-30-2012 End: 10-08-2014 Follow Up Appt 6 months Max Jimenez MD Start: 11-30-2012 End: 07-22-2015 Follow Up Appt Other Max Jimenez MD Start: 11-30-2012 End: 12-26-2012 Nuclear stress test -exercise Max Jimenez MD Start: 11-30-2012 End: 10-08-2014 PFM Max Jimenez MD Plan of Treatment Date Care Activity Detail Author Start: 06-03-2027 Diabetes Screening Diabetes Screenin g [facility] Start: 05-14-2026 DIABETES SCREEN DIABETES SCREEN [facility] Start: 05-14-2026 Diabetes Screening Diabetes Screenin g [facility] Start: 07-02-2025 Influenza vaccination Influenz a Vaccine (Season Ended) [facility] Start: 11-01-2024 Advance Directive Discussion Advance Directive Discussion [facility] Start: 07-02-2024 Covid-19 Vaccine ( season) Covid-19 Vaccine ( season) [facility] Start: 07-02-2023 Covid-19 Vaccine ( season) Covid-19 Vaccine () [facility] Start: 07-02-2023 Influenza vaccination [facility] Start: 11-01-2022 ADVANCE DIRECTIVE DISCUSSION ADVANCE DIRECTIVE DISCUSSION [facility] Start: 11-01-2022 DEPRESSION ASSESSMENT DEPRESSION ASS ESSMENT [facility] Start: 06-13-2021 COVID-19 VACCINE (2 - Booster for Pamela series) COVID-19 VACCINE (2 - Booster for Pamela series) [facility] Start: 2021 RSV Vaccine (1 - 1-d ose 75+ series) RSV Vaccine (1 - 1-dose 75+ series) [facility] Start: 10-26-2019 Shingrix Vaccine (2 of 2) Caruso grix Vaccine (2 of 2) [facility] Start: 12-20-2017 End: 12-20-2017 Appointment Appointment [facility] Work Phone: Start: 06-21-2017 End: 06-21-2017 Appointment Appointment [facility] Work Phone: Start: 06-21-2017 End: 06-21-2017 Follow Up Appt 6 months Follow Up Appt 6 months [facility] Work Phone: Start: 06-21-2017 End: 06-21-2017 MMM MMM [facility] Work Phone: Start: 01-05-2017 End: 01-05-2017 Follow Up Appt Other Follow Up Appt Other [facility] Work Phone: Start: 01-05-2017 End: 01-05-2017 PFM PFM [facility] Work Phone: Start: 06-19-2016 End: 06-19-2016 Electrocardiogram, complete EKG (In office) [facility] Work Phone: Start: 06-19-2016 End: 06-19-2016 Follow Up Appt 6 months Follow Up Appt 6 months [facility] Work Phone: Start: 06-19-2016 End: 06-03-2017 Follow Up Appt Other Follow Up Appt Other [facility] Work Phone: Start: 06-19-2016 End: 06-19-2016 MMM MMM [facility] Work Phone: Start: 11-13-2015 End: 11-13-2015 Echocardiography Echocardiogram (limited) [facility] Work Phone: Start: 11-13-2015 End: 11-13-2015 Follow Up Appt 6 months Follow Up Appt 6 months [facility] Work Phone: Start: 11-13-2015 End: 11-13-2015 PFM PFM [facility] Work Phone: Start: 08-15-2015 End: 12-09-2016 *Hepatic Function Panel *Hepatic Function Panel [facility] Work Phone: Start: 08-15-2015 End: 12-09-2016 Lipid panel [AGGREGATE] *Lipid Profile CC PCP [facility] Work Phone: Start: 07-22-2015 End: 07-22-2015 Electrocardiogram, complete EKG (In office) [facility] Work Phone: Start: 07-12-2015 End: 07-22-2015 *BMP *BMP [facility] Work Phone: Start: 07-11-2015 End: 10-23-2015 Follow Up Appt Other Follow Up Appt Other [facility] Work Phone: Start: 06-18-2015 End: 05-13-2015 Cardioversion Cardioversion [facility] Work Phone: Start: 06-10-2015 End: 06-10-2015 Urology Referral Urology Referral Murphy Philip, [address] [place] [address], [address], [place], [address] [facility] Work Phone: Start: 06-04-2015 End: 07-09-2015 *BMP *BMP [facility] Work Phone: Start: 04-29-2015 End: 04-29-2015 *BMP *BMP [facility] Work Phone: Start: 04-29-2015 End: 04-29-2015 24 hour holter monitor 24 hour holter monitor [facility] Work Phone: Start: 04-29-2015 End: 04-29-2015 aPTT *PTT-Partial Thromboplastin Time [facility] Work Phone: Start: 04-29-2015 End: 04-29-2015 aPTT Coag time (PPP) *PTT-Partial Thromboplastin Time [facility] Work Phone: Start: 04-29-2015 End: 04-29-2015 CBC W Auto Differential panel - Blood *CBC without Diff [facility] Work Phone: Start: 04-29-2015 End: 04-29-2015 Coagulation factor induced.INR assay in platelet poor plasma *PT/INR [facility] Work Phone: Start: 04-29-2015 End: 04-29-2015 Echocardiography Echocardiogram (complete) [facility] Work Phone: Start: 04-29-2015 End: 05-13-2015 Electrocardiogram, complete EKG (In office) [facility] Work Phone: Start: 04-29-2015 End: 04-29-2015 Follow Up Appt 6 months Follow Up Appt 6 months [facility] Work Phone: Start: 04-29-2015 End: 04-29-2015 MMM MMM [facility] Work Phone: Start: 04-29-2015 End: 04-29-2015 Thyroid stimulating hormone (TSH) *TSH [facility] Work Phone: Start: 04-29-2015 End: 04-29-2015 Thyroxine (T4) *T4 (Total) [facility] Work Phone: Start: 02-06-2015 End: 02-12-2015 *Hepatic Function Panel *Hepatic Function Panel [facility] Work Phone: Start: 02-06-2015 End: 02-12-2015 Lipid panel [AGGREGATE] *Lipid Profile CC PCP [facility] Work Phone: Start: 10-08-2014 End: 10-08-2014 Electrocardiogram, complete EKG (In office) [facility] Work Phone: Start: 10-08-2014 End: 10-08-2014 Follow Up Appt 6 months Follow Up Appt 6 months [facility] Work Phone: Start: 10-08-2014 End: 10-08-2014 PFM PFM [facility] Work Phone: Start: 06-11-2014 End: 05-13-2015 *BMP *BMP [facility] Work Phone: Start: 04-09-2014 End: 04-09-2014 Follow Up Appt 6 months Follow Up Appt 6 months [facility] Work Phone: Start: 04-09-2014 End: 04-09-2014 Follow Up Appt Other Follow Up Appt Other [facility] Work Phone: Start: 04-09-2014 End: 04-09-2014 MMM MMM [facility] Work Phone: Start: 11-01-2013 End: 08-08-2014 *Hepatic Function Panel *Hepatic Function Panel [facility] Work Phone: Start: 11-01-2013 End: 08-07-2014 Lipid panel [AGGREGATE] *Lipid Profile CC PCP [facility] Work Phone: Start: 06-26-2013 End: 06-26-2013 Follow Up Appt 6 months Follow Up Appt 6 months [facility] Work Phone: Start: 12-26-2012 End: 05-13-2015 Chest x-ray X-Ray, Chest, PA & Lateral [facility] Work Phone: Start: 12-13-2012 End: 12-26-2012 *BMP *BMP [facility] Work Phone: Start: 12-13-2012 End: 12-26-2012 aPTT *PTT-Partial Thromboplastin Time [facility] Work Phone: Start: 12-13-2012 End: 12-26-2012 aPTT Coag time (PPP) *PTT-Partial Thromboplastin Time [facility] Work Phone: Start: 12-13-2012 End: 12-26-2012 CBC W Auto Differential panel - Blood *CBC without Diff [facility] Work Phone: Start: 12-13-2012 End: 12-26-2012 Chest x-ray X-Ray, Chest, PA & Lateral [facility] Work Phone: Start: 12-13-2012 End: 12-26-2012 Coagulation factor induced.INR assay in platelet poor plasma *PT/INR [facility] Work Phone: Start: 12-13-2012 End: 12-13-2012 Left Heart Cath Left Heart Cath [facility] Work Phone: Start: 11-30-2012 End: 12-05-2012 Echocardiography Echocardiogram (complete) [facility] Work Phone: Start: 11-30-2012 End: 11-30-2012 Electrocardiogram, complete EKG (In office) [facility] Work Phone: Start: 11-30-2012 End: 10-08-2014 Follow Up Appt 6 months Follow Up Appt 6 months [facility] Work Phone: Start: 11-30-2012 End: 07-22-2015 Follow Up Appt Other Follow Up Appt Other [facility] Work Phone: Start: 11-30-2012 End: 12-05-2012 Nuclear stress test -exercise Nuclear stress test -exercise [facility] Work Phone: Start: 11-30-2012 End: 10-08-2014 PFM PFM [facility] Work Phone: Start: 2011 Pneumococcal Vaccine : 65+ (1 - PCV) Pneumococcal Vaccine: 65+ (1 - PCV) [facility] Start: 2011 PNEUMOCOCCAL: 65+ (1 - PCV) PNEUMOCOCCAL: 65+ (1 - PCV) [facility] Start: 04-01-2011 Medicare Annual Well ness Visit Medicare Annual Wellness Visit [facility] Start: 2006 RSV Vaccine (1 - 1-d ose 60+ series) RSV Vaccine (1 - 1-dose 60+ series) [facility] Start: 1996 Pneumococcal Vaccine : 50+ (1 of 1 - PCV) Pneumococcal Vaccine: 50+ (1 of 1 - PCV) [facility] Start: 1996 SHINGRIX VACCINE (1 of 2) CARUSO GRIX VACCINE (1 of 2) [facility] Start: 1965 Urine microalbumin profile [facility] Start: 1964 ANNUAL PCP TEAM STUCCO APPLICATOR ANTONIA DISEASE VISIT ANNUAL PCP TEAM CHRONIC DISEASE VISIT [facility] Start: 1964 Anxiety Screening Anxiety Screening [facility] Start: 1964 BP CONTROLLED (<130/80) BP CONTROLLE D (<130/80) [facility] Start: 1964 Depression Screening Depression Scre ening [facility] Start: 1964 HEPATITIS C SCREENING HEPATITIS C [facility] Patient Education HYPERLIPIDEMIA , HYPERLIPIDEMIA [facility] Work Phone: Patient referral [facility] Work Phone: End: 08-12-[address] attenuation skull base mid-thigh NM PET/CT NEUROENDOCRINE WHOLE BODY IMAGING Radiology Routine Malignant carcinoid tumor, unspecified site (HCC) 1 Occurrences starting 07/14/2023 until 08/12/2024 [facility] Work Phone: Comment on above: 1 Occurrences starti ng 07/14/2023 until 08/12/2024 US LEG VEIN DVT UNL VAS LAB US LEG VEIN DVT UNL VAS LAB Vascular Lab STAT Localized swelling, mass and lump, lower limb, left 10/07/2023 12:[address] [facility] Work Phone: [facility] Immunizations Immunization Date Immunization Notes Care Provider Hasmukh martínez 09-05-2018 Flucelvax Quad 2017- 2018 (PF) (flu vac qs 2017(4 yr up)CD(PF)) 60 mcg (15 mcg x [facility] Work Phone: Payers Date Payer Category Payer Self-pay [id number] 2022 Private Health Insurance MMO MED ICARE SUPPLEMENT [id number] 2022 Unknown MMO MMO MEDICARE SUPPLEMENT [id number] 2022-Present [phone] [place] [id number] Indemnity [id number] 2022 Unknown [id number] 2014 Medicare [id number] 2011 Medicare 2011 Medicare [id number] Unknown [id number] Unknown [id number] Unknown [id number] Unknown [id number] 462 Unknown [id number] 462 Unknown [id number] 462 Unknown [id number] 462 Unknown [id number] 462 Unknown [id number] 462 Unknown [id number] 462 Unknown [id number] 462 Unknown [id number] 462 Unknown [id number] 462 Unknown [id number] 462 Social History Date Type Detail Facility Start: 09-29-2021 End: 10-12-2022 Tobacco smoking status [facility] Unknown if ever smoked [facility] Start: 1945 Sex Assigned At Male W [facility] Start: 10-12-2022 End: 05-13-2023 Tobacco smoking status NHIS Ex-smoker [facility] History of tobacco use Current smoker [facility] Start: 05-13-2023 Tobacco use and exposure Smokeless tobacco non-user [facility] Start: 05-17-2023 End: 09-27-2024 Alcohol intake Current drinker of alcohol (finding) [facility] Start: 05-14-2023 End: 05-17-2023 History of Social function [facility] Start: 05-14-2023 End: 05-17-2023 Tobacco use panel [facility] Retired 11/30/2019 P HQ Score 0 [facility] Start: 05-13-2023 Tobacco Comment quit 15 years ago [facility] Start: 1945 Sex Assigned At Not on file [facility] Start: 06-09-2023 Gender identity Identifies as male gender (finding) [facility] Start: 06-09-2023 Sexual orientation Heterosexual (fin jen) [facility] Functional Status Date Assessment Result Facility 05-19-2023 Are you deaf, or do you have serious difficulty hearing No 05/19/2023 11:59 AM EDT Carmen Erazo RN No [facility] 05-19-2023 Are you blind, or do you have serious difficulty seeing, even when wearing glasses No 05/19/2023 11:59 AM EDT Carmen Erazo RN No [facility] 05-19-2023 Do you have serious difficulty walking or climbing stairs No 05/19/2023 11:59 AM EDT Carmen Erazo RN No [facility] 05-19-2023 Do you have difficul ty dressing or bathing No 05/19/2023 11:59 AM EDT Carmen Erazo RN No [facility] 05-19-2023 Because of a physica l, mental, or emotional condition, do you have difficulty doing errands alone such as visiting a physician's office or shopping No 05/19/2023 11:59 AM EDT Carmen Erazo RN [facility] Mental Status Date Assessment Result Facility 05-19-2023 Because of a physica l, mental, or emotional condition, do you have serious difficulty concentrating, remembering, or making decisions No 05/19/2023 11:59 AM EDT Carmen Erazo RN [facility] Clinical Notes 09-22-2019 to 04-20-2025 Marichuy Hollins, RT(R) - 04/20/2025 10:30 AM EDT Note Date & Type Note Facility 04-20-2025 History of Present illness Narrative Radiology Service Progress Note DATE OF SERVICE: April 20, 2025 TIME: 10:36 AM PATIENT IDENTITY VERIFICATION COMPLETED USING TWO (2) STANDARD IDENTIFIERS: Name and Date of confirmed by patient verbally. FALL SCREENING: Has the patient had 2 falls in the last year or 1 fall with injury or currently using an Ambulatory Assistive Device (Walker, Cane, Wheelchair, Crutches, etc.)? No PATIENT GENDER DATA: Assigned male at PATIENT RELEVANT IMPLANT DATA REVIEWED: Yes PATIENT PRESENTS WITH AN IMPLANTABLE OR ATTACHED INDUSTRIAL GAS SERVICE HELPER: No ALLERGIES: Reviewed and unchanged CONTRAST ALLERGY: NO. EXAM: MRI - CONTRAST TYPE: GROUP II PERIPHERAL IV DATA: Ambulatory: A peripheral IV was started in the Right upper extremity with a Angio cath: 22 gauge. RADIOLOGY DEPARTMENT: MR; Exam(s) Completed: Body: Pancreas/Biliary. Aromatherapy Administered: No SIGNATURE: RT Sofia(Ector) PATIENT NAME: Jewell Villatoro DATE: April 20, 2025 TIME: 10:36 AM documented in this encounter [facility] 04-20-2025 Note HNO ID: [id number] Author: MARICHUY HOLLINS RT (R) Service: ? Author Type: Technologist Type: Progress Notes Filed: 04/20/2025 10:36 Note Text: Radiology Service Progress Note DATE OF SERVICE: April 20, 2025 TIME: 10:36 AM PATIENT IDENTITY VERIFICATION COMPLETED USING TWO (2) STANDARD IDENTIFIERS: Name and Date of confirmed by patient verbally. FALL SCREENING: Has the patient had 2 falls in the last year or 1 fall with injury or currently using an Ambulatory Assistive Device (Walker, Cane, Wheelchair, Crutches, etc.)? No PATIENT GENDER DATA: Assigned male at PATIENT RELEVANT IMPLANT DATA REVIEWED: Yes PATIENT PRESENTS WITH AN IMPLANTABLE OR ATTACHED INDUSTRIAL GAS SERVICE HELPER: No ALLERGIES: Reviewed and unchanged CONTRAST ALLERGY: NO. EXAM: MRI - CONTRAST TYPE: GROUP II PERIPHERAL IV DATA: Ambulatory: A peripheral IV was started in the Right upper extremity with a Angio cath: 22 gauge. RADIOLOGY DEPARTMENT: MR; Exam(s) Completed: Body: Pancreas/Biliary. 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 Subjective Jewell Villatoro is a 78 year old male. The history is provided by the patient. Cough This is a new problem. The current episode started more than 1 week ago (2 weeks). The problem occurs every few minutes. The problem has been gradually worsening. The cough is Non-productive. There has been no fever. Associated symptoms include rhinorrhea. Pertinent negatives include no headaches, no sore throat, no myalgias, no shortness of breath and no wheezing. He has tried decongestants for the symptoms. The treatment provided no relief. Review of Systems HENT: Positive for rhinorrhea. Negative for sore throat. Respiratory: Positive for cough. Negative for shortness of breath and wheezing. Musculoskeletal: Negative for myalgias. Neurological: Negative for headaches. Objective Pulse 68 Temp 36.8 C (98.2 F) Resp 20 Wt 98.9 kg (218 lb) SpO2 98% BMI 29.11 kg/m Physical Exam Vitals and nursing note reviewed. Constitutional: General: He is not in acute distress. Appearance: Normal appearance. He is normal weight. He is not ill-appearing, toxic-appearing or diaphoretic. HENT: Head: Normocephalic and atraumatic. Right Ear: Tympanic membrane, ear canal and external ear normal. Left Ear: Tympanic membrane, ear canal and external ear normal. Nose: Congestion and rhinorrhea (clear) present. Mouth/Throat: Mouth: Mucous membranes are moist. Pharynx: No oropharyngeal exudate or posterior oropharyngeal erythema. Pulmonary: Effort: Pulmonary effort is normal. No respiratory distress. Breath sounds: No stridor. No wheezing, rhonchi or rales. Comments: Coarse BS with good air exchange. Musculoskeletal: Cervical back: Normal range of motion. No rigidity or tenderness. Lymphadenopathy: Cervical: No cervical adenopathy. Neurological: Mental Status: He is alert. Assessment and Plan (R05.8) Post-viral cough syndrome (primary encounter diagnosis) Comment: Plan: ipratropium bromide (ATROVENT) 42 mcg (0.06 %) nasal spray, albuterol HFA (PROAIR HFA) 90 mcg/actuation inhaler, Inhalational Spacing Device, predniSONE (DELTASONE) 20 mg tablet [facility] History of Present illness Narrative* Rafi Cheng F, RT(R) - 08/12/2023 8:00 AM EDT RADIOLOGY SERVICE PROGRESS NOTE SERVICE DATE: 08/12/2023 SERVICE TIME: 7:57 AM PATIENT IDENTITY VERIFICATION COMPLETED USING TWO (2) STANDARD IDENTIFIERS: Name and Date of confirmed by patient verbally FALL SCREENING: Has the patient had 2 falls in the last year or 1 fall with injury or currently using an Ambulatory Assistive Device (Walker, Cane, Wheelchair, Crutches, etc.)? No PATIENT GENDER DATA: .male ALLERGIES: Reviewed and unchanged MEDICATIONS REVIEWED: No PATIENT RELEVANT IMPLANT DATA REVIEWED: Not Applicable CREATININE: Creatinine Date Value Ref Range Status 05/14/2023 0.91 0.73 - 1.22 mg/dL Final 05/13/2023 1.10 0.73 - 1.22 mg/dL Final 12/24/2018 0.818 0.670 - 1.170 MG/DL Final Comment: Patients receiving either N-Acetylcysteine (NAC) or Metamizole prior to venipuncture, may have falsely depressed results. Estimated Glomerular Filtration Rate Date Value Ref Range Status 05/14/2023 87 >=60 mL/min/1.73m Final Comment: Estimated Glomerular Filtration Rate (eGFR) is calculated using the 2020 CKD-EPI creatinine equation. This equation utilizes serum creatinine, sex, and age as parameters. The creatinine assay has traceable calibration to isotope dilution- mass spectrometry. Refer to KDIGO guidelines for clinical interpretation. In patients with unstable renal function, e.g. those with acute kidney injury, the eGFRmay not accurately reflect actual GFR. eGFR- Date Value Ref Range Status 12/24/2018 Greater than 60 ML/MIN Final P.O.C.T. RESULTS: N/A August 12, [address] PERFORMED: No IV SITE: Ambulatory: A peripheral IV was started in the Right antecubital site with a Angio cath: 24 gauge. POST EXAM PIV STATUS: Discontinued PROCEDURE TYPE: NM INJECT: DOTATATE PET. 3.9 mCi [id number]. No other medications given.. ADMINISTRATION TIME: 753 PATIENT DISCHARGED TO: Ambulatory patient, left NM department area. A Diagnostic radioactive procedure has taken place, with no further precautions necessary other than routine body substance precautions. More information regarding radiation safety can be found usingthis link: [email or web address] SIGNATURE: RT Ashley(R) PATIENT NAME: Jewell Villatoro DATE: August 12, 2023 TIME: 7:57 AM PAGER/CONTACT #: [facility] History of Present illness Narrative* Ricardo Rizo MD - 07/16/2023 9:53 AM EDT Pancreatic Cyst H&P Initial PATIENT NAME: Jewell Villatoro DATE of SERVICE: 07/16/2023 TIME of SERVICE: 9:53 AM PCP: Cara Beasley APRN.JOURNEYMAN PLUMBER REFERRED BY: Ricardo Rizo This consult was requested by Ricardo Rizo MD for evaluation of pancreatic cyst(s) My final recommendations will be communicated to the requesting health care provider by way of the shared medical record or [employer] services. HPI Jewell Villatoro is a 78 year old year old, male who presents with pancreatic mass. Mass were incidentally discovered during workup for: Abdominal process: Abdominal symptoms that led to cyst discovery include: hematochezia. Patient had a few episodes of bloody stool requiring blood transfusion in May of this year. This was determined to be caused by bleeding diverticuli in his colon and has since stabilized. He was initially referred to GI for EUS but was diverted to see Dr. Rizo in clinic for the pancreatic lesion.The lesion in question measures about 1.7 cm and is stable since 2016. Patient did not know about the lesion until this past May. WORK UP 1. No normal scan. 2. First detected: CT: 01/2017 LOCATION: Head: Yes, largest size: 1.7 cm. Total number of cysts: 1 Body/Tail: No SEPTATIONS : No THICK WALLED : No CENTRAL CALCIFICATIONS: No PERIPHERAL CALCIFICATIONS : No MASS COMPONENT: No MURAL NODULE: No COMMUNICATION WITH MPD: No MPD: Head: <5 mm Body/Tail: <5 mm Outside Imaging: NO 3. Current image findings: MRI: 05/16/2023 LOCATION: Head: Yes, largest size: 1.7 cm. Total number of cysts: 1 Body/Tail: No SEPTATIONS : No THICK WALLED : No CENTRAL CALCIFICATIONS: No PERIPHERAL CALCIFICATIONS : No MASS COMPONENT: No MURAL NODULE: No COMMUNICATION WITH MPD: No MPD: Head: <5 mm Body/Tail: <5 mm Outside Imaging: NO EUS No Serum Labs CEA (ng/mL) Date Value 05/14/2023 1.3 CA19-9 (U/mL) Date Value 05/14/2023 5.8 No results found for: "CHROMOA" Glucose Date Value 05/14/2023 90 mg/dL 05/13/2023 129 mg/dL 12/24/2018 105 MG/DL 12/07/2018 99 MG/DL 09/16/2018 97 mg/dL PANCREATIC POLYPEPTIDE: Not Done GASTRIN: Not Done PAST MEDICAL HISTORY Active Ambulatory Problems Brachial plexus lesions Date Noted: 08/17/2005 Cellulitis and abscess of toe, unspecified Date Noted: 04/10/2008 Benign neoplasm Date Noted: 10/11/2012 Neoplasm of uncertain behavior Date Noted: 10/12/2012 Pain in left elbow Date Noted: 11/04/2018 Decreased range of motion of elbow, left Date Noted: 11/04/2018 Decreased range of motion of left wrist Date Noted: 11/04/2018 Left arm swelling Date Noted: 11/04/2018 Decreased activities of daily living (ADL) Date Noted: 11/04/2018 S/P total knee arthroplasty, left Date Noted: 12/30/2018 Knee stiffness, left Date Noted: 12/30/2018 Difficulty walking due to knee joint Date Noted: 01/09/2019 Acute pain of left shoulder Date Noted: 01/09/2019 Strain of left shoulder Date Noted: 02/01/2019 Shoulder stiffness, left Date Noted: 02/20/2019 Hematochezia Date Noted: 05/13/2023 Anemia Date Noted: 05/13/2023 HTN (hypertension) Date Noted: 05/13/2023 A-fib (HCC) Date Noted: 05/13/2023 Resolved Ambulatory Problems Dermatochalasis of both upper eyelids Date Noted: 09/22/2019 Past Medical History: No date: Atrial fibrillation (HCC) No date: Toxoplasmosis No date: Unspecified essential hypertension Pancreatitis: no Colon Cancer: no PAST SURGICAL HISTORY PAST SURGICAL HISTORY Procedure Laterality Date CARDIAC CATHETERIZATION HX ORTHOPEDICS SURGERY HX PAST SURGICAL HISTORY OF May 01, 2005 left bicep torn tendon repair PAST SURGICAL HISTORY OF 1994 carotid gland removed PAST SURGICAL HISTORY OF 1965 left knee surgery TONSILLECTOMY PRIMARY/SECONDARY AGE 13/> SOCIAL HISTORY Social History Tobacco Use Smoking status: Former Smokeless tobacco: Never Tobacco comments: quit 15 years ago Vaping Use Vaping Use: Never used Substance Use Topics Alcohol use: Yes Comment: once per month, rarely Drug use: No Current tobacco use? NO Current alcohol use? Social, rare FAMILY HISTORY FAMILY HISTORY Problem Relation Age of Onset Cancer Father throat Cancer Hypertension Mother Pancreatitis: no Pancreatic Cancer: no MEN: no Colon Cancer: no REVIEW OF SYSTEMS PAIN ASSESSMENT: Negative for pain, history of chronic pain, or current treatment for a chronic pain condition. GENERAL: No weight loss, malaise or fevers RESPIRATORY: Negative for cough, hemoptysis, wheezing, COPD, dyspnea or shortness of breath CARDIOVASCULAR: Negative for chest pain, leg swelling, hypertension, CHF or palpitations GI: No nausea, vomiting, or diarrhea PHYSICAL EXAM: BP 146/89 Pulse 79 Temp (Src) 97.9 (Temporal) Resp 20 Ht 6' .559" (1.84m) Wt 212 lb 9.6 oz (96.4kg) SpO2 100% BMI 28.39 kg/(m^2). General appearance: Well appearing, alert, in no acute distress, well-hydrated, well nourished. Skin: Skin color, texture, turgor normal, no suspicious rashes or lesions Neck: Supple, no adenopathy; thyroid symmetric, normal size, no bruits Lungs: Lungs clear to auscultation. No wheezing, rhonchi, rales Heart: RRR without murmur, gallop, or rubs. No ectopy Abdomen: Normal abdominal exam, Abdomen soft, non-tender. Bowel sounds normal. No masses, organomegaly Extremities: Atrophy of left bicep, edema, skin discoloration, clubbing or cyanosis. Good capillaryrefill. Peripheral pulses: Normal Neuro: Gait normal. Reflexes normal and symmetric. 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 PLAN - obtain dotatate NM PET scan to determine diagnosis of NET - if scan confirms NET, follow up in 2 years in clinic with repeat scan - will plan to reach out to patient via CREATIV to communicate results and plan Asad Junior MD PGY-3 Surgery resident 9:53 AM 07/16/2023 [facility] STAFF PHYSICIAN NOTE OF PERSONAL INVOLVEMENT IN CARE I have reviewed the consult note obtained and documented by the resident and I personally participated in the thorne components. I have discussed the case and management of the patient's care. The following comments revise or confirm relevant thorne components of the note. 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 PLAN: Dotatate PET for completion/confirmation MRI in 2 years (and that is being aggressive given natural Hx that we have defined so far) Medical Decision Making: Data: Unique test result(s) reviewed: 2 Unique test(s) ordered: 1 Risk: Low: Low risk from testing/treatment Medical Decision Making Level: 3 - Low Ricardo Rizo MD documented [facility] Note* Sonal Styles - 07/16/2023 9:45 AM EDT Some arthritis pain in joints. documented in this encounter[facility] Miscellaneous Notes* Telephone Encounter - Anne Pathak - 07/15/2023 10:37 AM EDT Imaging requested: Dotatate Date & Time 08/12 @ 0800 Treatment Questionnaire: No, not currently on treatment as of July 15, 2023 Prep instructions given? Yes Confirmed Appointment With: Patient P NM SPECIAL STUDIES [[id number]] Dotatate: Is the patient currently off treatment: short - acting 24 hours and long- acting is 28 days. No restrictions patient is allowed to eat and drink. PET Breast: Tamoxifen (Nolvadex or Soltamox) Toremifene (Fareston) - Hold 8 weeks Fluvestrant (Faslodex) - Hold for 28 weeks Prep - Well hydrated both before and after the scan No restrictions patient is allowed to eat and drink The Cerianna isotope cannot be injected into a port * Telephone Encounter - Anjelica Karimi RN - 07/14/2023 4:37 PM EDT Authorization number: Danielel Authorization date range: Dotatate Primary Insurance: Medicare B Effective Date: 12-02-11 Date of Initial PET: Pend scheduling Cancer Type: Malignant carcinoid tumor, unspecified site Date of Subsequent PET scan: N/A PET Scan Related to Transplant: N/A ABN Required: No Diagnosis: Malignant carcinoid tumor, unspecified site (HCC) [C7A.00] DX Imaging: CT/CTA: 05-13-23 Ct Abd/Pel 05-17-23 MRI Panc/Daniel Pathology:na Labs: na Clinical Notes Reviewed: 07-14-23 Cors, 06-03-23 Telephoie note Date of last: na Additional Information: N/A Radiologist Reviewed: N/A Initial/Subsequent: Initial Treatment Strategy: 0094 PET Protocol: Dotatate Diagnostic Imaging Requested: No Is this a Pretreatment and/or an initial Pet scan: No - Schedule as requested Comments for Client Technologies Analyst: RADHA: As soon as insurance will allow. No specific date but a Wednesday or Wednesday would be ideal so I could see patient in clinic on the same day ROUTE TO SCHEDULERS POOL P PET SPECIAL EDUCATION SECRETARY or P NM SPECIAL STUDIES * Telephone Encounter - Ricardo Rizo MD - 07/14/2023 4:32 PM EDT This form is used for MAIN CAMPUS APPOINTMENTS ONLY. Is this request for a Main [place] PET scan appointment? Yes: Lpn Care Manager: Ricardo Rizo MD Requesting Person (Last Name, First Name): Ricardo Rizo MD Area Code + Phone/Pager: [phone] Who do we call to schedule this appointment? Patient Requesting Staff Ricardo Rizo MD Area Code + Phone/Pager: [phone] PET Orders (A delay in scheduling will result if the orders are not present at time of review): Internal ADDITIONAL ACTION MAY BE REQUIRED IF PATIENTS OON INSURANCE OR SELF PAY COVERAGE HAS NOT BEEN CLEARED FOR REQUESTED APPOINTMENT. Scheduling: RADHA: As soon as insurance will allow. No specific date but a Wednesday or Wednesday would be ideal so I could see patient in clinic on the same day What account will this PET appointment be linked to? N/A Type of PET: Oncology: Are there additional diagnostic CT scans required to be done at time of PET scan? No Is the request for a PET MR ? No What account will diagnostic testing appointment be linked to? N/A Will the patient need anesthesia? 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 I would like to confirm this with a dotatate PET to confirm diagnosis and alsoto look for metastatic disease. Recent GI bleeding issues so would rather avoid an invasive procedure such as EUS biopsy. Ricardo Rizo MD documented in this encounterDet[facility]07-20-[facility]23 Miscellaneous Notes* Telephone Encounter - Rogelio - 05/20/2023 9:02 PM EDT Record ID: [id number] Patient name: Jewell Villatoro Date: May 20, 2023 - 04:02 Administered by: ROGELIO Protocol: Did you receive your discharge instructions? -> yes Do you have any questions about your discharge instructions? Or do you need clarification on anything? -> no Good! Let's move on. -> undefined Do you have a follow-up appointment scheduled already? -> yes Do you think you'll be able to attend your follow-up appointment? -> yes Do you have any questions about getting or taking your medications? -> no Do you have any new or worsening symptoms? -> no How likely is it that you would recommend [facility] to a friend or family member? -> likely Please tell me what you liked best about your hospital experience: -> Fast action, all necessaryequipment documented in this encounterDet[facility]11-[facility] History of Past illness Narrative* Problem Noted Date Diagnosed Date Resolved Date Dermatochalasis of both upper eyelids 09/22/2019 09/22/2019 documented as of this encounter (statuses as of 05/21/2023) [facility] of Past illness Narrative* Problem Noted Date Diagnosed Date Resolved Date Dermatochalasis of both upper eyelids 09/22/2019 09/22/2019 documented as of this encounter (statuses as of 07/15/2023) [facility] of Past illness Narrative* Problem Noted Date Diagnosed Date Resolved Date Dermatochalasis of both upper eyelids 09/22/2019 09/22/2019 documented as of this encounter (statuses as of 07/19/2023) [facility] of Past illness Narrative* Problem Noted Date Diagnosed Date Resolved Date Dermatochalasis of both upper eyelids 09/22/2019 09/22/2019 documented as of this encounter (statuses as of 08/13/2023) [facility] of Past illness Narrative* Problem Noted Date Diagnosed Date Resolved Date Dermatochalasis of both upper eyelids 09/22/2019 09/22/2019 documented as of this encounter (statuses as of 08/13/2023) [place] [address]-22-2019 History of Past illness Narrative* Problem Noted Date Diagnosed Date Resolved Date Dermatochalasis of both upper eyelids 09/22/2019 09/22/2019 documented as of this encounter (statuses as of 09/16/2023) [facility] of Past illness Narrative* Problem Noted Date Diagnosed Date Resolved Date Dermatochalasis of both upper eyelids 09/22/2019 09/22/2019 documented as of this encounter (statuses as of 10/08/2023) [facility] Diagnosis Onset Date Resolution Status Encounter for preventive care acute [facility] Work Phone: Evaluation note* Diagnosis Onset Date Resolution Status Gastrointestinal bleeding, lower acute Atherosclerotic heart diseas e of unga coronary artery without angina pectoris chronic Paroxysmal atrial fibrillation chronic Non-ischemic cardiomyopathy resolved [facility] Work Phone: evaluation note* Diagnosis Malignant carcinoid tumor, unspecified site (HCC)- Primary documented in this encounter [facility] note* Diagnosis Pancreatic mass- Primary Unspecified disease of pancreas [facility]* Diagnosis Malignant carcinoid tumor, unspecified site (HCC) [facility]* Diagnosis Post-viral cough syndrome- Primary Cough documented in this encounter [facility] note* Diagnosis Localized swelling, mass and lump, lower limb, left documented in this encounter [facility] note* Diagnosis Onset Date Resolution Status Admit Date Atherosclerotic heart diseas e of unga coronary artery without angina pectoris chronic April 09, 2025 1 0:28am Hypertension chronic April 09 10:28am Mixed hyperlipidemia chronic April 09, 2025 10:28am Paroxysmal atrial fibrillation chron ic April 09, 2025 10:28am Non-ischemic cardiomyopathy resolved April 09, 2025 10:28am [facility] Work Phone: Evaluation note* Diagnosis Abnormal findings on diagnostic imaging of liver and biliary tract documented in this encounter [facility] for referral (narrative)* Diagnostic Procedure Only (Routine) - Pending Review Specialty Diagnoses / Procedures Referred By Rachelle t Referred To Contact MOLECULAR & FUNCTIONAL IMAGING Diagnoses Malignant carcinoid tumor, unspecified site (HCC) Procedures NM PET/CT NEUROENDOCRINE WHOLE BODY IMAGING PET IMAGING CT ATTENUATION SKULL BASE MID-THIGH Ricardo Rizo MD [address] [place] [address] Molecular & Functional Imaging [address] [place] [address] Referral ID Status Reason Start Date Expiration Date Visits Requested Visits Authorized [id number] Pending Review Auto-Generat ed Referral 07/14/2023 08/12/[address] [facility] for referral (narrative)* Diagnostic Procedure Only (Routine) - Closed Specialty Diagnoses / Procedures Referred By Rachelle t Referred To Contact MOLECULAR & FUNCTIONAL IMAGING Diagnoses Malignant carcinoid tumor, unspecified site (HCC) Procedures NM PET/CT NEUROENDOCRINE WHOLE BODY IMAGING PET IMAGING CT ATTENUATION SKULL BASE MID-THIGH Ricardo Rizo MD [address] [place] [address] Molecular & Functional Imaging [address] [place] [address] Referral ID Status Reason Start Date Expiration Date V isits Requested Visits Authorized [id number] Closed Auto-Generate d Referral 07/14/2023 08/12/[address] [facility] for referral (narrative)* Outpatient Procedure (Urgent) - Outside PCP Specialty Diagnoses / Procedures Referred By Jaradac t Referred To Contact [facility] Diagnoses Localized swelling, mass and lump, lower limb, left Procedures US LEG VEIN DVT UNL VAS LAB DUP-SCAN XTR VEINS UNILATERAL/LIMITED STUDY Mehdi Harry, [place] [address] [place] [address] [facility] [place] [address] [facility] [place] [place] [address] Referral ID Status Reason Start Date Expiration Date Visits Requested Visits Authorized [id number] Outside PCP Auto-Generate d Referral Financial Clearance Not Required 10/07/2023 10/06/[address] [facility] for referral (narrative)No reason for referral information availableSt[facility] Work Phone: Reason for visit Narrative* Diagnostic Procedure Only (Routine) - Closed Specialty Diagnoses / Procedures [facility] Referred To Contact MOLECULAR & FUNCTIONAL IMAGING Diagnoses Malignant carcinoid tumor, unspecified site (HCC) Procedures NM PET/CT NEUROENDOCRINE WHOLE BODY IMAGING PET IMAGING CT ATTENUATION SKULL BASE MID-THIGH Ricardo Rizo MD [address] [place] [address] Molecular & Functional Imaging [address] [place] [address] Referral ID Status Reason Start Date Expiration Date V isits Requested Visits Authorized [id number] Closed Auto-Generate d Referral 07/14/2023 08/12/[address] [facility] for visit Narrative* Outpatient Procedure (Urgent) - Outside PCP Specialty Diagnoses / Procedures [facility] Ref[facility] To [facility] Diagnoses Localized swelling, mass and lump, lower limb, left Procedures US LEG VEIN DVT UNL VAS LAB DUP-SCAN XTR VEINS UNILATERAL/LIMITED STUDY Mehdi Harry PA-C [address] [place] [address] [facility] [place] [address] [place] [address] Referral ID Status Reason Start Date Expiration Date Visits Requested Visits Authorized [id number] Outside PCP Auto-Generate d Referral Financial Clearance Not Required 10/07/2023 10/06/[address] [facility] for visit Narrative* MRI/CT (Routine) - Closed Specialty Diagnoses / Procedures [facility] Referred To Contact MR IMAGING Diagnoses Abnormal findings on diagnostic imaging of liver and biliary tract Procedures MRI PANC/DANIEL WO/W IVCON MRI ABDOMEN W/O & W/CONTRAST MATERIAL Ricardo Rizo MD [address] [place] [address] Phone: tel: fax: [place] [id number] Referral ID Status Reason Start Date Expiration Date V isits Requested Visits Authorized [id number] Closed Auto-Generate d Referral 04/02/2025 05/02/2026 1 1 [facility] Summary Purpose Family History No Family History Records Found Relationship Condition Age at Onset Recorded Date/T alejandro Not Specified Family history of hypertension Unknown mother Hypertension Unknown brother Coronary artery disease Unknown Diabetes mellitus Unknown Family history of hyperlipidemia Unknown daughter Hypertension Unknown father Malignant neoplasm Unknown Advance Directives No Advanced Directives Records Found Advance Directive Response Recorded Date/ Time Living Will No February 10, 2021 4:23pm Power of Oil Dispenser No February 10 4:23pm Latest Code Status on File Code Status Date Activated Date Inactivated Comments Full Code 05/13/2023 5:45 PM 05/19/2023 3:48 PM Question Answer Comments Full Code Order Discussed With: Patient and Surrogate Decision Maker Latest Code Status on File Code Status Date Activated Date Inactivated Comments Full Code 05/13/2023 5:45 PM 05/19/2023 3:48 PM Question Answer Comments Full Code Order Discussed With: Patient and Surrogate Decision Maker Advance Directive Response Recorded Date/ Time Living Will No February 10, 2021 4:23pm Do you have a Healthcare Power of Oil Dispenser? No February 10, 2021 4:23pm Date Activated Date Inactivated Comments 05/13/2023 5:45 PM 05/19/2023 3:48 PM Question Answer Comments Full Code Order Discussed With: Patient and Surr ogate Decision Maker Chief Complaint and Reason for Visit Chief Complaint Wellness exam PE Reason for Visit Encounter for preven tive care Chief Complaint RIGHT UPPER LID LESI ON EXCISION F/up from hospital Reason for Visit Gastrointestinal ble eding, lower Atherosclerotic heart disease of unga coronary artery without angina pectoris Paroxysmal atrial fibrillation Non-ischemic cardiomyopathy Chief Complaint Admit Date CHF April 06, 2025 12:18 pm LATE FU FOR MARCH DUE TO ECHO APT April 10:28am Reason for Visit Admit Date Atherosclerotic heart diseas e of unga coronary artery without angina pectoris April 09, 2025 10:28am Hypertension April 09, 2025 10:28 am Mixed hyperlipidemia April 09, 2025 10:2 8am Paroxysmal atrial fibrillation April 09, 2025 10:28am Non-ischemic cardiomyopathy April 09 10:28am Additional Source Comments (unrecognized sect ion and content) No Status Records FoundNo Status Records FoundNo Status Records FoundNo Status Records FoundNo Status Records FoundNo Status Records FoundNo Status Records FoundNo Status Records FoundNo Status Records Found INFORMATION SOURCE (unrecogn ized section and content) DATE CREATED AUTHOR 04/27/2018 [facility] DATE CREATED AUTHOR AUTHOR'S ORGANIZ ATION 12/19/2018 [facility] DATE CREATED AUTHOR AUTHOR'S ORGANIZ ATION 01/16/2019 [facility] [place] DATE CREATED AUTHOR AUTHOR'S ORGANIZ ATION 07/20/2019 [facility] DATE CREATED AUTHOR AUTHOR'S ORGANIZ ATION 09/22/2023 [facility] DATE CREATED AUTHOR AUTHOR'S ORGANIZ ATION 10/09/2023 [facility] DATE CREATED AUTHOR AUTHOR'S ORGANIZ ATION 09/30/2024 [facility] DATE CREATED AUTHOR AUTHOR'S ORGANIZ ATION 04/16/2025 [facility] DATE CREATED AUTHOR AUTHOR'S ORGANIZ ATION 04/23/2025 [facility] Goals (unrecognized section and content) Goals may be documented in a n alternate sectionGoals may be documented in an alternate sectionGoals may be documented in an alternate sectionGoals may be documented in an alternate section Source Comments (unrecognize d section and content) In the event this informatio n is protected by the Federal Confidentiality of Alcohol and Drug Abuse Patient Records regulations: The Federal rules restrict any use of the information to criminally investigate or prosecute any alcohol or drug abuse patient.[facility] Hospital[facility] the event this information is protected by the Federal Confidentiality of Alcohol and Drug Abuse Patient Records regulations: The Federal rules restrict any use of the information to criminally investigate or prosecute any alcohol or drug abuse patient.[facility] HospitalIn the event this information is protected by the Federal Confidentiality of Alcohol and Drug Abuse Patient Records regulations: The Federal rules restrict any use of the information to criminally investigate or prosecute any alcohol or drug abuse patient.[facility] HospitalIn the event this information is protected by the Federal Confidentiality of Alcohol and Drug Abuse Patient Records regulations: The Federal rules restrict any use of the information to criminally investigate or prosecute any alcohol or drug abuse patient.[facility] HospitalIn the event this information is protected by the Federal Confidentiality of Alcohol and Drug Abuse Patient Records regulations: The Federal rules restrict any use of the information to criminally investigate or prosecute any alcohol or drug abuse patient.[facility] HospitalIn the event this information is protected by the Federal Confidentiality of Alcohol and Drug Abuse Patient Records regulations: The Federal rules restrict any use of the information to criminally investigate or prosecute any alcohol or drug abuse patient.[facility] HospitalIn the event this information is protected by the Federal Confidentiality of Alcohol and Drug Abuse Patient Records regulations: The Federal rules restrict any use of the information to criminally investigate or prosecute any alcohol or drug abuse patient.[facility] Hospital[facility] the event this information is protected by the Federal Confidentiality of Alcohol and Drug Abuse Patient Records regulations: The Federal rules restrict any use of the information to criminally investigate or prosecute any alcohol or drug abuse patient.[facility] Care Teams (unrecognized sec tion and content) Team Status: Active Member Role Status Dates Cara Beasley NP STOCK RAISER-C Primary Care Provider Active Team Status: Inactive Member Role Status Dates Cara Beasley NP, NP-C Primary Care Provider Active Start: April 06, 2025 End: April 06, 2025 Asad Oneill NP, NP-C Attending Provider Active S tart: April 06, 2025 End: April 06, 2025 Asad Oneill NP STOCK RAISER-C Referring Provider Active S tart: April 06, 2025 End: April 06, 2025 Team Status: Active Member Role Status Dates Cara Beasley STOCK RAISER, STOCK RAISER-C Primary Care Provider Active Start: April 06, 2025 Dr. Earnestine Dumont MD Attending Provider Activ e Start: April 06, 2025 Team Status: Inactive Member Role Status Dates Cara Beasley STOCK RAISER, STOCK RAISER-C Primary Care Provider Active Start: April 09, 2025 End: April 09, 2025 Cara Beasley STOCK RAISER, STOCK RAISER-C Referring Provider Active Start: April 09, 2025 End: April 09, 2025 Asad Oneill STOCK RAISER, STOCK RAISER-C Attending Provider Active S tart: April 09, 2025 End: April 09, 2025 Aquarist Relationship Specialty Start Date End Date Cara Beasley, FREIGHT SOLICITOR.JOURNEY[employer]UMBER [address] [place] [address] PCP - General Family Medicine 04/19/18 Team Status: Active Member Role Status Dates Cara Beasley STOCK RAISER, STOCK RAISER-C Family Provider Active Cara Beasley STOCK RAISER, STOCK RAISER-C Primary Care Provider Active Team Status: Inactive Member Role Status Dates Cara Beasley STOCK RAISER, STOCK RAISER-C Primary Care Pr ovider, Attending Provider, Referring Provider Active Team Status: Inactive Member Role Status Dates Cara Beasley STOCK RAISER, STOCK RAISER-C Primary Care Provider Active Dr. Kai Zaman MD Attending Provider, Referring P nitza Active Team Status: Inactive Member Role Status Dates Cara Beasley STOCK RAISER, STOCK RAISER-C Primary Care Provider, Attend ing Provider Active Aquarist Relationship Specialty Start Date End Date Cara Beasley, FREIGHT SOLICITOR.JOURNEYMAN PLUMBER [address] [place], [place] [phone] PCP - General Family Medicine 04/19/18 Cara Beasley, FREIGHT SOLICITOR.JOURNEYMAN PLUMBER [address] [place], [place] [phone] Referring Family Medicine 06/07/23 Aquarist Relationship Specialty Start Date End Date Cara Beasley, FREIGHT SOLICITOR.JOURNEYMAN PLUMBER [address] [place] [address] PCP - General Family Medicine 04/19/18 Cara Beasley, FREIGHT SOLICITOR.JOURNEYMAN PLUMBER [address] [place], [place] [phone] Referring Family Medicine 06/07/23 Aquarist Relationship Specialty Start Date End Date Cara Beasley, FREIGHT SOLICITOR.JOURNEYMAN PLUMBER [address] [place], [place] [phone] PCP - General Family Medicine 04/19/18 Cara Beasley, FREIGHT SOLICITOR.JOURNEYMAN PLUMBER [address] [place] [address] Referring Family Medicine 06/07/23 Aquarist Relationship Specialty Start Date End Date Cara Beasley, FREIGHT SOLICITOR.JOURNEYMAN PLUMBER [address] [place], [place] [phone] PCP - General Family Medicine 04/19/18 Cara Beasley, FREIGHT SOLICITOR.JOURNEYMAN PLUMBER [address] [place], [place] [phone] Referring Family Medicine 06/07/23 Aquarist Relationship Specialty Start Date End Date Cara Beasley, FREIGHT SOLICITOR.JOURNEYMAN PLUMBER [address] [place], [place] [phone] PCP - General Family Medicine 04/19/18 Cara Beasley, FREIGHT SOLICITOR.JOURNEYMAN PLUMBER [address] [place], [place] [phone] Referring Family Medicine 06/07/23 Aquarist Relationship Specialty Start Date End Date Cara Beasley, FREIGHT SOLICITOR.JOURNEYMAN PLUMBER [address] [place] [address] PCP - General Family Medicine 04/19/18 Cara Beasley, FREIGHT SOLICITOR.JOURNEYMAN PLUMBER [address] [facility] [place] [phone] Referring Family Medicine 06/07/23 Team Status: Active Member Role Status Dates Cara Beasley STOCK RAISER, STOCK RAISER-C Primary Care Provider Active Start: April 06, 2025 Asad Oneill STOCK RAISER, STOCK RAISER-C Attending Provider Active S tart: April 06, 2025 Asad Oneill STOCK RAISER, STOCK RAISER-C Referring Provider Active S tart: April 06, 2025 Aquarist Relationship Specialty Start Date End Date Cara Beasley, FREIGHT SOLICITOR.JOURNEYMAN PLUMBER [address] [place], [place] [phone] PCP - General Family Medicine 04/19/18 Cara Beasley, FREIGHT SOLICITOR.JOURNEYMAN PLUMBER [address] [place], [place] [phone] Referring Family Medicine 06/07/23 Reason for Visit (unrecogniz ed section and content) Reason Comments Nm Pet Request Reason Comments Consult Reason Comments Radiology NM Reason Comments Cough FOR RECORDS PERTAINING TO PATIENTS WHO ARE OR HAVE BEEN ENROLLED IN A CHEMICAL DEPENDENCY/SUBSTANCEABUSE PROGRAM, SOME INFORMATION MAY BE OMITTED. This clinical summary was aggregated from multiple sources. Caution should be exercised in using it in the provision of clinical care. This summary normalizes information from multiple sources, and as a consequence, information in this document may materially change the coding, format and clinical context of patient data. In addition, data may be omitted in some cases. CLINICAL DECISIONS SHOULD BE BASED ON THE PRIMARY CLINICAL RECORDS. [facility] provides no warranty or guarantee of the accuracy or completeness of information in this document.
[2025-08-06 21:56] LABS: Hematocrit 44.3 % (40-54); Hemoglobin 15.0 g/dL (13.0-16.5); Immature Granulocytes Count 0.020 X10^3/uL (0.0-0.0); Mean Corp Hgb Conc 33.9 g/dL (32-36); Mean Corpuscular Volume 92.1 fL (80-94); Mean Platelet Vol. 10.3 fl (6.2-12.0); NRBC Flagged by Analyzer 0 % (0-5); Platelet Count 245 K/mm3 (150-450); RBC Distribution Width CV 13.4 % (11.6-14.6); RBC Distribution Width SD 45.9 fl (35.1-43.9); Red Blood Count 4.81 M/mm3 (4.6-6.2); White Blood Count 6.7 K/mm3 (4.4-11.0)
[2025-08-06 22:06] LABS: PSA,Total - Annual Screen 2.64 ng/mL (0.02-4.00)
[2025-08-06 22:24] LABS: AST(SGOT) 22 U/L (<=37); Alanine Aminotransfer ALT/SGPT 15 U/L (<=46); Albumin, Serum 4.2 g/dL (3.4-4.8); Alkaline Phosphatase 76 U/L (40-129); Anion Gap 11 (5-15); BUN 20 mg/dL (4-19); BUN/Creat Ratio 14.5 RATIO (10-20); Calcium,Total 9.0 mg/dL (7.6-11.0); Carbon Dioxide 23.8 mmol/L (21.0-32.0); Chloride 106 mmol/L (98-108); Glucose 93 mg/dL (70-99); Potassium 4.2 mmol/L (3.3-5.1)
[2025-08-06 22:58] LABS: Cholesterol 146 mg/dL (<=200); Globulin 2.3 g/dL (2.2-4.2); Low Density Lipoprotein Calc. 70 mg/dL; Triglycerides 114 mg/dL; Very Low Density Lipoprotein 23 mg/dL (5-40); cholesterol:hdl ratio screen 2.75
== END | disposition home or self-care (01) ==
PROVIDERS: PCP Nurse Practitioner; Referring Provider Nurse Practitioner; Visit Provider Nurse Practitioner
DX: I48.0 Paroxysmal atrial fibrillation (principal); R97.20 Elevated prostate specific antigen [PSA]; I10 Essential (primary) hypertension; E78.2 Mixed hyperlipidemia; D64.9 Anemia, unspecified
CPT/HCPCS: 80053; 80061; 84153; 85025; G0103